=== PATIENT | female | born 1955 | race African-American/Black ===

== ENCOUNTER 2016-11-11 13:49 | Inpatient (IN) | payer MEDICAID ==
[~2016-11-11] VITALS: Ht 172.7 cm; Wt 79.6 kg
--- NOTE | 2016-11-11 14:22 | PD ---
HPI Chief Complaint: Medical Clearance Time Seen by Provider: 14:22 Travel History International Travel<30 days: No Contact w/Intl Traveler<30days: No Traveled to known affect area: No History of Present Illness HPI 61-year-old Afro-[place] female brought in under the Zhu act by EMS from local assisted living facility with history of schizoaffective disorder. Relead act for reports patient has been decompensating over the past week and becoming increasingly depressed, desponded, and isolated. She has reported suicidal ideation and intent stating "I don't want to live anymore". Staff report that she refuses support and directives and well not take her medications. She was deemed a danger to herself. Patient denies any current medications. Patient denies any medical issues. Patient reports that she feels people are putting things in their food for years causing her body to "rot away". She has no known drug allergies. [facility] Social History Alcohol Use: No Tobacco Use: Yes Substance Use: No Allergies-Medications (Allergen,Severity, Reaction): Coded Allergies: No Known Allergies (Unverified , 11/11/16) Reported Meds & Prescriptions Reported Meds & Active Scripts Active Reported Miralax Powder (Polyethylene Glycol 3350 Powder) 17 Gm Powd 17 Gm PO DAILY PRN Mix and dissolve one measuring cap-ful (17 grams) in water or juice. Gabapentin 100 Mg Cap 100 Mg PO TID Benztropine (Benztropine Mesylate) 0.5 Mg Tab 0.5 Mg PO BID Fluphenazine (Fluphenazine HCl) 5 Mg Tab 5 Mg PO BID Review of Systems ROS Limitations: Poor Historian Except as stated in HPI: all other systems reviewed are Neg General / Constitutional: No: Fever Eyes: No: Visual changes HENT: No: Headaches Cardiovascular: No: Chest Pain or Discomfort Respiratory: No: Shortness of Breath Gastrointestinal: No: Abdominal Pain Genitourinary: No: Dysuria Musculoskeletal: No: Pain Skin: No Rash Neurologic: No: Weakness Psychiatric: No: Depression Endocrine: No: Polydipsia Hematologic/Lymphatic: No: Easy Bruising Physical Exam Narrative GENERAL: Patient appears in no acute distress. Patient is unkempt, and appears to not be showered. SKIN: Warm and dry. Normal color. Somewhat poor turgor. HEAD: Atraumatic. Normocephalic. EYES: Pupils equal and round. No scleral icterus. No injection or drainage. ENT: No nasal bleeding or discharge. Mucous membranes pink and moist. Pharynx is clear. Airway is patent. NECK: Trachea midline. No JVD. Supple nontender. CARDIOVASCULAR: Regular rate and rhythm. RESPIRATORY: No accessory muscle use. Clear to auscultation. Breath sounds equal bilaterally. MUSCULOSKELETAL: Extremities without clubbing, cyanosis, or edema. No obvious deformities. NEUROLOGICAL: Awake and alert. No obvious cranial nerve deficits. Motor grossly within normal limits. Five out of 5 muscle strength in the arms and legs. Normal speech. PSYCHIATRIC: Appropriate mood and affect; insight and judgment normal. Data Data Last Documented VS Vital Signs Date Time Temp Pulse Resp B/P Pulse Ox O2 Delivery O2 Flow Rate FiO2 11/11/16 14:43 98.2 78 14 104/60 96 Orders Complete Blood Count With Diff (11/11/16 14:21) Comprehensive Metabolic Panel (11/11/16 14:21) Urinalysis - C+S If Indicated (11/11/16 14:21) Psych Screen (11/11/16 14:21) Drug Screen, Random Urine (11/11/16 14:21) Alcohol (Ethanol) (11/11/16 14:21) Labs Laboratory Tests Test 11/11/16 11/11/16 15:00 20:00 White Blood Count 5.3 TH/MM3 Red Blood Count 4.44 MIL/MM3 Hemoglobin 12.2 GM/DL Hematocrit 36.7 % Mean Corpuscular Volume 82.7 FL Mean Corpuscular Hemoglobin 27.4 PG Mean Corpuscular Hemoglobin 33.2 % Concent Red Cell Distribution Width 15.2 % Platelet Count 178 TH/MM3 Mean Platelet Volume 9.6 FL Neutrophils (%) (Auto) 72.5 % Lymphocytes (%) (Auto) 17.6 % Monocytes (%) (Auto) 5.5 % Eosinophils (%) (Auto) 4.0 % Basophils (%) (Auto) 0.4 % Neutrophils # (Auto) 3.9 TH/MM3 Lymphocytes # (Auto) 0.9 TH/MM3 Monocytes # (Auto) 0.3 TH/MM3 Eosinophils # (Auto) 0.2 TH/MM3 Basophils # (Auto) 0.0 TH/MM3 CBC Comment AUTO DIFF Differential Comment AUTO DIFF CONFIRMED Ovalocytes Sodium Level 142 MEQ/L Potassium Level 3.9 MEQ/L Chloride Level 108 MEQ/L Carbon Dioxide Level 27.7 MEQ/L Anion Gap 6 MEQ/L Blood Urea Nitrogen 9 MG/DL Creatinine 1.01 MG/DL Estimat Glomerular Filtration 67 ML/MIN Rate Random Glucose 135 MG/DL Calcium Level 8.2 MG/DL Total Bilirubin 0.6 MG/DL Aspartate Amino Transf 16 U/L (AST/SGOT) Alanine Aminotransferase 14 U/L (ALT/SGPT) Alkaline Phosphatase 95 U/L Total Protein 6.8 GM/DL Albumin 3.4 GM/DL Ethyl Alcohol Level LESS THAN 3 MG/DL Urine Color YELLOW Urine Turbidity CLEAR Urine pH 6.0 Urine Specific [place] 1.011 Urine Protein NEG mg/dL Urine Glucose (UA) NEG mg/dL Urine Ketones NEG mg/dL Urine Occult Blood NEG Urine Nitrite NEG Urine Bilirubin NEG Urine Urobilinogen LESS THAN 2.0 MG/DL Urine Leukocyte Esterase NEG Urine RBC LESS THAN 1 /hpf Urine WBC 2 /hpf Urine Squamous Epithelial 3 /hpf Cells Urine Bacteria RARE /hpf Urine Hyaline Casts 4 /lpf Urine Mucus FEW /lpf Microscopic Urinalysis Comment CULT NOT INDICATED Urine Opiates Screen NEG Urine Barbiturates Screen NEG Urine Amphetamines Screen NEG Urine Benzodiazepines Screen NEG Urine Cocaine Screen NEG Urine Cannabinoids Screen NEG MDM Medical Decision Making Medical Screen Exam Complete: Yes Emergency Medical Condition: Yes Differential Diagnosis Schizoaffective disorder. Depression. Zhu act. Narrative Course Patient is medically stable at time of exam. Labs ordered including CBC, CMP, urine drug screen, serum EtOH, and urinalysis. CBC, CMP, urine drug screen, serum alcohol and urinalysis were all within normal limits. Patient is medically cleared for psychiatric evaluation. Diagnosis Primary Impression: Suicidal ideations Additional Impressions: Schizoaffective disorder Qualified Code: F25.9 - Schizoaffective disorder, unspecified type Medical clearance for psychiatric admission Condition: Stable Dewey Juarez Nov 11, 2016 14:22
[2016-11-11 14:43] VITALS: BP 104/60; PULSE 78; RESP 14; TEMP 98.2; O2SAT 96
[2016-11-11 15:39] LABS: AUTOMATED NEUTROPHIL # 3.9 TH/MM3 (1.8-7.7); BASOPHIL % 0.4 % (0.0-2.0); EOSINOPHIL # 0.2 TH/MM3 (0-0.4); HEMATOCRIT 36.7 % (35.0-46.0); LYMPH % 17.6 % (9.0-44.0); LYMPHOCYTE # 0.9 TH/MM3 (1.0-4.8); MEAN CELL VOLUME 82.7 FL (80.0-100.0); MEAN CORPUSCULAR HEMOGLOBIN 27.4 PG (27.0-34.0); MEAN CORPUSCULAR HGB CONC 33.2 % (32.0-36.0); MONO % 5.5 % (0.0-8.0); NEUT % 72.5 % (16.0-70.0); PLATELET COUNT 178 TH/MM3 (150-450); RED BLOOD COUNT 4.44 MIL/MM3 (4.00-5.30); RED CELL DISTRIBUTION WIDTH 15.2 % (11.6-17.2); WHITE BLOOD COUNT 5.3 TH/MM3 (4.0-11.0)
[2016-11-11 15:50] LABS: HEMO FLAGS AUTO DIFF
[2016-11-11 16:04] LABS: ALKALINE PHOSPHATASE 95 U/L (45-117); ALT (GPT) 14 U/L (10-53); ANION GAP 6 MEQ/L (5-15); AST (GOT) 16 U/L (15-37); BICARBONATE 27.7 MEQ/L (21.0-32.0); BLOOD UREA NITROGEN 9 MG/DL (7-18); CHLORIDE 108 MEQ/L (98-107); GLOMERULAR FILTRATION RATE 67 ML/MIN (>89); SODIUM (NA) 142 MEQ/L (136-145); TOTAL BILIRUBIN ADULT 0.6 MG/DL (0.2-1.0)
[2016-11-11 16:05] LABS: ALCOHOL LESS THAN 3 MG/DL (0-5); POTASSIUM 3.9 MEQ/L (3.5-5.1)
[2016-11-11] MEDS ORDERED: FLUP5TAB PO (16:32)
[2016-11-11] MEDS ORDERED: BENZ0.5T PO (16:32)
[2016-11-11] MEDS ORDERED: GABA100C4 PO (16:32)
[2016-11-11] MEDS ORDERED: MIRA33504 PO (16:32)
[2016-11-11 16:33] LABS: SCAN/DIFF AUTO DIFF CONFIRMED
[2016-11-11 20:30] LABS: BACTERIA, URINE RARE /hpf; BLOOD, URINE NEG (NEG); COMMENT (UR) CULT NOT INDICATED; CULTURE IF INDICATED CULT NOT INDICATED; GLUCOSE,URINE NEG (NEG); HYALINE CAST, URINE 4 /lpf (RARE); KETONE, URINE NEG (NEG); MUCUS URINE FEW /lpf (OCC); NITRITE,URINE NEG (NEG); SQUAMOUS EPITHELIAL CELL URINE 3 /hpf (0-5); URINE COLOR YELLOW (YELLW/STRAW)
[2016-11-12 01:17] VITALS: BP 134/60; PULSE 53; RESP 16; O2SAT 99
[2016-11-12] MEDS ORDERED: ACETAMINOPHEN 325 MG TAB PO PRN (01:30)
[2016-11-12] MEDS ORDERED: ALUMINUM/MAGNESIUM/SIMETH 30 ML CUP PO PRN (01:30)
[2016-11-12] MEDS ORDERED: LORazepam 2 MG/ML VIAL - age > 65 yrs IM PRN (01:30)
[2016-11-12] MEDS: GABAPENTIN 100 MG CAP PO SCH ×3 (09:27→16:59)
[2016-11-12] MEDS: BENZTROPINE MESYLATE 1 MG TAB PO SCH ×2 (09:27→21:05)
--- NOTE | 2016-11-12 13:48 | HHI.HP ---
Provisional Diagnosis Admission Date Nov 12, 2016 at 01:16 [place] I. Schizophrenia, chronic paranoid type Certification of Person's Competence To Provide Express and Informed Consent I have personally examined Karen Piedra , a person being served at [facility] on, Nov 12, 2016 13:41. Express and informed consent means consent voluntarily given in writing, by a competent person, after sufficient explanation and disclosure of the subject matter involved to enable the person to make a knowing and willful decision without any element of force, fraud, deceit, duress, or other form of constraint or coercion. This person is 18 years of age or older, is not now known to be incompetent to consent to treatment with a guardian advocate, and does not have a health care surrogate or proxy currently making medical treatment decisions. I have found this person to be one of the following: [X] Competent to provide express and informed consent, as defined above, for voluntary admission to this facility and is competent to provide express and informed consent for treatment. He/she has the consistent capacity to make well reasoned, willful, and knowing decisions concerning his or her medical or mental health treatment. The person fully and consistently understands the purpose of the admission for examination/placement and is fully capable of personally exercising all rights assured [place] [] Incompetent to provide express and informed consent to voluntary admission, and this is incompetent to provide express and informed consent to treatment. The person must be transferred to involuntary status and a petition for a guardian advocate filed with the Circuit Court. [] Refusing to provide express and informed consent to voluntary admission but is competent to provide express and informed consent for treatment. The person must be discharged or transferred to involuntary status. Form shall be completed within 24 hours of a person's arrival at the receiving facility and filed in the clinical record of each person: 1. Admitted on a voluntary basis 2. Permitted to provide express and informed consent to his/her own treatment 3. Allowed to transfer from involuntary to voluntary status 4. Prior to permitting a person to consent to his or her own treatment after having been previously found incompetent to consent to treatment. History of Present Illness Capacity: Has Capacity HPI This is a 61-year-old female with a multiyear history of either schizoaffective active disorder or schizophrenia. She has been living at a adult living facility and recently decompensating over the last several weeks. Over the last several weeks, staff reports she has been noncompliant with her medicines, refusing food, refusing supportive care, refusing to follow any directions, and making statements that she wants to . Patient continues to tell this physician of her suicidal ideation. However she also has paranoid delusions that others are poisoning her food. She does admit to not taking her antipsychotic medicine but does not have an adequate reason for this. She is a poor historian and does not want to give a full history to this physician. However, her paranoia is felt to adversely influence her judgment and insight and be the likely cause of her noncompliance with staff, food and medication. Review of Systems ROS Limitations: Clinical Condition Past Psych History Psychological trauma history Denied Violence risk - others (6 mos) Minimal Violence risk - self (6 mos) Moderate Substance Abuse History Drugs/Alcohol past 12 months Denied Past Family Social History Coded Allergies: No Known Allergies (Unverified , 11/11/16) Reported Medications Polyethylene Glycol 3350 Powder (Miralax Powder)17 Gm Powd17 Gm PO DAILY PRN ( CONSTIPATION) #1 BOTTLE Ref 0 Mix and dissolve one measuring cap-ful (17 grams) in water or juice. 11/11/16 Gabapentin 100 Mg [id number] Mg PO TID #90 CAP Ref 0 11/11/16 Benztropine 0.5 Mg Tab0.5 Mg PO BID #60 TAB Ref 0 11/11/16 Fluphenazine 5 Mg Tab5 Mg PO BID 11/11/16 Current Medications Medications (Trade) Dose Ordered Sig/Meghan Route Start Time Stop Time Status Last Admin (Ativan) 0.5 mg Q12H PRN PO 11/12/16 01:30 (Ativan Inj) 0.5 mg Q12H PRN IM 11/12/16 01:30 (Tylenol) 650 mg Q4H PRN PO 11/12/16 01:30 (Milk Of Magnesia Liq) 30 ml DAILY PRN PO 11/12/16 01:30 (Mag-Al Plus Susp Liq) 30 ml Q6H PRN PO 11/12/16 01:30 (Neurontin) 100 mg TID PO 11/12/16 09:00 11/12/16 09:27 (Miralax) 17 gm DAILY PRN PO 11/12/16 01:30 (Prolixin) 5 mg BID PO 11/12/16 09:00 11/12/16 09:27 (Cogentin) 0.5 mg BID PO 11/12/16 09:00 11/12/16 09:27 Family History Reportedly positive for psychotic illness. Social History On social security disability. Not employed. Does not use alcohol or drugs. Patient's Strengths (min. 2) Verbal and resilient. Physical Exam GENERAL: SKIN: Warm and dry. HEAD: Normocephalic. EYES: No scleral icterus. No injection or drainage. NECK: Supple, trachea midline. No JVD or lymphadenopathy. CARDIOVASCULAR: Regular rate and rhythm without murmurs, gallops, or rubs. RESPIRATORY: Breath sounds equal bilaterally. No accessory muscle use. GASTROINTESTINAL: Abdomen soft, non-tender, nondistended. MUSCULOSKELETAL: No cyanosis, or edema. BACK: Nontender without obvious deformity. No CVA tenderness. Vital Signs Vital Signs Date Time Temp Pulse Resp B/P Pulse Ox O2 Delivery O2 Flow Rate FiO2 11/12/16 01:17 53 16 134/60 99 Room Air 11/11/16 14:43 98.2 Mental Status Examination Speech: Unremarkable Orientation: x3 Memory: Unremarkable Thought Process: Organized, Thought Blocking Thought Content: Paranoid Hallucination Type: None Attention and Concentration: Good Suicidal Ideation: Yes Previous Suicide Attempts: No Homicidal Ideation: No Previous Homicide Attempts: No Insight: Fair, Poor Judgment: Unrealistic Affect: Good Mood: Appropriate Motor Activity: Normal gait Assessment & Plan Problem List: (1) Schizophrenia, paranoid, chronic ICD Code: F20.0 Assessment & Plan Estimated LOS: 7 days patient to be given a full metabolic workup to ascertain her level of nutrition and any electrolyte disturbances as a result from poor fluid and food intake. She will also be given an EKG to examine her cardiac conduction system for the same reasons and to ascertain her tolerance for antipsychotic medication changes. This physician has asked the social work coordinator to obtain history from family. Case was also discussed with the emergency room nurse. This physician plans to change the patient's Prolixin to a newer antipsychotic medicine. However this change will be made after the patient's metabolic workup and EKG have been accomplished. Dave Urena MD Nov 12, 2016 13:48
[2016-11-12 16:30] VITALS: BP 107/59; PULSE 65; RESP 20; TEMP 97; O2SAT 100
[2016-11-12 18:00] VITALS: BP 178/88; PULSE 97; RESP 18; TEMP 98.6; O2SAT 94
[2016-11-13 08:49] LABS: ANION GAP 7 MEQ/L (5-15); BICARBONATE 29.8 MEQ/L (21.0-32.0); BLOOD UREA NITROGEN 9 MG/DL (7-18); CHLORIDE 106 MEQ/L (98-107); GLOMERULAR FILTRATION RATE 75 ML/MIN (>89); LDL CHOLESTEROL 28 MG/DL (0-99); POTASSIUM 4.1 MEQ/L (3.5-5.1); SODIUM (NA) 143 MEQ/L (136-145)
[2016-11-13] MEDS: GABAPENTIN 100 MG CAP PO SCH ×3 (09:13→17:06)
[2016-11-13] MEDS: BENZTROPINE MESYLATE 1 MG TAB PO SCH ×2 (09:13→20:26)
--- NOTE | 2016-11-13 11:47 | HHI.PYPN ---
Subjective Remarks Patient was seen and case discussed with nursing. Patient is irritable and oppositional during the interview. Looks around the room during the interview however is denying psychotic symptoms. When asked about her thoughts that people are poisoning her food she admits defensive. Blood pressure elevated at 1 reading which could be machine error but she refuses a repeat. Objective Alert: Yes [place]: Person Mood: Agitated Affect: Flat Memory Intact: Comment (not tested) Hallucinations: Other (denied) Delusions: Yes Delusion Type: Paranoid (that her food is poisoned) Suicidal: Ideation (denies) Homicidal: Ideation (denies) Insight/Judgment Poor Labs Test 11/13/16 07:50 Sodium Level 143 MEQ/L Potassium Level 4.1 MEQ/L Chloride Level 106 MEQ/L Carbon Dioxide Level 29.8 MEQ/L Anion Gap 7 MEQ/L Blood Urea Nitrogen 9 MG/DL Creatinine 0.92 MG/DL Estimat Glomerular Filtration 75 ML/MIN Rate Random Glucose 80 MG/DL Calcium Level 8.6 MG/DL Triglycerides Level 46 MG/DL Cholesterol Level 121 MG/DL LDL Cholesterol 28 MG/DL HDL Cholesterol 84.0 MG/DL Cholesterol/HDL Ratio 1.44 RATIO Vitals/IOs Vital Signs Date Time Temp Pulse Resp B/P Pulse Ox O2 Delivery O2 Flow Rate FiO2 11/12/16 18:00 98.6 97 18 178/88 94 11/12/16 01:17 Room Air Intake and Output 11/12/16 11/12/16 11/13/16 08:00 16:00 00:00 Intake Total 120 ml 240 ml 240 ml Balance 120 ml 240 ml 240 ml Assessment & Plan Problem List: (1) Schizophrenia, paranoid, chronic ICD Code: F20.0 Assessment & Plan Vitals every 8 hours. We will add a low dose lisinopril 5 mg Justification for Cont. Inpt. Patient will decompensate in the less restrictive setting Christian Sood DO Nov 13, 2016 11:47
[2016-11-13] MEDS: LISINOPRIL 5 MG TAB PO SCH (13:00)
[2016-11-14 05:57] VITALS: BP 97/51; PULSE 60; RESP 18; TEMP 97.8; O2SAT 100
[2016-11-14] MEDS: GABAPENTIN 100 MG CAP PO SCH ×3 (09:00→17:03)
[2016-11-14] MEDS: BENZTROPINE MESYLATE 1 MG TAB PO SCH ×2 (09:00→21:28)
[2016-11-14] MEDS: LISINOPRIL 5 MG TAB PO SCH (09:00)
[2016-11-14 13:31] LABS: HEMOGLOBIN A1a 1.1 %; HEMOGLOBIN A1b 0.6 %; HEMOGLOBIN Ao 58.4 %; HEMOGLOBIN F 1.5 %; HEMOGLOBIN P3 2.3 %
--- NOTE | 2016-11-14 14:12 | HHI.PYPN ---
Subjective Remarks Patient seen and examined with nurse. Chart reviewed. Case discussed with nursing staff. On my examination today, the patient tends to minimize the circumstances of her presentation here. She alleges that the facility told her that she didn't have enough rent or asked her to pay rent twice and when she refused to a hat her Zhu acted. She denies any SI, HI or AVH. She describes the circumstances of her presentation here as "a whole bunch of crap." She denies low mood but appears quite dysphoric. She says "my whole body has rot." Denies side effects from current psychotropics but does not believe that she needs any psychiatric medications. It does appear that she is eating here. Review of Systems ROS Limitations: Psychotic, Poor Historian Except as stated in HPI: all other systems reviewed are Neg Objective Alert: Yes [place]: Person Mood: Oppositional, Other (dysphoric) Affect: Restricted Memory Intact: Comment (not formally assessed) Hallucinations: Other (denies AVH) Delusions: Yes Delusion Type: Paranoid (believes that she is rotting) Suicidal: Ideation (denies SI) Homicidal: Ideation (denies HI) Insight/Judgment Poor Remarks No abnormal motor movements noted. Thought process slowed. Grooming and hygiene seem poor. Labs Labs reviewed. Vitals/IOs Vital Signs Date Time Temp Pulse Resp B/P Pulse Ox O2 Delivery O2 Flow Rate FiO2 11/14/16 05:57 97.8 60 18 97/51 100 11/12/16 01:17 Room Air Intake and Output 11/13/16 11/13/16 11/14/16 08:00 16:00 00:00 Intake Total 240 ml 480 ml 240 ml Balance 240 ml 480 ml 240 ml Assessment & Plan Problem List: (1) Schizoaffective disorder ICD Code: F25.9 Assessment & Plan There definitely appears to be an affective component here, currently depressive in nature. Beliefs that she is rotting away could be consistent with a psychotic depression. I will add Remeron 15 mg at bedtime for mood. Continue Prolixin and Cogentin as ordered. Continue to monitor on the inpatient psychiatric unit. I will initiate a petition for involuntary psychiatric hospitalization. I will consult for a second opinion. Justification for Cont. Inpt. Impairment in reality construction. Medication changes and process. High risk for decompensation in a less restrictive environment Discharge Planning Pending psychiatric stabilization. Request HC Surrog/Guard Advoc?: No (not at this time.) Problem Qualifiers (1) Schizoaffective disorder: Qualified Code: F25.8 - Other schizoaffective disorders Geovanny Ruiz MD Nov 14, 2016 14:12
[2016-11-14 20:00] VITALS: BP 92/50; PULSE 60; RESP 18; TEMP 97.5; O2SAT 100
[2016-11-14] MEDS: MIRTAZAPINE ODT 15 MG TAB PO SCH (21:00)
[2016-11-15] MEDS: BENZTROPINE MESYLATE 1 MG TAB PO SCH ×2 (09:00→21:28)
[2016-11-15] MEDS: GABAPENTIN 100 MG CAP PO SCH ×3 (09:00→17:41)
--- NOTE | 2016-11-15 11:33 | PD.CONS ---
Provisional Diagnosis Admission Date Nov 12, 2016 at 01:16 [place] I. Schizophrenia, chronic paranoid type History of Present Illness Service Psychiatry Consult Requested By Primary Care Physician No Primary Care Physician HPI This is a 61-year-old female with a multiyear history of either schizoaffective active disorder or schizophrenia. She has been living at a adult living facility and recently decompensating over the last several weeks. Over the last several weeks, staff reports she has been noncompliant with her medicines, refusing food, refusing supportive care, refusing to follow any directions, and making statements that she wants to . Patient continues to tell this physician of her suicidal ideation. However she also has paranoid delusions that others are poisoning her food. She does admit to not taking her antipsychotic medicine but does not have an adequate reason for this. She is a poor historian and does not want to give a full history to this physician. However, her paranoia is felt to adversely influence her judgment and insight and be the likely cause of her noncompliance with staff, food and medication. Patient seen for psychiatric second opinion. She is found sleeping in her bed, but easily arousable. Patient is just superficially cooperative, mostly guarded and paranoid. She is very malodorous and disheveled. Patient says that she has been feeling depressed, without reasons to live. She says that she wants to "because my life's been going downhill". Patient will not elaborate about her feelings and emotions. Review of Systems Constitutional: DENIES: Diaphoretic episodes, Fatigue, Fever, Weight gain, Weight loss, Chills, Dizziness, Change in appetite, Night Sweats Respiratory: DENIES: Apneas, Cough, Snoring, Wheezing, Hemoptysis, Sputum production, Shortness of breath Musculoskeletal: DENIES: Joint pain, Muscle aches, Stiffness, Joint Swelling, Back pain, Neck pain Hematologic/lymphatic: DENIES: Bruising, Lymphadenopathy Psychiatric: COMPLAINS OF: Depression, Suicidal Ideation, DENIES: Anxiety, Confusion, Mood changes, Hallucinations, Agitation, Homicidal Ideation, Delusions Past Family Social History Coded Allergies: No Known Allergies (Unverified , 11/11/16) Reported Medications Polyethylene Glycol 3350 Powder (Miralax Powder)17 Gm Powd17 Gm PO DAILY PRN ( CONSTIPATION) #1 BOTTLE Ref 0 Mix and dissolve one measuring cap-ful (17 grams) in water or juice. 11/11/16 Gabapentin 100 Mg [id number] Mg PO TID #90 CAP Ref 0 11/11/16 Benztropine 0.5 Mg Tab0.5 Mg PO BID #60 TAB Ref 0 11/11/16 Fluphenazine 5 Mg Tab5 Mg PO BID 11/11/16 Current Medications Medications (Trade) Dose Ordered Sig/Meghan Route Start Time Stop Time Status Last Admin (Ativan) 0.5 mg Q12H PRN PO 11/12/16 01:30 (Ativan Inj) 0.5 mg Q12H PRN IM 11/12/16 01:30 (Tylenol) 650 mg Q4H PRN PO 11/12/16 01:30 (Milk Of Magnesia Liq) 30 ml DAILY PRN PO 11/12/16 01:30 (Mag-Al Plus Susp Liq) 30 ml Q6H PRN PO 11/12/16 01:30 (Neurontin) 100 mg TID PO 11/12/16 09:00 11/15/16 09:00 (Miralax) 17 gm DAILY PRN PO 11/12/16 01:30 (Prolixin) 5 mg BID PO 11/12/16 09:00 11/15/16 09:00 (Cogentin) 0.5 mg BID PO 11/12/16 09:00 11/15/16 09:00 (Prinivil) 5 mg DAILY PO 11/13/16 12:00 Hold 11/14/16 09:00 (Remeron Soltab Odt) 15 mg HS PO 11/14/16 21:00 11/14/16 21:00 Patient's Strengths (min. 2) Verbal and resilient. Physical Exam Vital Signs Vital Signs Date Time Temp Pulse Resp B/P Pulse Ox O2 Delivery O2 Flow Rate FiO2 11/14/16 20:00 97.5 60 18 92/50 100 11/12/16 01:17 Room Air I/O 11/14/16 11/14/16 11/15/16 08:00 16:00 00:00 Intake Total 0 ml 960 ml Balance 0 ml 960 ml Mental Status Examination Speech: Unremarkable Orientation: x3 Memory: Unremarkable Thought Process: Organized, Thought Blocking Thought Content: Paranoid Hallucination Type: None Attention and Concentration: Good Suicidal Ideation: Yes Previous Suicide Attempts: No Homicidal Ideation: No Previous Homicide Attempts: No Insight: Fair, Poor Judgment: Unrealistic Affect: Good Mood: Appropriate Motor Activity: Normal gait Assessment & Plan Problem List: (1) Schizoaffective disorder Assessment & Plan: I have seen and examined this patient, also reviewed the documentation, I totally agree and concur with Dr. Urena assessment and recommendations. ICD Code: F25.9 Assessment & Plan Estimated LOS: days Request HC Surrog/Guard Advoc?: No (not at this time.) Problem Qualifiers (1) Schizoaffective disorder: Qualified Code: F25.8 - Other schizoaffective disorders Davey Ross MD Nov 15, 2016 11:33
--- NOTE | 2016-11-15 15:08 | HHI.PYPN ---
Subjective Remarks Patient seen and examined. Chart reviewed. Case discussed with nursing staff, counselor and occupational therapist in treatment team. Per nursing staff, patient is medication compliant but persists in the belief that she is rotting. Occupational therapist notes that the patient articulates concerns about being poisoned in her food. On my examination today, the patient presents as dysphoric. She says that she is doing "the same, maybe a little worse." She does articulate of beliefs that her food is being poisoned although it does appear that she is eating fairly well here on the unit. She says that this poisoning has been going on for some time noting "people follow me around for the last 6 or 7 years. People were jealous of me being pretty. They went to some root doctor and got bacteria and germs" which they have been placing in her food to make her sick. No SI or HI voiced. She denies side effects from medications. Review of Systems ROS Limitations: Poor Historian Except as stated in HPI: all other systems reviewed are Neg Objective Alert: Yes [place]: Person, Place Mood: Other (dysphoric) Affect: Restricted Memory Intact: Comment (not formally assessed) Hallucinations: Other (denies AVH) Delusions: Yes Delusion Type: Paranoid (continues to believe that she is rotting and that her food is poisoned) Suicidal: Ideation (no SI) Homicidal: Ideation (no HI) Insight/Judgment Poor Remarks No abnormal motor movements noted. Thought process linear within delusional system. Grooming and hygiene fair at best. Labs Labs reviewed. Vitals/IOs Vital Signs Date Time Temp Pulse Resp B/P Pulse Ox O2 Delivery O2 Flow Rate FiO2 11/14/16 20:00 97.5 60 18 92/50 100 11/12/16 01:17 Room Air Intake and Output 11/14/16 11/14/16 11/15/16 08:00 16:00 00:00 Intake Total 0 ml 960 ml Balance 0 ml 960 ml Assessment & Plan Problem List: (1) Schizoaffective disorder ICD Code: F25.9 Assessment & Plan Titrate Prolixin to 7.5 mg twice daily to target psychosis. Continue Remeron for mood. Continue to monitor on the geropsychiatry unit. Continue other medications and care as ordered. Justification for Cont. Inpt. Impairment in reality construction. Medication changes in process. High risk for decompensation in a less restrictive environment. Discharge Planning Pending psychiatric stabilization. PT is recommending rehabilitation. Request HC Surrog/Guard Advoc?: No Problem Qualifiers (1) Schizoaffective disorder: Qualified Code: F25.8 - Other schizoaffective disorders Geovanny Ruiz MD Nov 15, 2016 15:08
[2016-11-15] MEDS ORDERED: PILL SPLITTER OTHER PRN (15:45)
[2016-11-15] MEDS: MIRTAZAPINE ODT 15 MG TAB PO SCH (21:00)
[2016-11-16 05:21] VITALS: BP 113/58; PULSE 77; RESP 16; TEMP 97.6; O2SAT 95
--- NOTE | 2016-11-16 09:16 | HHI.PYPN ---
Subjective Remarks Patient seen and examined with nurse. Chart reviewed. I note that the patient continues to eat well in the hospital. Case discussed with nursing staff. On my examination today, the patient persists in believing that she has been poisoned for the last 30 years. 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 She denies any suicidal ideation. She is agreeable to remaining on the unit to allow for appropriate disposition, and I do see that physical therapy is recommending a rehabilitation level of care. Denies side effects from medications. Review of Systems ROS Limitations: Psychotic, Poor Historian Except as stated in HPI: all other systems reviewed are Neg Objective Alert: Yes [place]: Person, Place Mood: Calm Affect: Blunted Memory Intact: Comment (not formally assessed) Hallucinations: Other (denies AVH) Delusions: Yes Delusion Type: Paranoid (delusions as noted above delusions as noted above) Suicidal: Ideation (denies suicidal ideation) Homicidal: Ideation (no homicidal ideation) Insight/Judgment Poor Remarks No abnormal motor movements noted Labs Labs reviewed. No new labs. Vitals/IOs Vital Signs Date Time Temp Pulse Resp B/P Pulse Ox O2 Delivery O2 Flow Rate FiO2 11/16/16 05:21 97.6 77 16 113/58 95 Intake and Output 11/15/16 11/15/16 11/16/16 08:00 16:00 00:00 Intake Total 480 ml 1440 ml Balance 480 ml 1440 ml Assessment & Plan Problem List: (1) Schizoaffective disorder ICD Code: F25.9 Assessment & Plan Patient is receiving a robust dose of Prolixin without much apparent benefit with regards to her delusions. It is possible that these are fixed and long- standing, but I would like to try an alternate antipsychotic if we do not begin to see any improvement by tomorrow. Continue Remeron for mood. Continue other medications and care as ordered. Patient is agreeable to remaining on the unit , and although she is psychotic, I no longer believe that she is incapacitated to sign into the hospital. I will allow the patient to sign in voluntarily. Justification for Cont. Inpt. Impairment in reality construction. High risk for decompensation in a less restrictive environment. Discharge Planning According to current PT recommendations, patient will require rehabilitation once psychiatrically stabilized. Request HC Surrog/Guard Advoc?: No Problem Qualifiers (1) Schizoaffective disorder: Qualified Code: F25.8 - Other schizoaffective disorders Geovanny Ruiz MD Nov 16, 2016 09:16
[2016-11-16] MEDS: GABAPENTIN 100 MG CAP PO SCH ×3 (09:45→17:32)
[2016-11-16] MEDS: BENZTROPINE MESYLATE 1 MG TAB PO SCH ×2 (09:45→20:43)
[2016-11-16 18:00] VITALS: BP 93/51; PULSE 76; RESP 18; TEMP 99.2; O2SAT 96
[2016-11-16] MEDS: MIRTAZAPINE ODT 15 MG TAB PO SCH (20:44)
[2016-11-17] MEDS: GABAPENTIN 100 MG CAP PO SCH ×3 (09:00→16:23)
[2016-11-17] MEDS: BENZTROPINE MESYLATE 1 MG TAB PO SCH ×2 (09:00→20:25)
--- NOTE | 2016-11-17 15:00 | HHI.PYPN ---
Subjective Remarks Patient seen and examined with nurse. Chart reviewed. Case discussed with nursing staff. On my examination today, patient remains delusional. She believes that she is rotting. She believes that this is happening because people are poisoning her with bacteria because they are jealous of her. She also believes they are trying to extract "ransom money" from her. She wonders if an antibiotic might help clear out the bacteria that she believes are poisoning her. She does still feel safe from their attacks here in the hospital , and I note that she continues to eat well. Denies side effects from medications. Affect remains dysphoric. Review of Systems ROS Limitations: Psychotic, Poor Historian Except as stated in HPI: all other systems reviewed are Neg Objective Alert: Yes [place]: Person, Place Mood: Calm Affect: Restricted (dysphoric) Memory Intact: Comment (not formally assessed) Hallucinations: Other (denies AVH) Delusions: Yes Delusion Type: Paranoid (ongoing delusions as noted above) Suicidal: Ideation (no SI) Homicidal: Ideation (no HI) Insight/Judgment Poor Remarks No motor abnormalities noted. Thought process perseverative on delusional themes. Grooming and hygiene fair at best. Labs Labs reviewed. No new labs. Vitals/IOs Vital Signs Date Time Temp Pulse Resp B/P Pulse Ox O2 Delivery O2 Flow Rate FiO2 11/16/16 18:00 99.2 76 18 93/51 96 Intake and Output 11/16/16 11/16/16 11/17/16 08:00 16:00 00:00 Intake Total 600 ml 840 ml Output Total 1 ml Balance 600 ml 839 ml Assessment & Plan Problem List: (1) Schizoaffective disorder ICD Code: F25.9 Assessment & Plan Patient does not seem to be deriving any benefit with respect to her psychosis from the Prolixin. Discontinue Prolixin and replaced with Abilify at antipsychotic doses, 10 mg daily starting tomorrow. Continue Remeron for now with plans to titrate to 30 mg at bedtime, possibly as soon as tomorrow. Continue to monitor on the inpatient unit. Continue other medications and care as ordered. Justification for Cont. Inpt. Impairment in reality construction. Medication changes in process. High risk for decompensation and a less restrictive environment. Discharge Planning Pending psychiatric stabilization. Request HC Surrog/Guard Advoc?: No Problem Qualifiers (1) Schizoaffective disorder: Qualified Code: F25.8 - Other schizoaffective disorders Geovanny Ruiz MD Nov 17, 2016 15:00
[2016-11-17] MEDS: MIRTAZAPINE ODT 15 MG TAB PO SCH (20:25)
[2016-11-18 06:10] VITALS: BP 120/65; PULSE 63; RESP 16; TEMP 98.1; O2SAT 97
[2016-11-18] MEDS ORDERED: ARIPiprazole 10 MG TAB PO SCH (09:00)
[2016-11-18] MEDS: GABAPENTIN 100 MG CAP PO SCH ×3 (09:22→18:00)
[2016-11-18] MEDS: BENZTROPINE MESYLATE 1 MG TAB PO SCH ×2 (09:22→21:56)
--- NOTE | 2016-11-18 14:45 | HHI.PYPN ---
Subjective Remarks Patient seen and examined. Chart reviewed. Case discussed with nursing staff. On my examination today, patient presents as dysphoric and anhedonic. She continues to believe that she has been poisoned by people who are jealous of her. She believes that her body has been damaged beyond repair noting "it's gone. I have no muscle, no tissue." No SI or HI. No reported AVH. Denies side effects from medications but continues to believe that she doesn't need them. Review of Systems ROS Limitations: Psychotic, Poor Historian Except as stated in HPI: all other systems reviewed are Neg Objective Alert: Yes [place]: Person, Place Mood: Other (dysphoric) Affect: Restricted Memory Intact: Comment (not formally assessed) Hallucinations: Other (no AVH) Delusions: Yes Delusion Type: Paranoid (delusions of being poisoned and rotting) Suicidal: Ideation (no SI) Homicidal: Ideation (no HI) Insight/Judgment Poor Remarks No motor abnormalities noted. Thought process remains perseverative on delusional themes. Speech somewhat slow with increased speech latency. Grooming and hygiene fair at best. Labs Labs reviewed. No new labs. Vitals/IOs Vital Signs Date Time Temp Pulse Resp B/P Pulse Ox O2 Delivery O2 Flow Rate FiO2 11/18/16 06:10 98.1 63 16 120/65 97 Intake and Output 11/17/16 11/17/16 11/18/16 08:00 16:00 00:00 Intake Total 0 ml 960 ml Balance 0 ml 960 ml Weight reviewed, and this is stable Assessment & Plan Problem List: (1) Schizoaffective disorder ICD Code: F25.9 Assessment & Plan Titrate Remeron to 30 mg at bedtime for mood. Plan to titrate Abilify through the weekend to target psychosis. Continue to monitor on the inpatient unit. Continue other medications include care as ordered. PT and OT recommendations noted and appreciated. Justification for Cont. Inpt. Impairment in self-care. Impairment in reality construction. Medication changes in process. High risk for decompensation in a less restrictive environment pending psychiatric stabilization. Discharge Planning Patient will require rehabilitation placement once psychiatrically stabilized. Request HC Surrog/Guard Advoc?: No Problem Qualifiers (1) Schizoaffective disorder: Qualified Code: F25.8 - Other schizoaffective disorders Geovanny Ruiz MD Nov 18, 2016 14:44
[2016-11-18] MEDS: MIRTAZAPINE ODT 30 MG TAB PO SCH (22:13)
[2016-11-19 06:19] VITALS: BP 94/55; PULSE 64; RESP 16; TEMP 98.2; O2SAT 95
[2016-11-19] MEDS: ARIPiprazole 10 MG TAB PO SCH (08:18)
[2016-11-19] MEDS: GABAPENTIN 100 MG CAP PO SCH ×3 (08:18→17:43)
[2016-11-19] MEDS: BENZTROPINE MESYLATE 1 MG TAB PO SCH ×2 (08:18→20:42)
--- NOTE | 2016-11-19 11:08 | HHI.PYPN ---
Subjective Remarks Pt seen and discussed with staff. She has been compliant with medication and denies side effects. She states that she wasn't taking medications at [facility] because her doctors told her that she did not need any medications. She continues to believe that her body is rotting on the inside and states that this has been happening for 9 years. She remains disheveled with poor self- care. She is isolative to her room and engages little on unit. No SI/HI Review of Systems Psychiatric: COMPLAINS OF: Delusions Objective Alert: Yes [place]: Person, Place Mood: Other (dysphoric) Affect: Flat Memory Intact: Comment (fair) Hallucinations: Other (no AVH) Delusions: Yes Delusion Type: Paranoid (delusions of being poisoned and rotting) Suicidal: Ideation (no SI) Homicidal: Ideation (no HI) Insight/Judgment poor Vitals/IOs Vital Signs Date Time Temp Pulse Resp B/P Pulse Ox O2 Delivery O2 Flow Rate FiO2 11/19/16 06:19 98.2 64 16 94/55 95 Intake and Output 11/18/16 11/18/16 11/19/16 08:00 16:00 00:00 Intake Total 0 ml 360 ml Balance 0 ml 360 ml Assessment & Plan Problem List: (1) Schizoaffective disorder ICD Code: F25.9 Assessment & Plan Continue current tx plan.Estimated LOS: days Justification for Cont. Inpt. impairments in self care and reality construction Request HC Surrog/Guard Advoc?: No Problem Qualifiers (1) Schizoaffective disorder: Qualified Code: F25.8 - Other schizoaffective disorders Julisa Ramos MD Nov 19, 2016 11:08
[2016-11-19] MEDS: MIRTAZAPINE ODT 30 MG TAB PO SCH (20:42)
[2016-11-20 05:33] VITALS: BP 116/66; PULSE 56; RESP 15; TEMP 97.2; O2SAT 93
[2016-11-20 06:01] VITALS: BP 116/66; PULSE 56; RESP 15; TEMP 97.2; O2SAT 93
[2016-11-20] MEDS: ARIPiprazole 10 MG TAB PO SCH (08:32)
[2016-11-20] MEDS: BENZTROPINE MESYLATE 1 MG TAB PO SCH ×2 (08:32→20:27)
[2016-11-20] MEDS: GABAPENTIN 100 MG CAP PO SCH ×3 (08:33→17:31)
--- NOTE | 2016-11-20 12:05 | HHI.PYPN ---
Subjective Remarks Pt seen and discussed with staff. Pt is tolerating Abilify titration without side effects. She remains paranoid and delusional. Self-care and hygiene are poor. She is isolative and continues to fixate on delusions of body rotting. No SI/HI Objective Alert: Yes [place]: Person, Place Mood: Other (dysphoric) Affect: Flat Memory Intact: Comment (fair) Hallucinations: Other (no AVH) Delusions: Yes Delusion Type: Paranoid (delusions of being poisoned and rotting) Suicidal: Ideation (no SI) Homicidal: Ideation (no HI) Insight/Judgment withdrawn Vitals/IOs Vital Signs Date Time Temp Pulse Resp B/P Pulse Ox O2 Delivery O2 Flow Rate FiO2 11/20/16 06:01 97.2 56 15 116/66 93 Intake and Output 11/19/16 11/19/16 11/20/16 08:00 16:00 00:00 Intake Total 1680 ml Balance 1680 ml Assessment & Plan Problem List: (1) Schizoaffective disorder ICD Code: F25.9 Assessment & Plan Continue Abilify titration. Continue hospitalization. Estimated LOS: days Justification for Cont. Inpt. impairments in reality construction and self care Request HC Surrog/Guard Advoc?: No Problem Qualifiers (1) Schizoaffective disorder: Qualified Code: F25.8 - Other schizoaffective disorders Julisa Ramos MD Nov 20, 2016 12:05
[2016-11-20 19:27] VITALS: BP 102/61; PULSE 60; RESP 16; TEMP 97.6
[2016-11-20] MEDS: MIRTAZAPINE ODT 30 MG TAB PO SCH (20:27)
[2016-11-21] MEDS: ARIPiprazole 10 MG TAB PO SCH (09:12)
[2016-11-21] MEDS: BENZTROPINE MESYLATE 1 MG TAB PO SCH ×2 (09:12→21:18)
[2016-11-21] MEDS: GABAPENTIN 100 MG CAP PO SCH ×3 (09:12→17:42)
--- NOTE | 2016-11-21 11:27 | HHI.PYPN ---
Subjective Remarks Patient seen and examined. Chart reviewed. Case discussed with nursing staff reports that the patient remained seclusive to room but has been no behavioral problem. Per nursing staff, the patient refused physical therapy this morning. On my examination today, the patient says that it is "the same old story." She continues to believe that she is rotting and being attacked. Affect is more reactive but somewhat irritable. She says that she didn't work with physical therapy because she doesn't have a pair of shoes and doesn't want to walk around in the hospital socks. She does say that she gets out of bed for meals. She denies side effects from medications. No other issues noted. Review of Systems ROS Limitations: Psychotic, Poor Historian Except as stated in HPI: all other systems reviewed are Neg Objective Alert: Yes [place]: Person, Place Mood: Other (somewhat irritable) Affect: Other (affect more reactive today versus before the weekend) Memory Intact: Comment (fair) Hallucinations: Other (no AVH) Delusions: Yes Delusion Type: Paranoid (ongoing delusions of rotting and being attacked) Suicidal: Ideation (No SI) Homicidal: Ideation (No HI) Insight/Judgment Poor Remarks No abnormal motor movements noted. TP linear within delusional system. Labs Labs reviewed. Vitals/IOs Vital Signs Date Time Temp Pulse Resp B/P Pulse Ox O2 Delivery O2 Flow Rate FiO2 11/20/16 19:27 97.6 60 16 102/61 11/20/16 06:01 93 Intake and Output 11/20/16 11/20/16 11/21/16 08:00 16:00 00:00 Intake Total 480 ml Balance 480 ml Assessment & Plan Problem List: (1) Schizoaffective disorder ICD Code: F25.9 Assessment & Plan An adequate response to current therapy with ongoing persecutory delusions and irritability. Continue titration of Abilify to target psychosis. Continue Remeron for mood. Continue to monitor on the inpatient unit. Encouraged patient to work with rehabilitation services. Continue other medications and care as ordered. Justification for Cont. Inpt. Impairment in reality construction. Impairment in self-care. Medication changes and process. High risk for decompensation in a less restrictive environment. Discharge Planning Rehabilitation once psychiatrically stabilized. Request HC Surrog/Guard Advoc?: No Problem Qualifiers (1) Schizoaffective disorder: Qualified Code: F25.8 - Other schizoaffective disorders Geovanny Ruiz MD November 21, 2016 11:27
[2016-11-21 18:00] VITALS: BP 107/56; PULSE 85; RESP 18; TEMP 97.8; O2SAT 97
[2016-11-21] MEDS: MIRTAZAPINE ODT 30 MG TAB PO SCH (21:18)
[2016-11-22 06:00] VITALS: PULSE 65; RESP 16; TEMP 98.4; O2SAT 100
[2016-11-22] MEDS: ARIPiprazole 10 MG TAB PO SCH (08:44)
[2016-11-22] MEDS: BENZTROPINE MESYLATE 1 MG TAB PO SCH ×2 (08:45→20:21)
[2016-11-22] MEDS: GABAPENTIN 100 MG CAP PO SCH ×3 (08:45→17:28)
--- NOTE | 2016-11-22 10:18 | HHI.PYPN ---
Subjective Remarks Patient seen and examined with counselor and nurse. Chart reviewed. Case discussed with nurse, counselor and recreation therapist in treatment team. Per nursing staff, the patient has been refusing PT but has been observed walking in her room. Patient remains grandiose and told nursing staff that Fau[email or web address] is named after her. Recreation therapist notes that the patient 's reported barrier to participating in physical therapy is her lack of shoes, but she declined 5 pairs of shoes that the recreation therapist offered her. On my examination today, the patient says "I can't stop my body from rotting. I no longer have flesh or bones. No dermis or epidermis. Bacteria and germs are causing my body to rot." The patient insists that she wants to "go home to my people" but declines to say who or where these people are. Denies side effects from psychotropics. Review of Systems ROS Limitations: Psychotic, Poor Historian Except as stated in HPI: all other systems reviewed are Neg Objective Alert: Yes [place]: Person, Place Mood: Other (irritable) Affect: Restricted (dysphoric) Memory Intact: Comment (fair) Hallucinations: Other (no AVH) Delusions: Yes Delusion Type: Paranoid (Believes she is rotting and infested with bacteria.) Suicidal: Ideation (No SI) Homicidal: Ideation (No HI) Insight/Judgment Poor Remarks No motor abnormalities noted. Thought process perseverative on delusional themes. Grooming and hygiene fair at best. Labs Labs reviewed. Vitals/IOs Vital Signs Date Time Temp Pulse Resp B/P Pulse Ox O2 Delivery O2 Flow Rate FiO2 11/22/16 06:00 98.4 65 16 100 11/21/16 18:00 107/56 Intake and Output 11/21/16 11/21/16 11/22/16 08:00 16:00 00:00 Intake Total 360 ml 960 ml Balance 360 ml 960 ml Weights reviewed. Patient refused most recent weight, but before that her weight was stable. Assessment & Plan Problem List: (1) Schizoaffective disorder ICD Code: F25.9 Assessment & Plan Continue to titrate Abilify to target delusions. Abilify 25mg tomorrow. Continue Remeron as ordered. Continue to monitor on the inpatient psychiatric unit. Continue other medications and care as ordered. I have encouraged the patient strongly to participate in physical therapy. Justification for Cont. Inpt. Impairment in reality construction. Medication changes in process. High risk for decompensation in a less restrictive environment. Request HC Surrog/Guard Advoc?: No Problem Qualifiers (1) Schizoaffective disorder: Qualified Code: F25.8 - Other schizoaffective disorders Geovanny Ruiz MD November 22, 2016 10:18
[2016-11-22] MEDS: MIRTAZAPINE ODT 30 MG TAB PO SCH (20:21)
[2016-11-23 04:52] VITALS: PULSE 79; RESP 18; TEMP 98.3; O2SAT 97
[2016-11-23] MEDS: BENZTROPINE MESYLATE 1 MG TAB PO SCH ×2 (08:36→20:50)
[2016-11-23] MEDS: ARIPiprazole 10 MG TAB PO SCH (08:36)
[2016-11-23] MEDS: GABAPENTIN 100 MG CAP PO SCH ×3 (08:36→18:00)
--- NOTE | 2016-11-23 11:31 | HHI.PYPN ---
Subjective Remarks Patient seen and examined with counselor and nurse. Chart reviewed. Case discussed with nursing staff reports that the patient has been getting out of bed more and is less seclusive. She remains somewhat grandiose but reportedly told nursing staff that her rotting flesh is getting better. On my examination today, I find the patient sitting in the day area. She appears to be somewhat anxious in the milieu but is tolerating the experience fairly well. She does tell me that she finds it distressing to be in the day area because she believes that this might expose her to attack along the lines that she has articulated before, but she is trying to stay out of her room more. Mood is described as good although affect remains fairly restricted and dysphoric. She did work with physical therapy today. Denies side effects from medications. Review of Systems ROS Limitations: Psychotic, Poor Historian Except as stated in HPI: all other systems reviewed are Neg Objective Alert: Yes [place]: Person, Place Mood: Other ("good") Affect: Restricted (remains dysphoric) Memory Intact: Comment (fair) Hallucinations: Other (no AVH) Delusions: Yes Delusion Type: Paranoid (perhaps there is some early softening of patient's delusions that she is rotting) Suicidal: Ideation (No SI) Homicidal: Ideation (No HI) Insight/Judgment Poor Remarks No motor abnormalities noted. Thought processes fairly linear within delusional system. Grooming and hygiene remain fair to poor at best. Labs Labs reviewed. Vitals/IOs Vital Signs Date Time Temp Pulse Resp B/P Pulse Ox O2 Delivery O2 Flow Rate FiO2 11/23/16 04:52 98.3 79 18 97 11/21/16 18:00 107/56 Intake and Output 11/22/16 11/22/16 11/23/16 08:00 16:00 00:00 Intake Total 360 ml 1380 ml Balance 360 ml 1380 ml Assessment & Plan Problem List: (1) Schizoaffective disorder ICD Code: F25.9 Assessment & Plan Titrate Remeron for mood as patient does remain fairly dysphoric in terms of her affect. Continue Abilify as ordered for now with plans to titrate to target psychosis. Continue to monitor on the inpatient psychiatric unit. Continue other medications and care as ordered. Justification for Cont. Inpt. Impairment in reality construction. Impairment in self-care. Medication changes in process. High risk for decompensation in a restrictive environment. Discharge Planning Plan is for rehabilitation once psychiatrically stabilized. Request HC Surrog/Guard Advoc?: No Problem Qualifiers (1) Schizoaffective disorder: Qualified Code: F25.8 - Other schizoaffective disorders Geovanny Ruiz MD November 23, 2016 11:31
[2016-11-23 16:30] VITALS: BP 157/77; PULSE 97; RESP 17; TEMP 98.5; O2SAT 98
[2016-11-23 16:34] VITALS: PULSE 97; TEMP 98.5; O2SAT 99
[2016-11-23] MEDS: MIRTAZAPINE ODT 15 MG TAB PO SCH (21:00)
[2016-11-24] MEDS: GABAPENTIN 100 MG CAP PO SCH ×3 (08:40→17:44)
[2016-11-24] MEDS: ARIPiprazole 10 MG TAB PO SCH (08:40)
[2016-11-24] MEDS: BENZTROPINE MESYLATE 1 MG TAB PO SCH ×2 (08:40→20:30)
--- NOTE | 2016-11-24 13:40 | HHI.PYPN ---
Subjective Remarks Patient seen and examined. Chart reviewed. Case discussed with nursing staff who reports that the patient did not spontaneously verbalize any delusional material about rotting. She worked with physical therapy. I reviewed the physical therapy notes. On my examination today, the patient says that she isn' t doing too well because she believes that "they made me sit up for too long." Despite this, she is proud that she worked with physical therapy, and I have supported her in her willingness to do so. She does, with questioning, continue to articulate all of the previous delusional material regarding rotting and being poisoned, but this does seem less prominent today. Affect remains fairly dysphoric. She is beginning to discuss discharge planning a little more, which seems like a positive development in context. Denies side effects from medications. Review of Systems ROS Limitations: Psychotic, Poor Historian Except as stated in HPI: all other systems reviewed are Neg Objective Alert: Yes [place]: Person, Place Mood: Other (dysphoric) Affect: Restricted Memory Intact: Comment (fair) Hallucinations: Other (no AVH) Delusions: Yes Delusion Type: Paranoid (delusions of rotting/poisoning less prominent) Suicidal: Ideation (No SI) Homicidal: Ideation (No HI) Insight/Judgment Poor Remarks No motor abnormalities noted. Thought process less perseverative on delusional material, linear. Speech within normal limits for rate, tone and volume. Labs Labs reviewed. Vitals/IOs Vital Signs Date Time Temp Pulse Resp B/P Pulse Ox O2 Delivery O2 Flow Rate FiO2 11/23/16 16:34 98.5 97 99 11/23/16 04:52 18 11/21/16 18:00 107/56 Intake and Output 11/23/16 11/23/16 11/24/16 08:00 16:00 00:00 Intake Total 720 ml 840 ml Balance 720 ml 840 ml Assessment & Plan Problem List: (1) Schizoaffective disorder ICD Code: F25.9 Assessment & Plan Titrate Abilify to target psychotic symptoms. Continue Remeron 45 mg at bedtime for mood. Continue to monitor on the inpatient psychiatric unit. Continue other medications and care as ordered. Justification for Cont. Inpt. Impairment in reality construction. Medication changes in process. High risk for decompensation in a less restrictive environment. Discharge Planning To physical rehabilitation facility once psychiatrically stabilized. Request HC Surrog/Guard Advoc?: No Problem Qualifiers (1) Schizoaffective disorder: Qualified Code: F25.8 - Other schizoaffective disorders Geovanny Ruiz MD November 24, 2016 13:40
[2016-11-24 20:19] VITALS: BP 123/59; PULSE 99; RESP 18; TEMP 98.8; O2SAT 100
[2016-11-24] MEDS: MIRTAZAPINE ODT 15 MG TAB PO SCH (20:30)
[2016-11-25 05:41] VITALS: BP 99/86; PULSE 86; RESP 16; TEMP 98.7; O2SAT 98
[2016-11-25] MEDS: ARIPiprazole 30 MG TAB PO SCH (09:00)
[2016-11-25] MEDS: BENZTROPINE MESYLATE 1 MG TAB PO SCH ×2 (09:01→21:36)
[2016-11-25] MEDS: GABAPENTIN 100 MG CAP PO SCH ×3 (09:01→17:15)
--- NOTE | 2016-11-25 12:53 | HHI.PYPN ---
Subjective Remarks Patient seen and examined. Chart reviewed. Case discussed with nursing staff. On my examination today, I find the patient out in the day area. She seems to be tolerating the milieu somewhat better than in previous days. Affect remains somewhat dysphoric. Delusional material remains essentially unchanged. Denies side effects from medications. No SI or HI voiced. Review of Systems ROS Limitations: Psychotic, Poor Historian Except as stated in HPI: all other systems reviewed are Neg Objective Alert: Yes [place]: Person, Place Mood: Other (somewhat dysphoric) Affect: Restricted Memory Intact: Comment (fair) Hallucinations: Other (no AVH) Delusions: Yes Delusion Type: Paranoid (ongoing delusions of being poisoned and rotting) Suicidal: Ideation (No SI) Homicidal: Ideation (No HI) Insight/Judgment Poor Remarks No motor abnormalities noted Labs Labs reviewed. Vitals/IOs Vital Signs Date Time Temp Pulse Resp B/P Pulse Ox O2 Delivery O2 Flow Rate FiO2 11/25/16 05:41 98.7 86 16 99/86 98 Intake and Output 11/24/16 11/24/16 11/25/16 08:00 16:00 00:00 Intake Total 360 ml 120 ml 120 ml Balance 360 ml 120 ml 120 ml Assessment & Plan Problem List: (1) Schizoaffective disorder ICD Code: F25.9 Assessment & Plan Continue Abilify and Remeron through the weekend. Both of these agents are at maximal doses. I do believe that we are seeing some therapeutic benefit in the sense that the patient is better able to participating in physical therapy and is better able to tolerate the milieu. However, it may be necessary after the weekend to augment these agents either with an additional antidepressant or more likely a second antipsychotic. Continue to monitor on the inpatient unit in the meantime. Continue other medications and care as ordered. Justification for Cont. Inpt. Impairment in reality construction. High risk for decompensation in a restrictive environment. Discharge Planning Patient will require rehabilitation placement. Counselor informs me that she has sent out several referrals. Request HC Surrog/Guard Advoc?: No Problem Qualifiers (1) Schizoaffective disorder: Qualified Code: F25.8 - Other schizoaffective disorders Geovanny Ruiz MD November 25, 2016 12:53
[2016-11-25 18:36] VITALS: BP 114/73; PULSE 111; RESP 16; TEMP 98.1; O2SAT 98
[2016-11-25] MEDS: MIRTAZAPINE ODT 15 MG TAB PO SCH (21:00)
[2016-11-25 22:00] VITALS: PULSE 92
[2016-11-26] MEDS: GABAPENTIN 100 MG CAP PO SCH ×3 (08:47→16:51)
[2016-11-26] MEDS: ARIPiprazole 30 MG TAB PO SCH (08:47)
[2016-11-26] MEDS: BENZTROPINE MESYLATE 1 MG TAB PO SCH ×2 (08:48→21:13)
--- NOTE | 2016-11-26 12:15 | HHI.PYPN ---
Subjective Remarks Patient seen and case discussed with nursing. Patient is slightly irritable and uninterested with the interview. She is alert and oriented 3. Poor eye contact. Perseverative about discharge. Behaving well on the unit. Compliant with her medications. Denies psychotic symptoms. Poor insight Objective Alert: Yes [place]: Person, Place Mood: Oppositional Affect: Restricted Memory Intact: Comment (not tested) Hallucinations: Auditory (denies), Other Delusions: Yes Delusion Type: Paranoid (no delusions elicited today) Suicidal: Ideation (No SI) Homicidal: Ideation (No HI) Insight/Judgment Poor Vitals/IOs Vital Signs Date Time Temp Pulse Resp B/P Pulse Ox O2 Delivery O2 Flow Rate FiO2 11/25/16 22:00 92 11/25/16 18:36 98.1 16 114/73 98 Intake and Output 11/25/16 11/25/16 11/26/16 08:00 16:00 00:00 Intake Total 480 ml 480 ml 120 ml Balance 480 ml 480 ml 120 ml Assessment & Plan Problem List: (1) Schizoaffective disorder ICD Code: F25.9 Assessment & Plan Continue current treatment plan Justification for Cont. Inpt. Patient will decompensate in the less restrictive setting Request HC Surrog/Guard Advoc?: No Problem Qualifiers (1) Schizoaffective disorder: Qualified Code: F25.8 - Other schizoaffective disorders Christian Sood DO November 26, 2016 12:15
[2016-11-26 18:00] VITALS: BP 108/58; PULSE 99; RESP 16; TEMP 98.9; O2SAT 97
[2016-11-26] MEDS: MIRTAZAPINE ODT 15 MG TAB PO SCH (21:00)
[2016-11-27 06:08] VITALS: TEMP 98.8
[2016-11-27] MEDS: GABAPENTIN 100 MG CAP PO SCH ×3 (09:09→17:03)
[2016-11-27] MEDS: BENZTROPINE MESYLATE 1 MG TAB PO SCH ×2 (09:09→20:54)
[2016-11-27] MEDS: ARIPiprazole 30 MG TAB PO SCH (09:09)
--- NOTE | 2016-11-27 09:35 | HHI.PYPN ---
Subjective Remarks Patient was seen and case discussed with nursing. Patient interviewed in bed. She is flat and apathetic poor eye contact. Not social with others. Asking about discharge. Denies suicidal ideation intent or plan. Feels that somebody is watching her. Eating and sleeping well per nursing Objective Alert: Yes [place]: Person, Place Mood: Depressed Affect: Flat Memory Intact: Comment (not tested) Hallucinations: Auditory (denies), Other Delusions: Yes Delusion Type: Paranoid (somebody is watching her) Suicidal: Ideation (No SI) Homicidal: Ideation (No HI) Insight/Judgment Poor Vitals/IOs Vital Signs Date Time Temp Pulse Resp B/P Pulse Ox O2 Delivery O2 Flow Rate FiO2 11/27/16 06:08 98.8 11/26/16 18:00 99 16 108/58 97 Intake and Output 11/26/16 11/26/16 11/27/16 08:00 16:00 00:00 Intake Total 0 ml 3000 ml Balance 0 ml 3000 ml Assessment & Plan Problem List: (1) Schizoaffective disorder ICD Code: F25.9 Assessment & Plan Continue current treatment plan Justification for Cont. Inpt. Patient will decompensate in a less restrictive setting Request HC Surrog/Guard Advoc?: No Problem Qualifiers (1) Schizoaffective disorder: Qualified Code: F25.8 - Other schizoaffective disorders Christian Sood DO November 27, 2016 09:35
[2016-11-27] MEDS: MIRTAZAPINE ODT 15 MG TAB PO SCH (20:54)
[2016-11-28] MEDS: BENZTROPINE MESYLATE 1 MG TAB PO SCH ×2 (08:13→20:16)
[2016-11-28] MEDS: ARIPiprazole 30 MG TAB PO SCH (08:13)
[2016-11-28] MEDS: GABAPENTIN 100 MG CAP PO SCH ×3 (08:13→17:09)
--- NOTE | 2016-11-28 11:58 | HHI.PYPN ---
Subjective Remarks Patient seen and examined. Chart reviewed. Case discussed with nursing staff who reports patient's hygiene is somewhat poor and she has to be prompted to shower. On my examination today, the patient reports that she is unchanged. She continues to believe that she is rotting and that people would poison her outside of the hospital. She says of psychiatrists generally, "you all have the same conversation with me." In spite of her ongoing delusions, affect seems more reactive and the patient continues to talk about eventual discharge. She does say that she would like to stay "with my people because I feel safe there." Patient actually does muster some enthusiasm about going to be at her lunch. Denies side effects from medications. Review of Systems ROS Limitations: Psychotic, Poor Historian Except as stated in HPI: all other systems reviewed are Neg Objective Alert: Yes [place]: Person, Place Mood: Calm Affect: Other (more reactive) Memory Intact: Comment (Not assessed) Hallucinations: Other (No AVH) Delusions: Yes Delusion Type: Paranoid (poisoning/rotting) Suicidal: Ideation (No SI) Homicidal: Ideation (No HI) Insight/Judgment Poor Remarks No motor abnormalities noted. Speech wnl for rate, tone, volume. TP linear. Labs Labs reviewed. Vitals/IOs Vital Signs Date Time Temp Pulse Resp B/P Pulse Ox O2 Delivery O2 Flow Rate FiO2 11/27/16 06:08 98.8 11/26/16 18:00 99 16 108/58 97 Intake and Output 11/27/16 11/27/16 11/27/16 07:59 15:59 23:59 Intake Total 0 ml 360 ml 120 ml Balance 0 ml 360 ml 120 ml Assessment & Plan Problem List: (1) Schizoaffective disorder ICD Code: F25.9 Assessment & Plan Patient with ongoing delusions despite maximal dose of Abilify, and before that a robust dose of Prolixin. I will add low-dose Zyprexa with plans to cross- taper Abilify to Geodon. If Geodon is not effective, will likely plan for clozapine trial. Mood seems improved with Remeron. Continue to monitor on inpatient unit. Continue other medications and care as ordered. Justification for Cont. Inpt. Impairment in reality construction. Medication changes in process. High risk for decompensation in a restrictive environment. Discharge Planning Rehabilitation placement once psychiatrically stabilized. Request HC Surrog/Guard Advoc?: No Problem Qualifiers (1) Schizoaffective disorder: Qualified Code: F25.8 - Other schizoaffective disorders Geovanny Ruiz MD November 28, 2016 11:58
[2016-11-28] MEDS: ZIPRASIDONE HCL 20 MG CAP PO SCH (17:09)
[2016-11-28] MEDS: MIRTAZAPINE ODT 15 MG TAB PO SCH (20:16)
[2016-11-29] MEDS: ARIPiprazole 30 MG TAB PO SCH (08:43)
[2016-11-29] MEDS: BENZTROPINE MESYLATE 1 MG TAB PO SCH ×2 (08:43→20:39)
[2016-11-29] MEDS: GABAPENTIN 100 MG CAP PO SCH ×3 (08:43→17:19)
[2016-11-29] MEDS: ZIPRASIDONE HCL 20 MG CAP PO SCH (08:43)
--- NOTE | 2016-11-29 09:44 | HHI.PYPN ---
Subjective Remarks Patient seen and examined. Chart reviewed. Case discussed with counselor and nurse as well as recreation therapist in the treatment team. Per nursing staff , the patient was somewhat anxious overnight and received Ativan as needed. Recreation therapist reports that the patient is not participating in unit activities. Counselor reports that she tried to contact patient's sister at the number given to her by the patient, but the number kept ringing. I have reviewed physical therapy notes, and the recommendation remains for PT at rehabilitation. On my examination today, the patient reports that she feels "pretty much the same." Continues to have delusions of rotting/being poisoned. Affect once again seems more reactive, and the patient even utilizes some wry humor at the fact that we seem to cover the same ground day after day. She does remain convinced of her delusions, though. No side effects from meds. Review of Systems ROS Limitations: Psychotic, Poor Historian Except as stated in HPI: all other systems reviewed are Neg Objective Alert: Yes [place]: Person, Place Mood: Calm Affect: Blunted Memory Intact: Comment (Not assessed) Hallucinations: Other (No AVH) Delusions: Yes Delusion Type: Paranoid (ongoing delusions of poisoning/rotting) Suicidal: Ideation (No SI) Homicidal: Ideation (No HI) Insight/Judgment Poor Remarks No motor abnormalities noted. Speech within normal limits for rate, tone and volume. Thought process linear within delusional system. Labs Labs reviewed. Vitals/IOs Vital Signs Date Time Temp Pulse Resp B/P Pulse Ox O2 Delivery O2 Flow Rate FiO2 11/27/16 06:08 98.8 11/26/16 18:00 99 16 108/58 97 Intake and Output 11/28/16 11/28/16 11/28/16 07:59 15:59 23:59 Intake Total 0 ml 480 ml 480 ml Output Total 960 ml Balance 0 ml -480 ml 480 ml Weights reviewed: most recent 145#, admission 150#. Assessment & Plan Problem List: (1) Schizoaffective disorder ICD Code: F25.9 Assessment & Plan Continue cross taper Abilify to Geodon: Abilify 20mg daily and Geodon 40mg BID. Continue Remeron for mood. I will add Boost shakes per patient preference for mild weight loss. Continue to monitor on inpatient unit. Continue other medications and care as ordered. Justification for Cont. Inpt. Impairment in reality construction. Ongoing medication changes. High risk for decompensation in a less restrictive environment. Discharge Planning PT at rehabilitation once psychiatrically stabilized. Request HC Surrog/Guard Advoc?: No Problem Qualifiers (1) Schizoaffective disorder: Qualified Code: F25.8 - Other schizoaffective disorders Geovanny Ruiz MD November 29, 2016 09:44
[2016-11-29] MEDS: ZIPRASIDONE HCL 40 MG CAP PO SCH (17:19)
[2016-11-29] MEDS: MIRTAZAPINE ODT 15 MG TAB PO SCH (20:39)
[2016-11-30] MEDS: BENZTROPINE MESYLATE 1 MG TAB PO SCH ×2 (09:18→21:20)
[2016-11-30] MEDS: GABAPENTIN 100 MG CAP PO SCH ×3 (09:18→17:45)
[2016-11-30] MEDS: ZIPRASIDONE HCL 40 MG CAP PO SCH (09:18)
--- NOTE | 2016-11-30 14:37 | HHI.PYPN ---
Subjective Remarks Patient seen and examined. Chart reviewed. Case discussed with nursing staff. On my examination today, the patient remained psychotic and delusional. She has been refusing her blood pressure and when I ask her why she says that she is doing so because she feels that her arms are very weak because of the ongoing poisoning she is experiencing. She pushes into the musculature on her arm and says how "soft" it is "like it's going to melt away." She does agree to let staff check blood pressure at least on a weekly basis. Denies side effects from medications. No other issues noted. Review of Systems ROS Limitations: Psychotic, Poor Historian Except as stated in HPI: all other systems reviewed are Neg Objective Alert: Yes [place]: Person, Place Mood: Calm Affect: Blunted (remains fairly blunted) Memory Intact: Comment (Not assessed) Hallucinations: Other (No AVH) Delusions: Yes Delusion Type: Paranoid (delusions of being poisoned/rotting persist with no perceptible change in their intensity) Suicidal: Ideation (No SI) Homicidal: Ideation (No HI) Insight/Judgment Poor Remarks No motor abnormalities noted. Speech within normal limits for rate, tone and volume. Thought processes linear. Grooming and hygiene poor. Labs Labs reviewed. No new labs. Vitals/IOs Vital Signs Date Time Temp Pulse Resp B/P Pulse Ox O2 Delivery O2 Flow Rate FiO2 11/27/16 06:08 98.8 11/26/16 18:00 99 16 108/58 97 Intake and Output 11/29/16 11/29/16 11/30/16 08:00 16:00 00:00 Intake Total 1320 ml 120 ml Balance 1320 ml 120 ml Assessment & Plan Problem List: (1) Schizoaffective disorder ICD Code: F25.9 Assessment & Plan Continue cross taper Abilify to Geodon: Abilify 10 mg and Geodon 60 mg twice daily with meals. Plan to complete the cross taper tomorrow. Continue Remeron for mood. Continue to monitor on the inpatient unit. Continue other medications and care as ordered. Justification for Cont. Inpt. Impairment in reality construction. Impairment in self-care. Medication changes in process. High risk for decompensation in a restrictive environment. Discharge Planning Rehabilitation placement once psychiatrically stabilized. Request HC Surrog/Guard Advoc?: No Problem Qualifiers (1) Schizoaffective disorder: Qualified Code: F25.8 - Other schizoaffective disorders Geovanny Ruiz MD November 30, 2016 14:37
[2016-11-30] MEDS: ZIPRASIDONE HCL 60 MG CAP PO SCH (17:45)
[2016-11-30] MEDS: MIRTAZAPINE ODT 15 MG TAB PO SCH (21:00)
[2016-12-01] MEDS ORDERED: ARIPiprazole 10 MG TAB PO SCH (09:00)
[2016-12-01] MEDS: ZIPRASIDONE HCL 60 MG CAP PO SCH (09:00)
[2016-12-01] MEDS: BENZTROPINE MESYLATE 1 MG TAB PO SCH ×2 (09:09→21:21)
[2016-12-01] MEDS: GABAPENTIN 100 MG CAP PO SCH ×3 (09:09→18:00)
--- NOTE | 2016-12-01 10:37 | HHI.PYPN ---
Subjective Remarks Patient seen and examined. Chart reviewed. Case discussed with nursing staff. Nursing staff reports that the patient is refusing to bathe and refusing blood pressure checks even after my discussion with her yesterday. I have ordered the patient bathed and groomed to help her maintain basic hygiene. Patient tells me that she does not like to bathe because she believes that it accelerates the rotting process. 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 Appears internally preoccupied. Complains of some mild sedation from medications but otherwise denies side effects. Review of Systems ROS Limitations: Psychotic, Poor Historian Except as stated in HPI: all other systems reviewed are Neg Objective Alert: Yes [place]: Person, Place Mood: Other (irritable) Affect: Restricted Memory Intact: Comment (Not assessed) Hallucinations: Other (Denies AVH) Delusions: Yes Delusion Type: Paranoid Suicidal: Ideation (No SI) Homicidal: Ideation (No HI) Insight/Judgment Poor Remarks No motor abnormalities noted. Facial hirsuitism noted. Speech wnl for rate, tone, volume. Grooming and hygiene poor, assisted by staff today. Labs Labs reviewed. Vitals/IOs Intake and Output 11/30/16 11/30/16 11/30/16 07:59 15:59 23:59 Intake Total 360 ml 720 ml Balance 360 ml 720 ml Assessment & Plan Problem List: (1) Schizoaffective disorder ICD Code: F25.9 Assessment & Plan Complete cross-taper Abilify to Geodon. No discernible improvement from Geodon yet. D/c Abilify. Geodon 80mg BIDPC. Check Prolactin. Continue to monitor on the inpatient unit. I have encouraged regular bathing as well as allowing staff to check vital signs including blood pressure. Continue other medications and care as ordered. Justification for Cont. Inpt. Impairment in self-care. Impairment in reality construction. Medication changes in process. High risk for decompensation in a less restrictive environment. Discharge Planning Patient requires rehabilitation placement once psychiatrically stabilized. Request HC Surrog/Guard Advoc?: No Problem Qualifiers (1) Schizoaffective disorder: Qualified Code: F25.8 - Other schizoaffective disorders Geovanny Ruiz MD December 01, 2016 10:37
[2016-12-01] MEDS: ZIPRASIDONE HCL 80 MG CAP PO SCH (18:00)
[2016-12-01] MEDS: MIRTAZAPINE ODT 15 MG TAB PO SCH (21:00)
[2016-12-02] MEDS: BENZTROPINE MESYLATE 1 MG TAB PO SCH ×2 (10:05→22:00)
[2016-12-02] MEDS: GABAPENTIN 100 MG CAP PO SCH ×3 (10:06→16:58)
[2016-12-02] MEDS: ZIPRASIDONE HCL 80 MG CAP PO SCH (10:06)
--- NOTE | 2016-12-02 10:51 | HHI.PYPN ---
Subjective Remarks Patient seen and examined. Chart reviewed. Case discussed with nursing staff. On my examination today, the patient seems more dysphoric. She feels like with the change to Geodon her level of poisoning/rotting has increased. "This crap wrapped around me is getting worse; it got worse in the last 2 days." Continues to feel like people are trying to attack her "because it's true." No SI or HI. No side effects from medications otherwise. Review of Systems ROS Limitations: Psychotic, Poor Historian Except as stated in HPI: all other systems reviewed are Neg Objective Alert: Yes [place]: Person, Place Mood: Other (irritable, dysphoric) Affect: Restricted Memory Intact: Comment (Not assessed) Hallucinations: Other (No AVH) Delusions: Yes Delusion Type: Paranoid (continues to feel like people are trying to attack and poison her.) Suicidal: Ideation (No SI) Homicidal: Ideation (No HI) Insight/Judgment Poor Remarks No motor abnormalities noted. Grooming and hygiene poor. Labs Labs reviewed. No new labs. Prolactin pending. Vitals/IOs Intake and Output 12/01/16 12/01/16 12/02/16 08:00 16:00 00:00 Intake Total 480 ml 360 ml Balance 480 ml 360 ml Assessment & Plan Problem List: (1) Schizoaffective disorder ICD Code: F25.9 Assessment & Plan Patient seems more dysphoric and delusional on Geodon versus Abilify, however Abilify did not adequately control her symptoms either. I will discontinue Geodon and start Latuda 40mg with dinner with plans to titrate into therapeutic range. Check an updated set of basic labs in the morning. Continue to monitor on inpatient unit. Continue to support ADLs as needed for hygiene. Continue other medications and care as ordered. Case signed out to Dr. Riggs, who will be covering this patient in my absence. Justification for Cont. Inpt. Impairment in self-care. Impairment in reality construction. Med changes in process. High risk for decompensation in a less restrictive environment. Discharge Planning To rehab once psychiatrically stabilized. Request HC Surrog/Guard Advoc?: No Problem Qualifiers (1) Schizoaffective disorder: Qualified Code: F25.8 - Other schizoaffective disorders Geovanny Ruiz MD December 02, 2016 10:51
[2016-12-02] MEDS ORDERED: LURASIDONE 40 MG TAB PO SCH (18:00)
[2016-12-02] MEDS: MIRTAZAPINE ODT 15 MG TAB PO SCH (21:00)
--- NOTE | 2016-12-03 09:06 | HHI.PYPN ---
Subjective Remarks Patient seen and examined with nurse. Chart reviewed. Patient is eating well. Case discussed with nursing staff who reports patient is unchanged. She once again refused vital signs. On my examination today, the patient presents as malodorous and disheveled. She says "my whole body is rotting." We discussed the need for follow-up laboratories given her hypoprolactinemia. Patient refuses saying "I don't have any blood left." Denies side effects from medications and feels like the Latuda is working better than the Geodon was. I am told by nursing staff that the patient has refused needed laboratories to evaluate for possible endocrine dysfunction. Review of Systems ROS Limitations: Psychotic, Poor Historian Except as stated in HPI: all other systems reviewed are Neg Objective Alert: Yes [place]: Person, Place Mood: Other (remains somewhat irritable) Affect: Restricted Memory Intact: Comment (not formally assessed) Hallucinations: Other (No AVH) Delusions: Yes Delusion Type: Paranoid (feels like she is rotting) Suicidal: Ideation (No SI) Homicidal: Ideation (No HI) Insight/Judgment Poor Remarks No motor abnormalities noted Labs Test 12/02/16 09:40 Prolactin <1.0 ng/mL Labs reviewed. Undetectable prolactin noted. Vitals/IOs Intake and Output 12/02/16 12/02/16 12/03/16 08:00 16:00 00:00 Intake Total 360 ml 720 ml 720 ml Balance 360 ml 720 ml 720 ml Assessment & Plan Problem List: (1) Schizoaffective disorder ICD Code: F25.9 Assessment & Plan Patient is presently voluntary. I am concerned that she is placing herself at considerable risk by refusing needed laboratories, and that this refusal is a direct result of her psychotic process. I will initiate a petition for involuntary psychiatric hospitalization in consult for second opinion. I will additionally request a healthcare surrogate and guardian advocate. Once all of this has been completed, I will place a temporary restraining order in order to obtain laboratories and also to promote hygiene and to allow for staff to obtain vital signs. Check TSH/free T4 and ACTH/cortisol once able. Titrate Latuda to 60 mg with dinner. Continue Remeron as ordered. I will consult the hospitalist to evaluate for possible endocrine issue. Continue to monitor on the inpatient unit. Continue other medications and care as ordered. Justification for Cont. Inpt. Impairment in reality construction. Medication changes and process. High risk for decompensation in a less restrictive environment. Discharge Planning Patient will require physical rehabilitation pending psychiatric stabilization. Request HC Surrog/Guard Advoc?: Yes (Now requesting HCS/GA.) Problem Qualifiers (1) Schizoaffective disorder: Qualified Code: F25.8 - Other schizoaffective disorders Goevanny Ruiz MD December 03, 2016 09:06
[2016-12-03] MEDS: BENZTROPINE MESYLATE 1 MG TAB PO SCH ×2 (09:29→22:22)
[2016-12-03] MEDS: GABAPENTIN 100 MG CAP PO SCH ×3 (09:29→17:27)
--- NOTE | 2016-12-03 11:35 | PD.CONS ---
Provisional Diagnosis Admission Date Nov 12, 2016 at 01:16 [place] I. Schizophrenia, chronic paranoid type History of Present Illness Service Psychiatry Consult Requested By Primary Care Physician No Primary Care Physician HPI This is a 61-year-old female with a multiyear history of either schizoaffective active disorder or schizophrenia. She has been living at a adult living facility and recently decompensating over the last several weeks. Over the last several weeks, staff reports she has been noncompliant with her medicines, refusing food, refusing supportive care, refusing to follow any directions, and making statements that she wants to . Patient continues to tell this physician of her suicidal ideation. However she also has paranoid delusions that others are poisoning her food. She does admit to not taking her antipsychotic medicine but does not have an adequate reason for this. She is a poor historian and does not want to give a full history to this physician. However, her paranoia is felt to adversely influence her judgment and insight and be the likely cause of her noncompliance with staff, food and medication. Patient seen for psychiatric second opinion. She is found sleeping in her bed, but easily arousable. Patient is just superficially cooperative, mostly guarded and paranoid. She is very malodorous and disheveled. Patient says that she has been feeling depressed, without reasons to live. She says that she wants to "because my life's been going downhill". Patient will not elaborate about her feelings and emotions. 12/03/16 Above note dictated by Dr. ruiz noted and agreed with, patient medically to Dr. Ruiz service under the Zhu act. Patient seen by me on unit with floor staff, patient continues paranoid delusional thinking vague suicidal statements, also has been noncompliant with treatment of medication after about living facility. Dr. lacey has signed first opinion petition supporting Zhu act. I agree. Patient meets criteria for involuntary psychiatric hospitalization under the Zhu act thus I'll cosign second opinion petition supporting Zhu act Past Family Social History Coded Allergies: No Known Allergies (Unverified , 11/11/16) Reported Medications Polyethylene Glycol 3350 Powder (Miralax Powder)17 Gm Powd17 Gm PO DAILY PRN ( CONSTIPATION) #1 BOTTLE Ref 0 Mix and dissolve one measuring cap-ful (17 grams) in water or juice. 11/11/16 Gabapentin 100 Mg Eto776 Mg PO TID #90 CAP Ref 0 11/11/16 Benztropine 0.5 Mg Tab0.5 Mg PO BID #60 TAB Ref 0 11/11/16 Fluphenazine 5 Mg Tab5 Mg PO BID 11/11/16 Current Medications Medications (Trade) Dose Ordered Sig/Meghan Route Start Time Stop Time Status Last Admin (Ativan) 0.5 mg Q12H PRN PO 11/12/16 01:30 (Ativan Inj) 0.5 mg Q12H PRN IM 11/12/16 01:30 (Tylenol) 650 mg Q4H PRN PO 11/12/16 01:30 (Milk Of Magnesia Liq) 30 ml DAILY PRN PO 11/12/16 01:30 (Mag-Al Plus Susp Liq) 30 ml Q6H PRN PO 11/12/16 01:30 (Neurontin) 100 mg TID PO 11/12/16 09:00 12/03/16 09:29 (Miralax) 17 gm DAILY PRN PO 11/12/16 01:30 (Cogentin) 0.5 mg BID PO 11/12/16 09:00 12/03/16 09:29 (Prinivil) 5 mg DAILY PO 11/13/16 12:00 Hold 11/14/16 09:00 (Pill Splitter) 1 ea UNSCH PRN OTHER 11/15/16 15:45 (Remeron Soltab Odt) 45 mg HS PO 11/23/16 21:00 12/02/16 21:00 Patient's Strengths (min. 2) Verbal and resilient. Physical Exam Vital Signs I/O 12/02/16 12/02/16 12/03/16 08:00 16:00 00:00 Intake Total 360 ml 720 ml 720 ml Balance 360 ml 720 ml 720 ml Mental Status Examination Speech: Unremarkable Orientation: x3 Memory: Unremarkable Thought Process: Organized, Thought Blocking Thought Content: Paranoid Hallucination Type: None Attention and Concentration: Good Suicidal Ideation: Yes Previous Suicide Attempts: No Homicidal Ideation: No Previous Homicide Attempts: No Insight: Fair, Poor Judgment: Unrealistic Affect: Good Mood: Appropriate Motor Activity: Normal gait Assessment & Plan Problem List: (1) Schizoaffective disorder ICD Code: F25.9 Assessment & Plan Estimated LOS: days Request HC Surrog/Guard Advoc?: Yes (Now requesting HCS/GA.) Problem Qualifiers (1) Schizoaffective disorder: Qualified Code: F25.8 - Other schizoaffective disorders Chris Riggs MD December 03, 2016 11:35
--- NOTE | 2016-12-03 13:00 | PD.CONS ---
[facility] Request[facility] By Psychiatry, Dr. Ruiz Reason for Consult Assist with hypoprolactinemia Primary Care Physician No Primary Care Physician Diagnoses: History of Present Illness Patient is a 61-year-old female with primary medical history of schizoaffective disorder living in assisted living facility came into the hospital initially under Zhu act by EMS secondary to decompensation becoming increasingly depressed, despondent, and isolated 11/11/16. As per review of records, patient has been reported to have suicidal ideation and intent with statement "I don't want to live anymore." Patient is now admitted to inpatient psychiatry unit for further evaluation. Consulted for hypoprolactinemia. Patient seen and examined today. Reports she is not doing well that her body is rotting. Complains of generalized weakness including bilateral leg weakness with use of wheelchair for mobility because as per patient it "has been an ongoing 30 years brothers that people are putting poison on my food, and it takes a topical on meat now that is why I am rotting. My head is can fall off, my hands are given a fall off in my legs are also falling off." As per staff, patient is usually reclusive. Patient doesn't trust anyone, paranoia. As per COMPUTER SYSTEMS MANAGER observed earlier to be eating food of another resident but she would not eat her own food. Review of Systems Except as stated in HPI: all other systems reviewed are Neg Past Family Social History Allergies: Coded Allergies: No Known Allergies (Unverified , 11/11/16) Past Medical History Schizoaffective disorder Depression Past Surgical History Tonsillectomy Reported Medications Reported Meds & Active Scripts Active Reported Miralax Powder (Polyethylene Glycol 3350 Powder) 17 Gm Powd 17 Gm PO DAILY PRN Mix and dissolve one measuring cap-ful (17 grams) in water or juice. Gabapentin 100 Mg Cap 100 Mg PO TID Benztropine (Benztropine Mesylate) 0.5 Mg Tab 0.5 Mg PO BID Fluphenazine (Fluphenazine HCl) 5 Mg Tab 5 Mg PO BID Active Ordered Medications Current Medications Medications (Trade) Dose Ordered Sig/Meghan Route Start Time Stop Time Status Last Admin (Ativan) 0.5 mg Q12H PRN PO 11/12/16 01:30 (Ativan Inj) 0.5 mg Q12H PRN IM 11/12/16 01:30 (Tylenol) 650 mg Q4H PRN PO 11/12/16 01:30 (Milk Of Magnesia Liq) 30 ml DAILY PRN PO 11/12/16 01:30 (Mag-Al Plus Susp Liq) 30 ml Q6H PRN PO 11/12/16 01:30 (Neurontin) 100 mg TID PO 11/12/16 09:00 12/03/16 12:46 (Miralax) 17 gm DAILY PRN PO 11/12/16 01:30 (Cogentin) 0.5 mg BID PO 11/12/16 09:00 12/03/16 09:29 (Prinivil) 5 mg DAILY PO 11/13/16 12:00 Hold 11/14/16 09:00 (Pill Splitter) 1 ea UNSCH PRN OTHER 11/15/16 15:45 (Remeron Soltab Odt) 45 mg HS PO 11/23/16 21:00 12/02/16 21:00 Family History Denies any family medical history Social History Lives in assisted living facility Denies alcohol use Tobacco use Denies illicit drug use Physical Exam Physical Exam GENERAL: This is a well-nourished, well-developed patient, in no apparent distress. SKIN: Warm and dry, scaly skin. Generalized tenderness to palpation all over body. HEAD: Normocephalic. No temporal or scalp tenderness. EYES: Pupils equal round and reactive. No scleral icterus. No injection or drainage. ENT: Nose without bleeding. Throat without erythema. Uvula midline. Airway patent. NECK: Trachea midline. No JVD or lymphadenopathy. CARDIOVASCULAR: Regular rate and rhythm without murmurs, gallops, or rubs. RESPIRATORY: Clear to auscultation. Breath sounds equal bilaterally. No wheezes , rales, or rhonchi. GASTROINTESTINAL: Abdomen soft, non-tender, nondistended. MUSCULOSKELETAL: Extremities without clubbing, cyanosis, or edema. NEUROLOGICAL: Awake and alert. Moves all extremities. BLE weaker than BUE. Pressured speech. PSYCH: Flat affect. Assessment and Plan Problem List: (1) Schizoaffective disorder ICD Code: F25.9 Status: Acute (2) Schizophrenia, paranoid, chronic ICD Code: F20.0 Status: Acute (3) Suicidal ideations ICD Code: R45.851 Status: Acute Assessment and Plan Patient is a 61-year-old female with primary medical history of schizoaffective disorder living in assisted living facility came into the hospital initially under [facility] act by EMS secondary to decompensation becoming increasingly depressed, despondent, and isolated 11/11/16. As per review of records, patient has been reported to have suicidal ideation and intent with statement "I don't want to live anymore." Patient is now admitted to inpatient psychiatry unit for further evaluation. Consulted for hypoprolactinemia. Schizoaffective disorder, depression, schizophrenia with paranoia - managed by psychiatry team Hypo prolactinemia - Prolactin level <1.0 - Check TSH, free T4, ACTH, Cortisol - Patient has been refusing lab draws. Psychiatry team is already requested court order in restraints for patient for lab draws. - Follow-up results. - If with pituitary abnormality, endocrinology referral for outpatient, possibly brain MRI r/o pituitary tumor. Hypotension/ Tachycardia Stable. Likely s/t decreased PO intake. - encourage PO intake. - monitor. DVT prop assisted ambulation Thank you for this consultation. We will follow patient with you. Written by Davey Contreras, acting as scribe for Dr. Shultz on 12/03/16 at 15: 01. This note was transcribed by scribe Davey Contreras. I, Dr. Mateo Shultz personally performed the history, physical exam, and medical decision making; and confirmed the accuracy of the information in the transcribed note. Authenticated by Dr. Mateo Shultz on 12/03/16 at 16:25. Code Status Full code Discussed Condition With Patient, nursing Problem Qualifiers (1) Schizoaffective disorder: Qualified Code: F25.8 - Other schizoaffective disorders Davey Meyer December 03, 2016 13:00 Mateo Shultz DO December 03, 2016 16:25
[2016-12-03] MEDS: LURASIDONE 40 MG TAB PO SCH (17:27)
[2016-12-03] MEDS: MIRTAZAPINE ODT 15 MG TAB PO SCH (21:00)
[2016-12-04] MEDS: BENZTROPINE MESYLATE 1 MG TAB PO SCH ×2 (08:09→21:35)
[2016-12-04] MEDS: GABAPENTIN 100 MG CAP PO SCH ×3 (08:10→17:30)
--- NOTE | 2016-12-04 11:52 | HHI.PYPN ---
Subjective Remarks Patient was seen today for psychiatric reevaluation, patient was found in bed, with life of, guarded, irritable, refusing to talk, requesting to be discharged , she is oriented 3, but focuses in accusations "I am here because I did not pay my rent, I am being punished". She denies suicidal or homicidal ideation, she denies visual and auditory hallucinations. Patient is compliant with medications, she has been withdrawal and isolated mostly. Review of Systems Other No somatic complaints Objective Alert: Yes [place]: Person, Place, Date Mood: Angry, Other Affect: Restricted, Blunted Memory Intact: Comment (not formally assessed) Hallucinations: Other (No AVH) Delusions: Yes Delusion Type: Paranoid (feels like she is rotting) Suicidal: Ideation (No SI) Homicidal: Ideation (No HI) Insight/Judgment Poor Vitals/IOs Intake and Output 12/03/16 12/03/16 12/03/16 07:59 15:59 23:59 Intake Total 720 ml 720 ml Balance 720 ml 720 ml Assessment & Plan Problem List: (1) Schizoaffective disorder ICD Code: F25.9 Assessment & Plan Estimated LOS: days Justification for Cont. Inpt. Patient remains quite paranoid and delusional, she needs to continue psychiatric hospitalization for stabilization Request HC Surrog/Guard Advoc?: Yes (Now requesting HCS/GA.) Problem Qualifiers (1) Schizoaffective disorder: Qualified Code: F25.8 - Other schizoaffective disorders Davey Ross MD December 04, 2016 11:52
[2016-12-04] MEDS: LURASIDONE 40 MG TAB PO SCH (17:30)
[2016-12-04 20:08] VITALS: RESP 16
[2016-12-04] MEDS: MIRTAZAPINE ODT 15 MG TAB PO SCH (21:00)
[2016-12-05] MEDS: BENZTROPINE MESYLATE 1 MG TAB PO SCH ×2 (08:10→21:36)
[2016-12-05] MEDS: GABAPENTIN 100 MG CAP PO SCH ×3 (08:10→17:08)
--- NOTE | 2016-12-05 16:03 | HHI.PYPN ---
Subjective Remarks Patient seen in day room with nurse Yomi patient compliant medications though refusing vital signs and labs at the present time. She continues to isolate. Still feels like things are insight and that she is coming apart. For now continue treatment Review of Systems Except as stated in HPI: all other systems reviewed are Neg Objective Alert: Yes [place]: Person, Place, Date Mood: Angry, Other Affect: Restricted, Blunted Memory Intact: Comment (not formally assessed) Hallucinations: Other (No AVH) Delusions: Yes Delusion Type: Paranoid (feels like she is rotting) Suicidal: Ideation (No SI) Homicidal: Ideation (No HI) Insight/Judgment Very poor Vitals/IOs Vital Signs Date Time Temp Pulse Resp B/P Pulse Ox O2 Delivery O2 Flow Rate FiO2 12/04/16 20:08 16 Intake and Output 12/04/16 12/04/16 12/05/16 08:00 16:00 00:00 Intake Total 0 ml 600 ml 240 ml Balance 0 ml 600 ml 240 ml Assessment & Plan Problem List: (1) Schizoaffective disorder ICD Code: F25.9 Assessment & Plan Estimated LOS: days patient remained psychotic delusional labile, though significant behavioral problems. Compliant medications. Justification for Cont. Inpt. At this time patient would decompensate if placed on the lower level of care Discharge Planning To be determined Request HC Surrog/Guard Advoc?: Yes (Now requesting HCS/GA.) Problem Qualifiers (1) Schizoaffective disorder: Qualified Code: F25.8 - Other schizoaffective disorders Chris Riggs MD December 05, 2016 16:03
[2016-12-05] MEDS: LURASIDONE 40 MG TAB PO SCH (17:08)
[2016-12-05] MEDS: MIRTAZAPINE ODT 15 MG TAB PO SCH (21:00)
[2016-12-06] MEDS: GABAPENTIN 100 MG CAP PO SCH ×3 (09:32→17:21)
[2016-12-06] MEDS: BENZTROPINE MESYLATE 1 MG TAB PO SCH ×2 (09:32→21:25)
--- NOTE | 2016-12-06 13:03 | HHI.PYPN ---
Subjective Remarks Patient seen in her room with nurse Nadiya, chart reviewed, patient continues to isolate, continues to remain somewhat vigilant, though compliant with medications. Patient states eating and sleeping well. For now continue treatment Review of Systems Except as stated in HPI: all other systems reviewed are Neg Objective Alert: Yes [place]: Person, Place, Date Mood: Angry, Other Affect: Restricted, Blunted Memory Intact: Comment (not formally assessed) Hallucinations: Other (No AVH) Delusions: Yes Delusion Type: Paranoid (feels like she is rotting) Suicidal: Ideation (No SI) Homicidal: Ideation (No HI) Insight/Judgment Poor Vitals/IOs Vital Signs Date Time Temp Pulse Resp B/P Pulse Ox O2 Delivery O2 Flow Rate FiO2 12/04/16 20:08 16 Intake and Output 12/05/16 12/05/16 12/06/16 08:00 16:00 00:00 Intake Total 960 ml 4660 ml Balance 960 ml 4660 ml Assessment & Plan Problem List: (1) Schizoaffective disorder ICD Code: F25.9 Assessment & Plan Estimated LOS: days patient continue psychotic, disorganized, but calmer for now continue treatment Justification for Cont. Inpt. At this time patient will decompensate the place to the lower level of care Discharge Planning To be determined Request HC Surrog/Guard Advoc?: Yes (Now requesting HCS/GA.) Problem Qualifiers (1) Schizoaffective disorder: Qualified Code: F25.8 - Other schizoaffective disorders Chris Riggs MD December 06, 2016 13:03
--- NOTE | 2016-12-06 13:27 | HHI.PR ---
Subjective Remarks Follow-up visit low prolactin, schizoaffective disorder. Patient seen and examined today. Reports she is doing well. Discussed with patient the need for lab draws to be able to determine why she has low prolactin. States that she is doing fine and she doesn't need anything to be checked. States that she doesn't like to have blood draws because they give her hands so tight and keep looking for veins and he could not find one. Discuss option for brain MRI to make sure that she doesn't have any pituitary abnormality. Patient declines brain MRI stating "there is nothing wrong with her brain." Denies pain and discomfort. Denies SOB/ dyspnea. Denies chest pain, palpitations, headaches, dizziness. Denies fevers, chills, n/v/d. Denies hematuria, dysuria. Objective Vitals I/O 12/05/16 12/05/16 12/05/16 12/06/16 12/06/16 12/06/16 07:00 15:00 23:00 07:00 15:00 23:00 Intake Total 0 ml 960 ml 4660 ml 1 ml Balance 0 ml 960 ml 4660 ml 1 ml Intake Oral 0 ml 960 ml 4660 ml 1 ml # Voids 1 1 Objective Remarks GENERAL: This is a well-nourished, well-developed patient, in no apparent distress. SKIN: Warm and dry, scaly skin. Generalized tenderness to palpation all over body. HEAD: Normocephalic. No temporal or scalp tenderness. EYES: Pupils equal round and reactive. No scleral icterus. No injection or drainage. ENT: Nose without bleeding. Throat without erythema. Uvula midline. Airway patent. NECK: Trachea midline. No JVD or lymphadenopathy. CARDIOVASCULAR: Regular rate and rhythm without murmurs, gallops, or rubs. RESPIRATORY: Clear to auscultation. Breath sounds equal bilaterally. No wheezes , rales, or rhonchi. GASTROINTESTINAL: Abdomen soft, non-tender, nondistended. MUSCULOSKELETAL: Extremities without clubbing, cyanosis, or edema. NEUROLOGICAL: Awake and alert. Moves all extremities. BLE weaker than BUE. Pressured speech. PSYCH: Flat affect. A/P Problem List: (1) Schizoaffective disorder ICD Code: F25.9 Status: Acute (2) Schizophrenia, paranoid, chronic ICD Code: F20.0 Status: Acute (3) Suicidal ideations ICD Code: R45.851 Status: Acute Assessment and Plan Patient is a 61-year-old female with primary medical history of schizoaffective disorder living in assisted living facility came into the hospital initially under [facility] act by EMS secondary to decompensation becoming increasingly depressed, despondent, and isolated 11/11/16. As per review of records, patient has been reported to have suicidal ideation and intent with statement "I don't want to live anymore." Patient is now admitted to inpatient psychiatry unit for further evaluation. Consulted for hypoprolactinemia. Schizoaffective disorder, depression, schizophrenia with paranoia - managed by psychiatry team Hypo prolactinemia - Prolactin level <1.0 - Check TSH, free T4, ACTH, Cortisol - repeat labs ordered - Patient has been refusing lab draws. Spoke with Dr. Riggs. He will place a hold on order for lab draws. - Follow-up results. - If with pituitary abnormality, endocrinology referral for outpatient, possibly brain MRI r/o pituitary tumor. Hypotension/ Tachycardia - Stable. Likely s/t decreased PO intake. - encourage PO intake. - Monitor BP trend, heart rate DVT prop assisted ambulation Discussed with patient, nursing, Dr. Riggs, Dr. Shultz Problem Qualifiers (1) Schizoaffective disorder: Qualified Code: F25.8 - Other schizoaffective disorders Davey Meyer December 06, 2016 13:27
[2016-12-06] MEDS: LURASIDONE 40 MG TAB PO SCH (17:21)
[2016-12-06] MEDS: MAGNESIUM HYDROXIDE SUSP 30 ML CUP PO PRN (18:32)
[2016-12-06] MEDS: MIRTAZAPINE ODT 15 MG TAB PO SCH (21:00)
[2016-12-07 07:50] LABS: AUTOMATED NEUTROPHIL # 2.3 TH/MM3 (1.8-7.7); BASOPHIL % 0.8 % (0.0-2.0); EOSINOPHIL # 0.2 TH/MM3 (0-0.4); EOSINOPHIL % 3.9 % (0.0-4.0); HEMATOCRIT 35.9 % (35.0-46.0); HEMO FLAGS DIFF FINAL; LYMPH % 36.8 % (9.0-44.0); LYMPHOCYTE # 1.8 TH/MM3 (1.0-4.8); MEAN CELL VOLUME 83.6 FL (80.0-100.0); MEAN CORPUSCULAR HEMOGLOBIN 27.2 PG (27.0-34.0); MEAN CORPUSCULAR HGB CONC 32.6 % (32.0-36.0); MONO % 10.9 % (0.0-8.0); NEUT % 47.6 % (16.0-70.0); PLATELET COUNT 239 TH/MM3 (150-450); RED BLOOD COUNT 4.29 MIL/MM3 (4.00-5.30); RED CELL DISTRIBUTION WIDTH 15.8 % (11.6-17.2); WHITE BLOOD COUNT 4.8 TH/MM3 (4.0-11.0)
[2016-12-07 08:33] LABS: ALKALINE PHOSPHATASE 96 U/L (45-117); ALT (GPT) 16 U/L (10-53); ANION GAP 9 MEQ/L (5-15); AST (GOT) 11 U/L (15-37); BICARBONATE 28.9 MEQ/L (21.0-32.0); BLOOD UREA NITROGEN 15 MG/DL (7-18); CHLORIDE 102 MEQ/L (98-107); FREE T4 0.85 NG/DL (0.76-1.46); GLOMERULAR FILTRATION RATE 69 ML/MIN (>89); POTASSIUM 4.3 MEQ/L (3.5-5.1); SODIUM (NA) 140 MEQ/L (136-145); TOTAL BILIRUBIN ADULT 0.6 MG/DL (0.2-1.0)
[2016-12-07] MEDS: BENZTROPINE MESYLATE 1 MG TAB PO SCH ×2 (09:00→20:58)
[2016-12-07] MEDS: GABAPENTIN 100 MG CAP PO SCH ×3 (09:00→17:11)
--- NOTE | 2016-12-07 09:12 | HHI.PYPN ---
Subjective Remarks Patient seen in her room with nurse Reina, chart reviewed. Patient compliant medications. Patient remains isolating in bed most of day. Is quite irritable paranoid today telling him to "leave me alone", states that she has nothing wrong with her "mental health" that she is here for "medical" reasons. Patient scheduled for [place] court tomorrow Review of Systems Except as stated in HPI: all other systems reviewed are Neg Objective Alert: Yes [place]: Person, Place, Date Mood: Angry, Other Affect: Restricted, Blunted Memory Intact: Comment (not formally assessed) Hallucinations: Other (No AVH) Delusions: Yes Delusion Type: Paranoid (feels like she is rotting) Suicidal: Ideation (No SI) Homicidal: Ideation (No HI) Insight/Judgment Very poor Labs Test 12/07/16 07:31 White Blood Count 4.8 TH/MM3 Red Blood Count 4.29 MIL/MM3 Hemoglobin 11.7 GM/DL Hematocrit 35.9 % Mean Corpuscular Volume 83.6 FL Mean Corpuscular Hemoglobin 27.2 PG Mean Corpuscular Hemoglobin 32.6 % Concent Red Cell Distribution Width 15.8 % Platelet Count 239 TH/MM3 Mean Platelet Volume 7.8 FL Neutrophils (%) (Auto) 47.6 % Lymphocytes (%) (Auto) 36.8 % Monocytes (%) (Auto) 10.9 % Eosinophils (%) (Auto) 3.9 % Basophils (%) (Auto) 0.8 % Neutrophils # (Auto) 2.3 TH/MM3 Lymphocytes # (Auto) 1.8 TH/MM3 Monocytes # (Auto) 0.5 TH/MM3 Eosinophils # (Auto) 0.2 TH/MM3 Basophils # (Auto) 0.0 TH/MM3 CBC Comment DIFF FINAL Differential Comment Sodium Level 140 MEQ/L Potassium Level 4.3 MEQ/L Chloride Level 102 MEQ/L Carbon Dioxide Level 28.9 MEQ/L Anion Gap 9 MEQ/L Blood Urea Nitrogen 15 MG/DL Creatinine 0.99 MG/DL Estimat Glomerular Filtration 69 ML/MIN Rate Random Glucose 86 MG/DL Calcium Level 9.0 MG/DL Total Bilirubin 0.6 MG/DL Aspartate Amino Transf 11 U/L (AST/SGOT) Alanine Aminotransferase 16 U/L (ALT/SGPT) Alkaline Phosphatase 96 U/L Total Protein 7.0 GM/DL Albumin 3.5 GM/DL Free Thyroxine 0.85 NG/DL Thyroid Stimulating Hormone 0.991 uIU/ML 3rd Gen Vitals/IOs Vital Signs Date Time Temp Pulse Resp B/P Pulse Ox O2 Delivery O2 Flow Rate FiO2 12/04/16 20:08 16 Intake and Output 12/06/16 12/06/16 12/07/16 08:00 16:00 00:00 Intake Total 1 ml 1590 ml Balance 1 ml 1590 ml Assessment & Plan Problem List: (1) Schizoaffective disorder ICD Code: F25.9 Assessment & Plan Estimated LOS: days patient remains confused paranoid irritable isolating, for now continue treatment. Patient scheduled for [place] court tomorrow Justification for Cont. Inpt. At this time patient will decompensate the placed in a lower level of care Discharge Planning To be determined Request HC Surrog/Guard Advoc?: Yes (Now requesting HCS/GA.) Problem Qualifiers (1) Schizoaffective disorder: Qualified Code: F25.8 - Other schizoaffective disorders Chris Riggs MD December 07, 2016 09:12
[2016-12-07] MEDS: MAGNESIUM HYDROXIDE SUSP 30 ML CUP PO PRN (11:21)
--- NOTE | 2016-12-07 15:08 | HHI.PR ---
Subjective Remarks Follow-up visit low prolactin, schizoaffective disorder. Patient seen and examined today. Reports she is doing well. Discussed with patient results of labs. Discuss she needs to have follow-up as an outpatient for recheck monitoring. Otherwise, patient denies pain and discomfort. Denies SOB/ dyspnea. Denies chest pain. Denies fevers, chills, n/v/d. Denies hematuria, dysuria. Objective Vitals I/O 12/06/16 12/06/16 12/06/16 12/07/16 12/07/16 12/07/16 07:00 15:00 23:00 07:00 15:00 23:00 Intake Total 1 ml 1590 ml Balance 1 ml 1590 ml Intake Oral 1 ml 1590 ml # Voids 2 2 Result Diagram: 12/07/1673012/07/16730 Objective Remarks GENERAL: This is a well-nourished, well-developed patient, in no apparent distress. SKIN: Warm and dry, scaly skin. Generalized tenderness to palpation all over body. HEAD: Normocephalic. No temporal or scalp tenderness. EYES: Pupils equal round and reactive. No scleral icterus. No injection or drainage. ENT: Nose without bleeding. Throat without erythema. Uvula midline. Airway patent. NECK: Trachea midline. No JVD or lymphadenopathy. CARDIOVASCULAR: Regular rate and rhythm without murmurs, gallops, or rubs. RESPIRATORY: Clear to auscultation. Breath sounds equal bilaterally. No wheezes , rales, or rhonchi. GASTROINTESTINAL: Abdomen soft, non-tender, nondistended. MUSCULOSKELETAL: Extremities without clubbing, cyanosis, or edema. NEUROLOGICAL: Awake and alert. Moves all extremities. BLE weaker than BUE. Pressured speech. PSYCH: Flat affect. A/P Problem List: (1) Schizoaffective disorder ICD Code: F25.9 Status: Acute (2) Schizophrenia, paranoid, chronic ICD Code: F20.0 Status: Acute (3) Suicidal ideations ICD Code: R45.851 Status: Acute Assessment and Plan Patient is a 61-year-old female with primary medical history of schizoaffective disorder living in assisted living facility came into the hospital initially under [facility] act by EMS secondary to decompensation becoming increasingly depressed, despondent, and isolated 11/11/16. As per review of records, patient has been reported to have suicidal ideation and intent with statement "I don't want to live anymore." Patient is now admitted to inpatient psychiatry unit for further evaluation. Consulted for hypoprolactinemia. Schizoaffective disorder, depression, schizophrenia with paranoia - managed by psychiatry team Hypo prolactinemia - Prolactin level <1.0. Suspect shunt gonadotropin or nonfunctioning pituitary adenoma was which can cause neurologic symptoms - TSH 0.991 , free T4 0.84, ACT, Cortisol 18.9 - Upon review of labs, labs within normal. Will check growth hormone, LH, FSH, IGF1 - If abnormalities in lab values indicates pituitary adenoma, may follow-up with MRI studies. Hypotension/ Tachycardia - Stable. Likely s/t decreased PO intake. - encourage PO intake. - Monitor BP trend, heart rate DVT prop assisted ambulation Discussed with patient, nursing, Dr. Shultz Problem Qualifiers (1) Schizoaffective disorder: Qualified Code: F25.8 - Other schizoaffective disorders Davey Meyer December 07, 2016 15:08
[2016-12-07 16:00] VITALS: PULSE 105; RESP 17; TEMP 99; O2SAT 100
[2016-12-07] MEDS: LURASIDONE 40 MG TAB PO SCH (17:11)
[2016-12-07] MEDS: MIRTAZAPINE ODT 15 MG TAB PO SCH (20:58)
[2016-12-08] MEDS: GABAPENTIN 100 MG CAP PO SCH ×3 (09:27→17:37)
[2016-12-08] MEDS: BENZTROPINE MESYLATE 1 MG TAB PO SCH ×2 (09:27→20:14)
--- NOTE | 2016-12-08 11:17 | HHI.PYPN ---
Subjective Remarks Patient seen in [place] court case continued by discharge [facility]. Chart review. Patient appetite appears to be improving. She is compliant with the medications at this time. Her still remains psychotic and delusional feeling this no problems with her mental health that people are still out poisoning. Will increase Latuda to 80 mg daily Review of Systems Except as stated in HPI: all other systems reviewed are Neg Objective Alert: Yes [place]: Person, Place, Date Mood: Angry, Other Affect: Restricted, Blunted Memory Intact: Comment (not formally assessed) Hallucinations: Other (No AVH) Delusions: Yes Delusion Type: Paranoid (feels like she is rotting) Suicidal: Ideation (No SI) Homicidal: Ideation (No HI) Insight/Judgment Very poor Vitals/IOs Vital Signs Date Time Temp Pulse Resp B/P Pulse Ox O2 Delivery O2 Flow Rate FiO2 12/07/16 16:00 99.0 105 17 100 Intake and Output 12/07/16 12/07/16 12/08/16 08:00 16:00 00:00 Intake Total 360 ml Balance 360 ml Assessment & Plan Problem List: (1) Schizoaffective disorder ICD Code: F25.9 Assessment & Plan Estimated LOS: days patient remains paranoid and delusional. With no insight. She medication adjustment above Justification for Cont. Inpt. At this time patient will decompensate if placed in the lower level of care Discharge Planning To be determined Request HC Surrog/Guard Advoc?: Yes (Now requesting HCS/GA.) Problem Qualifiers (1) Schizoaffective disorder: Qualified Code: F25.8 - Other schizoaffective disorders Chris Riggs MD December 08, 2016 11:17
[2016-12-08 17:25] VITALS: BP 122/65; PULSE 96; RESP 18; TEMP 99.5; O2SAT 97
[2016-12-08] MEDS: LURASIDONE 80 MG TAB PO SCH (17:37)
[2016-12-08] MEDS: MIRTAZAPINE ODT 15 MG TAB PO SCH (20:39)
[2016-12-09 02:46] LABS: GROWTH HORMONE 3.63 ng/mL (0.01 - 3.61)
[2016-12-09] MEDS: BENZTROPINE MESYLATE 1 MG TAB PO SCH ×2 (09:33→21:10)
[2016-12-09] MEDS: GABAPENTIN 100 MG CAP PO SCH ×3 (09:33→17:25)
--- NOTE | 2016-12-09 09:44 | HHI.PYPN ---
Subjective Remarks Patient seen in her room with nurse Cathy, patient in bed calm cooperative is somewhat guarded today stating "something is wrapped around my body. Patient has some tactile components to this but she cannot identify what it is. There is still vigilance and paranoia with a attitude. Patient is compliant with medications. There is a marked body odor noted with this lady will Kercher to shower today. Also patient's here was quite matted dirty and malodorous. I feel this is becoming a health issue. She is willing to have staff cut her hair short. This is okay with me Review of Systems Except as stated in HPI: all other systems reviewed are Neg Objective Alert: Yes [place]: Person, Place, Date Mood: Angry, Other Affect: Restricted, Blunted Memory Intact: Comment (not formally assessed) Hallucinations: Other (No AVH) Delusions: Yes Delusion Type: Paranoid (feels like she is rotting) Suicidal: Ideation (No SI) Homicidal: Ideation (No HI) Insight/Judgment Very poor Vitals/IOs Vital Signs Date Time Temp Pulse Resp B/P Pulse Ox O2 Delivery O2 Flow Rate FiO2 12/08/16 17:25 99.5 96 18 122/65 97 Intake and Output 12/08/16 12/08/16 12/09/16 08:00 16:00 00:00 Intake Total 240 ml 760 ml 720 ml Balance 240 ml 760 ml 720 ml Assessment & Plan Problem List: (1) Schizoaffective disorder ICD Code: F25.9 Assessment & Plan Estimated LOS: days patient continue psychotic, compliant medications, will allow staff to cut patient's air per her request and also for hygienic measures Justification for Cont. Inpt. At this time patient would decompensate if placed in the lower level of care Discharge Planning To be determined Request HC Surrog/Guard Advoc?: Yes (Now requesting HCS/GA.) Problem Qualifiers (1) Schizoaffective disorder: Qualified Code: F25.8 - Other schizoaffective disorders Chris Riggs MD December 09, 2016 09:44
[2016-12-09] MEDS: LURASIDONE 80 MG TAB PO SCH (17:25)
[2016-12-09 21:00] VITALS: BP 87/52; PULSE 99; RESP 12; TEMP 97; O2SAT 99
[2016-12-09] MEDS: MIRTAZAPINE ODT 15 MG TAB PO SCH (21:10)
[2016-12-09] MEDS: POLYETHYLENE GLYCOL 17 GM PKG PO PRN (21:11)
[2016-12-10 08:27] VITALS: BP 123/60; PULSE 104; RESP 18; TEMP 97.3; O2SAT 100
[2016-12-10] MEDS: GABAPENTIN 100 MG CAP PO SCH ×3 (08:54→17:56)
[2016-12-10] MEDS: BENZTROPINE MESYLATE 1 MG TAB PO SCH ×2 (08:54→20:48)
--- NOTE | 2016-12-10 12:19 | HHI.PYPN ---
Subjective Remarks Patient was seen and case discussed with nursing. Patient remains flat and apathetic. Continues to be seclusive to her room and not interacting with others. When asked about her mood and she became irritable claiming she was not initially depressed. She has poor insight into her admission thinking that she is here because she didn't pay her bills with [employer]. Denies auditory visual hallucinations. Compliant with medications Objective Alert: Yes [place]: Person, Place, Date Mood: Other (apathetic) Affect: Blunted Memory Intact: Comment (not formally assessed) Hallucinations: Other (No AVH) Delusions: Yes Delusion Type: Paranoid (none elicited today) Suicidal: Ideation (No SI) Homicidal: Ideation (No HI) Insight/Judgment Poor Vitals/IOs Vital Signs Date Time Temp Pulse Resp B/P Pulse Ox O2 Delivery O2 Flow Rate FiO2 12/10/16 08:27 97.3 104 18 123/60 100 Intake and Output 12/09/16 12/09/16 12/10/16 08:00 16:00 00:00 Intake Total 360 ml 1320 ml 1560 ml Balance 360 ml 1320 ml 1560 ml Assessment & Plan Problem List: (1) Schizoaffective disorder ICD Code: F25.9 Assessment & Plan Continue current treatment plan Justification for Cont. Inpt. Patient will decompensate in a less restrictive setting Request HC Surrog/Guard Advoc?: Yes (Now requesting HCS/GA.) Problem Qualifiers (1) Schizoaffective disorder: Qualified Code: F25.8 - Other schizoaffective disorders Christian Sood DO December 10, 2016 12:18
--- NOTE | 2016-12-10 14:56 | HHI.PR ---
Subjective Remarks Follow-up visit low prolactin, schizoaffective disorder. Patient seen and examined today. Patient complains of small hard stools. Uses MOM at home with good results Denies any other complaints at present. No f/c, n/v, headaches, dizziness, shortness of breath, chest pain or abdominal pain. Objective Vitals Vital Signs Date Time Temp Pulse Resp B/P Pulse Ox O2 Delivery O2 Flow Rate FiO2 12/10/16 08:27 97.3 104 18 123/60 100 12/09/16 21:00 97.0 99 12 87/52 99 I/O 12/09/16 12/09/16 12/09/16 12/10/16 12/10/16 12/10/16 07:00 15:00 23:00 07:00 15:00 23:00 Intake Total 0 ml 1680 ml 1560 ml 0 ml 720 ml Balance 0 ml 1680 ml 1560 ml 0 ml 720 ml Intake Oral 0 ml 1680 ml 1560 ml 0 ml 720 ml # Voids 1 1 1 1 # Bowel Movements 0 Result Diagram: 12/07/1673012/07/16730 Objective Remarks GENERAL: This is a well-nourished, well-developed patient, in no apparent distress. Awake and alert. SKIN: Warm and dry, scaly skin. HEAD: Normocephalic. EYES: EOMI. No scleral icterus. No injection or drainage. CARDIOVASCULAR: Regular rate and rhythm without murmurs, gallops, or rubs. RESPIRATORY: Clear to auscultation. Breath sounds equal bilaterally. No wheezes , rales, or rhonchi. GASTROINTESTINAL: Abdomen soft, non-tender, nondistended. MUSCULOSKELETAL: Extremities without clubbing, cyanosis, or edema. NEUROLOGICAL: Awake and alert. Moves all extremities. BLE weaker than BUE. Normal speech. PSYCH: Flat affect. Medications and IVs Current Medications Medications (Trade) Dose Ordered Sig/Meghan Route Start Time Stop Time Status Last Admin (Ativan) 0.5 mg Q12H PRN PO 11/12/16 01:30 (Ativan Inj) 0.5 mg Q12H PRN IM 11/12/16 01:30 (Tylenol) 650 mg Q4H PRN PO 11/12/16 01:30 (Milk Of Magnesia Liq) 30 ml DAILY PRN PO 11/12/16 01:30 12/07/16 11:21 (Mag-Al Plus Susp Liq) 30 ml Q6H PRN PO 11/12/16 01:30 (Neurontin) 100 mg TID PO 11/12/16 09:00 12/10/16 13:00 (Miralax) 17 gm DAILY PRN PO 11/12/16 01:30 12/09/16 21:11 (Cogentin) 0.5 mg BID PO 11/12/16 09:00 12/10/16 08:54 (Prinivil) 5 mg DAILY PO 11/13/16 12:00 Hold 11/14/16 09:00 (Pill Splitter) 1 ea UNSCH PRN OTHER 11/15/16 15:45 (Remeron Soltab Odt) 45 mg HS PO 11/23/16 21:00 12/09/16 21:10 A/P Problem List: (1) Schizoaffective disorder ICD Code: F25.9 Status: Acute (2) Schizophrenia, paranoid, chronic ICD Code: F20.0 Status: Acute (3) Suicidal ideations ICD Code: R45.851 Status: Acute Assessment and Plan Patient is a 61-year-old female with primary medical history of schizoaffective disorder living in assisted living facility came into the hospital initially under Zhu act by EMS secondary to decompensation becoming increasingly depressed, despondent, and isolated 11/11/16. As per review of records, patient has been reported to have suicidal ideation and intent with statement "I don't want to live anymore." Patient is now admitted to inpatient psychiatry unit for further evaluation. Consulted for hypoprolactinemia. Schizoaffective disorder, depression, schizophrenia with paranoia - managed by psychiatry team Hypo prolactinemia - Prolactin level <1.0. Suspect shunt gonadotropin or nonfunctioning pituitary adenoma was which can cause neurologic symptoms - TSH 0.991 , free T4 0.84, ACTH 21, Cortisol 18.9, GH 3.63, LH 26.5 - IGF1 pending - considering MRI study to r/o pituitary tumor Hypotension/ Tachycardia - Stable. Likely s/t decreased PO intake. - encourage PO intake. - Monitor BP trend, heart rate Constipation - MOM prn - encouraged use if needed - continue with stool softener - monitor for improvement DVT prop assisted ambulation Discussed with patient, nursing, Dr. Rivera Problem Qualifiers (1) Schizoaffective disorder: Qualified Code: F25.8 - Other schizoaffective disorders Mikayla Mccullough December 10, 2016 14:56 Mikayla Mccullough December 10, 2016 14:56
[2016-12-10] MEDS: LURASIDONE 80 MG TAB PO SCH (17:56)
[2016-12-10] MEDS: MIRTAZAPINE ODT 15 MG TAB PO SCH (20:48)
[2016-12-11 05:52] VITALS: BP 118/68; PULSE 94; RESP 18; TEMP 97.7; O2SAT 99
[2016-12-11] MEDS: BENZTROPINE MESYLATE 1 MG TAB PO SCH ×2 (09:00→21:30)
[2016-12-11] MEDS: GABAPENTIN 100 MG CAP PO SCH ×3 (09:00→18:13)
--- NOTE | 2016-12-11 12:40 | HHI.PYPN ---
Subjective Remarks Patient was seen and case discussed with nursing. Patient remains seclusive with poor hygiene. Once again her delusions were elicited today. She believes she is rotting from the inside and that staff is poisoning her food with bacteria and other substances. Compliant with medications Objective Alert: Yes [place]: Person, Place, Date Mood: Oppositional Affect: Restricted Memory Intact: Comment (not formally assessed) Hallucinations: Other (No AVH) Delusions: Yes Delusion Type: Paranoid (rotting from inside) Suicidal: Ideation (No SI) Homicidal: Ideation (No HI) Insight/Judgment Poor Vitals/IOs Vital Signs Date Time Temp Pulse Resp B/P Pulse Ox O2 Delivery O2 Flow Rate FiO2 12/11/16 05:52 97.7 94 18 118/68 99 Intake and Output 12/10/16 12/10/16 12/11/16 08:00 16:00 00:00 Intake Total 720 ml 1200 ml Balance 720 ml 1200 ml Assessment & Plan Problem List: (1) Schizoaffective disorder ICD Code: F25.9 Assessment & Plan Continue current treatment plan Justification for Cont. Inpt. Patient will decompensate in a less restrictive setting Request HC Surrog/Guard Advoc?: Yes (Now requesting HCS/GA.) Problem Qualifiers (1) Schizoaffective disorder: Qualified Code: F25.8 - Other schizoaffective disorders Christian Sood DO December 11, 2016 12:39
--- NOTE | 2016-12-11 15:56 | HHI.PR ---
Subjective Remarks Follow-up visit low prolactin, schizoaffective disorder. Patient seen and examined today. Patient denies any complaints. She has not requested the MOM and reiterated to the patient that she can request the medication from her nurse whenever she would like. She has been tachycardic. She denies any chest pains or palpitations. Also denies any headaches or dizziness area no cough or sputum production. Denies any dysuria. Discussed with the patient the importance of adequate fluid intake. However, patient is currently being treated for severe paranoia and concerns that people are poisoning her food. Discussed with nursing staff who relayed the patient has witnessed good fluid intake today. Objective Vitals Vital Signs Date Time Temp Pulse Resp B/P Pulse Ox O2 Delivery O2 Flow Rate FiO2 12/11/16 05:52 97.7 94 18 118/68 99 I/O 12/10/16 12/10/16 12/10/16 12/11/16 12/11/16 12/11/16 07:00 15:00 23:00 07:00 15:00 23:00 Intake Total 0 ml 720 ml 1200 ml 0 ml 1560 ml Balance 0 ml 720 ml 1200 ml 0 ml 1560 ml Intake Oral 0 ml 720 ml 1200 ml 0 ml 1560 ml # Voids 1 2 1 2 # Bowel Movements 0 Result Diagram: 12/07/1673012/07/16730 Objective Remarks GENERAL: This is a well-nourished, well-developed patient, in no apparent distress. Awake and alert. SKIN: Warm and dry, scaly skin. HEENT: Normocephalic. EOMI. No scleral icterus. No injection or drainage. MMM. CARDIOVASCULAR: Regular rate and rhythm without murmurs, gallops, or rubs. RESPIRATORY: Clear to auscultation. Breath sounds equal bilaterally. No wheezes , rales, or rhonchi. GASTROINTESTINAL: Abdomen soft, non-tender, nondistended. MUSCULOSKELETAL: Extremities without clubbing, cyanosis, or edema. NEUROLOGICAL: Awake and alert. Moves all extremities. BLE weaker than BUE. Normal speech. PSYCH: Flat affect. Medications and IVs Current Medications Medications (Trade) Dose Ordered Sig/Meghan Route Start Time Stop Time Status Last Admin (Ativan) 0.5 mg Q12H PRN PO 11/12/16 01:30 (Ativan Inj) 0.5 mg Q12H PRN IM 11/12/16 01:30 (Tylenol) 650 mg Q4H PRN PO 11/12/16 01:30 (Mag-Al Plus Susp Liq) 30 ml Q6H PRN PO 11/12/16 01:30 (Neurontin) 100 mg TID PO 11/12/16 09:00 12/11/16 13:30 (Miralax) 17 gm DAILY PRN PO 11/12/16 01:30 12/09/16 21:11 (Cogentin) 0.5 mg BID PO 11/12/16 09:00 12/11/16 09:00 (Prinivil) 5 mg DAILY PO 11/13/16 12:00 Hold 11/14/16 09:00 (Pill Splitter) 1 ea UNSCH PRN OTHER 11/15/16 15:45 (Remeron Soltab Odt) 45 mg HS PO 11/23/16 21:00 12/10/16 20:48 (Milk Of Magnesia Liq) 30 ml DAILY PRN PO 12/10/16 15:00 A/P Problem List: (1) Schizoaffective disorder ICD Code: F25.9 Status: Acute (2) Schizophrenia, paranoid, chronic ICD Code: F20.0 Status: Acute (3) Suicidal ideations ICD Code: R45.851 Status: Acute Assessment and Plan Patient is a 61-year-old female with primary medical history of schizoaffective disorder living in assisted living facility came into the hospital initially under [facility] act by EMS secondary to decompensation becoming increasingly depressed, despondent, and isolated 11/11/16. As per review of records, patient has been reported to have suicidal ideation and intent with statement "I don't want to live anymore." Patient is now admitted to inpatient psychiatry unit for further evaluation. Consulted for hypoprolactinemia. Schizoaffective disorder, depression, schizophrenia with paranoia - managed by psychiatry team Hypo prolactinemia - Prolactin level <1.0. Suspect shunt gonadotropin or nonfunctioning pituitary adenoma was which can cause neurologic symptoms - TSH 0.991 , free T4 0.84, ACTH 21, Cortisol 18.9, GH 3.63, LH 26.5 - IGF1 pending - If abnormalities in lab values indicates pituitary adenoma, may follow-up with MRI studies. Hypotension/ Tachycardia - Stable. Likely s/t decreased PO intake. - Reiterated to patient importance of PO intake. - Monitor BP trend, heart rate - obtain BMP, mag level, CBC Constipation - MOM prn - patient reports no bowel movement today but admits to BM yesterday. - continue with stool softener - monitor for improvement DVT prop assisted ambulation Discussed with patient, nursing, Dr. Rivera Problem Qualifiers (1) Schizoaffective disorder: Qualified Code: F25.8 - Other schizoaffective disorders Mikayla Mccullough December 11, 2016 15:56
[2016-12-11] MEDS: LURASIDONE 80 MG TAB PO SCH (18:13)
[2016-12-11 18:39] LABS: AUTOMATED NEUTROPHIL # 3.1 TH/MM3 (1.8-7.7); BASOPHIL % 0.8 % (0.0-2.0); EOSINOPHIL # 0.2 TH/MM3 (0-0.4); EOSINOPHIL % 3.3 % (0.0-4.0); HEMATOCRIT 35.4 % (35.0-46.0); HEMO FLAGS DIFF FINAL; LYMPH % 27.6 % (9.0-44.0); LYMPHOCYTE # 1.4 TH/MM3 (1.0-4.8); MEAN CORPUSCULAR HEMOGLOBIN 27.4 PG (27.0-34.0); MEAN CORPUSCULAR HGB CONC 32.6 % (32.0-36.0); MONO % 6.9 % (0.0-8.0); NEUT % 61.4 % (16.0-70.0); PLATELET COUNT 231 TH/MM3 (150-450); RED BLOOD COUNT 4.21 MIL/MM3 (4.00-5.30); RED CELL DISTRIBUTION WIDTH 16.1 % (11.6-17.2); WHITE BLOOD COUNT 5.1 TH/MM3 (4.0-11.0)
[2016-12-11 19:06] LABS: BICARBONATE 27.1 MEQ/L (21.0-32.0); MAGNESIUM 2.4 MG/DL (1.5-2.5); POTASSIUM 4.1 MEQ/L (3.5-5.1)
[2016-12-11 19:57] VITALS: BP 107/64; PULSE 83; RESP 18; TEMP 99.3; O2SAT 99
[2016-12-11] MEDS: MIRTAZAPINE ODT 15 MG TAB PO SCH (21:31)
[2016-12-12] MEDS: BENZTROPINE MESYLATE 1 MG TAB PO SCH ×2 (09:02→21:45)
[2016-12-12] MEDS: GABAPENTIN 100 MG CAP PO SCH ×3 (09:02→17:32)
[2016-12-12] MEDS: risperiDONE ODT 1 MG TAB PO SCH ×2 (11:45→21:45)
--- NOTE | 2016-12-12 11:45 | HHI.PYPN ---
Subjective Remarks Patient seen in her room with nurse Yomi, chart reviewed. Patient continues to isolate somewhat poor hygiene, patient continues to voice delusional ideation about her body rotting from the insight. It appears she is not responding well to the Latuda. We'll discontinue Latuda start Respinol M tab 1 mg twice a day Review of Systems Except as stated in HPI: all other systems reviewed are Neg Objective Alert: Yes [place]: Person, Place, Date Mood: Oppositional Affect: Restricted Memory Intact: Comment (not formally assessed) Hallucinations: Other (No AVH) Delusions: Yes Delusion Type: Paranoid (rotting from inside) Suicidal: Ideation (No SI) Homicidal: Ideation (No HI) Insight/Judgment Very poor Labs Test 12/11/16 18:20 White Blood Count 5.1 TH/MM3 Red Blood Count 4.21 MIL/MM3 Hemoglobin 11.6 GM/DL Hematocrit 35.4 % Mean Corpuscular Volume 84.0 FL Mean Corpuscular Hemoglobin 27.4 PG Mean Corpuscular Hemoglobin 32.6 % Concent Red Cell Distribution Width 16.1 % Platelet Count 231 TH/MM3 Mean Platelet Volume 8.5 FL Neutrophils (%) (Auto) 61.4 % Lymphocytes (%) (Auto) 27.6 % Monocytes (%) (Auto) 6.9 % Eosinophils (%) (Auto) 3.3 % Basophils (%) (Auto) 0.8 % Neutrophils # (Auto) 3.1 TH/MM3 Lymphocytes # (Auto) 1.4 TH/MM3 Monocytes # (Auto) 0.4 TH/MM3 Eosinophils # (Auto) 0.2 TH/MM3 Basophils # (Auto) 0.0 TH/MM3 CBC Comment DIFF FINAL Differential Comment Sodium Level 140 MEQ/L Potassium Level 4.1 MEQ/L Chloride Level 106 MEQ/L Carbon Dioxide Level 27.1 MEQ/L Anion Gap 7 MEQ/L Blood Urea Nitrogen 15 MG/DL Creatinine 0.99 MG/DL Estimat Glomerular Filtration 69 ML/MIN Rate Random Glucose 133 MG/DL Calcium Level 8.6 MG/DL Magnesium Level 2.4 MG/DL Vitals/IOs Vital Signs Date Time Temp Pulse Resp B/P Pulse Ox O2 Delivery O2 Flow Rate FiO2 12/11/16 19:57 99.3 83 18 107/64 99 Intake and Output 12/11/16 12/11/16 12/11/16 07:59 15:59 23:59 Intake Total 0 ml 1560 ml 720 ml Balance 0 ml 1560 ml 720 ml Assessment & Plan Problem List: (1) Schizoaffective disorder ICD Code: F25.9 Assessment & Plan Estimated LOS: days patient is quite delusional and psychotic, showing little response to the Latuda. We'll discontinue Latuda start Respinol 1 mg twice a day M tab Justification for Cont. Inpt. At this time patient will decompensate the placed in a lower level of care Discharge Planning To be determined Request HC Surrog/Guard Advoc?: Yes (Now requesting HCS/GA.) Problem Qualifiers (1) Schizoaffective disorder: Qualified Code: F25.8 - Other schizoaffective disorders Chris Riggs MD December 12, 2016 11:44
[2016-12-12] MEDS: MAGNESIUM HYDROXIDE SUSP 30 ML CUP PO PRN (17:33)
[2016-12-12] MEDS: MIRTAZAPINE ODT 15 MG TAB PO SCH (21:45)
[2016-12-13] MEDS: BENZTROPINE MESYLATE 1 MG TAB PO SCH ×2 (08:19→20:54)
[2016-12-13] MEDS: risperiDONE ODT 1 MG TAB PO SCH ×2 (08:19→20:54)
[2016-12-13] MEDS: GABAPENTIN 100 MG CAP PO SCH ×3 (08:19→17:29)
[2016-12-13] MEDS: POLYETHYLENE GLYCOL 17 GM PKG PO PRN (12:07)
[2016-12-13 13:52] LABS: IGF ZSCORE FEMALE 0.7 SD (-2.0 - +2.0); IGF ZSCORE MALE ND (()); IGF-1 GC/MS 173 ng/mL (41-279)
--- NOTE | 2016-12-13 15:40 | HHI.PYPN ---
Subjective Remarks Patient seen in her room with nurse Jordon, chart reviewed, patient continues to isolate continues delusional complaints about her stomach and food. Though she denies suicidality or voices. And she is compliant with her medication for now continue treatment Review of Systems Except as stated in HPI: all other systems reviewed are Neg Objective Alert: Yes [place]: Person, Place, Date Mood: Oppositional Affect: Restricted Memory Intact: Comment (not formally assessed) Hallucinations: Other (No AVH) Delusions: Yes Delusion Type: Paranoid (rotting from inside) Suicidal: Ideation (No SI) Homicidal: Ideation (No HI) Insight/Judgment Very poor Vitals/IOs Vital Signs Date Time Temp Pulse Resp B/P Pulse Ox O2 Delivery O2 Flow Rate FiO2 12/11/16 19:57 99.3 83 18 107/64 99 Intake and Output 12/12/16 12/12/16 12/12/16 07:59 15:59 23:59 Intake Total 1920 ml 420 ml Balance 1920 ml 420 ml Assessment & Plan Problem List: (1) Schizoaffective disorder ICD Code: F25.9 Assessment & Plan Estimated LOS: days patient continue psychotic delusional though compliant medications. For now continue treatment Justification for Cont. Inpt. At this time patient will decompensate the placed in the lower level of care Discharge Planning To be determined Request HC Surrog/Guard Advoc?: Yes (Now requesting HCS/GA.) Problem Qualifiers (1) Schizoaffective disorder: Qualified Code: F25.8 - Other schizoaffective disorders Chris Riggs MD December 13, 2016 15:40
--- NOTE | 2016-12-13 17:46 | HHI.PR ---
Subjective Remarks Patient denies any major complaints denies cp/sob delusional about her stomach and food has episodes of low bp denies cough c/o constipation Objective Vitals I/O 12/12/16 12/12/16 12/12/16 12/13/16 12/13/16 12/13/16 06:59 14:59 22:59 06:59 14:59 22:59 Intake Total 720 ml 960 ml 1380 ml 1440 ml 1440 ml Balance 720 ml 960 ml 1380 ml 1440 ml 1440 ml Intake Oral 720 ml 960 ml 1380 ml 1440 ml 1440 ml # Voids 3 3 1 4 # Bowel Movements 0 Result Diagram: 12/11/16181912/11/161819 Objective Remarks GENERAL: This is a well-nourished, well-developed patient, in no apparent distress. Awake and alert. SKIN: Warm and dry, scaly skin. HEENT: Normocephalic. EOMI. No scleral icterus. No injection or drainage. MMM. CARDIOVASCULAR: Regular rate and rhythm without murmurs, gallops, or rubs. RESPIRATORY: Clear to auscultation. Breath sounds equal bilaterally. No wheezes , rales, or rhonchi. GASTROINTESTINAL: Abdomen soft, non-tender, nondistended. MUSCULOSKELETAL: Extremities without clubbing, cyanosis, or edema. NEUROLOGICAL: Awake and alert. Moves all extremities. BLE weaker than BUE. Normal speech. PSYCH: Flat affect. Medications and IVs Current Medications Medications (Trade) Dose Ordered Sig/Meghan Route Start Time Stop Time Status Last Admin (Ativan) 0.5 mg Q12H PRN PO 11/12/16 01:30 (Ativan Inj) 0.5 mg Q12H PRN IM 11/12/16 01:30 (Tylenol) 650 mg Q4H PRN PO 11/12/16 01:30 (Mag-Al Plus Susp Liq) 30 ml Q6H PRN PO 11/12/16 01:30 (Neurontin) 100 mg TID PO 11/12/16 09:00 12/13/16 12:07 (Miralax) 17 gm DAILY PRN PO 11/12/16 01:30 12/13/16 12:07 (Cogentin) 0.5 mg BID PO 11/12/16 09:00 12/13/16 08:19 (Prinivil) 5 mg DAILY PO 11/13/16 12:00 Hold 11/14/16 09:00 (Pill Splitter) 1 ea UNSCH PRN OTHER 11/15/16 15:45 (Remeron Soltab Odt) 45 mg HS PO 11/23/16 21:00 12/12/16 21:45 (Milk Of Magnesia Liq) 30 ml DAILY PRN PO 12/10/16 15:00 12/12/16 17:33 (risperDAL M-TAB) 1 mg Q12HR PO 12/12/16 11:45 12/13/16 08:19 Urinary Catheter: No Vascular Central Line Catheter: No A/P Problem List: (1) Schizoaffective disorder ICD Code: F25.9 Status: Acute (2) Schizophrenia, paranoid, chronic ICD Code: F20.0 Status: Acute (3) Suicidal ideations ICD Code: R45.851 Status: Acute (4) Hypoprolactinemia ICD Code: E23.6 Status: Acute Assessment and Plan Patient is a 61-year-old female with primary medical history of schizoaffective disorder living in assisted living facility came into the hospital initially under Zhu act by EMS secondary to decompensation becoming increasingly depressed, despondent, and isolated 11/11/16. As per review of records, patient has been reported to have suicidal ideation and intent with statement "I don't want to live anymore." Patient is now admitted to inpatient psychiatry unit for further evaluation. Consulted for hypoprolactinemia. Schizoaffective disorder, depression, schizophrenia with paranoia - managed by psychiatry team Hypo prolactinemia - Prolactin level was < 1.0 and repeat was 1.3. - TSH 0.991 , free T4 0.84, ACTH 21, Cortisol 18.9, GH 3.63, LH 26.5 - IGF1 normal - Other hormones are normal, however given low prolactin level x2 and limited history on the patient I will procede to order a brain MRI to r/o a pituitary cause. Hypotension/ Tachycardia - Stable. Likely s/t decreased PO intake. - Reiterated to patient importance of PO intake. - Monitor BP trend, heart rate - obtain BMP, mag level, CBC -check orthostatic BP Constipation -No BM yet. Will give Miralax x1. - continue with stool softener - monitor for improvement DVT prop assisted ambulation Problem Qualifiers (1) Schizoaffective disorder: Qualified Code: F25.8 - Other schizoaffective disorders Vladimir Klein MD December 13, 2016 17:46
[2016-12-13] MEDS ORDERED: POLYETHYLENE GLYCOL 17 GM PKG PO ONE (18:00)
[2016-12-13 18:25] VITALS: BP_SYST 100; BP_SYST 104; BP_DIAS 50; BP_DIAS 58
[2016-12-13] MEDS: MIRTAZAPINE ODT 15 MG TAB PO SCH (20:56)
[2016-12-13] MEDS: MAGNESIUM HYDROXIDE SUSP 30 ML CUP PO PRN (21:02)
[2016-12-14] MEDS: GABAPENTIN 100 MG CAP PO SCH ×3 (09:15→17:17)
[2016-12-14] MEDS: BENZTROPINE MESYLATE 1 MG TAB PO SCH ×2 (09:15→20:59)
[2016-12-14] MEDS: risperiDONE ODT 1 MG TAB PO SCH (09:15)
--- NOTE | 2016-12-14 11:37 | HHI.PYPN ---
Subjective Remarks Patient seen and examined with nurse. Chart reviewed. I note that the patient' s case was heard by the [place] act court and her case was placed in continuance until 01/05. Patient was not determined to be incompetent to make medical decisions by the automatic buffing wheel former and a HCS was not appointed. Case discussed with nursing staff who reports that the patient had been complaining of constipation but had a bowel movement this morning. Patient continues to refuse vital signs and other nursing interventions at intervals. On my examination today, the patient persists in her delusional beliefs that her body is rotting. She indicates her arm muscles as evidence of this and refuses to accept that her present level of deconditioning from inactivity is more likely to blame. She continues to believe she has no mental illness. She denies side effects from medications. Review of Systems ROS Limitations: Psychotic, Poor Historian Except as stated in HPI: all other systems reviewed are Neg Objective Alert: Yes [place]: Person, Place (at least) Mood: Oppositional Affect: Flat Memory Intact: Comment (Not assessed) Hallucinations: Other (None) Delusions: Yes Delusion Type: Paranoid (Continues to believe that she is rotting.) Suicidal: Ideation (No SI) Homicidal: Ideation (No HI) Insight/Judgment Poor Remarks No hand tremor, no cogwheeling, no other motor abnormalities noted. Thought process remains linear within delusional system. Grooming and hygiene poor. Labs Labs reviewed. Endo labs noted. Per nursing, patient refused MRI brain that was recommended by the hospitalist. Vitals/IOs Vital Signs Date Time Temp Pulse Resp B/P Pulse Ox O2 Delivery O2 Flow Rate FiO2 12/13/16 18:25 104/58 100/50 12/11/16 19:57 99.3 83 18 99 Intake and Output 12/13/16 12/13/16 12/14/16 08:00 16:00 00:00 Intake Total 960 ml 1920 ml 720 ml Balance 960 ml 1920 ml 720 ml Assessment & Plan Problem List: (1) Schizoaffective disorder ICD Code: F25.9 Assessment & Plan Patient with ongoing delusional beliefs that she is rotting. The patient was not determined to be incompetent by the automatic buffing wheel former and so retains ability to consent for meds. I will titrate her Risperdal to 1.5mg BID to target psychosis. Continue other psychotropics as ordered. Patient is refusing MRI for workup of hypoprolactinemia. Hospitalist input noted and appreciated. Continue to monitor on the inpatient unit. Continue other medications and care as ordered. Justification for Cont. Inpt. Impairment in reality construction. Impairment in self-care. Medication changes in process. High risk for decompensation in a less restrictive environment. Discharge Planning PT continues to recommend Rehab. I have left a VM for the physical therapist to see if PT at [facility] might represent an acceptable alternative. Given patient's persistent delusions and refusal of some aspects of care, I fear that placement in any facility will prove problematic, and the patient may require state psychiatric hospitalization. It would be helpful in this event to have more expeditious resolution of her legal status, and I will explore the possibility of advancing the re-hearing of patient's case by the [place] Court. Problem Qualifiers (1) Schizoaffective disorder: Qualified Code: F25.8 - Other schizoaffective disorders Geovanny Ruiz MD December 14, 2016 11:37
[2016-12-14 16:00] VITALS: BP 84/48; PULSE 102; RESP 18; TEMP 97; O2SAT 93
--- NOTE | 2016-12-14 17:36 | HHI.PR ---
Subjective Remarks Patient denies any complaints denies any chest pain/sob denies dizziness Patient refuses MRI to be done Objective Vitals Vital Signs Date Time Temp Pulse Resp B/P Pulse Ox O2 Delivery O2 Flow Rate FiO2 12/14/16 16:00 97.0 102 18 84/48 93 12/13/16 18:25 104/58 100/50 I/O 12/13/16 12/13/16 12/13/16 12/14/16 12/14/16 12/14/16 07:00 15:00 23:00 07:00 15:00 23:00 Intake Total 2880 ml 720 ml 120 ml 480 ml 360 ml Balance 2880 ml 720 ml 120 ml 480 ml 360 ml Intake Oral 2880 ml 120 ml 480 ml 360 ml Oral Supplement 720 ml # Voids 1 4 2 1 # Bowel Movements 0 Result Diagram: 12/11/16181912/11/161819 Objective Remarks GENERAL: This is a well-nourished, well-developed patient, in no apparent distress. Awake and alert. SKIN: Warm and dry, scaly skin. HEENT: Normocephalic. EOMI. No scleral icterus. No injection or drainage. MMM. CARDIOVASCULAR: Regular rate and rhythm without murmurs, gallops, or rubs. RESPIRATORY: Clear to auscultation. Breath sounds equal bilaterally. No wheezes , rales, or rhonchi. GASTROINTESTINAL: Abdomen soft, non-tender, nondistended. MUSCULOSKELETAL: Extremities without clubbing, cyanosis, or edema. NEUROLOGICAL: Awake and alert. Moves all extremities. BLE weaker than BUE. Normal speech. PSYCH: Flat affect. Medications and IVs Current Medications Medications (Trade) Dose Ordered Sig/Meghan Route Start Time Stop Time Status Last Admin (Ativan) 0.5 mg Q12H PRN PO 11/12/16 01:30 (Ativan Inj) 0.5 mg Q12H PRN IM 11/12/16 01:30 (Tylenol) 650 mg Q4H PRN PO 11/12/16 01:30 (Mag-Al Plus Susp Liq) 30 ml Q6H PRN PO 11/12/16 01:30 (Neurontin) 100 mg TID PO 11/12/16 09:00 12/14/16 17:17 (Miralax) 17 gm DAILY PRN PO 11/12/16 01:30 12/13/16 12:07 (Cogentin) 0.5 mg BID PO 11/12/16 09:00 12/14/16 09:15 (Prinivil) 5 mg DAILY PO 11/13/16 12:00 Hold 11/14/16 09:00 (Pill Splitter) 1 ea UNSCH PRN OTHER 11/15/16 15:45 (Remeron Soltab Odt) 45 mg HS PO 11/23/16 21:00 12/13/16 20:56 (Milk Of Magnesia Liq) 30 ml DAILY PRN PO 12/10/16 15:00 12/13/16 21:02 (risperDAL) 1.5 mg Q12HR PO 12/14/16 21:00 A/P Problem List: (1) Schizoaffective disorder ICD Code: F25.9 Status: Acute (2) Schizophrenia, paranoid, chronic ICD Code: F20.0 Status: Acute (3) Suicidal ideations ICD Code: R45.851 Status: Acute (4) Hypoprolactinemia ICD Code: E23.6 Status: Acute Assessment and Plan Patient is a 61-year-old female with primary medical history of schizoaffective disorder living in assisted living facility came into the hospital initially under [facility] act by EMS secondary to decompensation becoming increasingly depressed, despondent, and isolated 11/11/16. As per review of records, patient has been reported to have suicidal ideation and intent with statement "I don't want to live anymore." Patient is now admitted to inpatient psychiatry unit for further evaluation. Consulted for hypoprolactinemia. Schizoaffective disorder, depression, schizophrenia with paranoia - managed by psychiatry team Hypo prolactinemia - Prolactin level was < 1.0 and repeat was 1.3. - TSH 0.991 , free T4 0.84, ACTH 21, Cortisol 18.9, GH 3.63, LH 26.5 - IGF1 normal - Other hormones are normal, however given low prolactin level x2 and limited history on the patient I will procede to order a brain MRI to r/o a pituitary cause. - 12/14 Patient refuses MRI. Will sign off. Please reconsult if patient agreeable to have MRI. Hypotension/ Tachycardia - Stable. Likely s/t decreased PO intake. - Reiterated to patient importance of PO intake. - Monitor BP trend, heart rate - obtain BMP, mag level, CBC -check orthostatic BP Constipation - Resolved after Miralax administration. -Will Rx Miralax prn. DVT prop assisted ambulation Will sign off - please reconsult if needed. Problem Qualifiers (1) Schizoaffective disorder: Qualified Code: F25.8 - Other schizoaffective disorders Vladimir Klein MD December 14, 2016 17:36
[2016-12-14] MEDS ORDERED: POLYETHYLENE GLYCOL 17 GM PKG PO PRN (17:45)
[2016-12-14 20:04] VITALS: BP 101/61; PULSE 98
[2016-12-14] MEDS: risperiDONE 1 MG TAB PO SCH (20:59)
[2016-12-14] MEDS: MIRTAZAPINE ODT 15 MG TAB PO SCH (20:59)
[2016-12-15] MEDS: BENZTROPINE MESYLATE 1 MG TAB PO SCH ×2 (09:00→20:31)
[2016-12-15] MEDS: GABAPENTIN 100 MG CAP PO SCH ×3 (09:00→17:05)
[2016-12-15] MEDS: risperiDONE 1 MG TAB PO SCH ×2 (09:00→20:32)
--- NOTE | 2016-12-15 13:15 | HHI.PYPN ---
Subjective Remarks Patient seen and examined. Chart reviewed. Case discussed with RN who reports that patient is refusing PT. When I ask the patient about this, she tells me that she cannot do PT "because I don't have any soles on my feet; they're rotted , probably from some sort of parasite." She declines to allow me to examine her feet, but this seems in keeping with her general delusional schema that she is rotting. Affect is dysphoric. Insight into mental illness remains poor. She denies side effects from medications. Review of Systems ROS Limitations: Poor Historian Except as stated in HPI: all other systems reviewed are Neg Objective Alert: Yes [place]: Person, Place Mood: Oppositional (remains fairly oppositional) Affect: Restricted (dysphoric) Memory Intact: Comment (Not assessed) Hallucinations: Other (no AVH) Delusions: Yes Delusion Type: Paranoid (ongoing delusions of a rotting) Suicidal: Ideation (No SI) Homicidal: Ideation (No HI) Insight/Judgment Poor Remarks No abnormal motor movements noted. Patient declines physical examination. Thought process fairly linear within delusional system. Grooming and hygiene poor. Labs Labs reviewed. No new labs. Vitals/IOs Vital Signs Date Time Temp Pulse Resp B/P Pulse Ox O2 Delivery O2 Flow Rate FiO2 12/14/16 20:04 98 101/61 12/14/16 16:00 97.0 18 93 Intake and Output 12/14/16 12/14/16 12/15/16 08:00 16:00 00:00 Intake Total 600 ml 1200 ml 720 ml Balance 600 ml 1200 ml 720 ml Assessment & Plan Problem List: (1) Schizoaffective disorder ICD Code: F25.9 Assessment & Plan Ongoing inadequate response to current therapy. Titrate Risperdal to try to target psychosis. Continue other medications and care as ordered. I have encouraged the patient to participate in physical therapy, but she remains recalcitrant. Justification for Cont. Inpt. Impairment in reality construction. Impairment in self-care. Medication changes in process. High risk for decompensation in a less restrictive environment. Discharge Planning Rehabilitation placement versus state psychiatric hospital referral, although referral to the state awaits rehearing of patient's involuntary hospitalization petition. Problem Qualifiers (1) Schizoaffective disorder: Qualified Code: F25.8 - Other schizoaffective disorders Geovanny Ruiz MD December 15, 2016 13:15
[2016-12-15 17:26] VITALS: BP 101/55; PULSE 97; RESP 18; TEMP 98.3; O2SAT 99
[2016-12-15] MEDS: MIRTAZAPINE ODT 15 MG TAB PO SCH (20:32)
[2016-12-16] MEDS: GABAPENTIN 100 MG CAP PO SCH ×3 (09:09→18:27)
[2016-12-16] MEDS: risperiDONE 1 MG TAB PO SCH ×2 (09:10→21:05)
[2016-12-16] MEDS: BENZTROPINE MESYLATE 1 MG TAB PO SCH ×2 (09:10→21:05)
--- NOTE | 2016-12-16 12:07 | HHI.PYPN ---
Subjective Remarks Patient seen and examined. Chart reviewed. Case discussed with nursing staff who reports patient continues to refuse physical therapy. Core delusions of rotting remain unchanged. On my examination today, patient presents as fairly oppositional, saying that she has no intention of participating in PT for the reasons she has previously noted related to her delusional beliefs, which do indeed persist unchanged. Her affect does seem a little more reactive. No new delusional material. No AVH. No side effects from medications. Review of Systems ROS Limitations: Psychotic, Poor Historian Except as stated in HPI: all other systems reviewed are Neg Objective Alert: Yes [place]: Person, Place Mood: Oppositional Affect: Other (affect a little more reactive today.) Memory Intact: Comment (Not assessed) Hallucinations: Other (No AVH) Delusions: Yes Delusion Type: Paranoid (Delusions of rotting.) Suicidal: Ideation (None) Homicidal: Ideation (None) Insight/Judgment Poor Remarks No abnormal motor movements noted. No evident physical distress. Grooming and hygiene poor. Labs Labs reviewed. Vitals/IOs Vital Signs Date Time Temp Pulse Resp B/P Pulse Ox O2 Delivery O2 Flow Rate FiO2 12/15/16 17:26 98.3 97 18 101/55 99 Intake and Output 12/15/16 12/15/16 12/16/16 08:00 16:00 00:00 Intake Total 750 ml Balance 750 ml Assessment & Plan Problem List: (1) Schizoaffective disorder ICD Code: F25.9 Assessment & Plan Ongoing inadequate response to antipsychotic therapy with respect to core delusions. I will titrate Risperdal over the weekend to try to soften these delusions. To consider clozapine trial if this change is ineffective. Continue other medications and care as ordered. I have once again encouraged participation with PT to prevent further deconditioning. Justification for Cont. Inpt. Impairment in reality construction. Medication changes in process. High risk for decompensation in a less restrictive environment Discharge Planning Successful rehabilitation placement seems less likely as patient is now consistently refusing physical therapy. Referral to the [facility] awaits outcome of rehearing of patient's involuntary hospitalization petition. Problem Qualifiers (1) Schizoaffective disorder: Qualified Code: F25.8 - Other schizoaffective disorders Geovanny Ruiz MD December 16, 2016 12:06
[2016-12-16 17:39] VITALS: BP 87/52; PULSE 95; RESP 18; TEMP 97.8; O2SAT 100
[2016-12-16] MEDS: MIRTAZAPINE ODT 15 MG TAB PO SCH (21:00)
[2016-12-17 05:55] VITALS: BP 122/74; PULSE 84; RESP 16; TEMP 97.8
[2016-12-17 05:58] VITALS: BP 100/60; PULSE 90; RESP 16; TEMP 98
[2016-12-17] MEDS: risperiDONE 1 MG TAB PO SCH ×2 (08:15→20:48)
[2016-12-17] MEDS: GABAPENTIN 100 MG CAP PO SCH ×3 (08:15→17:21)
[2016-12-17] MEDS: BENZTROPINE MESYLATE 1 MG TAB PO SCH ×2 (08:15→20:48)
--- NOTE | 2016-12-17 11:00 | HHI.PYPN ---
Subjective Remarks Pt seen and discussed with staff. Pt has been cooperative with medications and denies side effects. Somatic delusions of internal body rot persist. She remains isolative to her room, only coming out for meals. She does engage more in interview and affect is more reactive. No SI/HI Objective Alert: Yes [place]: Person, Place Mood: Calm Affect: Restricted Memory Intact: Comment (fair) Hallucinations: Other (No AVH) Delusions: Yes Delusion Type: Paranoid (Delusions of rotting.) Suicidal: Ideation (None) Homicidal: Ideation (None) Insight/Judgment poor Remarks no abnormal movements. No physical distress Vitals/IOs Vital Signs Date Time Temp Pulse Resp B/P Pulse Ox O2 Delivery O2 Flow Rate FiO2 12/17/16 05:58 98.0 90 16 100/60 12/16/16 17:39 100 Intake and Output 12/16/16 12/16/16 12/17/16 08:00 16:00 00:00 Intake Total 0 ml 1800 ml 1200 ml Balance 0 ml 1800 ml 1200 ml Assessment & Plan Problem List: (1) Schizoaffective disorder ICD Code: F25.9 Assessment & Plan Continue current tx plan. Estimated LOS: days Justification for Cont. Inpt. impairments in reality testing and self care Problem Qualifiers (1) Schizoaffective disorder: Qualified Code: F25.8 - Other schizoaffective disorders Julisa Ramos MD December 17, 2016 11:00
[2016-12-17 18:00] VITALS: BP 101/58; PULSE 96; RESP 18; TEMP 97.8; O2SAT 99
[2016-12-17] MEDS: MIRTAZAPINE ODT 15 MG TAB PO SCH (20:48)
[2016-12-18] MEDS: GABAPENTIN 100 MG CAP PO SCH ×3 (08:24→17:10)
[2016-12-18] MEDS: risperiDONE 1 MG TAB PO SCH ×2 (08:24→20:57)
[2016-12-18] MEDS: BENZTROPINE MESYLATE 1 MG TAB PO SCH ×2 (08:24→20:57)
--- NOTE | 2016-12-18 13:39 | HHI.PYPN ---
Subjective Remarks Pt seen and discussed with staff. She has been spending most of day out in milieu. She reports mood as "moderate" and continues to express delusions of body rotting. No medication side effects. No SI/HI Objective Alert: Yes [place]: Person, Place, Situation Mood: Calm Affect: Restricted Memory Intact: Comment (fair) Hallucinations: Other (No AVH) Delusions: Yes Delusion Type: Paranoid (Delusions of rotting.) Suicidal: Ideation (None) Homicidal: Ideation (None) Insight/Judgment poor Vitals/IOs Vital Signs Date Time Temp Pulse Resp B/P Pulse Ox O2 Delivery O2 Flow Rate FiO2 12/17/16 18:00 97.8 96 18 101/58 99 Intake and Output 12/17/16 12/17/16 12/18/16 08:00 16:00 00:00 Intake Total 240 ml 240 ml 480 ml Balance 240 ml 240 ml 480 ml Assessment & Plan Problem List: (1) Schizoaffective disorder ICD Code: F25.9 Assessment & Plan Continue current tx plan. Estimated LOS: days Justification for Cont. Inpt. impairments in reality testing and self care Problem Qualifiers (1) Schizoaffective disorder: Qualified Code: F25.8 - Other schizoaffective disorders Julisa Ramos MD December 18, 2016 13:39
[2016-12-18 19:54] VITALS: BP 98/63; PULSE 89; RESP 18; TEMP 98.2; O2SAT 100
[2016-12-18] MEDS: MIRTAZAPINE ODT 15 MG TAB PO SCH (20:57)
[2016-12-19] MEDS: risperiDONE 1 MG TAB PO SCH ×2 (08:19→21:00)
[2016-12-19] MEDS: GABAPENTIN 100 MG CAP PO SCH ×3 (08:20→17:27)
[2016-12-19] MEDS: BENZTROPINE MESYLATE 1 MG TAB PO SCH ×2 (08:20→21:00)
--- NOTE | 2016-12-19 11:19 | HHI.PYPN ---
Subjective Remarks Patient seen and examined with nurse. Chart reviewed. Case discussed with nursing staff. On my examination today, the patient continues to articulate delusional beliefs that her body is rotting. Staff prompted her to shower, which she does not like to do because she believes it accelerates the rotting. She was out on the unit earlier today but is now once again secluding in her room. Affect dysphoric. Denies side effects from medications. No other physical complaints. Review of Systems ROS Limitations: Psychotic, Poor Historian Except as stated in HPI: all other systems reviewed are Neg Objective Alert: Yes [place]: Person, Place Mood: Calm Affect: Restricted (dysphoric) Memory Intact: Comment (fair) Hallucinations: Other (None) Delusions: Yes Delusion Type: Paranoid (body rotting) Suicidal: Ideation (No SI) Homicidal: Ideation (No HI) Insight/Judgment Poor Remarks No motor abnormalities noted. Labs Labs reviewed. No new labs. Vitals/IOs Vital Signs Date Time Temp Pulse Resp B/P Pulse Ox O2 Delivery O2 Flow Rate FiO2 12/18/16 19:54 98.2 89 18 98/63 100 Intake and Output 12/18/16 12/18/16 12/19/16 08:00 16:00 00:00 Intake Total 480 ml 960 ml Balance 480 ml 960 ml Assessment & Plan Problem List: (1) Schizoaffective disorder ICD Code: F25.9 Assessment & Plan Continue planned Risperdal titration, although we have yet to see any therapeutic benefit from this medication. If the Risperdal is ineffective at maximal dose, we will plan for a clozapine trial given patient's resistant psychosis. Continue to monitor on the inpatient unit. I have continued to encourage mobilization to prevent deconditioning and other complications. Continue other medications and care as ordered. Justification for Cont. Inpt. Impairment in reality construction. Impairment in self-care. High risk for decompensation in a less restrictive environment. Discharge Planning State hospital referral versus rehabilitation placement of psychosis can be brought under better control. Problem Qualifiers (1) Schizoaffective disorder: Qualified Code: F25.8 - Other schizoaffective disorders Geovanny Ruiz MD December 19, 2016 11:19
[2016-12-19] MEDS: MIRTAZAPINE ODT 15 MG TAB PO SCH (21:00)
[2016-12-20] MEDS: BENZTROPINE MESYLATE 1 MG TAB PO SCH ×2 (08:48→21:49)
[2016-12-20] MEDS: GABAPENTIN 100 MG CAP PO SCH ×3 (08:48→18:36)
[2016-12-20] MEDS: risperiDONE 1 MG TAB PO SCH ×2 (08:49→21:50)
--- NOTE | 2016-12-20 11:50 | PD.TTN ---
Present for Treatment Team Treatment Team Staff: Provider (Dr. Ruiz), Nurse (Nurse Smith), Psych Therapist ([facility]), Occupational Therapist (Dewey Borden), Other (Recreation Therapist, [place]) Patient Problems 1. Discharge planning 2. Medication compliance 3. Knowledge deficit 4. Lack of coping skills Progress Toward Goals Provider Input: Dr. Ruiz reported the patient is not improving despite trials on several medications. He will initiate another medication today in an effort to soften patient's core delusion that her body is rotting. Nurse Input: Nurse Smith reported the patient remains medication compliant, suspicious, paranoid, and continues to isolate herself in her room. Psych Therapist Input: Counselor reported that the patient remains compliant with medications and appears to have little insight into her mental illness. Patient appears to cope by isolating herself in her room. Patient will require an ICP in order for her to be accepted into a half-way facility and counselor will need to ask for assistance of Clinical Coordinator, Karishma Molina to initiate the ICP process. Occupational Therapist Input: Per OT specialist, Valentino, the patient is not participating in unit activities. Ancillary Staff Input: Recreational therapists, Gala, reported the patient is not participating in unit activities. [facility] December 20, 2016 11:50
--- NOTE | 2016-12-20 15:21 | HHI.PYPN ---
Subjective Remarks Patient seen and examined. Chart reviewed. Case discussed in treatment team. Per nursing staff, patient remains paranoid delusional and suspicious. Occupational therapist reports that the patient participates in no groups but is noted to be out of her room somewhat more. On my examination today, the patient continues to feel like she is rotting. She asks me whether I think it is possible that one of her attackers has stolen contaminated blood to lace her medications and keep her sick. Despite this concern, she remains medication compliant. Believes that she has "9 stars on the Walk of Fame" and that people who are jealous of her are the ones attacking her. No side effects from medications. No other physical complaints. Review of Systems ROS Limitations: Psychotic, Poor Historian Except as stated in HPI: all other systems reviewed are Neg Objective Alert: Yes [place]: Person, Place Mood: Calm Affect: Flat Memory Intact: Comment (fair) Hallucinations: Other (No AVH) Delusions: Yes Delusion Type: Grandiose, Paranoid Suicidal: Ideation (No SI) Homicidal: Ideation (No HI) Insight/Judgment Poor Remarks Thought process perseverative on delusional themes. No motoric abnormalities noted. Speech within normal limits for rate, tone and volume. Labs Labs reviewed. No new labs. Vitals/IOs Vital Signs Date Time Temp Pulse Resp B/P Pulse Ox O2 Delivery O2 Flow Rate FiO2 12/18/16 19:54 98.2 89 18 98/63 100 Intake and Output 12/19/16 12/19/16 12/20/16 08:00 16:00 00:00 Intake Total 600 ml 360 ml 1080 ml Balance 600 ml 360 ml 1080 ml Assessment & Plan Problem List: (1) Schizoaffective disorder ICD Code: F25.9 Assessment & Plan Ongoing an adequate response to Risperdal therapy for her psychosis. I will check a CBC in the morning in anticipation of initiation of clozapine therapy. Continue other psychotropics as ordered. Continue to monitor on the inpatient unit. Continue other medications and care as ordered. Justification for Cont. Inpt. Impairment in reality construction. Impairment in self-care. High risk for decompensation in a less restrictive environment. Discharge Planning Pending psychiatric stabilization. Problem Qualifiers (1) Schizoaffective disorder: Qualified Code: F25.8 - Other schizoaffective disorders Geovanny Ruiz MD December 20, 2016 15:21
[2016-12-20] MEDS: MIRTAZAPINE ODT 15 MG TAB PO SCH (21:00)
[2016-12-21 08:37] LABS: AUTOMATED NEUTROPHIL # 1.8 TH/MM3 (1.8-7.7); BASOPHIL % 0.4 % (0.0-2.0); EOSINOPHIL # 0.1 TH/MM3 (0-0.4); EOSINOPHIL % 3.9 % (0.0-4.0); HEMATOCRIT 34.6 % (35.0-46.0); HEMO FLAGS DIFF FINAL; LYMPH % 34.2 % (9.0-44.0); LYMPHOCYTE # 1.2 TH/MM3 (1.0-4.8); MEAN CELL VOLUME 84.9 FL (80.0-100.0); MEAN CORPUSCULAR HEMOGLOBIN 28.3 PG (27.0-34.0); MEAN CORPUSCULAR HGB CONC 33.3 % (32.0-36.0); MONO % 10.4 % (0.0-8.0); NEUT % 51.1 % (16.0-70.0); PLATELET COUNT 227 TH/MM3 (150-450); RED BLOOD COUNT 4.07 MIL/MM3 (4.00-5.30); RED CELL DISTRIBUTION WIDTH 16.2 % (11.6-17.2); WHITE BLOOD COUNT 3.5 TH/MM3 (4.0-11.0)
[2016-12-21] MEDS: BENZTROPINE MESYLATE 1 MG TAB PO SCH (08:39)
[2016-12-21] MEDS: GABAPENTIN 100 MG CAP PO SCH ×3 (08:39→18:00)
[2016-12-21] MEDS: risperiDONE 1 MG TAB PO SCH (08:39)
--- NOTE | 2016-12-21 13:37 | HHI.PYPN ---
Subjective Remarks Patient seen and examined. Chart reviewed. Case discussed with nursing staff. Patient is out at the day area at the time of my evaluation. She is somewhat dysphoric, hypoverbal. Delusional beliefs unchanged. No side effects from medications. Besides constant complaint of feeling like she is rotting, no physical complaints. Review of Systems ROS Limitations: Psychotic, Poor Historian Except as stated in HPI: all other systems reviewed are Neg Objective Alert: Yes [place]: Person, Place Mood: Calm Affect: Restricted (dysphoric) Memory Intact: Comment (fair) Hallucinations: Other (none) Delusions: Yes Delusion Type: Paranoid Suicidal: Ideation (No SI) Homicidal: Ideation (No HI) Insight/Judgment Poor Remarks No motor abnormalities noted. Labs Test 12/21/16 07:56 White Blood Count 3.5 TH/MM3 Red Blood Count 4.07 MIL/MM3 Hemoglobin 11.5 GM/DL Hematocrit 34.6 % Mean Corpuscular Volume 84.9 FL Mean Corpuscular Hemoglobin 28.3 PG Mean Corpuscular Hemoglobin 33.3 % Concent Red Cell Distribution Width 16.2 % Platelet Count 227 TH/MM3 Mean Platelet Volume 8.6 FL Neutrophils (%) (Auto) 51.1 % Lymphocytes (%) (Auto) 34.2 % Monocytes (%) (Auto) 10.4 % Eosinophils (%) (Auto) 3.9 % Basophils (%) (Auto) 0.4 % Neutrophils # (Auto) 1.8 TH/MM3 Lymphocytes # (Auto) 1.2 TH/MM3 Monocytes # (Auto) 0.4 TH/MM3 Eosinophils # (Auto) 0.1 TH/MM3 Basophils # (Auto) 0.0 TH/MM3 CBC Comment DIFF FINAL Differential Comment Laboratories reviewed. Patient has a mild leukopenia and granulocytes are towards the lower end of normal, although she is not frankly granulocytopenic. Vitals/IOs Vital Signs Date Time Temp Pulse Resp B/P Pulse Ox O2 Delivery O2 Flow Rate FiO2 12/18/16 19:54 98.2 89 18 98/63 100 Intake and Output 12/20/16 12/20/16 12/21/16 Refusing vital signs. 08:00 16:00 00:00 Intake Total 480 ml Balance 480 ml Assessment & Plan Problem List: (1) Schizoaffective disorder ICD Code: F25.9 Assessment & Plan Patient with persistent delusions of rotting. Given limited success with antipsychotic treatment so far, I would like to initiate a trial of clozapine, but the patient is presently leukopenic with low normal ANC. Patient is not driving any discernible benefit from the Risperdal, and so I will discontinue this and recheck a CBC Monday morning to see if her levels improved. If so, we should consider initiating clozapine at that time. Continue Remeron as ordered. Continue to monitor on the inpatient unit. I continue to encourage the patient to participate in physical therapy and other unit activities. Continue other medications and care as ordered. Justification for Cont. Inpt. Impairment in reality construction. High risk for decompensation in a less restrictive environment. Complicating conditions. Discharge Planning [place] tomorrow. Likely will require state psychiatric hospital referral if retained. Problem Qualifiers (1) Schizoaffective disorder: Qualified Code: F25.8 - Other schizoaffective disorders Geovanny Ruiz MD December 21, 2016 13:37
[2016-12-21 20:00] VITALS: BP 102/55; PULSE 101; RESP 18; TEMP 98.5
[2016-12-21] MEDS: MIRTAZAPINE ODT 15 MG TAB PO SCH (21:11)
[2016-12-22] MEDS: GABAPENTIN 100 MG CAP PO SCH ×3 (09:08→17:13)
--- NOTE | 2016-12-22 16:05 | HHI.PYPN ---
Subjective Remarks Patient seen and case discussed with nursing staff. Chart reviewed. Per nursing staff, patient is unchanged today. Delusional material persists. No behavioral disturbance but continues to refuse care intermittently (e.g. vitals , PT). Patient's case presented to the [place] court, and the patient was retained on the unit with a DAMARIS guardian. Review of Systems ROS Limitations: Poor Historian Except as stated in HPI: all other systems reviewed are Neg Objective Alert: Yes [place]: Person, Place Mood: Calm Affect: Flat Memory Intact: Comment (not assessed) Hallucinations: Other (none) Delusions: Yes Delusion Type: Paranoid Suicidal: Ideation (No SI) Homicidal: Ideation (No HI) Insight/Judgment poor Remarks No abnormal motor movement noted. Labs Labs reviewed. Vitals/IOs Vital Signs Date Time Temp Pulse Resp B/P Pulse Ox O2 Delivery O2 Flow Rate FiO2 12/21/16 20:00 98.5 101 18 102/55 12/18/16 19:54 100 Intake and Output 12/21/16 12/21/16 12/22/16 08:00 16:00 00:00 Intake Total 700 ml 1660 ml 1440 ml Balance 700 ml 1660 ml 1440 ml Assessment & Plan Problem List: (1) Schizoaffective disorder ICD Code: F25.9 Assessment & Plan Antipsychotic on hold. Follow up CBC tomorrow morning. If improved, to consider clozapine. Continue Remeron as ordered. Continue to monitor on the unit. Continue other medications and care as ordered. Justification for Cont. Inpt. Impairment in reality construction. Med changes planned. High risk for decompensation in a less restrictive setting. Discharge Planning Initiate referral to [facility]. Request HC Surrog/Guard Advoc?: Yes (DAMARIS) Problem Qualifiers (1) Schizoaffective disorder: Qualified Code: F25.8 - Other schizoaffective disorders Geovanny Ruiz MD Dec 22, 2016 16:05
[2016-12-22 18:00] VITALS: BP 105/56; PULSE 88; RESP 16; TEMP 97.8; O2SAT 100
[2016-12-22] MEDS: MIRTAZAPINE ODT 15 MG TAB PO SCH (21:52)
[2016-12-23] MEDS: GABAPENTIN 100 MG CAP PO SCH ×3 (10:16→18:20)
[2016-12-23 16:01] LABS: AUTOMATED NEUTROPHIL # 2.8 TH/MM3 (1.8-7.7); BASOPHIL % 0.5 % (0.0-2.0); EOSINOPHIL # 0.2 TH/MM3 (0-0.4); HEMATOCRIT 33.8 % (35.0-46.0); HEMO FLAGS DIFF FINAL; LYMPHOCYTE # 1.1 TH/MM3 (1.0-4.8); MEAN CELL VOLUME 83.6 FL (80.0-100.0); MEAN CORPUSCULAR HEMOGLOBIN 28.2 PG (27.0-34.0); MEAN CORPUSCULAR HGB CONC 33.7 % (32.0-36.0); MONO % 11.7 % (0.0-8.0); NEUT % 59.8 % (16.0-70.0); PLATELET COUNT 211 TH/MM3 (150-450); RED BLOOD COUNT 4.04 MIL/MM3 (4.00-5.30); WHITE BLOOD COUNT 4.6 TH/MM3 (4.0-11.0)
--- NOTE | 2016-12-23 17:38 | HHI.PYPN ---
Subjective Remarks Patient seen and examined. Chart reviewed. Case discussed with nursing staff. On my examination today, the patient is sitting in the day area. Her affect seems a little more reactive although she remains generally dysphoric. Continues to believe that she is rotting. No physical complaints. No side effects from medications. Review of Systems ROS Limitations: Psychotic, Poor Historian Except as stated in HPI: all other systems reviewed are Neg Objective Alert: Yes [place]: Person, Place Mood: Calm Affect: Blunted Memory Intact: Comment (not assessed) Hallucinations: Other (No AVH) Delusions: Yes Delusion Type: Paranoid (of rotting) Suicidal: Ideation (No SI) Homicidal: Ideation (No HI) Insight/Judgment Poor Remarks No abnormal motor movements noted. Thought process fairly linear within delusional system. Grooming and hygiene poor. Labs Test 12/23/16 14:05 White Blood Count 4.6 TH/MM3 Red Blood Count 4.04 MIL/MM3 Hemoglobin 11.4 GM/DL Hematocrit 33.8 % Mean Corpuscular Volume 83.6 FL Mean Corpuscular Hemoglobin 28.2 PG Mean Corpuscular Hemoglobin 33.7 % Concent Red Cell Distribution Width 16.0 % Platelet Count 211 TH/MM3 Mean Platelet Volume 9.3 FL Neutrophils (%) (Auto) 59.8 % Lymphocytes (%) (Auto) 23.0 % Monocytes (%) (Auto) 11.7 % Eosinophils (%) (Auto) 5.0 % Basophils (%) (Auto) 0.5 % Neutrophils # (Auto) 2.8 TH/MM3 Lymphocytes # (Auto) 1.1 TH/MM3 Monocytes # (Auto) 0.5 TH/MM3 Eosinophils # (Auto) 0.2 TH/MM3 Basophils # (Auto) 0.0 TH/MM3 CBC Comment DIFF FINAL Differential Comment Labs reviewed. Leukopenia improved. ANC increased. Vitals/IOs Vital Signs Date Time Temp Pulse Resp B/P Pulse Ox O2 Delivery O2 Flow Rate FiO2 12/22/16 18:00 97.8 88 16 105/56 100 Intake and Output 12/22/16 12/22/16 12/23/16 08:00 16:00 00:00 Intake Total 360 ml 1320 ml 720 ml Balance 360 ml 1320 ml 720 ml Assessment & Plan Problem List: (1) Schizoaffective disorder ICD Code: F25.9 Assessment & Plan Laboratories now satisfactory for clozapine trial to target ongoing resistant delusions. Initiate clozapine 25 mg at bedtime with plans to titrate over the weekend. I have ordered a CBC for a week from now. Continue other medications and care as ordered. Continue to monitor on the inpatient unit. Justification for Cont. Inpt. Impairment in reality construction. Medication changes in process. High risk for decompensation in a less restrictive environment. Discharge Planning Pending psychiatric stabilization. Request HC Surrog/Guard Advoc?: Yes (DAMARIS) Problem Qualifiers (1) Schizoaffective disorder: Qualified Code: F25.8 - Other schizoaffective disorders Geovanny Ruiz MD Dec 23, 2016 17:37
[2016-12-23] MEDS: MIRTAZAPINE ODT 15 MG TAB PO SCH (21:07)
[2016-12-23] MEDS: cloZAPine 25 MG TAB PO SCH (21:07)
[2016-12-24] MEDS: GABAPENTIN 100 MG CAP PO SCH ×3 (09:10→17:10)
--- NOTE | 2016-12-24 13:12 | HHI.PYPN ---
Subjective Remarks Pt seen and discussed with staff. She is tolerating clozaril initation without side effects. 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 She has been more talkative today and has been out in dayroom more. No aggression or agitation on unit. No SI/HI Objective Alert: Yes [place]: Person, Place Mood: Calm Affect: Blunted Memory Intact: Comment (fair) Hallucinations: Other (No AVH) Delusions: Yes Delusion Type: Paranoid (of rotting) Suicidal: Ideation (No SI) Homicidal: Ideation (No HI) Insight/Judgment poor Labs Test 12/23/16 14:05 White Blood Count 4.6 TH/MM3 Red Blood Count 4.04 MIL/MM3 Hemoglobin 11.4 GM/DL Hematocrit 33.8 % Mean Corpuscular Volume 83.6 FL Mean Corpuscular Hemoglobin 28.2 PG Mean Corpuscular Hemoglobin 33.7 % Concent Red Cell Distribution Width 16.0 % Platelet Count 211 TH/MM3 Mean Platelet Volume 9.3 FL Neutrophils (%) (Auto) 59.8 % Lymphocytes (%) (Auto) 23.0 % Monocytes (%) (Auto) 11.7 % Eosinophils (%) (Auto) 5.0 % Basophils (%) (Auto) 0.5 % Neutrophils # (Auto) 2.8 TH/MM3 Lymphocytes # (Auto) 1.1 TH/MM3 Monocytes # (Auto) 0.5 TH/MM3 Eosinophils # (Auto) 0.2 TH/MM3 Basophils # (Auto) 0.0 TH/MM3 CBC Comment DIFF FINAL Differential Comment Vitals/IOs Vital Signs Date Time Temp Pulse Resp B/P Pulse Ox O2 Delivery O2 Flow Rate FiO2 12/22/16 18:00 97.8 88 16 105/56 100 Intake and Output 12/23/16 12/23/16 12/24/16 08:00 16:00 00:00 Intake Total 360 ml Balance 360 ml Assessment & Plan Problem List: (1) Schizoaffective disorder ICD Code: F25.9 Assessment & Plan Continue current tx plan.Estimated LOS: days Justification for Cont. Inpt. impairments in reality construction and self care Request HC Surrog/Guard Advoc?: Yes (DAMARIS) Problem Qualifiers (1) Schizoaffective disorder: Qualified Code: F25.8 - Other schizoaffective disorders Richard,Julisa L. MD Dec 24, 2016 13:12
[2016-12-24 18:00] VITALS: BP 92/58; PULSE 94; RESP 18; TEMP 98.1; O2SAT 96
[2016-12-24] MEDS: cloZAPine 25 MG TAB PO SCH (21:31)
[2016-12-24] MEDS: MIRTAZAPINE ODT 15 MG TAB PO SCH (21:31)
[2016-12-25] MEDS: GABAPENTIN 100 MG CAP PO SCH ×3 (09:40→18:00)
--- NOTE | 2016-12-25 10:32 | HHI.PYPN ---
Subjective Remarks Pt seen and discussed with staff. She has been cooperative with medications and is tolerating them without side effect. Pt is more engaged in interview. She espouses paranoid ideations that her food and drink are being contaminated and her body is rotting from the inside out. She denies having schizoaffective disorder and states that was a label she was given at [facility] just because she didn't want to communicate with a man anymore. No SI/HI Objective Alert: Yes [place]: Person, Place, Situation Mood: Calm Affect: Blunted Memory Intact: Comment (fair) Hallucinations: Other (No AVH) Delusions: Yes Delusion Type: Paranoid (of rotting) Suicidal: Ideation (No SI) Homicidal: Ideation (No HI) Insight/Judgment poor Vitals/IOs Vital Signs Date Time Temp Pulse Resp B/P Pulse Ox O2 Delivery O2 Flow Rate FiO2 12/24/16 18:00 98.1 94 18 92/58 96 Intake and Output 12/24/16 12/24/16 12/25/16 08:00 16:00 00:00 Intake Total 720 ml 360 ml 1510 ml Balance 720 ml 360 ml 1510 ml Assessment & Plan Problem List: (1) Schizoaffective disorder ICD Code: F25.9 Assessment & Plan Continue current tx plan Estimated LOS: days Justification for Cont. Inpt. impairments in self care due to impairments in reality construction Request HC Surrog/Guard Advoc?: Yes (DAMARIS) Problem Qualifiers (1) Schizoaffective disorder: Qualified Code: F25.8 - Other schizoaffective disorders Julisa Ramos MD Dec 25, 2016 10:32
[2016-12-25] MEDS: MIRTAZAPINE ODT 15 MG TAB PO SCH (21:23)
[2016-12-25] MEDS: cloZAPine 25 MG TAB PO SCH (21:23)
[2016-12-26] MEDS: GABAPENTIN 100 MG CAP PO SCH ×3 (09:16→18:00)
--- NOTE | 2016-12-26 14:39 | HHI.PYPN ---
Subjective Remarks Patient seen and examined with nurse. Chart reviewed. Case discussed with nursing staff who reports that the patient did get a shower this morning. Nursing staff also calls my attention to the condition of the patient's feet. On my examination today, the patient is upset that she was made shower this morning. I emphasized that this is for hygiene, but she counters with her belief that it accelerates the rotting process. She believes that this acceleration of the rotting is going to cause her hand to fall off. Affect seems a little more reactive today. She says she did feel a little bit lightheaded this morning but otherwise no other physical complaints. No side effects from medications. Review of Systems ROS Limitations: Psychotic, Poor Historian Except as stated in HPI: all other systems reviewed are Neg Objective Alert: Yes [place]: Person, Place Mood: Calm Affect: Blunted Memory Intact: Comment (fair) Hallucinations: Other (no audiovisual hallucinations) Delusions: Yes Delusion Type: Paranoid (ongoing delusional material of rotting) Suicidal: Ideation (no suicidal ideation) Homicidal: Ideation (no homicidal ideation) Insight/Judgment Poor Remarks No motor abnormalities noted. On examination, patient's feet are covered with a scaly rash that is confluent with a similar dermatosis on the calves. No signs of cracking or bleeding. TP perseverative on delusional material. Labs Labs reviewed. Vitals/IOs Vital Signs Date Time Temp Pulse Resp B/P Pulse Ox O2 Delivery O2 Flow Rate FiO2 12/24/16 18:00 98.1 94 18 92/58 96 Intake and Output 12/25/16 12/25/16 12/26/16 08:00 16:00 00:00 Intake Total 600 ml 1320 ml 720 ml Balance 600 ml 1320 ml 720 ml Assessment & Plan Problem List: (1) Schizoaffective disorder ICD Code: F25.9 Assessment & Plan Arrest clozapine titration at 75mg qHS given c/o lightheadedness this morning. Check orthostatics and give pt another night to acclimate to current dose. To consider resuming titration tomorrow. Consult to the car attendant. Continue to monitor on the inpatient unit. Continue other medications and care as ordered. Justification for Cont. Inpt. Impairment in reality construction. Impairment in self-care. Planned medication changes. High risk for decompensation in a less restrictive environment. [facility]charge Planning [facility] Request HC Surrog/Guard Advoc?: Yes Problem Qualifiers (1) Schizoaffective disorder: Qualified Code: F25.8 - Other schizoaffective disorders Geovanny Ruiz MD Dec 26, 2016 14:39
[2016-12-26 18:00] VITALS: BP 112/67; PULSE 102; RESP 16; TEMP 98.8; O2SAT 100
[2016-12-26] MEDS: cloZAPine 25 MG TAB PO SCH (21:05)
[2016-12-26] MEDS: MIRTAZAPINE ODT 15 MG TAB PO SCH (21:06)
[2016-12-27 05:16] VITALS: BP 128/60; PULSE 73; RESP 18; TEMP 98.1; O2SAT 92
[2016-12-27] MEDS: GABAPENTIN 100 MG CAP PO SCH ×3 (08:29→17:25)
--- NOTE | 2016-12-27 11:11 | PD.TTN ---
Present for Treatment Team Treatment Team Staff: Provider (Dr. Ruiz), Nurse (Yomi), Psych Therapist (Mariella Barrera), Other Clinician (Sam, rec therapy) Patient Problems 1. Discharge planning 2. Medication compliance 3. Knowledge deficit 4. Lack of coping skills Progress Toward Goals Provider Input: Dr. Ruiz reported the patient is on her fourth antipsychotic medication and presnetly he will be increasing patient's clozaril this evening. Nurse Input: Yomi reported the patient is waiting to see th epodiatrist. He described the patient as more paranoid and reported that she wants to wait for the dining room to clear out before she comes out for dinner. Patient is medication compliant and showered yesterday with strong encouragement from nurse. Psych Therapist Input: Patient continues to isolate inher room and offer minimal responses to counselor. Patient is eating, although, she returns to her room after dinner and does not socialize with peers or staff. Other Clinican Input: Recreation threapist Sam reports the patient isolates to he room and does not participate in therapeutic groups or activities. Documentation Scribe: MAT Enriquez Date Resolved: Dec 27, 2016 Mariella Barrera Dec 27, 2016 11:11
--- NOTE | 2016-12-27 12:03 | HHI.PYPN ---
Subjective Remarks Patient seen and examined. Chart reviewed. Case discussed in treatment team with nurse, counselor and occupational therapist. Nurse reports that the patient remains quite paranoid and waits for others to eat before venturing in day area to have her meal. Nursing staff also notes that the patient refused orthostatic vital signs. On my examination today the patient continues to believe that she is rotting. She volunteers that she believes that she has some sort of web-like substance on her person that catches on other people, and this is why she avoids contact with others. She insists that she can see this webbing. Insight into mental illness remains poor, "I'm not a mental patient!" No side effects from medications. No physical complaints. No ongoing complaints of lightheadedness. Review of Systems ROS Limitations: Psychotic, Poor Historian Except as stated in HPI: all other systems reviewed are Neg Objective Alert: Yes [place]: Person, Place Mood: Calm, Oppositional Affect: Flat Memory Intact: Comment (fair) Hallucinations: Visual (Patient insists that she can see webbing) Delusions: Yes Delusion Type: Paranoid (ongoing, as above) Suicidal: Ideation (No SI) Homicidal: Ideation (No HI) Insight/Judgment Poor Remarks No motoric abnormalities noted. Thought process perseverative on delusional themes. Grooming and hygiene poor. Labs Labs reviewed. Vitals/IOs Vital Signs Date Time Temp Pulse Resp B/P Pulse Ox O2 Delivery O2 Flow Rate FiO2 12/26/16 18:00 98.8 102 16 112/67 100 Intake and Output 12/26/16 12/26/16 12/27/16 08:00 16:00 00:00 Intake Total 0 ml 1680 ml 480 ml Balance 0 ml 1680 ml 480 ml Assessment & Plan Problem List: (1) Schizoaffective disorder ICD Code: F25.9 Assessment & Plan Titrate clozapine to 25/75 mg to target psychosis. CBC ordered for 12/30. Continue Remeron at bedtime. I have encouraged the patient to comply with vital signs including orthostatics. Continue to monitor on the inpatient unit. Continue other medications and care as ordered. Justification for Cont. Inpt. Impairment in reality construction. Impairment in self-care. Medication changes in process. High risk for decompensation and a less restrictive environment. Discharge Planning [facility] Request HC Surrog/Guard Advoc?: Yes Problem Qualifiers (1) Schizoaffective disorder: Qualified Code: F25.8 - Other schizoaffective disorders Geovanny Ruiz MD Dec 27, 2016 12:03
[2016-12-27 17:52] VITALS: BP 108/69; PULSE 95; RESP 17; TEMP 98.3; O2SAT 100
[2016-12-27] MEDS: MIRTAZAPINE ODT 15 MG TAB PO SCH (20:38)
[2016-12-27] MEDS: cloZAPine 25 MG TAB PO SCH (20:38)
--- NOTE | 2016-12-27 23:26 | MB ---
cc: MARY LIN DATE OF CONSULTATION: 12/27/2016 CHIEF COMPLAINT: Peeling skin bilaterally. HISTORY OF PRESENT ILLNESS Ms. Piedra is a 61-year-old female patient who was admitted to [facility] after having issue with noncompliance and overall health deterioration at her adult living facility. The patient states that all of her skin is ripping open. 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 She states that the "poisoning" is likely still occurring even through the hospital food. The patient showed me what she considered evidence on her feet, legs, abdomen and breast. She states that showering makes this worse so she tries to avoid showering. She has not tried any medications or lotion. She denies any itching, burning or pain associated with the rash. Vital signs: Temperature is 98.3, pulse 95, respiratory rate 17, blood pressure 108/69, pulse ox 100% O2 on room air. LABORATORY DATA On December 23, white count 4.6, hemoglobin 11.4, hematocrit 33.8, platelets 211, sodium 140 potassium 4.1, chloride 106, carbon dioxide 27.1, BUN 16, hemoglobin A1c is 5.8. PAST MEDICAL HISTORY: Schizophrenia. FAMILY HISTORY: Noncontributory. SOCIAL HISTORY: The patient lives in an assisted living facility. ALLERGIES NO KNOWN DRUG ALLERGIES. MEDICATIONS Please see list. PHYSICAL EXAMINATION: Bilateral DP and PT palpable pulses, capillary refill time less than 3 seconds. Gross sensation intact. No biomechanical abnormalities. She does have scaling peeling plaques on the dorsal aspect of both feet extending to approximately the mid calf level. These plaques are darker in nature. They easily peel off manually to reveal healthy normal skin underneath. No open lesions. No sign of infection. Her toe nails are elongated and show signs of underlying dirt but no thickening or ingrown nails. No pain or cutting from the nails. ASSESSMENT AND PLAN: 1)Bilateral dermatitis. -The patient's skin issues most likely correlate to tinea pedis and colonization in the outpatient setting. Typically, antifungal soap, warm water and a wash cloth would be used to manually remove the plaques and then treat the areas with Lotrisone accordingly. However, the patient is adamant about limiting showers as she feels this makes the situation worse. Worsening dermatitis has not been evaluated by any other health providers. -The patient's fingernails and toe nails are elongated. She is requesting care. I would be happy to see her as an outpatient. She is not diabetic or on any blood thinners, nor are her elongated nails causing any health issue. Will defer to the nursing staff if they are able to assist with fingernail and toe nail trimming. -Please reconsult if our services can be of assistance. Mary JUNIOR/ELDON /9:29 PM /11:03 PM RICHARD
[2016-12-28] MEDS: GABAPENTIN 100 MG CAP PO SCH ×3 (09:17→17:57)
[2016-12-28] MEDS: cloZAPine 25 MG TAB PO SCH (09:17)
[2016-12-28] MEDS: BETAMETHASONE/CLOTRIMAZOLE CREAM 15 GM TOPICAL SCH ×2 (09:18→20:41)
--- NOTE | 2016-12-28 15:12 | HHI.PYPN ---
Subjective Remarks Patient seen and examined with counselor. Chart reviewed. Case discussed with nursing staff reports there have been no behavioral issues noted. On my examination today, the patient says that she feels about the same as yesterday. She views this as "good news because at least I'm not getting worse." Affect seems slightly more reactive today versus yesterday. She does not spontaneously bring up her beliefs that she is rotting. Denies side effects from medications. No physical complaints. Review of Systems ROS Limitations: Psychotic, Poor Historian Except as stated in HPI: all other systems reviewed are Neg Objective Alert: Yes [place]: Person, Place Mood: Calm Affect: Blunted Memory Intact: Comment (fair) Hallucinations: Other (no AVH) Delusions: Yes Delusion Type: Paranoid (continues to believe that she is rotting but does not spontaneously verbalize this today) Suicidal: Ideation (no SI) Homicidal: Ideation (no HI) Insight/Judgment Poor Remarks No abnormal motor movements noted Labs Labs reviewed. Vitals/IOs Vital Signs Date Time Temp Pulse Resp B/P Pulse Ox O2 Delivery O2 Flow Rate FiO2 12/27/16 17:52 98.3 95 17 108/69 100 Intake and Output 12/27/16 12/27/16 12/28/16 08:00 16:00 00:00 Intake Total 240 ml Balance 240 ml Assessment & Plan Problem List: (1) Schizoaffective disorder ICD Code: F25.9 Assessment & Plan Possibly some very modest early benefit from the closet been. The patient does seem more reactive with regards to her affect and is less perseverative on her delusional beliefs. I will titrate the patient's clozapine to 25/100 mg tomorrow with plans for further titration after that. Continue Remeron as ordered. Continue to monitor on the inpatient unit. Podiatry input noted and appreciated. Continue other medications and care as ordered. Justification for Cont. Inpt. Impairment in self-care. Impairment in reality construction. Medication changes in process. High risk for decompensation in a less restrictive environment. [facility]charge Planning [facility] Request HC Surrog/Guard Advoc?: Yes Problem Qualifiers (1) Schizoaffective disorder: Qualified Code: F25.8 - Other schizoaffective disorders Geovanny Ruiz MD Dec 28, 2016 15:12
[2016-12-28] MEDS: MIRTAZAPINE ODT 15 MG TAB PO SCH (20:41)
[2016-12-28] MEDS ORDERED: cloZAPine 25 MG TAB PO SCH (21:00)
[2016-12-29] MEDS: POLYETHYLENE GLYCOL 17 GM PKG PO PRN (08:29)
[2016-12-29] MEDS: cloZAPine 25 MG TAB PO SCH (08:30)
[2016-12-29] MEDS: GABAPENTIN 100 MG CAP PO SCH ×3 (08:30→17:02)
[2016-12-29] MEDS: BETAMETHASONE/CLOTRIMAZOLE CREAM 15 GM TOPICAL SCH ×2 (08:31→20:28)
--- NOTE | 2016-12-29 10:53 | HHI.PYPN ---
Subjective Remarks Patient seen and examined with nurse. Chart reviewed. Case discussed with nursing staff who describes the patient is pleasant and more interactive. On my examination today, the patient is somewhat perturbed that her room has been moved. She says that one of the other patients should have been moved instead of her because "I have senior arty. I've been here longer." Affect remains somewhat more reactive. She does not spontaneously verbalize her delusions regarding rotting. Denies side effects from medications. She would like her nails clipped, and the nursing staff tells me that her fingernails and more particularly her toenails are too thickened to be cut with the nail clippers available to the staff on the unit. No physical complaints otherwise. Review of Systems ROS Limitations: Psychotic, Poor Historian Except as stated in HPI: all other systems reviewed are Neg Objective Alert: Yes [place]: Person, Place Mood: Calm Affect: Blunted Memory Intact: Comment (fair) Hallucinations: Other (no hallucinations) Delusions: Yes Delusion Type: Paranoid (ongoing belief that she is rotting but this is less prominent) Suicidal: Ideation (no SI) Homicidal: Ideation (no HI) Insight/Judgment Poor Remarks No motor abnormalities noted Labs Labs reviewed. Vitals/IOs Vital Signs Date Time Temp Pulse Resp B/P Pulse Ox O2 Delivery O2 Flow Rate FiO2 12/27/16 17:52 98.3 95 17 108/69 100 Intake and Output 12/28/16 12/28/16 12/29/16 08:00 16:00 00:00 Intake Total 0 ml 240 ml 240 ml Balance 0 ml 240 ml 240 ml Assessment & Plan Problem List: (1) Schizoaffective disorder ICD Code: F25.9 Assessment & Plan Continue clozapine titration to 50/100 mg to target psychosis. I have asked the nursing staff to see if the slot attendant will return to clinic the patient's nails. I did suggest to the patient that she allow us to soak them to soften them and make them easier to cut, but she doesn't want to do this because she believes that accelerates the rotting process. Continue to monitor on the inpatient unit. Continue other medications and care as ordered. Justification for Cont. Inpt. Impairment in reality construction. Impairment in self-care. Medication changes in process. High risk for decompensation in a less restrictive environment. Discharge Planning [facility] psychiatric hospital referral. Request HC Surrog/Guard Advoc?: Yes Problem Qualifiers (1) Schizoaffective disorder: Qualified Code: F25.8 - Other schizoaffective disorders Geovanny Ruiz MD Dec 29, 2016 10:53
[2016-12-29 18:00] VITALS: BP 105/61; PULSE 110; RESP 18; TEMP 91.2; O2SAT 100
[2016-12-29] MEDS: MIRTAZAPINE ODT 15 MG TAB PO SCH (20:27)
[2016-12-29] MEDS ORDERED: cloZAPine 100 MG TAB PO SCH (21:00)
[2016-12-30] MEDS: BETAMETHASONE/CLOTRIMAZOLE CREAM 15 GM TOPICAL SCH ×2 (09:00→21:05)
[2016-12-30] MEDS: GABAPENTIN 100 MG CAP PO SCH ×3 (09:18→18:04)
[2016-12-30] MEDS: cloZAPine 25 MG TAB PO SCH (09:18)
[2016-12-30 09:47] LABS: AUTOMATED NEUTROPHIL # 2.6 TH/MM3 (1.8-7.7); BASOPHIL % 0.4 % (0.0-2.0); EOSINOPHIL # 0.2 TH/MM3 (0-0.4); EOSINOPHIL % 5.3 % (0.0-4.0); HEMATOCRIT 40.1 % (35.0-46.0); HEMO FLAGS DIFF FINAL; LYMPH % 23.5 % (9.0-44.0); MEAN CELL VOLUME 86.1 FL (80.0-100.0); MEAN CORPUSCULAR HEMOGLOBIN 28.4 PG (27.0-34.0); MONO % 8.9 % (0.0-8.0); NEUT % 61.9 % (16.0-70.0); PLATELET COUNT 205 TH/MM3 (150-450); RED BLOOD COUNT 4.66 MIL/MM3 (4.00-5.30); RED CELL DISTRIBUTION WIDTH 15.9 % (11.6-17.2); WHITE BLOOD COUNT 4.3 TH/MM3 (4.0-11.0)
--- NOTE | 2016-12-30 13:08 | HHI.PYPN ---
Subjective Remarks Patient seen and examined with nurse. Chart reviewed. Case discussed with nursing staff reports that the patient reluctantly complied with CBC for clozapine therapy. On my examination today, the patient seems unchanged from yesterday. Delusions of rotting continue. Affect remains somewhat dysphoric although overall more reactive versus earlier this admission. No side effects from medications. No new physical complaints. Review of Systems ROS Limitations: Psychotic, Poor Historian Except as stated in HPI: all other systems reviewed are Neg Objective Alert: Yes [place]: Person, Place Mood: Calm Affect: Blunted (remains blunted) Memory Intact: Comment (fair) Hallucinations: Other (no AVH) Delusions: Yes Delusion Type: Paranoid (believe that she is rotting continues) Suicidal: Ideation (no SI) Homicidal: Ideation (no HI) Insight/Judgment Poor Remarks No motor abnormalities noted Labs Test 12/30/16 09:34 White Blood Count 4.3 TH/MM3 Red Blood Count 4.66 MIL/MM3 Hemoglobin 13.2 GM/DL Hematocrit 40.1 % Mean Corpuscular Volume 86.1 FL Mean Corpuscular Hemoglobin 28.4 PG Mean Corpuscular Hemoglobin 33.0 % Concent Red Cell Distribution Width 15.9 % Platelet Count 205 TH/MM3 Mean Platelet Volume 8.7 FL Neutrophils (%) (Auto) 61.9 % Lymphocytes (%) (Auto) 23.5 % Monocytes (%) (Auto) 8.9 % Eosinophils (%) (Auto) 5.3 % Basophils (%) (Auto) 0.4 % Neutrophils # (Auto) 2.6 TH/MM3 Lymphocytes # (Auto) 1.0 TH/MM3 Monocytes # (Auto) 0.4 TH/MM3 Eosinophils # (Auto) 0.2 TH/MM3 Basophils # (Auto) 0.0 TH/MM3 CBC Comment DIFF FINAL Differential Comment Labs reviewed. ANC remains adequate for clozapine therapy. Vitals/IOs Vital Signs Date Time Temp Pulse Resp B/P Pulse Ox O2 Delivery O2 Flow Rate FiO2 12/29/16 18:00 91.2 110 18 105/61 100 Intake and Output 12/29/16 12/29/16 12/30/16 08:00 16:00 00:00 Intake Total 480 ml 960 ml 990 ml Balance 480 ml 960 ml 990 ml Assessment & Plan Problem List: (1) Schizoaffective disorder ICD Code: F25.9 Assessment & Plan Titrate clozapine over the weekend with target dose of 50/150 mg after the weekend. I have ordered next weekly CBC. Continue Remeron as ordered. Continue other medications and care as ordered. Continue to monitor on the inpatient unit. Justification for Cont. Inpt. Impairment in reality construction. Impairment in self-care. Medication changes in process. High risk for decompensation in a less restrictive environment. Discharge Planning [facility] referral. Request HC Surrog/Guard Advoc?: Yes Problem Qualifiers (1) Schizoaffective disorder: Qualified Code: F25.8 - Other schizoaffective disorders Geovanny Ruiz MD Dec 30, 2016 13:08
[2016-12-30] MEDS: MIRTAZAPINE ODT 15 MG TAB PO SCH (21:04)
[2016-12-30] MEDS: cloZAPine 100 MG TAB PO SCH (21:05)
[2016-12-31] MEDS: GABAPENTIN 100 MG CAP PO SCH ×3 (09:50→16:57)
[2016-12-31] MEDS: cloZAPine 25 MG TAB PO SCH (09:50)
--- NOTE | 2016-12-31 13:49 | HHI.PYPN ---
Subjective Remarks Patient was seen and case discussed with nursing. Patient remains with a fixed delusion that her body is rotting from the inside. He says it could be the medicine or her food. Hygiene continues to be poor. Concerned about toenail clipping. Been seclusive to self. Compliant with medications Objective Alert: Yes [place]: Person, Place Mood: Oppositional Affect: Flat Memory Intact: Comment (fair) Hallucinations: Other (no AVH) Delusions: Yes Delusion Type: Paranoid (believe that she is rotting continues) Suicidal: Ideation (no SI) Homicidal: Ideation (no HI) Insight/Judgment Poor Vitals/IOs Vital Signs Date Time Temp Pulse Resp B/P Pulse Ox O2 Delivery O2 Flow Rate FiO2 12/29/16 18:00 91.2 110 18 105/61 100 Intake and Output 12/30/16 12/30/16 12/31/16 08:00 16:00 00:00 Intake Total 720 ml 1440 ml 1200 ml Balance 720 ml 1440 ml 1200 ml Assessment & Plan Problem List: (1) Schizoaffective disorder ICD Code: F25.9 Assessment & Plan To new current treatment plan Justification for Cont. Inpt. Patient will decompensate in a less restrictive setting Request HC Surrog/Guard Advoc?: Yes Problem Qualifiers (1) Schizoaffective disorder: Qualified Code: F25.8 - Other schizoaffective disorders Christian Sood DO Dec 31, 2016 13:49
[2016-12-31] MEDS: BETAMETHASONE/CLOTRIMAZOLE CREAM 15 GM TOPICAL SCH ×2 (16:57→21:00)
[2016-12-31] MEDS: cloZAPine 100 MG TAB PO SCH (22:21)
[2016-12-31] MEDS: MIRTAZAPINE ODT 15 MG TAB PO SCH (22:21)
[2017-01-01 06:23] VITALS: BP 102/93
[2017-01-01 06:30] VITALS: BP 145/76; PULSE 129
[2017-01-01 06:32] VITALS: BP 127/70; PULSE 120
[2017-01-01 06:34] VITALS: BP 145/76; PULSE 96; RESP 17; TEMP 97.8; O2SAT 100
[2017-01-01] MEDS: BETAMETHASONE/CLOTRIMAZOLE CREAM 15 GM TOPICAL SCH ×2 (10:02→20:57)
[2017-01-01] MEDS: cloZAPine 25 MG TAB PO SCH (10:03)
[2017-01-01] MEDS: GABAPENTIN 100 MG CAP PO SCH ×3 (10:03→18:13)
--- NOTE | 2017-01-01 12:41 | HHI.PYPN ---
Subjective Remarks Patient was seen and case discussed with nursing. Patient remains with her fixed delusion that she is rotting from the inside. Night staff noticed a "irregular heartbeat." This is from techs doing the blood pressures overnight. Patient denies any chest pain remains seclusive to self Objective Alert: Yes [place]: Person, Place Mood: Oppositional Affect: Blunted Memory Intact: Comment (fair) Hallucinations: Other (no AVH) Delusions: Yes Delusion Type: Paranoid (believe that she is rotting continues) Suicidal: Ideation (no SI) Homicidal: Ideation (no HI) Insight/Judgment Poor Vitals/IOs Vital Signs Date Time Temp Pulse Resp B/P Pulse Ox O2 Delivery O2 Flow Rate FiO2 01/01/17 06:34 97.8 96 17 145/76 100 Intake and Output 12/31/16 12/31/16 01/01/17 08:00 16:00 00:00 Intake Total 60 ml 1200 ml Balance 60 ml 1200 ml Assessment & Plan Problem List: (1) Schizoaffective disorder ICD Code: F25.9 Assessment & Plan Order EKG as a precaution Justification for Cont. Inpt. Patient will decompensate in a less restrictive setting Request HC Surrog/Guard Advoc?: Yes Problem Qualifiers (1) Schizoaffective disorder: Qualified Code: F25.8 - Other schizoaffective disorders Christian Sood DO Jan 01, 2017 12:41
--- NOTE | 2017-01-01 15:54 | HHI.PR ---
Subjective Remarks Reconsulted tachycardia Patient seen and examined today. Denies any complaints. States she hasn't been drinking enough water or any fluids within the past 2-3 days. Reports she doesn't like water and would prefer to have cr poppy or apple juice. Discuss with patient regarding tachycardia, patient states that she has no problems with her heart and she is doing well. Patient has been known to refuse most medications and treatments including lab draws and diagnostics. Denies pain and discomfort. Denies SOB/ dyspnea. Denies chest pain, palpitations, headaches, dizziness. Denies fevers, chills, n/v/d. Denies hematuria, dysuria. Objective Vitals Vital Signs Date Time Temp Pulse Resp B/P Pulse Ox O2 Delivery O2 Flow Rate FiO2 01/01/17 06:34 97.8 96 17 145/76 100 01/01/17 06:32 120 127/70 01/01/17 06:23 102/93 I/O 12/31/16 12/31/16 12/31/16 01/01/17 01/01/17 01/01/17 07:00 15:00 23:00 07:00 15:00 23:00 Intake Total 60 ml 1200 ml 2640 ml Balance 60 ml 1200 ml 2640 ml Intake Oral 60 ml 1200 ml 2640 ml # Voids 1 2 1 3 # Bowel Movements 0 Result Diagram: 12/30/16 0934 Objective Remarks GENERAL: This is a well-nourished, well-developed patient, in no apparent distress. SKIN: Warm and dry, scaly skin. Generalized tenderness to palpation all over body. HEAD: Normocephalic. No temporal or scalp tenderness. EYES: Pupils equal round and reactive. No scleral icterus. No injection or drainage. ENT: Nose without bleeding. Throat without erythema. Uvula midline. Airway patent. NECK: Trachea midline. No JVD or lymphadenopathy. CARDIOVASCULAR: Tachycardia without murmurs, gallops, or rubs. RESPIRATORY: Clear to auscultation. Breath sounds equal bilaterally. No wheezes , rales, or rhonchi. GASTROINTESTINAL: Abdomen soft, non-tender, nondistended. MUSCULOSKELETAL: Extremities without clubbing, cyanosis, or edema. NEUROLOGICAL: Awake and alert. Flat affect. Moves all extremities. BLE weaker than BUE. Normal speech. A/P Problem List: (1) Schizoaffective disorder ICD Code: F25.9 Status: Acute (2) Schizophrenia, paranoid, chronic ICD Code: F20.0 Status: Acute (3) Suicidal ideations ICD Code: R45.851 Status: Acute (4) Hypoprolactinemia ICD Code: E23.6 Status: Acute Assessment and Plan Patient is a 61-year-old female with primary medical history of schizoaffective disorder living in assisted living facility came into the hospital initially under Zhu act by EMS secondary to decompensation becoming increasingly depressed, despondent, and isolated 11/11/16. As per review of records, patient has been reported to have suicidal ideation and intent with statement "I don't want to live anymore." Patient is now admitted to inpatient psychiatry unit for further evaluation. Consulted for hypoprolactinemia. Schizoaffective disorder, depression, schizophrenia with paranoia - managed by psychiatry team Hypo prolactinemia - Prolactin level <1.0. Suspect shunt gonadotropin or nonfunctioning pituitary adenoma was which can cause neurologic symptoms - TSH 0.991 , free T4 0.84, ACT, Cortisol 18.9, GH 3.63, LH 26.5, IGF-I normal - Recommended for brain MRI. Patient has refused. Tachycardia - Likely s/t decreased PO intake. - encourage PO intake. Patient was left with picture of apple juice. Discussed with nursing to encourage by mouth fluid intake. - EKG showed sinus tachycardia with heart rate of 120, nonspecific T-wave abnormality, QT interval 338. No notable ST changes. - Monitor BP trend, heart rate - Check orthostatic BP - Check CBC, CMP DVT prop assisted ambulation Discussed with patient, nursing, Dr. Onofre Problem Qualifiers (1) Schizoaffective disorder: Qualified Code: F25.8 - Other schizoaffective disorders Davey Meyer Jan 01, 2017 15:54
[2017-01-01] MEDS: cloZAPine 100 MG TAB PO SCH (20:52)
[2017-01-01] MEDS: MIRTAZAPINE ODT 15 MG TAB PO SCH (20:53)
[2017-01-01] MEDS: MAGNESIUM HYDROXIDE SUSP 30 ML CUP PO PRN (21:09)
[2017-01-02] MEDS: GABAPENTIN 100 MG CAP PO SCH ×3 (09:52→18:35)
[2017-01-02] MEDS: cloZAPine 25 MG TAB PO SCH ×2 (09:52→21:15)
[2017-01-02] MEDS: BETAMETHASONE/CLOTRIMAZOLE CREAM 15 GM TOPICAL SCH ×2 (09:53→21:00)
--- NOTE | 2017-01-02 11:14 | EKG ---
Date Performed: 01/01/2017 Time Performed: 14:11:00 PTAGE: 61 years EKG: SINUS TACHYCARDIA LOW QRS VOLTAGE IN PRECORDIAL LEADS NONSPECIFIC T-WAVE ABNORMALITY ABNORM AL RHYTHM ECG NO PREVIOUS TRACING DOCTOR: Cristiano Lee Interpretating Date/Time 01/02/2017 11:12:27
--- NOTE | 2017-01-02 15:14 | HHI.PYPN ---
Subjective Remarks Patient seen and examined with nurse. Chart reviewed. Case discussed with nursing staff. On my examination today, some softening of patient's delusion that she is rotting. Continues to believe that this is likely the case but is willing to entertain some doubt. She says "I have 10 degrees from 10 universities and I can't figure out what's wrong." Affect somewhat dysphoric today. No SI or HI. No side effects from medications. No new physical complaints. Review of Systems ROS Limitations: Psychotic, Poor Historian Except as stated in HPI: all other systems reviewed are Neg Objective Alert: Yes [place]: Person, Place Mood: Other (dysphoric) Affect: Restricted Memory Intact: Comment (Not formally assessed) Hallucinations: Other (No AVH) Delusions: Yes Delusion Type: Paranoid (some softening of delusion re: rotting) Suicidal: Ideation (No SI) Homicidal: Ideation (No HI) Insight/Judgment Poor Remarks No motor abnormalities noted. Grooming and hygiene remained poor. Labs Labs reviewed. EKG reviewed. Vitals/IOs Vital Signs Date Time Temp Pulse Resp B/P Pulse Ox O2 Delivery O2 Flow Rate FiO2 01/01/17 06:34 97.8 96 17 145/76 100 Intake and Output 01/01/17 01/01/17 01/02/17 08:00 16:00 00:00 Intake Total 2640 ml 840 ml Balance 2640 ml 840 ml Assessment & Plan Problem List: (1) Schizoaffective disorder ICD Code: F25.9 Assessment & Plan Titrate clozapine to 75/150 mg to target psychosis. It appears that patient refused laboratories ordered by the hospitalist; I have placed an order to temporarily restrain the patient to obtain these laboratories. Nurse has contacted podiatry office to have them return to assist with clipping the patient's nails; they are requesting a new consultation, which I have placed now. Continue to monitor on an inpatient unit. Continue other medications and care as ordered. Justification for Cont. Inpt. Impairment in reality construction. High risk for decompensation in a less restrictive environment. Impairment in self-care. Discharge Planning [facility] psychiatric hospital referral Request HC Surrog/Guard Advoc?: Yes Problem Qualifiers (1) Schizoaffective disorder: Qualified Code: F25.8 - Other schizoaffective disorders Geovanny Ruiz MD Jan 02, 2017 15:14
[2017-01-02 18:15] VITALS: BP 104/64; PULSE 113; RESP 16; TEMP 98.3; O2SAT 98
[2017-01-02] MEDS: MIRTAZAPINE ODT 15 MG TAB PO SCH (21:15)
[2017-01-03 06:16] VITALS: BP 110/62; PULSE 98; RESP 16; TEMP 97.9; O2SAT 100
[2017-01-03 08:02] LABS: BASOPHIL % 1.1 % (0.0-2.0); EOSINOPHIL # 0.2 TH/MM3 (0-0.4); EOSINOPHIL % 4.1 % (0.0-4.0); HEMATOCRIT 37.7 % (35.0-46.0); HEMO FLAGS DIFF FINAL; LYMPH % 37.5 % (9.0-44.0); LYMPHOCYTE # 1.5 TH/MM3 (1.0-4.8); MEAN CELL VOLUME 85.7 FL (80.0-100.0); MEAN CORPUSCULAR HEMOGLOBIN 27.5 PG (27.0-34.0); MEAN CORPUSCULAR HGB CONC 32.1 % (32.0-36.0); MONO % 8.7 % (0.0-8.0); NEUT % 48.6 % (16.0-70.0); PLATELET COUNT 222 TH/MM3 (150-450); RED CELL DISTRIBUTION WIDTH 15.8 % (11.6-17.2); WHITE BLOOD COUNT 4.1 TH/MM3 (4.0-11.0)
[2017-01-03 08:25] LABS: ANION GAP 6 MEQ/L (5-15); AST (GOT) 12 U/L (15-37); BICARBONATE 30.9 MEQ/L (21.0-32.0); BLOOD UREA NITROGEN 14 MG/DL (7-18); CHLORIDE 106 MEQ/L (98-107); GLOMERULAR FILTRATION RATE 74 ML/MIN (>89); POTASSIUM 3.8 MEQ/L (3.5-5.1); SODIUM (NA) 143 MEQ/L (136-145)
[2017-01-03 08:28] LABS: ALKALINE PHOSPHATASE 116 U/L (45-117); ALT (GPT) 25 U/L (10-53); TOTAL BILIRUBIN ADULT 0.5 MG/DL (0.2-1.0)
[2017-01-03] MEDS: GABAPENTIN 100 MG CAP PO SCH ×3 (08:43→17:30)
[2017-01-03] MEDS ORDERED: cloZAPine 25 MG TAB PO SCH (09:00)
[2017-01-03] MEDS: BETAMETHASONE/CLOTRIMAZOLE CREAM 15 GM TOPICAL SCH ×2 (09:00→20:42)
--- NOTE | 2017-01-03 11:06 | PD.TTN ---
Present for Treatment Team Treatment Team Staff: Provider (Dr. Ruiz), Nurse ([place]), Psych Therapist (Mariella Barrera), Other Clinician (rec. Sam therapy) Patient Problems 1. Discharge planning 2. Medication compliance 3. Knowledge deficit 4. Lack of coping skills Progress Toward Goals Provider Input: Dr. Ruiz reported he wll call the anode crew supervisor today regarding patient's toe nails being cut. suggested to Nurse that she attempt to trim patient toenails again and nurse reproted she did not think the clippers they have on the unit will be strong enough to trim patient's nails. Nurse Input: Nurse reported the patient remains compliant with medications, isloative to her room except for meals, and continues to express delusional thoughts related to her body rotting. Psych Therapist Input: Counselor reported I have follow-up regarding my request for patient's ICP and Clinical Coordinator, Karishma Molina is working with Ani to secure an ICP. Counselor reported the patient remains on the [facility] wait list and that counselor will attempt to divert patient to placement when ICP is in place. Clinical Specialist Input: moni Vargas. therapy, reported the patient does not attend groups. Documentation Scribe: MAT Enriquez Date Resolved: Jan 03, 2017 Mariella Barrera Jan 03, 2017 11:05
--- NOTE | 2017-01-03 12:58 | HHI.PYPN ---
Subjective Remarks Patient seen and examined. Chart reviewed. Case discussed in treatment team with nurse, counselor and OT. Per nursing staff, patient was incontinent of urine, somewhat foul-smelling overnight. Occupational therapist notes that the patient is not coming out for groups. Counselor reports that the [facility] receive the patient's admission packet, and counselor is additionally working on getting the patient a different payer source that might allow for some kind of alternative placement. On my examination today, the patient remains delusional and believes that she is rotting. She believes that she is leaking fluid and that the poisoning is making her feel weak, although there is no sign of focal weakness on exam. Denies side effects from medications. No other physical complaints. Patient denies urinary symptoms. Review of Systems ROS Limitations: Psychotic, Poor Historian Except as stated in HPI: all other systems reviewed are Neg Objective Alert: Yes [place]: Person, Place Mood: Other (remains somewhat dysphoric) Affect: Restricted Memory Intact: Comment (Not formally assessed) Hallucinations: Other (No AVH) Delusions: Yes Delusion Type: Paranoid (ongoing belief that she is rotting) Suicidal: Ideation (no suicidal ideation) Homicidal: Ideation (no homicidal ideation) Insight/Judgment Poor Remarks No motoric abnormalities noted. No focal weakness noted. Grooming and hygiene poor. Thought process perseverative on delusional themes. Labs Test 01/03/17 07:38 White Blood Count 4.1 TH/MM3 Red Blood Count 4.40 MIL/MM3 Hemoglobin 12.1 GM/DL Hematocrit 37.7 % Mean Corpuscular Volume 85.7 FL Mean Corpuscular Hemoglobin 27.5 PG Mean Corpuscular Hemoglobin 32.1 % Concent Red Cell Distribution Width 15.8 % Platelet Count 222 TH/MM3 Mean Platelet Volume 8.3 FL Neutrophils (%) (Auto) 48.6 % Lymphocytes (%) (Auto) 37.5 % Monocytes (%) (Auto) 8.7 % Eosinophils (%) (Auto) 4.1 % Basophils (%) (Auto) 1.1 % Neutrophils # (Auto) 2.0 TH/MM3 Lymphocytes # (Auto) 1.5 TH/MM3 Monocytes # (Auto) 0.4 TH/MM3 Eosinophils # (Auto) 0.2 TH/MM3 Basophils # (Auto) 0.0 TH/MM3 CBC Comment DIFF FINAL Differential Comment Sodium Level 143 MEQ/L Potassium Level 3.8 MEQ/L Chloride Level 106 MEQ/L Carbon Dioxide Level 30.9 MEQ/L Anion Gap 6 MEQ/L Blood Urea Nitrogen 14 MG/DL Creatinine 0.93 MG/DL Estimat Glomerular Filtration 74 ML/MIN Rate Random Glucose 109 MG/DL Calcium Level 8.7 MG/DL Total Bilirubin 0.5 MG/DL Aspartate Amino Transf 12 U/L (AST/SGOT) Alanine Aminotransferase 25 U/L (ALT/SGPT) Alkaline Phosphatase 116 U/L Total Protein 7.7 GM/DL Albumin 3.7 GM/DL Labs reviewed. Interval improvement in patient's GFR. CBC unremarkable. Vitals/IOs Vital Signs Date Time Temp Pulse Resp B/P Pulse Ox O2 Delivery O2 Flow Rate FiO2 01/03/17 06:16 97.9 98 16 110/62 100 Intake and Output 01/02/17 01/02/17 01/03/17 08:00 16:00 00:00 Intake Total 240 ml 1805 ml Balance 240 ml 1805 ml Assessment & Plan Problem List: (1) Schizoaffective disorder ICD Code: F25.9 Assessment & Plan Continue clozapine titration to target psychosis. Continue to monitor on the inpatient unit. I will check a urinalysis given reports of foul-smelling urine. I did discuss the issue of the patient's toenails with Dr. Gonzales from podiatry. He notes that podiatry does not clip nails of inpatients who are not diabetic. He does suggest some tools that might be of help for thickened nails, and we will try to track these down. Hospitalist input noted and appreciated. Continue to monitor on the inpatient unit. Continue other medications and care as ordered. Justification for Cont. Inpt. Impairment in reality construction. Impairment in self-care. Medication changes in process. High risk for decompensation in a less restrictive environment. Discharge Planning [facility] psychiatric hospital referral. Diversion from this plan is likely to be unsuccessful at this point as the patient remains quite symptomatic from her psychosis, and this would likely represent a significant barrier to alternative placement. Request HC Surrog/Guard Advoc?: Yes Problem Qualifiers (1) Schizoaffective disorder: Qualified Code: F25.8 - Other schizoaffective disorders Geovanny Ruiz MD Jan 03, 2017 12:58
[2017-01-03] MEDS: PROPRANOLOL HCL 20 MG TAB PO SCH ×2 (14:41→20:41)
--- NOTE | 2017-01-03 15:15 | HHI.PR ---
Subjective Remarks Patient reports she is feeling ok. She believes she has poison inside of her and her heart is completely fine. She denies chest pain or shortness of breath. Objective Vitals Vital Signs Date Time Temp Pulse Resp B/P Pulse Ox O2 Delivery O2 Flow Rate FiO2 01/03/17 06:16 97.9 98 16 110/62 100 01/02/17 18:15 98.3 113 16 104/64 98 I/O 01/02/17 01/02/17 01/02/17 01/03/17 01/03/17 01/03/17 07:00 15:00 23:00 07:00 15:00 23:00 Intake Total 240 ml 1805 ml 1920 ml Balance 240 ml 1805 ml 1920 ml Intake Oral 240 ml 1805 ml 1920 ml # Voids 2 6 2 Result Diagram: 01/03/17 0738 01/03/1738 Objective Remarks GENERAL: This is a well-nourished, well-developed patient, in no apparent distress. Somewhat paranoid CARDIOVASCULAR: Rate about 105. Regular rhythm without murmurs, gallops, or rubs. RESPIRATORY: Clear to auscultation. Breath sounds equal bilaterally. No wheezes , rales, or rhonchi. GASTROINTESTINAL: Abdomen soft, non-tender, nondistended. Normal active bowel sounds MUSCULOSKELETAL: Extremities without clubbing, cyanosis, or edema. NEURO: Alert & Oriented x4 to person, place, time, situation. Moves all ext x4 PSYCH: Anxious, somewhat paranoid. A/P Problem List: (1) Schizoaffective disorder ICD Code: F25.9 Status: Acute (2) Schizophrenia, paranoid, chronic ICD Code: F20.0 Status: Acute (3) Suicidal ideations ICD Code: R45.851 Status: Acute (4) Hypoprolactinemia ICD Code: E23.6 Status: Acute Assessment and Plan 61-year-old female with primary medical history of schizoaffective disorder living in assisted living facility came into the hospital initially under Zhu act by EMS secondary to decompensation becoming increasingly depressed, despondent, and isolated 11/11/16. As per review of records, patient has been reported to have suicidal ideation and intent with statement "I don't want to live anymore." Patient is now admitted to inpatient psychiatry unit for further evaluation. Reconsulted for tachycardia. Schizoaffective disorder, depression, schizophrenia with paranoia - managed by psychiatry team Hypo prolactinemia - Prolactin level <1.0. Suspect shunt gonadotropin or nonfunctioning pituitary adenoma was which can cause neurologic symptoms - TSH 0.991 , free T4 0.84, ACT, Cortisol 18.9, GH 3.63, LH 26.5, IGF-I normal - Recommended for brain MRI. Patient has refused. Recommends outpatient follow up with Endocrinology. Sinus Tachycardia - Suspect this is related to anxiety, paranoia state. - Will start Propranolol which should help with anxiety as well. - Will follow Problem Qualifiers (1) Schizoaffective disorder: Qualified Code: F25.8 - Other schizoaffective disorders Marco Antonio Miller MD Jan 03, 2017 15:15
[2017-01-03 17:43] VITALS: BP 106/59; PULSE 104; RESP 18; TEMP 99.2; O2SAT 96
[2017-01-03] MEDS: MIRTAZAPINE ODT 15 MG TAB PO SCH (20:41)
[2017-01-03] MEDS: cloZAPine 25 MG TAB PO SCH (20:41)
[2017-01-04 06:22] LABS: BACTERIA, URINE RARE /hpf; BLOOD, URINE NEG (NEG); COMMENT (UR) CULT NOT INDICATED; CULTURE IF INDICATED CULT NOT INDICATED; GLUCOSE,URINE NEG (NEG); KETONE, URINE NEG (NEG); NITRITE,URINE NEG (NEG); PH, URINE 6.5 (5.0-8.5); SQUAMOUS EPITHELIAL CELL URINE <1 /hpf (0-5); URINE COLOR LIGHT-YELLOW (YELLW/STRAW)
[2017-01-04 08:24] VITALS: BP 116/57; PULSE 99; O2SAT 100
[2017-01-04] MEDS: PROPRANOLOL HCL 20 MG TAB PO SCH ×2 (08:44→21:46)
[2017-01-04] MEDS: LORazepam 0.5 MG TAB age > 65 yrs PO PRN (08:44)
[2017-01-04] MEDS: cloZAPine 25 MG TAB PO SCH ×2 (08:44→21:48)
[2017-01-04] MEDS: BETAMETHASONE/CLOTRIMAZOLE CREAM 15 GM TOPICAL SCH ×2 (08:45→21:00)
[2017-01-04] MEDS: GABAPENTIN 100 MG CAP PO SCH ×3 (08:45→17:13)
--- NOTE | 2017-01-04 13:20 | HHI.PYPN ---
Subjective Remarks Patient seen and examined with nurse. Chart reviewed. Case discussed with nursing staff who reports patient remains somewhat oppositional and was malodorous this morning but was showered by staff. On my examination today, the patient remains somewhat cantankerous. She is upset that she was showered saying "each shower is time off of my body" because as before she believes that showering accelerates the rotting process. She also believes that her body is "leaking" and the nursing staff has alerted me to the fact that this likely represents sialorrhea, possibly from clozapine. Insight remains quite poor. No new physical complaints. Review of Systems ROS Limitations: Psychotic, Poor Historian Except as stated in HPI: all other systems reviewed are Neg Objective Alert: Yes [place]: Person, Place Mood: Oppositional Affect: Restricted Memory Intact: Comment (Not formally assessed) Hallucinations: Other (No AVH) Delusions: Yes Delusion Type: Paranoid (continues to endorse belief that she is rotting) Suicidal: Ideation (no SI voiced) Homicidal: Ideation (no HI voiced) Insight/Judgment Poor Remarks No motoric abnormalities noted Labs Test 01/04/17 05:00 Urine Color LIGHT-YELLOW Urine Turbidity CLEAR Urine pH 6.5 Urine Specific [place] 1.012 Urine Protein NEG mg/dL Urine Glucose (UA) NEG mg/dL Urine Ketones NEG mg/dL Urine Occult Blood NEG Urine Nitrite NEG Urine Bilirubin NEG Urine Urobilinogen LESS THAN 2.0 MG/DL Urine Leukocyte Esterase NEG Urine RBC LESS THAN 1 /hpf Urine WBC 1 /hpf Urine Squamous Epithelial <1 /hpf Cells Urine Bacteria RARE /hpf Microscopic Urinalysis Comment CULT NOT INDICATED Labs reviewed. Urinalysis bland. Vitals/IOs Vital Signs Date Time Temp Pulse Resp B/P Pulse Ox O2 Delivery O2 Flow Rate FiO2 01/04/17 08:24 99 116/57 100 01/03/17 17:43 99.2 18 Intake and Output 01/03/17 01/03/17 01/04/17 08:00 16:00 00:00 Intake Total 1920 ml 1035 ml Balance 1920 ml 1035 ml Assessment & Plan Problem List: (1) Schizoaffective disorder ICD Code: F25.9 Assessment & Plan Hold off on further clozapine titration today to allow patient to acclimate to current dose. Supportive treatment for probable sialorrhea associated with clozapine. Nurse has obtain to be implements recommended by podiatry to manage patient's thickened nails and will clip patient's nails today. I continue to encourage the patient to remain mobile to avoid deconditioning. Continue to monitor on the inpatient unit. Continue other medications and care as ordered. Justification for Cont. Inpt. Impairment in reality construction. Impairment in self-care. High risk for decompensation in a less restrictive environment. Discharge Planning [facility] referral. Request HC Surrog/Guard Advoc?: Yes Problem Qualifiers (1) Schizoaffective disorder: Qualified Code: F25.8 - Other schizoaffective disorders Geovanny Ruiz MD Jan 04, 2017 13:20
[2017-01-04 21:30] VITALS: BP 102/64; PULSE 100; RESP 20
[2017-01-04] MEDS: MIRTAZAPINE ODT 15 MG TAB PO SCH (21:50)
[2017-01-05] MEDS: PROPRANOLOL HCL 20 MG TAB PO SCH ×2 (09:33→20:51)
[2017-01-05] MEDS: cloZAPine 25 MG TAB PO SCH (09:33)
[2017-01-05] MEDS: GABAPENTIN 100 MG CAP PO SCH ×3 (09:33→18:04)
[2017-01-05] MEDS: BETAMETHASONE/CLOTRIMAZOLE CREAM 15 GM TOPICAL SCH ×3 (09:34→20:51)
--- NOTE | 2017-01-05 13:27 | HHI.PR ---
Subjective Remarks Patient reports she is feeling what the same. She denies chest pain or heart palpitations. No shortness of breath. Objective Vitals Vital Signs Date Time Temp Pulse Resp B/P Pulse Ox O2 Delivery O2 Flow Rate FiO2 01/04/17 21:30 100 20 102/64 I/O 01/04/17 01/04/17 01/04/17 01/05/17 01/05/17 01/05/17 07:00 15:00 23:00 07:00 15:00 23:00 Intake Total 840 ml 360 ml 480 ml 480 ml Balance 840 ml 360 ml 480 ml 480 ml Intake Oral 840 ml 360 ml 480 ml 480 ml # Voids 1 4 Result Diagram: 01/03/1738 01/03/17737 Objective Remarks GENERAL: This is a well-nourished, well-developed patient, in no apparent distress. Somewhat paranoid CARDIOVASCULAR: Rate about 95. Regular rhythm without murmurs, gallops, or rubs. RESPIRATORY: Clear to auscultation. Breath sounds equal bilaterally. No wheezes , rales, or rhonchi. GASTROINTESTINAL: Abdomen soft, non-tender, nondistended. Normal active bowel sounds MUSCULOSKELETAL: Extremities without clubbing, cyanosis, or edema. NEURO: Alert & Oriented x4 to person, place, time, situation. Moves all ext x4 PSYCH: Anxious, somewhat paranoid. A/P Problem List: (1) Schizoaffective disorder ICD Code: F25.9 Status: Acute (2) Schizophrenia, paranoid, chronic ICD Code: F20.0 Status: Acute (3) Suicidal ideations ICD Code: R45.851 Status: Acute (4) Hypoprolactinemia ICD Code: E23.6 Status: Acute Assessment and Plan 61-year-old female with primary medical history of schizoaffective disorder living in assisted living facility came into the hospital initially under Zhu act by EMS secondary to decompensation becoming increasingly depressed, despondent, and isolated 11/11/16. As per review of records, patient has been reported to have suicidal ideation and intent with statement "I don't want to live anymore." Patient is now admitted to inpatient psychiatry unit for further evaluation. Reconsulted for tachycardia. Schizoaffective disorder, depression, schizophrenia with paranoia - managed by psychiatry team Hypo prolactinemia - Prolactin level <1.0. Suspect shunt gonadotropin or nonfunctioning pituitary adenoma was which can cause neurologic symptoms - TSH 0.991 , free T4 0.84, ACT, Cortisol 18.9, GH 3.63, LH 26.5, IGF-I normal - Recommended for brain MRI. Patient has refused. Recommends outpatient follow up with Endocrinology. Sinus Tachycardia - Suspect this is related to anxiety, paranoia state. -Increase Propranolol which should help with anxiety as well. - Will follow Problem Qualifiers (1) Schizoaffective disorder: Qualified Code: F25.8 - Other schizoaffective disorders Marco Antonio Miller MD Jan 05, 2017 13:27
--- NOTE | 2017-01-05 16:46 | HHI.PYPN ---
Subjective Remarks Patient seen and examined with nurse. Chart reviewed. Case discussed with nursing staff. On my examination today, the patient says that she feels a little better. She says that she is a little homesick and hopes "my people" will come to take her home soon, although she notes that she hasn't spoken with any of her people in quite some time. She does not spontaneously verbalize any feelings of rotting. When I ask her about it she says that she has decided " not to dwell on it and hope it will go away." Denies side effects from medications besides some ongoing sialorrhea. No physical complaints. Review of Systems ROS Limitations: Psychotic, Poor Historian Except as stated in HPI: all other systems reviewed are Neg Objective Alert: Yes [place]: Person, Place Mood: Calm Affect: Blunted Memory Intact: Comment (Not formally assessed) Hallucinations: Other (No AVH) Delusions: Yes Delusion Type: Paranoid (possibly some softening of patient's delusion about rotting) Suicidal: Ideation (no SI) Homicidal: Ideation (no HI) Insight/Judgment Poor Remarks No motor abnormalities noted. Thought process fairly linear. Grooming and hygiene improved today, and the patient's toenails have been clipped. Labs Labs reviewed. Vitals/IOs Vital Signs Date Time Temp Pulse Resp B/P Pulse Ox O2 Delivery O2 Flow Rate FiO2 01/04/17 21:30 100 20 102/64 01/04/17 08:24 100 01/03/17 17:43 99.2 Intake and Output 01/04/17 01/04/17 01/05/17 08:00 16:00 00:00 Intake Total 360 ml 480 ml 720 ml Balance 360 ml 480 ml 720 ml Assessment & Plan Problem List: (1) Schizoaffective disorder ICD Code: F25.9 Assessment & Plan I am hopeful that we are seeing some real softening in patient's delusions. I think it is noteworthy that she no longer spontaneously verbalizes these, and also that she is not dwelling on them. Titrate clozapine to 100/200mg to target psychosis. CBC ordered for tomorrow. Continue Remeron as ordered. Appreciate hospitalist input. Continue other medications and care as ordered. Justification for Cont. Inpt. Impairment in reality construction. Medication changes in process. High risk for decompensation in a less restrictive environment. [facility] Request [facility] Surrog/Guard Advoc?: Yes Problem Qualifiers (1) Schizoaffective disorder: Qualified Code: F25.8 - Other schizoaffective disorders Geovanny Ruiz MD Jan 05, 2017 16:46
[2017-01-05 18:08] VITALS: BP 92/55; PULSE 99; RESP 19; TEMP 98.8; O2SAT 99
[2017-01-05] MEDS: MIRTAZAPINE ODT 15 MG TAB PO SCH (20:50)
[2017-01-05] MEDS ORDERED: cloZAPine 100 MG TAB PO SCH (21:00)
[2017-01-06] MEDS: GABAPENTIN 100 MG CAP PO SCH ×3 (10:09→17:36)
[2017-01-06] MEDS: cloZAPine 25 MG TAB PO SCH (10:09)
[2017-01-06] MEDS: PROPRANOLOL HCL 20 MG TAB PO SCH ×2 (10:09→17:36)
[2017-01-06 10:10] LABS: AUTOMATED NEUTROPHIL # 2.3 TH/MM3 (1.8-7.7); BASOPHIL % 0.3 % (0.0-2.0); EOSINOPHIL # 0.2 TH/MM3 (0-0.4); EOSINOPHIL % 5.1 % (0.0-4.0); HEMATOCRIT 39.6 % (35.0-46.0); HEMO FLAGS DIFF FINAL; LYMPH % 27.6 % (9.0-44.0); LYMPHOCYTE # 1.1 TH/MM3 (1.0-4.8); MEAN CELL VOLUME 85.8 FL (80.0-100.0); MEAN CORPUSCULAR HEMOGLOBIN 27.2 PG (27.0-34.0); MEAN CORPUSCULAR HGB CONC 31.7 % (32.0-36.0); PLATELET COUNT 237 TH/MM3 (150-450); RED BLOOD COUNT 4.62 MIL/MM3 (4.00-5.30); RED CELL DISTRIBUTION WIDTH 15.8 % (11.6-17.2); WHITE BLOOD COUNT 3.9 TH/MM3 (4.0-11.0)
[2017-01-06] MEDS: BETAMETHASONE/CLOTRIMAZOLE CREAM 15 GM TOPICAL SCH ×2 (10:13→21:00)
--- NOTE | 2017-01-06 15:24 | HHI.PYPN ---
Subjective Remarks Patient seen and examined with nurse. Chart reviewed. Case discussed with nursing staff. On my examination today, the patient remains delusional and believes that she is rotting and encircled with a web of some sort of material that is causing or rotting. She says "it's like being in a spiders web." She continues to complain of some sialorrhea which she believes is her body "leaking " in response to the rotting. I have explained that this is likely a side effect from the clozapine and offered an anticholinergic to dry up secretions, but she declines. No other side effects. No physical complaints. Review of Systems ROS Limitations: Poor Historian Objective Alert: Yes [place]: Person, Place Mood: Calm Affect: Flat Memory Intact: Comment (Not formally assessed) Hallucinations: Other (None) Delusions: Yes Delusion Type: Paranoid (belief that she is rotting.) Suicidal: Ideation (no SI) Homicidal: Ideation (no HI) Insight/Judgment Poor Remarks No motoric abnormalities noted. Grooming and hygiene remain poor. Labs Test 01/06/17 08:14 White Blood Count 3.9 TH/MM3 Red Blood Count 4.62 MIL/MM3 Hemoglobin 12.6 GM/DL Hematocrit 39.6 % Mean Corpuscular Volume 85.8 FL Mean Corpuscular Hemoglobin 27.2 PG Mean Corpuscular Hemoglobin 31.7 % Concent Red Cell Distribution Width 15.8 % Platelet Count 237 TH/MM3 Mean Platelet Volume 9.0 FL Neutrophils (%) (Auto) 59.0 % Lymphocytes (%) (Auto) 27.6 % Monocytes (%) (Auto) 8.0 % Eosinophils (%) (Auto) 5.1 % Basophils (%) (Auto) 0.3 % Neutrophils # (Auto) 2.3 TH/MM3 Lymphocytes # (Auto) 1.1 TH/MM3 Monocytes # (Auto) 0.3 TH/MM3 Eosinophils # (Auto) 0.2 TH/MM3 Basophils # (Auto) 0.0 TH/MM3 CBC Comment DIFF FINAL Differential Comment Laboratories reviewed. ANC remains adequate for clozapine therapy. Vitals/IOs Vital Signs Date Time Temp Pulse Resp B/P Pulse Ox O2 Delivery O2 Flow Rate FiO2 01/05/17 18:08 98.8 99 19 92/55 99 Intake and Output 01/05/17 01/05/17 01/06/17 08:00 16:00 00:00 Intake Total 600 ml 60 ml Balance 600 ml 60 ml Assessment & Plan Problem List: (1) Schizoaffective disorder ICD Code: F25.9 Assessment & Plan Titrate Clozaril pain over the weekend to target psychosis, intermediate target dose is 100/300 mg. Could consider a clozapine level once we reach this point. Continue to monitor on the inpatient unit. Continue other medications and care as ordered. Justification for Cont. Inpt. Impairment in reality construction. High risk for decompensation in a less restrictive environment. Discharge Planning [facility] psychiatric hospital referral. Request HC Surrog/Guard Advoc?: Yes Problem Qualifiers (1) Schizoaffective disorder: Qualified Code: F25.8 - Other schizoaffective disorders Geovanny Ruiz MD Jan 06, 2017 15:24
[2017-01-06 18:12] VITALS: BP 114/68; PULSE 115; RESP 19; TEMP 98.1; O2SAT 97
[2017-01-06] MEDS: MIRTAZAPINE ODT 15 MG TAB PO SCH (22:21)
[2017-01-06] MEDS: cloZAPine 100 MG TAB PO SCH (22:21)
[2017-01-07 08:00] VITALS: PULSE 92; RESP 18
[2017-01-07] MEDS: GABAPENTIN 100 MG CAP PO SCH ×3 (08:24→16:34)
[2017-01-07] MEDS: BETAMETHASONE/CLOTRIMAZOLE CREAM 15 GM TOPICAL SCH ×2 (08:24→21:00)
[2017-01-07] MEDS: cloZAPine 25 MG TAB PO SCH (08:24)
[2017-01-07] MEDS: PROPRANOLOL HCL 20 MG TAB PO SCH ×3 (08:24→16:30)
--- NOTE | 2017-01-07 12:40 | HHI.PYPN ---
Subjective Remarks Patient was seen and case discussed with nursing. Patient continues with a fixed delusion that she is rotting from the inside. She spends her time seclusive with her own thoughts. When asked what she thinks about, she says she focuses on going home. His compliant with medications. Denies auditory visual hallucinations Objective Alert: Yes [place]: Person, Place Mood: Calm Affect: Blunted Memory Intact: Comment (Not formally assessed) Hallucinations: Other (None) Delusions: Yes Delusion Type: Paranoid (belief that she is rotting.) Suicidal: Ideation (no SI) Homicidal: Ideation (no HI) Insight/Judgment Poor Vitals/IOs Vital Signs Date Time Temp Pulse Resp B/P Pulse Ox O2 Delivery O2 Flow Rate FiO2 01/07/17 08:00 92 18 01/06/17 18:12 98.1 114/68 97 Intake and Output 01/06/17 01/06/17 01/07/17 08:00 16:00 00:00 Intake Total 960 ml 720 ml Balance 960 ml 720 ml Assessment & Plan Problem List: (1) Schizoaffective disorder ICD Code: F25.9 Assessment & Plan Continue current treatment plan Justification for Cont. Inpt. Patient will decompensate in a less restrictive setting Request HC Surrog/Guard Advoc?: Yes Problem Qualifiers (1) Schizoaffective disorder: Qualified Code: F25.8 - Other schizoaffective disorders Christian Sood DO Jan 07, 2017 12:40
--- NOTE | 2017-01-07 14:33 | HHI.PR ---
Subjective Remarks Follow-up visit sinus tachycardia. Patient seen and examined today, reports she is still doing the same. Denies pain and discomfort. Denies SOB/ dyspnea. Denies chest pain, palpitations, headaches, dizziness. Denies fevers, chills, n/ v/d. Denies hematuria, dysuria. Objective Vitals Vital Signs Date Time Temp Pulse Resp B/P Pulse Ox O2 Delivery O2 Flow Rate FiO2 01/07/17 08:00 92 18 01/06/17 18:12 98.1 115 19 114/68 97 I/O 01/06/17 01/06/17 01/06/17 01/07/17 01/07/17 01/07/17 07:00 15:00 23:00 07:00 15:00 23:00 Intake Total 960 ml 720 ml 360 ml Output Total 2 ml Balance 960 ml 720 ml -2 ml 360 ml Intake Oral 960 ml 720 ml 360 ml Stool Total 2 ml # Voids 1 2 1 3 Result Diagram: 01/06/17 0814 01/03/17 0738 Imaging 61-year-old female with primary medical history of schizoaffective disorder living in assisted living facility came into the hospital initially under Zhu act by EMS secondary to decompensation becoming increasingly depressed, despondent, and isolated 11/11/16. As per review of records, patient has been reported to have suicidal ideation and intent with statement "I don't want to live anymore." Patient is now admitted to inpatient psychiatry unit for further evaluation. Reconsulted for tachycardia. Schizoaffective disorder, depression, schizophrenia with paranoia - managed by psychiatry team Hypo prolactinemia - Prolactin level <1.0. Suspect shunt gonadotropin or nonfunctioning pituitary adenoma was which can cause neurologic symptoms - TSH 0.991 , free T4 0.84, ACT, Cortisol 18.9, GH 3.63, LH 26.5, IGF-I normal - Recommended for brain MRI. Patient has refused. Recommends outpatient follow up with Endocrinology. Sinus Tachycardia - Suspect this is related to anxiety, paranoia state. - Propranolol 40mg BID, BP unable to tolerate - Decrease to Propranolol 20mg TID - Improved DVT prop ambulatory Stable from Hospitalist standpoint. We will sign off. Reconsult as needed. Objective Remarks GENERAL: This is a well-nourished, well-developed patient, in no apparent distress. SKIN: Warm and dry, scaly skin. Generalized tenderness to palpation all over body. HEAD: Normocephalic. No temporal or scalp tenderness. EYES: Pupils equal round and reactive. No scleral icterus. No injection or drainage. ENT: Nose without bleeding. Throat without erythema. Uvula midline. Airway patent. NECK: Trachea midline. No JVD or lymphadenopathy. CARDIOVASCULAR: Tachycardia without murmurs, gallops, or rubs. RESPIRATORY: Clear to auscultation. Breath sounds equal bilaterally. No wheezes , rales, or rhonchi. GASTROINTESTINAL: Abdomen soft, non-tender, nondistended. MUSCULOSKELETAL: Extremities without clubbing, cyanosis, or edema. NEUROLOGICAL: Awake and alert. Flat affect. Moves all extremities. BLE weaker than BUE. Normal speech. A/P Problem List: (1) Schizoaffective disorder ICD Code: F25.9 Status: Acute (2) Schizophrenia, paranoid, chronic ICD Code: F20.0 Status: Acute (3) Suicidal ideations ICD Code: R45.851 Status: Acute (4) Hypoprolactinemia ICD Code: E23.6 Status: Acute Assessment and Plan Patient is a 61-year-old female with primary medical history of schizoaffective disorder living in assisted living facility came into the hospital initially under Zhu act by EMS secondary to decompensation becoming increasingly depressed, despondent, and isolated 11/11/16. As per review of records, patient has been reported to have suicidal ideation and intent with statement "I don't want to live anymore." Patient is now admitted to inpatient psychiatry unit for further evaluation. Consulted for hypoprolactinemia. Schizoaffective disorder, depression, schizophrenia with paranoia - managed by psychiatry team Hypo prolactinemia - Prolactin level <1.0. Suspect shunt gonadotropin or nonfunctioning pituitary adenoma was which can cause neurologic symptoms - TSH 0.991 , free T4 0.84, ACT, Cortisol 18.9, GH 3.63, LH 26.5, IGF-I normal - Recommended for brain MRI. Patient has refused. Tachycardia - Likely s/t decreased PO intake. - encourage PO intake. Patient was left with picture of apple juice. Discussed with nursing to encourage by mouth fluid intake. - EKG showed sinus tachycardia with heart rate of 120, nonspecific T-wave abnormality, QT interval 338. No notable ST changes. - Monitor BP trend, heart rate - Check orthostatic BP - Check CBC, CMP DVT prop assisted ambulation Discussed with patient, nursing, Dr. Onofre Problem Qualifiers (1) Schizoaffective disorder: Qualified Code: F25.8 - Other schizoaffective disorders Davey Meyer Jan 07, 2017 14:33
[2017-01-07 18:24] VITALS: BP 90/56; PULSE 95; RESP 18; TEMP 98; O2SAT 98
[2017-01-07] MEDS: cloZAPine 100 MG TAB PO SCH (21:31)
[2017-01-07] MEDS: MIRTAZAPINE ODT 15 MG TAB PO SCH (21:31)
[2017-01-08 06:47] VITALS: BP_SYST 113; BP_SYST 119; BP_DIAS 58; BP_DIAS 87; PULSE 104; PULSE 113; RESP 16; TEMP 98.6; O2SAT 100
[2017-01-08 06:48] VITALS: BP 126/79; PULSE 107; RESP 16
[2017-01-08] MEDS: BETAMETHASONE/CLOTRIMAZOLE CREAM 15 GM TOPICAL SCH ×2 (08:10→21:00)
[2017-01-08] MEDS: GABAPENTIN 100 MG CAP PO SCH ×3 (08:10→17:41)
[2017-01-08] MEDS: PROPRANOLOL HCL 20 MG TAB PO SCH ×3 (08:10→17:41)
[2017-01-08] MEDS: cloZAPine 25 MG TAB PO SCH (08:10)
--- NOTE | 2017-01-08 12:51 | HHI.PYPN ---
Subjective Remarks Patient was seen and case discussed with nursing. Patient interviewed in bed. Remains with her apathetic affect and continues to be hyperverbal. Patient believes that she is rotting from the inside has not noticed a decrease in the belief. Denies suicidal ideation intent or plan. Objective Alert: Yes [place]: Person, Place Mood: Calm Affect: Blunted Memory Intact: Comment (Not formally assessed) Hallucinations: Other (None) Delusions: Yes Delusion Type: Paranoid (belief that she is rotting.) Suicidal: Ideation (no SI) Homicidal: Ideation (no HI) Insight/Judgment Poor Vitals/IOs Vital Signs Date Time Temp Pulse Resp B/P Pulse Ox O2 Delivery O2 Flow Rate FiO2 01/08/17 06:48 107 16 126/79 01/08/17 06:47 98.6 100 Intake and Output 01/07/17 01/07/17 01/08/17 08:00 16:00 00:00 Intake Total 360 ml 600 ml Output Total 2 ml Balance -2 ml 360 ml 600 ml Assessment & Plan Problem List: (1) Schizoaffective disorder ICD Code: F25.9 Assessment & Plan Continue current treatment plan Justification for Cont. Inpt. Patient will decompensate in a less restrictive setting Request HC Surrog/Guard Advoc?: Yes Problem Qualifiers (1) Schizoaffective disorder: Qualified Code: F25.8 - Other schizoaffective disorders Christian Sood DO Jan 08, 2017 12:51
[2017-01-08 18:00] VITALS: BP 97/64; PULSE 99; RESP 16; O2SAT 100
[2017-01-08] MEDS: cloZAPine 100 MG TAB PO SCH (21:31)
[2017-01-08] MEDS: MIRTAZAPINE ODT 15 MG TAB PO SCH (21:32)
[2017-01-09 06:20] VITALS: BP 138/78; PULSE 99
[2017-01-09] MEDS: cloZAPine 25 MG TAB PO SCH (09:19)
[2017-01-09] MEDS: GABAPENTIN 100 MG CAP PO SCH ×3 (09:19→17:49)
[2017-01-09] MEDS: BETAMETHASONE/CLOTRIMAZOLE CREAM 15 GM TOPICAL SCH ×2 (09:27→21:12)
[2017-01-09] MEDS: PROPRANOLOL HCL 20 MG TAB PO SCH ×3 (09:29→17:45)
--- NOTE | 2017-01-09 10:41 | HHI.PR ---
Subjective Remarks Follow-up visit sinus tachycardia. Patient seen and examined today. States she is doing well. States that "my body is full of crap that it covers my heart and makes an extra heartbeat, it's a false positive heart rate." Denies pain and discomfort. Denies SOB/ dyspnea. Denies chest pain, palpitations, headaches, dizziness. Denies fevers, chills, n/v/d. Denies hematuria, dysuria. Objective Vitals Vital Signs Date Time Temp Pulse Resp B/P Pulse Ox O2 Delivery O2 Flow Rate FiO2 01/09/17 06:20 99 138/78 01/08/17 18:00 99 16 97/64 100 I/O 01/08/17 01/08/17 01/08/17 01/09/17 01/09/17 01/09/17 07:00 15:00 23:00 07:00 15:00 23:00 Intake Total 2280 ml 480 ml Output Total 1 ml Balance 2279 ml 480 ml Intake Oral 2280 ml 480 ml Output Urine Total 1 ml # Voids 2 2 Result Diagram: 01/06/17 0814 Objective Remarks GENERAL: This is a well-nourished, well-developed patient, in no apparent distress. SKIN: Warm and dry, scaly skin. Generalized tenderness to palpation all over body. HEAD: Normocephalic. No temporal or scalp tenderness. EYES: Pupils equal round and reactive. No scleral icterus. No injection or drainage. ENT: Nose without bleeding. Throat without erythema. Uvula midline. Airway patent. NECK: Trachea midline. No JVD or lymphadenopathy. CARDIOVASCULAR: Tachycardia without murmurs, gallops, or rubs. RESPIRATORY: Clear to auscultation. Breath sounds equal bilaterally. No wheezes , rales, or rhonchi. GASTROINTESTINAL: Abdomen soft, non-tender, nondistended. MUSCULOSKELETAL: Extremities without clubbing, cyanosis, or edema. NEUROLOGICAL: Awake and alert. Flat affect. Moves all extremities. BLE weaker than BUE. Normal speech. A/P Problem List: (1) Schizoaffective disorder ICD Code: F25.9 Status: Acute (2) Schizophrenia, paranoid, chronic ICD Code: F20.0 Status: Acute (3) Suicidal ideations ICD Code: R45.851 Status: Acute (4) Hypoprolactinemia ICD Code: E23.6 Status: Acute Assessment and Plan Patient is a 61-year-old female with primary medical history of schizoaffective disorder living in assisted living facility came into the hospital initially under Zhu act by EMS secondary to decompensation becoming increasingly depressed, despondent, and isolated 11/11/16. As per review of records, patient has been reported to have suicidal ideation and intent with statement "I don't want to live anymore." Patient is now admitted to inpatient psychiatry unit for further evaluation. Consulted for hypoprolactinemia. Schizoaffective disorder, depression, schizophrenia with paranoia - managed by psychiatry team Hypo prolactinemia - Prolactin level <1.0. Suspect shunt gonadotropin or nonfunctioning pituitary adenoma was which can cause neurologic symptoms - TSH 0.991 , free T4 0.84, ACT, Cortisol 18.9, GH 3.63, LH 26.5, IGF-I normal - Recommended for brain MRI. Patient has refused. Tachycardia - Likely s/t decreased PO intake. - encourage PO intake. Patient was left with picture of apple juice. Discussed with nursing to encourage by mouth fluid intake. - EKG showed sinus tachycardia with heart rate of 120, nonspecific T-wave abnormality, QT interval 338. No notable ST changes. - Monitor BP trend, heart rate - Propranolol 20mg TID. Improving DVT prop assisted ambulation Discussed with patient, nursing, Dr. Miller Problem Qualifiers (1) Schizoaffective disorder: Qualified Code: F25.8 - Other schizoaffective disorders Davey Meyer Jan 09, 2017 10:41
--- NOTE | 2017-01-09 13:25 | HHI.PYPN ---
Subjective Remarks Patient seen and examined with nurse. Chart reviewed. Case discussed with nursing staff who reports patient remains delusional and resistant to hygiene interventions. On my examination today, patient continues to articulate the believe that she is rotting and leaking. She says that showers, blood pressure checks, and other nursing interventions only accelerate this process. Affect somewhat dysphoric. Denies side effects from medications, although I do believe that her reports of leaking are sialorrhea. I have offered her an anticholinergic to dry up her secretions, but she once again declines. No new physical complaints. Review of Systems ROS Limitations: Psychotic, Poor Historian Except as stated in HPI: all other systems reviewed are Neg Objective Alert: Yes [place]: Person, Place Mood: Calm Affect: Restricted Memory Intact: Comment (Not formally assessed) Hallucinations: Other (no AVH) Delusions: Yes Delusion Type: Paranoid (ongoing belief that she is rotting) Suicidal: Ideation (no SI) Homicidal: Ideation (no HI) Insight/Judgment Poor Remarks No motor abnormalities noted. Grooming and hygiene poor. Labs Labs reviewed. Vitals/IOs Vital Signs Date Time Temp Pulse Resp B/P Pulse Ox O2 Delivery O2 Flow Rate FiO2 01/09/17 06:20 99 138/78 01/08/17 18:00 16 100 01/08/17 06:47 98.6 Intake and Output 01/08/17 01/08/17 01/09/17 08:00 16:00 00:00 Intake Total 2280 ml 480 ml Output Total 1 ml Balance 2279 ml 480 ml Assessment & Plan Problem List: (1) Schizoaffective disorder ICD Code: F25.9 Assessment & Plan Titrate Clozaril in to 100/300 mg to target psychosis. Continue Remeron as ordered. Nursing staff to continue to assist the patient and hygiene care. Continue to monitor on the inpatient unit. Continue other medications and care as ordered. Justification for Cont. Inpt. Impairment in reality construction. Medication changes in process. Impairment in self-care. High risk for decompensation in a less restrictive environment. [facility] Request HC Surrog/Guard Advoc?: Yes Problem Qualifiers (1) Schizoaffective disorder: Qualified Code: F25.8 - Other schizoaffective disorders Geovanny Ruiz MD Jan 09, 2017 13:25
[2017-01-09 19:00] VITALS: BP 107/69; PULSE 102; RESP 16; O2SAT 97
[2017-01-09] MEDS: MIRTAZAPINE ODT 15 MG TAB PO SCH (21:12)
[2017-01-09] MEDS: cloZAPine 100 MG TAB PO SCH (21:12)
[2017-01-10 08:50] VITALS: BP 132/73; PULSE 119
[2017-01-10] MEDS: GABAPENTIN 100 MG CAP PO SCH ×3 (08:52→18:48)
[2017-01-10] MEDS: cloZAPine 25 MG TAB PO SCH (08:52)
[2017-01-10] MEDS: PROPRANOLOL HCL 20 MG TAB PO SCH ×3 (08:56→17:43)
[2017-01-10] MEDS: BETAMETHASONE/CLOTRIMAZOLE CREAM 15 GM TOPICAL SCH ×2 (09:00→21:07)
[2017-01-10 10:04] LABS: AUTOMATED NEUTROPHIL # 2.7 TH/MM3 (1.8-7.7); BASOPHIL % 0.6 % (0.0-2.0); EOSINOPHIL # 0.3 TH/MM3 (0-0.4); HEMATOCRIT 38.8 % (35.0-46.0); HEMO FLAGS DIFF FINAL; LYMPH % 24.2 % (9.0-44.0); MEAN CELL VOLUME 85.6 FL (80.0-100.0); MEAN CORPUSCULAR HEMOGLOBIN 28.4 PG (27.0-34.0); MEAN CORPUSCULAR HGB CONC 33.2 % (32.0-36.0); MONO % 5.4 % (0.0-8.0); NEUT % 63.8 % (16.0-70.0); PLATELET COUNT 235 TH/MM3 (150-450); RED BLOOD COUNT 4.54 MIL/MM3 (4.00-5.30); RED CELL DISTRIBUTION WIDTH 15.9 % (11.6-17.2); WHITE BLOOD COUNT 4.2 TH/MM3 (4.0-11.0)
--- NOTE | 2017-01-10 14:25 | HHI.PYPN ---
Subjective Remarks Patient seen and examined. Chart reviewed. Case discussed in treatment team. On my examination today, the patient remains somewhat dysphoric. She continues to articulate delusional beliefs that she is rotting. No SI or HI voiced. She denies side effects from medications but does not feel that they are helping. No new physical complaints. Review of Systems ROS Limitations: Psychotic, Poor Historian Except as stated in HPI: all other systems reviewed are Neg Objective Alert: Yes [place]: Person, Place Mood: Calm Affect: Restricted (dysphoric) Memory Intact: Comment (Not formally assessed) Hallucinations: Other (None) Delusions: Yes Delusion Type: Paranoid (continues to believe that she is rotting) Suicidal: Ideation (No SI) Homicidal: Ideation (No HI) Insight/Judgment Poor Remarks No motor abnormalities noted. Thought process perseverative on delusional themes. Grooming and hygiene poor. Labs Test 01/10/17 08:31 White Blood Count 4.2 TH/MM3 Red Blood Count 4.54 MIL/MM3 Hemoglobin 12.9 GM/DL Hematocrit 38.8 % Mean Corpuscular Volume 85.6 FL Mean Corpuscular Hemoglobin 28.4 PG Mean Corpuscular Hemoglobin 33.2 % Concent Red Cell Distribution Width 15.9 % Platelet Count 235 TH/MM3 Mean Platelet Volume 9.1 FL Neutrophils (%) (Auto) 63.8 % Lymphocytes (%) (Auto) 24.2 % Monocytes (%) (Auto) 5.4 % Eosinophils (%) (Auto) 6.0 % Basophils (%) (Auto) 0.6 % Neutrophils # (Auto) 2.7 TH/MM3 Lymphocytes # (Auto) 1.0 TH/MM3 Monocytes # (Auto) 0.2 TH/MM3 Eosinophils # (Auto) 0.3 TH/MM3 Basophils # (Auto) 0.0 TH/MM3 CBC Comment DIFF FINAL Differential Comment Labs reviewed. ANC remains adequate for clozapine therapy. Vitals/IOs Vital Signs Date Time Temp Pulse Resp B/P Pulse Ox O2 Delivery O2 Flow Rate FiO2 01/10/17 08:50 119 132/73 01/09/17 19:00 16 97 01/08/17 06:47 98.6 Intake and Output 01/09/17 01/09/17 01/10/17 08:00 16:00 00:00 Intake Total 1200 ml Balance 1200 ml Assessment & Plan Problem List: (1) Schizoaffective disorder ICD Code: F25.9 Assessment & Plan Continue clozapine and Remeron as ordered. Plan to get a clozapine level later this week. If the level is above the therapeutic threshold, I will discontinue this agent and replaced with a different antipsychotic as she does not seem to be deriving much benefit from it. Continue to monitor on the inpatient unit. Continue other medications and care as ordered. Justification for Cont. Inpt. Impairment in reality construction. Impairment in self-care. High risk for decompensation in a less restrictive environment. Discharge Planning [facility] referral. Packet has been received but the patient has not yet been assigned a place on the wait list. Request HC Surrog/Guard Advoc?: Yes Problem Qualifiers (1) Schizoaffective disorder: Qualified Code: F25.8 - Other schizoaffective disorders Geovanny Ruiz MD Jan 10, 2017 14:24
[2017-01-10 17:44] VITALS: BP 112/58
[2017-01-10 19:48] VITALS: BP 112/58; PULSE 112; RESP 19; TEMP 97.3
[2017-01-10] MEDS: cloZAPine 100 MG TAB PO SCH (21:06)
[2017-01-10] MEDS: MIRTAZAPINE ODT 15 MG TAB PO SCH (21:06)
[2017-01-11 05:58] VITALS: BP 115/69; PULSE 115; RESP 18; TEMP 97.3
[2017-01-11] MEDS: cloZAPine 25 MG TAB PO SCH (08:59)
[2017-01-11] MEDS: GABAPENTIN 100 MG CAP PO SCH ×3 (09:00→18:55)
[2017-01-11] MEDS: PROPRANOLOL HCL 20 MG TAB PO SCH ×4 (09:00→18:55)
[2017-01-11] MEDS: BETAMETHASONE/CLOTRIMAZOLE CREAM 15 GM TOPICAL SCH ×2 (09:00→21:00)
--- NOTE | 2017-01-11 11:03 | HHI.PR ---
Subjective Remarks Follow-up visit sinus tachycardia. Patient seen and examined today. States she is doing well. States he should stop asking her about her heart rate is as it has always been false positive. Denies pain and discomfort. Denies SOB/ dyspnea. Denies chest pain, palpitations, headaches, dizziness. Denies fevers, chills, n/v/d. Denies hematuria, dysuria. Objective Vitals Vital Signs Date Time Temp Pulse Resp B/P Pulse Ox O2 Delivery O2 Flow Rate FiO2 01/11/17 05:58 97.3 115 18 115/69 01/10/17 19:48 97.3 112 19 112/58 01/10/17 17:44 112/58 I/O 01/10/17 01/10/17 01/10/17 01/11/17 01/11/17 01/11/17 07:00 15:00 23:00 07:00 15:00 23:00 Intake Total 360 ml Balance 360 ml Intake Oral 360 ml # Voids 1 5 Result Diagram: 01/10/17 0831 Objective Remarks GENERAL: This is a well-nourished, well-developed patient, in no apparent distress. SKIN: Warm and dry, scaly skin. Generalized tenderness to palpation all over body. HEAD: Normocephalic. No temporal or scalp tenderness. EYES: Pupils equal round and reactive. No scleral icterus. No injection or drainage. ENT: Nose without bleeding. Throat without erythema. Uvula midline. Airway patent. NECK: Trachea midline. No JVD or lymphadenopathy. CARDIOVASCULAR: Tachycardia without murmurs, gallops, or rubs. RESPIRATORY: Clear to auscultation. Breath sounds equal bilaterally. No wheezes , rales, or rhonchi. GASTROINTESTINAL: Abdomen soft, non-tender, nondistended. MUSCULOSKELETAL: Extremities without clubbing, cyanosis, or edema. NEUROLOGICAL: Awake and alert. Flat affect. Moves all extremities. BLE weaker than BUE. Normal speech. A/P Problem List: (1) Schizoaffective disorder ICD Code: F25.9 Status: Acute (2) Schizophrenia, paranoid, chronic ICD Code: F20.0 Status: Acute (3) Suicidal ideations ICD Code: R45.851 Status: Acute (4) Hypoprolactinemia ICD Code: E23.6 Status: Acute Assessment and Plan Patient is a 61-year-old female with primary medical history of schizoaffective disorder living in assisted living facility came into the hospital initially under Zhu act by EMS secondary to decompensation becoming increasingly depressed, despondent, and isolated 11/11/16. As per review of records, patient has been reported to have suicidal ideation and intent with statement "I don't want to live anymore." Patient is now admitted to inpatient psychiatry unit for further evaluation. Consulted for hypoprolactinemia. Schizoaffective disorder, depression, schizophrenia with paranoia - managed by psychiatry team Hypo prolactinemia - Prolactin level <1.0. Suspect shunt gonadotropin or nonfunctioning pituitary adenoma was which can cause neurologic symptoms - TSH 0.991 , free T4 0.84, ACT, Cortisol 18.9, GH 3.63, LH 26.5, IGF-I normal - Recommended for brain MRI. Patient has refused. Tachycardia - Likely s/t decreased PO intake. - encourage PO intake. Patient was left with picture of apple juice. Discussed with nursing to encourage by mouth fluid intake. - EKG showed sinus tachycardia with heart rate of 120, nonspecific T-wave abnormality, QT interval 338. No notable ST changes. - Monitor BP trend, heart rate - Propranolol 20mg TID. - Noted on the trend that nurses holds the medication even above the parameters. We'll reiterate use of propranolol. DVT prop assisted ambulation Discussed with patient, nursing, Dr. Miller Problem Qualifiers (1) Schizoaffective disorder: Qualified Code: F25.8 - Other schizoaffective disorders Davey Meyer Jan 11, 2017 11:03
--- NOTE | 2017-01-11 13:35 | PD.TTN ---
Present for Treatment Team Treatment Team Staff: Provider (Dr. Ruiz), Nurse, Psych Therapist ( Mariella Barrera), Occupational Therapist (Sam) Patient Problems 1. Discharge planning 2. Medication compliance 3. Knowledge deficit 4. Lack of coping skills Progress Toward Goals Provider Input: Dr. Ruiz reports the patient's mental status remains unchanged and inquired regarding what number this patient is on the [facility] wait list. Psych Therapist Input: Counselor reported the patient remains calm, cooperative, and medication compliant. Patient continues to report the delusion that her body is rotting. Patient reports that she wants to go home to her family, although, patient is unable to produce any contact information for family members. Patient's packet has been received by [facility] and counselor will call [facility] to see what position this patient is on the wait list. Documentation Scribe: MAT Enriquez Date Resolved: Jan 10, 2017 Mariella BarreraGarrison Jan 11, 2017 13:35
--- NOTE | 2017-01-11 14:26 | HHI.PYPN ---
Subjective Remarks Patient seen and examined with nurse. Chart reviewed. Case discussed with nursing staff. On my examination today, the patient remains dysphoric and seclusive to room. She is upset because she was given a shower today and believes says before that this accelerates the rotting process. She is also upset that the staff is checking her blood pressure because she believes this as well accelerates the rotting process. She says that we should send a sample of her blood to the [facility] for analysis. I discussed with her the medical evaluation that the hospitalist had recommended initially, but she continues to refuse this sort of medical workup in a somewhat oppositional fashion. Denies side effects from medications. Does not feel like they're helping much though. No new physical complaints. Review of Systems ROS Limitations: Psychotic, Poor Historian Except as stated in HPI: all other systems reviewed are Neg Objective Alert: Yes [place]: Person, Place Mood: Calm Affect: Restricted Memory Intact: Comment (not assessed today) Hallucinations: Other (no AVH) Delusions: Yes Delusion Type: Paranoid (ongoing) Suicidal: Ideation (No SI) Homicidal: Ideation (No HI) Insight/Judgment Poor Remarks No motoric abnormalities noted. Grooming and hygiene remained poor. Labs Labs reviewed. Vitals/IOs Vital Signs Date Time Temp Pulse Resp B/P Pulse Ox O2 Delivery O2 Flow Rate FiO2 01/11/17 05:58 97.3 115 18 115/69 01/09/17 19:00 97 Assessment & Plan Problem List: (1) Schizoaffective disorder ICD Code: F25.9 Assessment & Plan I will plan to check a clozapine level in the morning. After that, we may consider tapering this agent because it seems to be of limited therapeutic benefit and is causing side effects, namely sialorrhea. If the level comes back subtherapeutic, although I do not suspect this will be the case, we can always re-titrate. Continue other medications and care as ordered. Continue to monitor on the inpatient unit. Justification for Cont. Inpt. Impairment in reality construction. Impairment in self-care. High risk for decompensation in a less restrictive environment. [facility]charge Planning [facility] Request HC Surrog/Guard Advoc?: Yes Problem Qualifiers (1) Schizoaffective disorder: Qualified Code: F25.8 - Other schizoaffective disorders Geovanny Ruiz MD Jan 11, 2017 14:26
[2017-01-11 18:00] VITALS: BP 82/53; PULSE 105; RESP 17; TEMP 97.8; O2SAT 98
[2017-01-11 20:00] VITALS: BP 107/59; PULSE 105; RESP 18; O2SAT 99
[2017-01-11] MEDS: cloZAPine 100 MG TAB PO SCH (22:23)
[2017-01-11] MEDS: MIRTAZAPINE ODT 15 MG TAB PO SCH (22:23)
[2017-01-12] MEDS: BETAMETHASONE/CLOTRIMAZOLE CREAM 15 GM TOPICAL SCH ×2 (09:00→20:59)
[2017-01-12] MEDS: PROPRANOLOL HCL 20 MG TAB PO SCH ×3 (09:11→18:09)
[2017-01-12] MEDS: cloZAPine 25 MG TAB PO SCH (09:11)
[2017-01-12] MEDS: GABAPENTIN 100 MG CAP PO SCH ×3 (09:11→18:09)
--- NOTE | 2017-01-12 13:44 | HHI.PYPN ---
Subjective Remarks Patient seen and examined. Chart reviewed. Case discussed with nursing staff. On my examination today, patient presents as malodorous. She is seclusive to room and remains fairly dysphoric and withdrawn. She continues to believe that she is rotting. She wants to try an antibiotic to counteract this effect or possibly some ammonium lactate cream. Continues to have significant sialorrhea from the clozapine. Patient refused her clozapine level this morning and was not restrained to obtain it. No other side effects from medications. No other physical complaints. Review of Systems ROS Limitations: Psychotic, Poor Historian Except as stated in HPI: all other systems reviewed are Neg Objective Alert: Yes [place]: Person, Place Mood: Other (dysphoric) Affect: Restricted Memory Intact: Comment (not assessed) Hallucinations: Other (none) Delusions: Yes Delusion Type: Paranoid (unchanging beliefs that she is rotting) Suicidal: Ideation (No SI) Homicidal: Ideation (No HI) Insight/Judgment Poor Remarks No motor abnormalities noted. Grooming and hygiene poor. Labs Labs reviewed. Vitals/IOs Vital Signs Date Time Temp Pulse Resp B/P Pulse Ox O2 Delivery O2 Flow Rate FiO2 01/11/17 20:00 105 18 107/59 99 01/11/17 18:00 97.8 Intake and Output 01/11/17 01/11/17 01/12/17 08:00 16:00 00:00 Intake Total 2160 ml 1395 ml Balance 2160 ml 1395 ml Assessment & Plan Problem List: (1) Schizoaffective disorder ICD Code: F25.9 Assessment & Plan I rescheduled a clozapine level for this evening with the laboratory, discussed with nursing staff and we'll restrain the patient if necessary to obtain laboratory. Once this is done, will taper clozapine to 100/200mg with plans to taper to discontinuation. Will then plan for brief antipsychotic holiday before resuming another agent to try to counteract her persistent delusions of rotting. I will add the ammonium lactate cream is a rapport building exercise on an as-needed basis. Continue to monitor on the inpatient unit. Continue other medications and care as ordered. Justification for Cont. Inpt. Impairment in reality construction. Impairment in self-care. High risk for decompensation in a less restrictive environment. [facility]charge Planning [facility] Request HC Surrog/Guard Advoc?: Yes Problem Qualifiers (1) Schizoaffective disorder: Qualified Code: F25.8 - Other schizoaffective disorders Geovanny Ruiz MD Jan 12, 2017 13:44
[2017-01-12 18:00] VITALS: BP 123/71; PULSE 68; RESP 17; TEMP 98.1; O2SAT 96
[2017-01-12] MEDS: MIRTAZAPINE ODT 15 MG TAB PO SCH (20:58)
[2017-01-12] MEDS ORDERED: cloZAPine 100 MG TAB PO SCH (21:00)
[2017-01-13] MEDS: BETAMETHASONE/CLOTRIMAZOLE CREAM 15 GM TOPICAL SCH ×2 (09:00→20:46)
[2017-01-13 09:18] LABS: AUTOMATED NEUTROPHIL # 2.3 TH/MM3 (1.8-7.7); BASOPHIL % 0.3 % (0.0-2.0); EOSINOPHIL # 0.2 TH/MM3 (0-0.4); EOSINOPHIL % 5.5 % (0.0-4.0); HEMATOCRIT 39.2 % (35.0-46.0); HEMO FLAGS DIFF FINAL; LYMPH % 27.2 % (9.0-44.0); LYMPHOCYTE # 1.1 TH/MM3 (1.0-4.8); MEAN CELL VOLUME 85.6 FL (80.0-100.0); MEAN CORPUSCULAR HEMOGLOBIN 28.1 PG (27.0-34.0); MEAN CORPUSCULAR HGB CONC 32.8 % (32.0-36.0); MONO % 8.9 % (0.0-8.0); NEUT % 58.1 % (16.0-70.0); PLATELET COUNT 235 TH/MM3 (150-450); RED BLOOD COUNT 4.58 MIL/MM3 (4.00-5.30); RED CELL DISTRIBUTION WIDTH 15.6 % (11.6-17.2)
[2017-01-13] MEDS: GABAPENTIN 100 MG CAP PO SCH ×3 (10:19→18:00)
[2017-01-13] MEDS: PROPRANOLOL HCL 20 MG TAB PO SCH ×3 (10:19→18:00)
[2017-01-13] MEDS: cloZAPine 25 MG TAB PO SCH (10:19)
[2017-01-13] MEDS: LACTIC ACID (AMMONIUM LACTATE) 12% LOTION 225 GM BTL TOPICAL PRN (10:33)
--- NOTE | 2017-01-13 17:30 | HHI.PYPN ---
Subjective Remarks Patient seen and examined with nurse. Chart reviewed. Case discussed with nursing staff. Clozapine level was obtained. Patient did allow staff to check vital signs today and was fairly cooperative. On my examination today, the patient is unchanged. Ongoing delusions of rotting, no worse as the clozapine dose is tapered. No other delusional material. No SI or HI. No new physical complaints. Review of Systems ROS Limitations: Psychotic, Poor Historian Except as stated in HPI: all other systems reviewed are Neg Objective Alert: Yes [place]: Person, Place Mood: Other (dysphoric) Affect: Blunted Memory Intact: Comment (not assessed) Hallucinations: Other (no AVH) Delusions: Yes Delusion Type: Paranoid Suicidal: Ideation (No SI) Homicidal: Ideation (No HI) Insight/Judgment Poor Remarks No motoric abnormalities noted. Labs Test 01/13/17 08:11 White Blood Count 4.0 TH/MM3 Red Blood Count 4.58 MIL/MM3 Hemoglobin 12.9 GM/DL Hematocrit 39.2 % Mean Corpuscular Volume 85.6 FL Mean Corpuscular Hemoglobin 28.1 PG Mean Corpuscular Hemoglobin 32.8 % Concent Red Cell Distribution Width 15.6 % Platelet Count 235 TH/MM3 Mean Platelet Volume 8.5 FL Neutrophils (%) (Auto) 58.1 % Lymphocytes (%) (Auto) 27.2 % Monocytes (%) (Auto) 8.9 % Eosinophils (%) (Auto) 5.5 % Basophils (%) (Auto) 0.3 % Neutrophils # (Auto) 2.3 TH/MM3 Lymphocytes # (Auto) 1.1 TH/MM3 Monocytes # (Auto) 0.4 TH/MM3 Eosinophils # (Auto) 0.2 TH/MM3 Basophils # (Auto) 0.0 TH/MM3 CBC Comment DIFF FINAL Differential Comment Labs reviewed. ANC remains adequate for Clozaril therapy. Vitals/IOs Vital Signs Date Time Temp Pulse Resp B/P Pulse Ox O2 Delivery O2 Flow Rate FiO2 01/12/17 18:00 98.1 68 17 123/71 96 Intake and Output 01/12/17 01/12/17 01/13/17 08:00 16:00 00:00 Intake Total 1080 ml 820 ml Balance 1080 ml 820 ml Assessment & Plan Problem List: (1) Schizoaffective disorder ICD Code: F25.9 Assessment & Plan Taper clozapine to discontinuation over the weekend. Plan for brief antipsychotic holiday followed by resumption of a new agent to try to target patient's delusions and improve level of function. Follow-up clozapine levels, although as noted previously suspect that these were above the therapeutic threshold. Continue to monitor on the inpatient unit. Continue other medications and care as ordered. Justification for Cont. Inpt. Impairment in reality construction. Medication changes in process. Discharge Planning [facility] [place] [facility] referral. Request HC Surrog/Guard Advoc?: Yes Problem Qualifiers (1) Schizoaffective disorder: Qualified Code: F25.8 - Other schizoaffective disorders Geovanny Ruiz MD Jan 13, 2017 17:30
[2017-01-13 18:30] VITALS: BP 94/62; PULSE 96; RESP 16; TEMP 98
[2017-01-13] MEDS: MIRTAZAPINE ODT 15 MG TAB PO SCH (20:47)
[2017-01-13] MEDS: cloZAPine 100 MG TAB PO SCH (21:40)
[2017-01-14 06:00] VITALS: BP 111/64; PULSE 94; RESP 16; TEMP 98.6; O2SAT 96
[2017-01-14] MEDS: PROPRANOLOL HCL 20 MG TAB PO SCH ×3 (10:10→18:00)
[2017-01-14] MEDS: GABAPENTIN 100 MG CAP PO SCH ×3 (10:10→18:00)
[2017-01-14] MEDS: BETAMETHASONE/CLOTRIMAZOLE CREAM 15 GM TOPICAL SCH ×2 (10:11→21:22)
--- NOTE | 2017-01-14 11:59 | HHI.PYPN ---
Subjective Remarks Pt seen and discussed with staff. She is tolerating clozapine taper without change in delusions. She has been cooperative [facility] care and compliant with medcation. She has been interacting more with staff and spending time in day room. Pt reports mood is good and c/o of sleepiness with clozapine and states she agrees with change in medication plan. No SI/HI Objective Alert: Yes [place]: Person, Place Mood: Other (dysphoric) Affect: Blunted Memory Intact: Comment (fair) Hallucinations: Other (no AVH) Delusions: Yes Delusion Type: Paranoid Suicidal: Ideation (No SI) Homicidal: Ideation (No HI) Insight/Judgment limited Vitals/IOs Vital Signs Date Time Temp Pulse Resp B/P Pulse Ox O2 Delivery O2 Flow Rate FiO2 01/14/17 06:00 98.6 94 16 111/64 96 Intake and Output 01/13/17 01/13/17 01/14/17 08:00 16:00 00:00 Intake Total 240 ml 1640 ml Balance 240 ml 1640 ml Assessment & Plan Problem List: (1) Schizoaffective disorder ICD Code: F25.9 Assessment & Plan Continue current tx plan. Estimated LOS: days Justification for Cont. Inpt. impairments in self care due to impairments in reality construction Request HC Surrog/Guard Advoc?: Yes Problem Qualifiers (1) Schizoaffective disorder: Qualified Code: F25.8 - Other schizoaffective disorders Julisa Ramos MD Jan 14, 2017 11:59
[2017-01-14 18:00] VITALS: BP 105/60; PULSE 95; TEMP 98.2; O2SAT 98
[2017-01-14] MEDS: MIRTAZAPINE ODT 15 MG TAB PO SCH (21:21)
[2017-01-14] MEDS: cloZAPine 100 MG TAB PO SCH (21:21)
[2017-01-15 05:39] VITALS: BP 99/66; PULSE 91; RESP 18; TEMP 98.3
[2017-01-15] MEDS: LACTIC ACID (AMMONIUM LACTATE) 12% LOTION 225 GM BTL TOPICAL PRN (06:37)
[2017-01-15] MEDS: GABAPENTIN 100 MG CAP PO SCH ×3 (10:22→16:46)
[2017-01-15] MEDS: PROPRANOLOL HCL 20 MG TAB PO SCH ×3 (10:22→16:46)
[2017-01-15] MEDS: BETAMETHASONE/CLOTRIMAZOLE CREAM 15 GM TOPICAL SCH ×2 (10:24→21:57)
--- NOTE | 2017-01-15 10:54 | HHI.PYPN ---
Subjective Remarks Pt seen and discussed with staff. She complained to RN that a spiderweb was covering her from head to toe, preventing her from moving. She has been cooperative and is eating well. No SI/HI. Objective Alert: Yes [employer]: Person, Place Mood: Other (dysphoric) Affect: Flat Memory Intact: Comment (fair) Hallucinations: Other (no AVH) Delusions: Yes Delusion Type: Paranoid Suicidal: Ideation (No SI) Homicidal: Ideation (No HI) Insight/Judgment poor Vitals/IOs Vital Signs Date Time Temp Pulse Resp B/P Pulse Ox O2 Delivery O2 Flow Rate FiO2 01/15/17 05:39 98.3 91 18 99/66 01/14/17 18:00 98 Intake and Output 01/14/17 01/14/17 01/15/17 08:00 16:00 00:00 Intake Total 240 ml 240 ml 960 ml Balance 240 ml 240 ml 960 ml Assessment & Plan Problem List: (1) Schizoaffective disorder ICD Code: F25.9 Assessment & Plan Continue current tx plan. Estimated LOS: days Justification for Cont. Inpt. decompensation, psychosis Request HC Surrog/Guard Advoc?: Yes Problem Qualifiers (1) Schizoaffective disorder: Qualified Code: F25.8 - Other schizoaffective disorders Julisa Ramos MD Jan 15, 2017 10:54
[2017-01-15] MEDS: MIRTAZAPINE ODT 15 MG TAB PO SCH (21:57)
[2017-01-15] MEDS: cloZAPine 100 MG TAB PO SCH (21:58)
[2017-01-16 05:37] VITALS: BP 104/60; PULSE 89; TEMP 97.8; O2SAT 99
[2017-01-16] MEDS: GABAPENTIN 100 MG CAP PO SCH ×3 (09:41→18:29)
[2017-01-16] MEDS: BETAMETHASONE/CLOTRIMAZOLE CREAM 15 GM TOPICAL SCH ×2 (09:41→22:11)
[2017-01-16] MEDS: PROPRANOLOL HCL 20 MG TAB PO SCH ×3 (09:41→18:29)
--- NOTE | 2017-01-16 16:38 | HHI.PYPN ---
Subjective Remarks Patient seen and examined. Chart reviewed. Case discussed with nursing staff. On my examination today, patient remains convinced that she is rotting. However, as the clozapine has been tapered she seems more active today. She says that they're "leaking" has decreased. Seems less frankly dysphoric. Denies side effects from medications otherwise. No new physical complaints. Review of Systems ROS Limitations: Poor Historian Except as stated in HPI: all other systems reviewed are Neg Objective Alert: Yes [place]: Person, Place Mood: Calm Affect: Blunted Memory Intact: Comment (remains fair) Hallucinations: Other (No AVH) Delusions: Yes Delusion Type: Paranoid Suicidal: Ideation (no SI voiced) Homicidal: Ideation (no HI voiced) Insight/Judgment Poor Remarks No abnormal motor movements noted. Labs Labs reviewed. Clozapine level pending. Vitals/IOs Vital Signs Date Time Temp Pulse Resp B/P Pulse Ox O2 Delivery O2 Flow Rate FiO2 01/16/17 05:37 97.8 89 104/60 99 01/15/17 05:39 18 Intake and Output 01/15/17 01/15/17 01/16/17 08:00 16:00 00:00 Intake Total 1080 ml 960 ml Balance 1080 ml 960 ml Assessment & Plan Problem List: (1) Schizoaffective disorder ICD Code: F25.9 Assessment & Plan Continue clozapine taper. Patient's persistent delusions of rotting are certainly no worse as clozapine has been tapered away, and she certainly seems less overmedicated. Continue to monitor on inpatient unit. Continue other medications and care as ordered. Justification for Cont. Inpt. Impairment in reality construction. High risk for decompensation in a less restrictive environment Discharge Planning [facility] referral. Counselor informs me that the patient has not yet been assigned a wait list number for the [facility]. Request HC Surrog/Guard Advoc?: Yes Problem Qualifiers (1) Schizoaffective disorder: Qualified Code: F25.8 - Other schizoaffective disorders Geovanny Ruiz MD Jan 16, 2017 16:38
[2017-01-16 18:00] VITALS: BP 122/59; PULSE 96; RESP 16; TEMP 97.4; O2SAT 90
[2017-01-16] MEDS: MIRTAZAPINE ODT 15 MG TAB PO SCH (22:11)
[2017-01-16 23:38] LABS: CLOZAPINE/NORCLOZAPINE TOTAL 773 ng/mL (>450); NORCLOZAPINE 288 ng/mL (())
[2017-01-17] MEDS: BETAMETHASONE/CLOTRIMAZOLE CREAM 15 GM TOPICAL SCH ×2 (09:28→21:00)
[2017-01-17] MEDS: GABAPENTIN 100 MG CAP PO SCH ×3 (09:28→18:54)
[2017-01-17] MEDS: PROPRANOLOL HCL 20 MG TAB PO SCH ×3 (09:28→18:54)
--- NOTE | 2017-01-17 13:26 | HHI.PR ---
Objective Vitals Vital Signs Date Time Temp Pulse Resp B/P Pulse Ox O2 Delivery O2 Flow Rate FiO2 01/16/17 18:00 97.4 96 16 122/59 90 I/O 01/16/17 01/16/17 01/16/17 01/17/17 01/17/17 01/17/17 07:00 15:00 23:00 07:00 15:00 23:00 Intake Total 0 ml 960 ml 1440 ml 1920 ml Output Total 3 ml Balance 0 ml 960 ml 1437 ml 1920 ml Intake Oral 0 ml 960 ml 1440 ml 1920 ml Output Urine Total 3 ml # Voids 1 2 2 2 # Bowel Movements 0 Result Diagram: 01/13/17 0811 Objective Remarks GENERAL: This is a well-nourished, well-developed patient, in no apparent distress. SKIN: Warm and dry, scaly skin. Generalized tenderness to palpation all over body. HEAD: Normocephalic. No temporal or scalp tenderness. EYES: Pupils equal round and reactive. No scleral icterus. No injection or drainage. ENT: Nose without bleeding. Throat without erythema. Uvula midline. Airway patent. NECK: Trachea midline. No JVD or lymphadenopathy. CARDIOVASCULAR: Tachycardia without murmurs, gallops, or rubs. RESPIRATORY: Clear to auscultation. Breath sounds equal bilaterally. No wheezes , rales, or rhonchi. GASTROINTESTINAL: Abdomen soft, non-tender, nondistended. MUSCULOSKELETAL: Extremities without clubbing, cyanosis, or edema. NEUROLOGICAL: Awake and alert. Flat affect. Moves all extremities. BLE weaker than BUE. Normal speech. A/P Problem List: (1) Schizoaffective disorder ICD Code: F25.9 Status: Acute (2) Schizophrenia, paranoid, chronic ICD Code: F20.0 Status: Acute (3) Suicidal ideations ICD Code: R45.851 Status: Acute (4) Hypoprolactinemia ICD Code: E23.6 Status: Acute Assessment and Plan Patient is a 61-year-old female with primary medical history of schizoaffective disorder living in assisted living facility came into the hospital initially under Zhu act by EMS secondary to decompensation becoming increasingly depressed, despondent, and isolated 11/11/16. As per review of records, patient has been reported to have suicidal ideation and intent with statement "I don't want to live anymore." Patient is now admitted to inpatient psychiatry unit for further evaluation. Consulted for hypoprolactinemia. Schizoaffective disorder, depression, schizophrenia with paranoia - managed by psychiatry team Hypo prolactinemia - Prolactin level <1.0. Suspect shunt gonadotropin or nonfunctioning pituitary adenoma was which can cause neurologic symptoms - TSH 0.991 , free T4 0.84, ACT, Cortisol 18.9, GH 3.63, LH 26.5, IGF-I normal - Recommended for brain MRI. Patient has refused. Tachycardia - Likely s/t decreased PO intake. - encourage PO intake. Patient was left with picture of apple juice. Discussed with nursing to encourage by mouth fluid intake. - EKG showed sinus tachycardia with heart rate of 120, nonspecific T-wave abnormality, QT interval 338. No notable ST changes. - Monitor BP trend, heart rate - Propranolol 20mg TID. - Noted on the trend that nurses holds the medication even above the parameters. We'll reiterate use of propranolol. DVT prop assisted ambulation Discussed with patient, nursing, Dr. Miller Problem Qualifiers (1) Schizoaffective disorder: Qualified Code: F25.8 - Other schizoaffective disorders Davey Meyer Jan 17, 2017 13:26
--- NOTE | 2017-01-17 15:13 | PD.TTN ---
Present for Treatment Team Treatment Team Staff: Provider (Dr. Ruiz), Nurse (Mary), Psych Therapist (Mariella Barrera), Other (moni Neff) Patient Problems 1. Discharge planning 2. Medication compliance 3. Knowledge deficit 4. Lack of coping skills Progress Toward Goals Provider Input: Dr. ruiz reported he has tapered the patient off Colazoril and patient has stopped drooling. Accordnig to Dr. Ruiz, the patient stated "I'm not leaking anymore." Dr. Ruiz requested an update regarding patient's state wait list number and a long-term care plan. Nurse Input: Nurse reported there has been no change in patient's status. Psych Therapist Input: Counselor reported the patient remains on the state wait list and that if patient receives a long-term care plan patient may be able to be diverted from the state into an appropriate care home facility. Other Clinican Input: moni Neff, reported the patient is not attending groups or activities. Documentation Scribe: MAT Enriquez Date Resolved: Jan 17, 2017 Mariella Barrera Jan 17, 2017 15:12
--- NOTE | 2017-01-17 16:42 | HHI.PYPN ---
Subjective Remarks Patient seen and examined with nurse. Chart reviewed. Case discussed in treatment team. On my examination today, the patient is upset about repeat vital sign checks. I endeavored to educate her on the purpose of these, but she continues to insist that it is merely accelerating the rotting process. She is fearful that the blood pressure checks in particular will cause her arm to fall off. She says that she just wants to go home. She provides a number for a sister, Mariana, , and says that she can go home with her. I have tried to call this number myself and it is disconnected. No side effects from medications. No new physical complaints. Review of Systems ROS Limitations: Psychotic, Poor Historian Except as stated in HPI: all other systems reviewed are Neg Objective Alert: Yes [place]: Person, Place Mood: Anxious Affect: Other (much more animated off clozapine) Memory Intact: Comment (fair) Hallucinations: Other (no hallucinations) Delusions: Yes Delusion Type: Paranoid (ongoing belief that she is rotting) Suicidal: Ideation (no SI) Homicidal: Ideation (no HI) Insight/Judgment Poor Remarks No abnormal motor movements noted. Sialorrhea appears to have resolved. Grooming and hygiene remained poor. Labs Labs reviewed. Clozapine level has resulted and was above the therapeutic threshold. Vitals/IOs Vital Signs Date Time Temp Pulse Resp B/P Pulse Ox O2 Delivery O2 Flow Rate FiO2 01/16/17 18:00 97.4 96 16 122/59 90 recheck 99% RA Intake and Output 01/16/17 01/16/17 01/17/17 08:00 16:00 00:00 Intake Total 0 ml 960 ml 1440 ml Output Total 3 ml Balance 0 ml 960 ml 1437 ml Assessment & Plan Problem List: (1) Schizoaffective disorder ICD Code: F25.9 Assessment & Plan Continue planned antipsychotic holiday. Continue Remeron as ordered. Continue to monitor on the inpatient unit. Continue other medications and care as ordered. Justification for Cont. Inpt. Impairment in reality construction. High risk for decompensation in a less restrictive environment. Discharge Planning [facility] referral Request HC Surrog/Guard Advoc?: Yes Problem Qualifiers (1) Schizoaffective disorder: Qualified Code: F25.8 - Other schizoaffective disorders Geovanny Ruiz MD Jan 17, 2017 16:42
[2017-01-17 16:44] VITALS: BP 91/50; PULSE 93; RESP 18; TEMP 98.1; O2SAT 98
[2017-01-17] MEDS: MIRTAZAPINE ODT 15 MG TAB PO SCH (21:55)
[2017-01-17] MEDS: LACTIC ACID (AMMONIUM LACTATE) 12% LOTION 225 GM BTL TOPICAL PRN (21:57)
[2017-01-17 23:00] VITALS: BP 90/51; PULSE 86; RESP 18; TEMP 99.2; O2SAT 98
[2017-01-18 07:49] VITALS: BP 126/78; PULSE 85; RESP 18; TEMP 97.9; O2SAT 98
[2017-01-18] MEDS: BETAMETHASONE/CLOTRIMAZOLE CREAM 15 GM TOPICAL SCH ×2 (10:05→21:00)
[2017-01-18] MEDS: PROPRANOLOL HCL 20 MG TAB PO SCH ×3 (10:05→18:00)
[2017-01-18] MEDS: GABAPENTIN 100 MG CAP PO SCH ×3 (10:05→18:09)
--- NOTE | 2017-01-18 11:33 | HHI.PYPN ---
Subjective Remarks Patient seen and examined with nurse. Chart reviewed. Case discussed with nursing staff. On my examination today, patient essentially unchanged. Core delusions that she is rotting persist. She continues to seem significantly less medicated and is more interactive now that the clozapine has been discontinued. No new physical complaints. No side effects from medications. Review of Systems ROS Limitations: Psychotic, Poor Historian Except as stated in HPI: all other systems reviewed are Neg Objective Alert: Yes [place]: Person, Place Mood: Calm Affect: Blunted, Other (much more animated off clozapine) Memory Intact: Comment (fair) Hallucinations: Other (no hallucinations) Delusions: Yes Delusion Type: Paranoid (ongoing) Suicidal: Ideation (no SI voiced) Homicidal: Ideation (no HI voiced) Insight/Judgment Poor Remarks No motor abnormalities noted. Labs Labs reviewed. Vitals/IOs Vital Signs Date Time Temp Pulse Resp B/P Pulse Ox O2 Delivery O2 Flow Rate FiO2 01/18/17 07:49 97.9 85 18 126/78 98 Intake and Output 01/17/17 01/17/17 01/18/17 08:00 16:00 00:00 Intake Total 1920 ml 2160 ml Balance 1920 ml 2160 ml Assessment & Plan Problem List: (1) Schizoaffective disorder ICD Code: F25.9 Assessment & Plan Reviewing notes from this hospital stay, patient seemed to be doing the best on Abilify. I will resume this medication at low dose to augment her Remeron in the hopes that she will derive additional benefit from more prolonged treatment with this agent. Continue to monitor on the inpatient unit. Continue other medications and care as ordered. Justification for Cont. Inpt. Impairment in reality construction. Impairment in self-care. High risk for decompensation in a less restrictive environment. Discharge Planning [facility] referral Request HC Surrog/Guard Advoc?: Yes Problem Qualifiers (1) Schizoaffective disorder: Qualified Code: F25.8 - Other schizoaffective disorders Geovanny Ruiz MD Jan 18, 2017 11:33
[2017-01-18 11:38] VITALS: BP 100/58; PULSE 86; RESP 18; TEMP 98.2; O2SAT 97
[2017-01-18 15:00] VITALS: BP 92/60; PULSE 85; RESP 18; TEMP 98.5; O2SAT 100
[2017-01-18 18:00] VITALS: BP 100/57; PULSE 86; RESP 18; TEMP 90.9; O2SAT 100
[2017-01-18] MEDS: MIRTAZAPINE ODT 15 MG TAB PO SCH (21:13)
[2017-01-19 01:09] VITALS: BP 93/54; PULSE 87; RESP 15; TEMP 98.8; O2SAT 98
[2017-01-19 06:07] VITALS: BP 97/58; PULSE 77; RESP 18; TEMP 98.4; O2SAT 97
[2017-01-19] MEDS: PROPRANOLOL HCL 20 MG TAB PO SCH ×3 (08:41→18:00)
[2017-01-19] MEDS: GABAPENTIN 100 MG CAP PO SCH ×3 (09:36→17:42)
[2017-01-19] MEDS: LACTIC ACID (AMMONIUM LACTATE) 12% LOTION 225 GM BTL TOPICAL PRN (09:37)
[2017-01-19] MEDS: ARIPiprazole 5 MG TAB PO SCH (09:37)
[2017-01-19] MEDS: BETAMETHASONE/CLOTRIMAZOLE CREAM 15 GM TOPICAL SCH ×2 (09:37→22:28)
--- NOTE | 2017-01-19 12:43 | HHI.PYPN ---
Subjective Remarks Patient seen and examined. Chart reviewed. Case discussed with nursing staff. Case also discussed with counselor who reports that she spent about an hour yesterday with the patient trying to locate family members. On my examination today, the patient is sitting in the day area. Her affect seems a little brighter, and she is even conversing and laughing with a fellow patient. She says that she is somewhat homesick and wishes she could go home with family. She does indicate that she continues to believe that she is rotting "same as before," but does not spontaneously report this. Denies side effects from medications. No physical complaints. Review of Systems ROS Limitations: Psychotic, Poor Historian Except as stated in HPI: all other systems reviewed are Neg Objective Alert: Yes [place]: Person, Place Mood: Calm Affect: Other (more euthymic today) Memory Intact: Comment (fair) Hallucinations: Other (No AVH) Delusions: Yes Delusion Type: Paranoid (as before) Suicidal: Ideation (No SI) Homicidal: Ideation (No HI) Insight/Judgment Poor Remarks No motor abnormalities noted. Grooming and hygiene remained poor. Thought process linear within delusional system. Labs Labs reviewed. Vitals/IOs Vital Signs Date Time Temp Pulse Resp B/P Pulse Ox O2 Delivery O2 Flow Rate FiO2 01/19/17 06:07 98.4 77 18 97/58 97 Intake and Output 01/18/17 01/18/17 01/19/17 08:00 16:00 00:00 Intake Total 480 ml 480 ml 600 ml Balance 480 ml 480 ml 600 ml Assessment & Plan Problem List: (1) Schizoaffective disorder ICD Code: F25.9 Assessment & Plan Continue Abilify augmenting the Remeron. Plan will be to slowly titrate the Abilify, although it is possible the patient may do better with a lower dose. Continue to monitor on the inpatient unit. Continue other medications and care as ordered. Justification for Cont. Inpt. Impairment in reality construction. High risk for decompensation in a less restrictive setting. [facility] If the patient becomes more functional with medication adjustments, assisted living placement or rehabilitation placement might once again become viable option. Additionally, if family can be identified, home with family with home PT might also represent an option. Request HC Surrog/Guard Advoc?: Yes Problem Qualifiers (1) Schizoaffective disorder: Qualified Code: F25.8 - Other schizoaffective disorders Geovanny Ruiz MD Jan 19, 2017 12:43
[2017-01-19 13:11] VITALS: BP 103/57; PULSE 92
[2017-01-19 20:53] VITALS: BP 104/58; PULSE 100; RESP 18; TEMP 97.6; O2SAT 98
[2017-01-19] MEDS: MIRTAZAPINE ODT 15 MG TAB PO SCH (22:28)
[2017-01-20 04:44] VITALS: BP 105/63; PULSE 82; RESP 17; TEMP 98.8; O2SAT 100
[2017-01-20 06:10] VITALS: BP 105/63; PULSE 82; RESP 17; TEMP 98.8; O2SAT 100
[2017-01-20] MEDS: BETAMETHASONE/CLOTRIMAZOLE CREAM 15 GM TOPICAL SCH ×2 (09:00→22:59)
[2017-01-20] MEDS: ARIPiprazole 5 MG TAB PO SCH (09:44)
[2017-01-20] MEDS: PROPRANOLOL HCL 20 MG TAB PO SCH ×3 (09:44→18:00)
[2017-01-20] MEDS: GABAPENTIN 100 MG CAP PO SCH ×3 (09:44→18:00)
--- NOTE | 2017-01-20 12:34 | HHI.PYPN ---
Subjective Remarks Patient seen and examined with nurse. Chart reviewed. Case discussed with nursing staff. For me today, patient's affect seems a little brighter. She is again more interactive. She does not verbalize any feelings of rotting, and when I ask her about it, she says that she continues to feel she is rotting, but "there's no use worrying about it." We discuss collateral obtained by counselor from patient's sister. Denies side effects from medications. No new physical complaints. She is agreeable to re-eval by PT. Review of Systems ROS Limitations: Psychotic Except as stated in HPI: all other systems reviewed are Neg Objective Alert: Yes [place]: Person, Place Mood: Calm Affect: Appropriate Memory Intact: Comment (remains fair) Hallucinations: Other (No hallucinations) Delusions: Yes Delusion Type: Paranoid (of rotting, less prominent) Suicidal: Ideation (No SI) Homicidal: Ideation (No HI) Insight/Judgment Poor Remarks No motor abnormalities noted. TP linear. Speech wnl for rate, tone, volume. Labs Labs reviewed. Vitals/IOs Vital Signs Date Time Temp Pulse Resp B/P Pulse Ox O2 Delivery O2 Flow Rate FiO2 01/20/17 06:10 98.8 82 17 105/63 100 Intake and Output 01/19/17 01/19/17 01/20/17 08:00 16:00 00:00 Intake Total 600 ml 480 ml 720 ml Balance 600 ml 480 ml 720 ml Assessment & Plan Problem List: (1) Schizoaffective disorder ICD Code: F25.9 Assessment & Plan Patient seems to be doing well with Abilify/Remeron combination. Delusions of rotting persist but are attenuated, and the patient seems more functional. I will gently titrate Abilify over weekend to target psychosis. I will ask PT to come re-eval patient in hopes she might qualify for [facility] with PT. Patient is unlikely to participate in full rehab program (previous PT recommendation), but she might be able to tolerate PT at [facility] as an alternative to state hospital referral. Continue to monitor on the inpatient unit. Continue other medications and care as ordered. Justification for Cont. Inpt. Impairment in reality construction. Medication changes in process. [facility]charge Planning [facility] versus possibly assisted living placement. Request HC Surrog/Guard Advoc?: Yes Problem Qualifiers (1) Schizoaffective disorder: Qualified Code: F25.8 - Other schizoaffective disorders Geovanny Ruiz MD Jan 20, 2017 12:34
[2017-01-20 13:26] VITALS: BP 91/50; PULSE 90
[2017-01-20 17:55] VITALS: BP 96/55; PULSE 89; RESP 16; TEMP 98; O2SAT 99
[2017-01-20] MEDS: MIRTAZAPINE ODT 15 MG TAB PO SCH (22:57)
[2017-01-21 05:58] VITALS: BP 96/53; PULSE 77; RESP 18; TEMP 98.4; O2SAT 95
[2017-01-21] MEDS: PROPRANOLOL HCL 20 MG TAB PO SCH ×3 (07:54→18:00)
[2017-01-21] MEDS: BETAMETHASONE/CLOTRIMAZOLE CREAM 15 GM TOPICAL SCH ×2 (09:00→21:50)
[2017-01-21] MEDS: ARIPiprazole 5 MG TAB PO SCH (10:16)
[2017-01-21] MEDS: GABAPENTIN 100 MG CAP PO SCH ×3 (10:16→17:15)
--- NOTE | 2017-01-21 12:51 | HHI.PYPN ---
Subjective Remarks Patient was seen and case discussed with nursing. Patient is pleasant and cooperative with exam. She is less seclusive seen sitting in the dayroom. Says that she still feeling she is brought in from the inside but less so. This delusion had to be elicited. She denies auditory visual hallucinations. Eating and sleeping well Objective Alert: Yes [place]: Person, Place Mood: Calm Affect: Restricted Memory Intact: Comment (remains fair) Hallucinations: Other (No hallucinations) Delusions: Yes Delusion Type: Paranoid (of rotting, less prominent) Suicidal: Ideation (No SI) Homicidal: Ideation (No HI) Insight/Judgment Poor Vitals/IOs Vital Signs Date Time Temp Pulse Resp B/P Pulse Ox O2 Delivery O2 Flow Rate FiO2 01/21/17 05:58 98.4 77 18 96/53 95 Intake and Output 01/20/17 01/20/17 01/21/17 08:00 16:00 00:00 Intake Total 4320 ml 960 ml Balance 4320 ml 960 ml Assessment & Plan Problem List: (1) Schizoaffective disorder ICD Code: F25.9 Assessment & Plan Continue current treatment plan Justification for Cont. Inpt. Patient will decompensate in a less restrictive setting Request HC Surrog/Guard Advoc?: Yes Problem Qualifiers (1) Schizoaffective disorder: Qualified Code: F25.8 - Other schizoaffective disorders Christian Sood DO Jan 21, 2017 12:51
[2017-01-21 18:31] VITALS: BP 106/51; PULSE 64; RESP 18; TEMP 98.3; O2SAT 96
[2017-01-21] MEDS: MIRTAZAPINE ODT 15 MG TAB PO SCH (21:50)
[2017-01-22 06:18] VITALS: BP 103/53; PULSE 84; RESP 16; TEMP 97.8; O2SAT 96
[2017-01-22] MEDS: BETAMETHASONE/CLOTRIMAZOLE CREAM 15 GM TOPICAL SCH ×2 (09:00→21:00)
[2017-01-22] MEDS: PROPRANOLOL HCL 20 MG TAB PO SCH (09:01)
[2017-01-22] MEDS: GABAPENTIN 100 MG CAP PO SCH ×3 (09:01→17:21)
[2017-01-22] MEDS: ARIPiprazole 5 MG TAB PO SCH (09:01)
--- NOTE | 2017-01-22 12:54 | HHI.PYPN ---
Subjective Remarks Patient was seen and case discussed with nursing. We will hold her Inderal given blood pressures of consistently run low. With resistance, she took a shower with nursing today. Patient remains restricted but seems less preoccupied with her delusion that she is rotting. Compliant with medications behaving well. Objective Alert: Yes [place]: Person, Place Mood: Calm Affect: Blunted Memory Intact: Comment (remains fair) Hallucinations: Other (No hallucinations) Delusions: Yes Delusion Type: Paranoid (of rotting, less prominent) Suicidal: Ideation (No SI) Homicidal: Ideation (No HI) Insight/Judgment Poor Vitals/IOs Vital Signs Date Time Temp Pulse Resp B/P Pulse Ox O2 Delivery O2 Flow Rate FiO2 01/22/17 06:18 97.8 84 16 103/53 96 Intake and Output 01/21/17 01/21/17 01/22/17 08:00 16:00 00:00 Intake Total 720 ml 480 ml Balance 720 ml 480 ml Assessment & Plan Problem List: (1) Schizoaffective disorder ICD Code: F25.9 Assessment & Plan Hold Inderal Justification for Cont. Inpt. Patient will decompensate in a less restrictive setting Request HC Surrog/Guard Advoc?: Yes Problem Qualifiers (1) Schizoaffective disorder: Qualified Code: F25.8 - Other schizoaffective disorders Christian Sood DO Jan 22, 2017 12:54
[2017-01-22 18:20] VITALS: BP 104/56; PULSE 74; RESP 17; TEMP 97.3; O2SAT 97
[2017-01-22] MEDS: MIRTAZAPINE ODT 15 MG TAB PO SCH (21:15)
[2017-01-22] MEDS: LORazepam 0.5 MG TAB age > 65 yrs PO PRN (21:17)
[2017-01-23] MEDS: ARIPiprazole 5 MG TAB PO SCH (09:33)
[2017-01-23] MEDS: GABAPENTIN 100 MG CAP PO SCH ×3 (09:33→18:25)
[2017-01-23] MEDS: LACTIC ACID (AMMONIUM LACTATE) 12% LOTION 225 GM BTL TOPICAL PRN (09:38)
[2017-01-23] MEDS: BETAMETHASONE/CLOTRIMAZOLE CREAM 15 GM TOPICAL SCH ×2 (09:39→20:48)
--- NOTE | 2017-01-23 13:15 | HHI.PYPN ---
Subjective Remarks No change. Interviewed patient and spoke to the nurse. Review of Systems Except as stated in HPI: all other systems reviewed are Neg Objective Alert: Yes [place]: Person Mood: Calm Affect: Blunted Memory Intact: Comment (remains fair) Hallucinations: Other (No hallucinations) Delusions: Yes Delusion Type: Paranoid (of rotting, less prominent) Suicidal: Ideation (No SI) Homicidal: Ideation (No HI) Insight/Judgment Impaired Vitals/IOs Vital Signs Date Time Temp Pulse Resp B/P Pulse Ox O2 Delivery O2 Flow Rate FiO2 01/22/17 18:20 97.3 74 17 104/56 97 Intake and Output 01/22/17 01/22/17 01/23/17 08:00 16:00 00:00 Intake Total 0 ml 1920 ml Balance 0 ml 1920 ml Assessment & Plan Problem List: (1) Schizoaffective disorder ICD Code: F25.9 Assessment & Plan Estimated LOS: days awaiting state hospital placement Justification for Cont. Inpt. Will decompensate at lower level of care. Request HC Surrog/Guard Advoc?: Yes Problem Qualifiers (1) Schizoaffective disorder: Qualified Code: F25.8 - Other schizoaffective disorders Dave Urena MD Jan 23, 2017 13:15
[2017-01-23 18:07] VITALS: BP 89/56; PULSE 88; RESP 16; O2SAT 96
[2017-01-23] MEDS: MIRTAZAPINE ODT 15 MG TAB PO SCH (20:48)
[2017-01-24 05:50] VITALS: BP 92/50; PULSE 77; RESP 16; O2SAT 100
[2017-01-24] MEDS: ARIPiprazole 5 MG TAB PO SCH (09:10)
[2017-01-24] MEDS: GABAPENTIN 100 MG CAP PO SCH ×3 (09:11→18:14)
[2017-01-24] MEDS: BETAMETHASONE/CLOTRIMAZOLE CREAM 15 GM TOPICAL SCH ×2 (09:15→21:00)
[2017-01-24] MEDS: LACTIC ACID (AMMONIUM LACTATE) 12% LOTION 225 GM BTL TOPICAL PRN (09:15)
--- NOTE | 2017-01-24 11:16 | HHI.PYPN ---
Subjective Remarks Patient discussed with nurse and chart reviewed. Patient interviewed and continues to appear withdrawn, restricted affect, lack of energy, with paranoid ideation. She is demonstrating only a partial response to antipsychotic medicine. Review of Systems Except as stated in HPI: all other systems reviewed are Neg Objective Alert: Yes [place]: Person Mood: Calm Affect: Restricted, Blunted Memory Intact: Comment (remains fair) Hallucinations: Other (No hallucinations) Delusions: Yes Delusion Type: Paranoid (of rotting, less prominent) Suicidal: Ideation (No SI) Homicidal: Ideation (No HI) Insight/Judgment Impaired Vitals/IOs Vital Signs Date Time Temp Pulse Resp B/P Pulse Ox O2 Delivery O2 Flow Rate FiO2 01/24/17 05:50 77 16 92/50 100 01/22/17 18:20 97.3 Intake and Output 01/23/17 01/23/17 01/24/17 08:00 16:00 00:00 Intake Total 480 ml 2640 ml Balance 480 ml 2640 ml Assessment & Plan Problem List: (1) Schizoaffective disorder ICD Code: F25.9 Assessment & Plan Estimated LOS: days patient continues to show evidence of delusional thinking and restricted affect with diminished energy. This physician feel she requires more time to respond on current antipsychotic medicine.` Will increase dose of Abilify to 10 mg per day. Justification for Cont. Inpt. Likely to decompensate at lower level of care. Request HC Surrog/Guard Advoc?: Yes Problem Qualifiers (1) Schizoaffective disorder: Qualified Code: F25.8 - Other schizoaffective disorders Dave Urena MD Jan 24, 2017 11:16
[2017-01-24 18:40] VITALS: BP 104/55; PULSE 82; RESP 16; O2SAT 100
[2017-01-24] MEDS: MIRTAZAPINE ODT 15 MG TAB PO SCH (21:08)
[2017-01-25 05:01] VITALS: BP 94/53; PULSE 86; RESP 16; TEMP 98; O2SAT 100
[2017-01-25] MEDS: BETAMETHASONE/CLOTRIMAZOLE CREAM 15 GM TOPICAL SCH ×2 (09:00→22:26)
[2017-01-25] MEDS: ARIPiprazole 10 MG TAB PO SCH (09:00)
[2017-01-25] MEDS: GABAPENTIN 100 MG CAP PO SCH ×3 (09:00→18:00)
[2017-01-25 18:00] VITALS: BP 104/60; PULSE 92; RESP 18; TEMP 98; O2SAT 98
[2017-01-25] MEDS: MIRTAZAPINE ODT 15 MG TAB PO SCH (22:25)
[2017-01-26 06:26] VITALS: BP 102/58; PULSE 66; RESP 19; TEMP 98.2; O2SAT 99
[2017-01-26] MEDS: ARIPiprazole 10 MG TAB PO SCH (08:58)
[2017-01-26] MEDS: GABAPENTIN 100 MG CAP PO SCH ×3 (08:58→18:19)
[2017-01-26] MEDS: BETAMETHASONE/CLOTRIMAZOLE CREAM 15 GM TOPICAL SCH ×2 (08:59→21:13)
--- NOTE | 2017-01-26 10:01 | HHI.PYPN ---
Subjective Remarks This is the psychiatric progress note for January 25, 2017. Patient continues to report that she is rotting. She however maintains a somewhat bright affect, indicating others should not worry about her and that she is "fine". This physician examined the patient, reviewed the chart and discussed her care with the nursing staff. Review of Systems Except as stated in HPI: all other systems reviewed are Neg Objective Alert: Yes [place]: Person Mood: Calm Affect: Restricted, Blunted Memory Intact: Comment (remains fair) Hallucinations: Other (No hallucinations) Delusions: Yes Delusion Type: Paranoid (of rotting, less prominent) Suicidal: Ideation (No SI) Homicidal: Ideation (No HI) Insight/Judgment Impaired Vitals/IOs Vital Signs Date Time Temp Pulse Resp B/P Pulse Ox O2 Delivery O2 Flow Rate FiO2 01/26/17 06:26 98.2 66 19 102/58 99 Intake and Output 01/25/17 01/25/17 01/26/17 08:00 16:00 00:00 Intake Total 480 ml 840 ml Balance 480 ml 840 ml Assessment & Plan Problem List: (1) Schizoaffective disorder ICD Code: F25.9 Assessment & Plan Estimated LOS: days patient has had an inadequate response to antipsychotic therapy. This physician feels she needs more time to respond. Justification for Cont. Inpt. Likely to decompensate at lower level of care. Request HC Surrog/Guard Advoc?: Yes Problem Qualifiers (1) Schizoaffective disorder: Qualified Code: F25.8 - Other schizoaffective disorders Dave Urena MD Jan 26, 2017 10:01
--- NOTE | 2017-01-26 13:51 | HHI.PYPN ---
Subjective Remarks Patient seen and examined with nurse. Chart reviewed. Case discussed with nursing staff. Patient apparently refused to work with physical therapy today but had been working with them some previously. On my examination today, patient is requesting that fresh fruits and yogurt be added to her diet. She continues to say she feels, "about the same" but once again does not spontaneously verbalize her rotting delusion. She is in fairly good spirits overall. She would like to be discharged back to a home that she maintains that she owns; I will ask the counselor to explore this. Denies side effects from medications. No physical complaints. Review of Systems ROS Limitations: Poor Historian Except as stated in HPI: all other systems reviewed are Neg Objective Alert: Yes [place]: Person, Place Mood: Calm Affect: Blunted Memory Intact: Comment (Fair) Hallucinations: Other (No AVH) Delusions: Yes Delusion Type: Paranoid (?lessening) Suicidal: Ideation (No SI) Homicidal: Ideation (No HI) Insight/Judgment Poor Remarks No motor abnormalities noted. Thought process linear. Labs Labs reviewed. Vitals/IOs Vital Signs Date Time Temp Pulse Resp B/P Pulse Ox O2 Delivery O2 Flow Rate FiO2 01/26/17 06:26 98.2 66 19 102/58 99 Intake and Output 01/25/17 01/25/17 01/26/17 08:00 16:00 00:00 Intake Total 480 ml 840 ml Balance 480 ml 840 ml Assessment & Plan Problem List: (1) Schizoaffective disorder ICD Code: F25.9 Assessment & Plan Continue Abilify and Remeron as ordered. Continue to monitor on the inpatient unit. Continue other medications and care as ordered. Justification for Cont. Inpt. High risk for decompensation in a less restrictive environment Discharge Planning [facility] referral Request HC Surrog/Guard Advoc?: Yes Problem Qualifiers (1) Schizoaffective disorder: Qualified Code: F25.8 - Other schizoaffective disorders Geovanny Ruiz MD Jan 26, 2017 13:51
[2017-01-26 19:38] VITALS: BP 109/59; PULSE 63; RESP 18; TEMP 98.6; O2SAT 99
[2017-01-26] MEDS: MIRTAZAPINE ODT 15 MG TAB PO SCH (21:13)
[2017-01-27 04:00] VITALS: BP 97/56; PULSE 71; RESP 18; TEMP 97.7; O2SAT 100
[2017-01-27] MEDS: GABAPENTIN 100 MG CAP PO SCH ×3 (08:18→16:31)
[2017-01-27] MEDS: ARIPiprazole 10 MG TAB PO SCH (08:18)
[2017-01-27] MEDS: BETAMETHASONE/CLOTRIMAZOLE CREAM 15 GM TOPICAL SCH ×2 (08:18→21:26)
--- NOTE | 2017-01-27 10:49 | HHI.PYPN ---
Subjective Remarks Patient seen and examined with nurse. Chart reviewed. Case discussed with nurse. Case discussed with counselor. Per counselor, she has already explored the possibility of the patient owning property with family, and the patient does not in fact have a house to which she can return. On my examination today , patient is a little less seclusive to room. Sitting in the day area enjoying a football game on the television. Does not verbalize concerns about rotting spontaneously, and when I ask her about this, she says that she is less convinced that it is occurring. Denies side effects from medications. No physical complaints. Review of Systems ROS Limitations: Psychotic, Poor Historian Except as stated in HPI: all other systems reviewed are Neg Objective Alert: Yes [place]: Person, Place Mood: Calm Affect: Appropriate Memory Intact: Comment (Fair) Hallucinations: Other (No AVH) Delusions: Yes Delusion Type: Paranoid (a little less convinced that she is rotting today) Suicidal: Ideation (none) Homicidal: Ideation (none) Insight/Judgment Poor Remarks No motor abnormalities noted Labs Labs reviewed Vitals/IOs Vital Signs Date Time Temp Pulse Resp B/P Pulse Ox O2 Delivery O2 Flow Rate FiO2 01/27/17 04:00 97.7 71 18 97/56 100 Intake and Output 01/26/17 01/26/17 01/27/17 08:00 16:00 00:00 Intake Total 480 ml 480 ml 1000 ml Balance 480 ml 480 ml 1000 ml Assessment & Plan Problem List: (1) Schizoaffective disorder ICD Code: F25.9 Assessment & Plan Patient seems to be responding, albeit slowly, to current psychotropic medications. Her delusions regarding rotting are perhaps softening somewhat. Continue Abilify and Remeron as ordered. Continue to monitor on the inpatient unit. Continue other medications and care as ordered. Justification for Cont. Inpt. Impairment in reality construction, possibly lessening. High risk for decompensation in a less restrictive environment. Discharge Planning [facility] referral Request HC Surrog/Guard Advoc?: Yes Problem Qualifiers (1) Schizoaffective disorder: Qualified Code: F25.8 - Other schizoaffective disorders Geovanny Ruiz MD Jan 27, 2017 10:49
[2017-01-27] MEDS: MIRTAZAPINE ODT 15 MG TAB PO SCH (21:26)
[2017-01-28 04:00] VITALS: BP 92/54; PULSE 80; RESP 18; TEMP 98; O2SAT 99
[2017-01-28] MEDS: GABAPENTIN 100 MG CAP PO SCH ×3 (08:35→16:56)
[2017-01-28] MEDS: ARIPiprazole 10 MG TAB PO SCH (08:35)
[2017-01-28] MEDS: BETAMETHASONE/CLOTRIMAZOLE CREAM 15 GM TOPICAL SCH ×2 (08:35→21:39)
--- NOTE | 2017-01-28 16:17 | HHI.PYPN ---
Subjective Remarks Pt seen and discussed with staff. Less seclusive and has been coming out interacting with staff. Decreased delusional content and is less fixated on body rotting. No SI/HI. Compliant with medications. Objective Alert: Yes [place]: Person, Place Mood: Calm Affect: Appropriate Memory Intact: Comment (Fair) Hallucinations: Other (No AVH) Delusions: Yes Delusion Type: Paranoid (less fixed) Suicidal: Ideation (none) Homicidal: Ideation (none) Insight/Judgment limited Vitals/IOs Vital Signs Date Time Temp Pulse Resp B/P Pulse Ox O2 Delivery O2 Flow Rate FiO2 01/28/17 04:00 98.0 80 18 92/54 99 Intake and Output 01/27/17 01/27/17 01/28/17 08:00 16:00 00:00 Intake Total 1680 ml Balance 1680 ml Assessment & Plan Problem List: (1) Schizoaffective disorder ICD Code: F25.9 Assessment & Plan Continue current tx plan. Estimated LOS: days Justification for Cont. Inpt. risk of decompensation Request HC Surrog/Guard Advoc?: Yes Problem Qualifiers (1) Schizoaffective disorder: Qualified Code: F25.8 - Other schizoaffective disorders Julisa Ramos MD Jan 28, 2017 16:17
[2017-01-28 18:00] VITALS: BP 101/58; PULSE 86; RESP 18; TEMP 98.4; O2SAT 98
[2017-01-28] MEDS: MIRTAZAPINE ODT 15 MG TAB PO SCH (21:40)
[2017-01-29 06:08] VITALS: BP 93/54; PULSE 76; RESP 18; TEMP 98.1; O2SAT 97
[2017-01-29] MEDS: GABAPENTIN 100 MG CAP PO SCH ×3 (08:59→18:00)
[2017-01-29] MEDS: ARIPiprazole 10 MG TAB PO SCH (08:59)
[2017-01-29] MEDS: BETAMETHASONE/CLOTRIMAZOLE CREAM 15 GM TOPICAL SCH ×2 (09:00→21:03)
--- NOTE | 2017-01-29 14:20 | HHI.PYPN ---
Subjective Remarks Pt seen and discussed with staff. She has been cooperative with care. She is compliant with medications. No behavioral disturbances on unit. Delusions less fixed. She still refuses to go off of unit for fresh air groups. Objective Alert: Yes [place]: Person, Place Mood: Calm Affect: Appropriate Memory Intact: Comment (Fair) Hallucinations: Other (No AVH) Delusions: Yes Delusion Type: Paranoid (less fixed) Suicidal: Ideation (none) Homicidal: Ideation (none) Insight/Judgment poor Vitals/IOs Vital Signs Date Time Temp Pulse Resp B/P Pulse Ox O2 Delivery O2 Flow Rate FiO2 01/29/17 06:08 98.1 76 18 93/54 97 Intake and Output 01/28/17 01/28/17 01/29/17 08:00 16:00 00:00 Intake Total 960 ml 480 ml Balance 960 ml 480 ml Assessment & Plan Problem List: (1) Schizoaffective disorder ICD Code: F25.9 Assessment & Plan Continue current tx plan. Estimated LOS: days Justification for Cont. Inpt. risk of decompensation Request HC Surrog/Guard Advoc?: Yes Problem Qualifiers (1) Schizoaffective disorder: Qualified Code: F25.8 - Other schizoaffective disorders Julisa Ramos MD Jan 29, 2017 14:20
[2017-01-29] MEDS: MIRTAZAPINE ODT 15 MG TAB PO SCH (21:04)
[2017-01-30] MEDS: ARIPiprazole 10 MG TAB PO SCH (08:15)
[2017-01-30] MEDS: BETAMETHASONE/CLOTRIMAZOLE CREAM 15 GM TOPICAL SCH ×3 (08:15→21:31)
[2017-01-30] MEDS: GABAPENTIN 100 MG CAP PO SCH ×3 (08:15→16:54)
--- NOTE | 2017-01-30 12:40 | HHI.PYPN ---
Subjective Remarks Patient seen and examined. Chart reviewed. Case discussed with nursing staff reports that the patient is refusing to walk even though she is capable of doing so and can be made to do so with significant prompting. When I asked the patient about this today she says that she is "trying to save my feet" referencing her belief that she is rotting. Affect seems a little more dysphoric today versus before the weekend, although this has a somewhat oppositional quality, and I was told by the nurse that the physical therapist relieved the patient of her wheelchair since it was no longer felt to be needed. Denies side effects from medications. No new physical complaints. Review of Systems ROS Limitations: Psychotic, Poor Historian Except as stated in HPI: all other systems reviewed are Neg Objective Alert: Yes [place]: Person, Place Mood: Oppositional (somewhat oppositional) Affect: Restricted (dysphoric) Memory Intact: Comment (Fair) Hallucinations: Other (No AVH) Delusions: Yes Delusion Type: Paranoid (believes that she is rotting, perhaps a little less fixed) Suicidal: Ideation (no SI) Homicidal: Ideation (no HI) Insight/Judgment Poor Remarks No motor abnormalities noted. Grooming and hygiene fair at best. Labs Labs reviewed Vitals/IOs Vital Signs Date Time Temp Pulse Resp B/P Pulse Ox O2 Delivery O2 Flow Rate FiO2 01/29/17 06:08 98.1 76 18 93/54 97 Intake and Output 01/29/17 01/29/17 01/30/17 08:00 16:00 00:00 Intake Total 480 ml 360 ml Balance 480 ml 360 ml Assessment & Plan Problem List: (1) Schizoaffective disorder ICD Code: F25.9 Assessment & Plan Titrate Abilify to 15 mg daily to target psychosis. Continue Remeron as ordered. Continue to monitor on the inpatient unit. Continue other medications and care as ordered. Justification for Cont. Inpt. Impairment in reality construction. Medication changes in process. High risk for decompensation in a less restrictive environment. Discharge Planning Placement versus [facility] referral. Request HC Surrog/Guard Advoc?: Yes Problem Qualifiers (1) Schizoaffective disorder: Qualified Code: F25.8 - Other schizoaffective disorders Geovanny Ruiz MD Jan 30, 2017 12:40
[2017-01-30] MEDS: MIRTAZAPINE ODT 15 MG TAB PO SCH (21:31)
[2017-01-31 06:00] VITALS: BP 109/56; PULSE 86; RESP 20; TEMP 97.9; O2SAT 97
[2017-01-31] MEDS: BETAMETHASONE/CLOTRIMAZOLE CREAM 15 GM TOPICAL SCH ×2 (09:00→22:12)
[2017-01-31] MEDS: GABAPENTIN 100 MG CAP PO SCH ×3 (09:09→18:09)
[2017-01-31] MEDS: ARIPiprazole 15 MG TAB PO SCH (09:09)
--- NOTE | 2017-01-31 11:22 | PD.TTN ---
Present for Treatment Team Treatment Team Staff: Provider (Dr. Ruiz), Nurse ([place]), Psych Therapist (MAT Enriquez), Occupational Therapist (Valentino) Patient Problems 1. Discharge planning 2. Medication compliance 3. Knowledge deficit 4. Lack of coping skills Progress Toward Goals Provider Input: Dr. Ruiz reported the patient's mental status remains unchanged and requested this counselor check on the patient's status on the [facility] wait list. Dr. Ruiz reported he will order a PT assessment. Nurse Input: Nurse did not provide input regarding this patient. Psych Therapist Input: Counselor reported the patient has been more isolative in her room since her wheelchair was taken away at the suggestion of PT. Occupational Therapist Input: Valentino reported the patient occasionally participates in recreational groups and activities. Documentation Scribe: MAT Enriquez Date Resolved: Jan 31, 2017 Mariella Barrera Jan 31, 2017 11:22
--- NOTE | 2017-01-31 11:27 | HHI.PYPN ---
Subjective Remarks Patient seen and examined. Chart reviewed. Case discussed in treatment team with nurse, counselor and occupational therapist. I note the patient continues to refuse intermittently to come out for meals. I do note that she comes out for at least 1 meal/day and at that time eats 100%. As before, her rationale for doing so is that she must avoid putting weight on her feet, lest this accelerate the rotting process, as she sees it. She remains somewhat oppositional and dysphoric. No side effects from medications. No new physical complaints. She does want her gabapentin discontinued because she insists that she does not have pain, and since GBP is for neuropathic pain she does not need to take it. Review of Systems ROS Limitations: Psychotic, Poor Historian Except as stated in HPI: all other systems reviewed are Neg Objective Alert: Yes [place]: Person, Place Mood: Oppositional Affect: Restricted Memory Intact: Comment (Fair) Hallucinations: Other (none) Delusions: Yes Delusion Type: Paranoid Suicidal: Ideation (no SI) Homicidal: Ideation (no HI) Insight/Judgment Poor Remarks No motoric abnormalities noted. Grooming and hygiene fair at best Labs Labs reviewed. Vitals/IOs Vital Signs Date Time Temp Pulse Resp B/P Pulse Ox O2 Delivery O2 Flow Rate FiO2 01/31/17 06:00 97.9 86 20 109/56 97 Intake and Output 01/30/17 01/30/17 01/31/17 08:00 16:00 00:00 Intake Total 240 ml 960 ml 75 ml Balance 240 ml 960 ml 75 ml Assessment & Plan Problem List: (1) Schizoaffective disorder ICD Code: F25.9 Assessment & Plan Continue Abilify and Remeron as ordered as the dose of Abilify was just titrated. I have encouraged the patient to come out to eat her meals. We could consider discontinuing the gabapentin, although I have cautioned the patient that it may be helping with pain and so she may experience onset of pain if we discontinue it, even if she is not presently experiencing such. Check and updated set of basic laboratories in the morning. Continue to monitor on the inpatient unit. Continue other medications and care as ordered. Justification for Cont. Inpt. Impairment in reality construction. High risk for decompensation and a less restrictive environment. [facility] Request HC Surrog/Guard Advoc?: Yes Problem Qualifiers (1) Schizoaffective disorder: Qualified Code: F25.8 - Other schizoaffective disorders Geovanny Ruiz MD Jan 31, 2017 11:27
[2017-01-31 16:09] VITALS: BP 96/58; PULSE 89; RESP 20; TEMP 100.4; O2SAT 97
[2017-01-31] MEDS: MIRTAZAPINE ODT 15 MG TAB PO SCH (22:12)
[2017-02-01 01:06] VITALS: TEMP 98.5
[2017-02-01 07:00] VITALS: BP 107/70; PULSE 85; RESP 18; TEMP 98.2; O2SAT 97
[2017-02-01] MEDS: ARIPiprazole 15 MG TAB PO SCH (09:06)
[2017-02-01] MEDS: GABAPENTIN 100 MG CAP PO SCH ×3 (09:06→17:38)
[2017-02-01] MEDS: BETAMETHASONE/CLOTRIMAZOLE CREAM 15 GM TOPICAL SCH ×2 (09:06→20:25)
--- NOTE | 2017-02-01 13:00 | HHI.PYPN ---
Subjective Remarks Patient seen and examined with nurse. Chart reviewed. Physical therapy notes reviewed. Case discussed with nursing staff. Per nursing staff, patient came out for breakfast and ate well but has declined to come out for lunch citing her delusional concerns regarding rotting. On my examination today, the patient presents as oppositional and somewhat dictating of care. She says that she might consider ambulating to meals more frequently if we obtain a pair of slippers for her, but she has exacting specifications about the width of the slipper and the consistency of the sole. Delusions of rotting continue unabated. She is little more interactive in conversation. No side effects from medications. No new physical complaints. Review of Systems ROS Limitations: Psychotic, Poor Historian Except as stated in HPI: all other systems reviewed are Neg Objective Alert: Yes [place]: Person, Place Mood: Oppositional Affect: Blunted Memory Intact: Comment (Fair) Hallucinations: Other (No hallucinations) Delusions: Yes Delusion Type: Paranoid Suicidal: Ideation (No suicidal ideation) Homicidal: Ideation (no homicidal ideation) Insight/Judgment Poor Remarks No motoric abnormalities noted Labs Labs reviewed. It appears patient refused laboratories this morning. I have left nursing order for these to be obtained over her objection if necessary. Vitals/IOs Vital Signs Date Time Temp Pulse Resp B/P Pulse Ox O2 Delivery O2 Flow Rate FiO2 02/01/17 07:00 98.2 85 18 107/70 97 Intake and Output 01/31/17 01/31/17 02/01/17 08:00 16:00 00:00 Intake Total 650 ml Balance 650 ml Assessment & Plan Problem List: (1) Schizoaffective disorder ICD Code: F25.9 Assessment & Plan Continue current psychotropics as ordered. It is not clear to me that titrating her Abilify would help with her psychosis, and if anything she might have done better with a lower dose. Continue to monitor on the inpatient unit. Continue other medications and care as ordered. Justification for Cont. Inpt. Impairment in reality construction. High risk for decompensation in a less restrictive environment Discharge Planning Pending psychiatric stabilization. [facility] referral. Request HC Surrog/Guard Advoc?: Yes Problem Qualifiers (1) Schizoaffective disorder: Qualified Code: F25.8 - Other schizoaffective disorders Geovanny Ruiz MD Feb 01, 2017 13:00
[2017-02-01 14:57] LABS: AUTOMATED NEUTROPHIL # 3.2 TH/MM3 (1.8-7.7); BASOPHIL % 0.5 % (0.0-2.0); EOSINOPHIL # 0.2 TH/MM3 (0-0.4); HEMATOCRIT 38.7 % (35.0-46.0); HEMO FLAGS DIFF FINAL; LYMPH % 23.4 % (9.0-44.0); LYMPHOCYTE # 1.2 TH/MM3 (1.0-4.8); MEAN CELL VOLUME 84.9 FL (80.0-100.0); MONO % 11.6 % (0.0-8.0); NEUT % 60.5 % (16.0-70.0); PLATELET COUNT 222 TH/MM3 (150-450); RED BLOOD COUNT 4.56 MIL/MM3 (4.00-5.30); WHITE BLOOD COUNT 5.2 TH/MM3 (4.0-11.0)
[2017-02-01 15:04] LABS: ALT (GPT) 29 U/L (10-53); ANION GAP 7 MEQ/L (5-15); AST (GOT) 14 U/L (15-37); BICARBONATE 25.6 MEQ/L (21.0-32.0); BLOOD UREA NITROGEN 16 MG/DL (7-18); CHLORIDE 110 MEQ/L (98-107); GLOMERULAR FILTRATION RATE 70 ML/MIN (>89); POTASSIUM 4.1 MEQ/L (3.5-5.1); SODIUM (NA) 143 MEQ/L (136-145)
[2017-02-01 15:06] LABS: ALKALINE PHOSPHATASE 110 U/L (45-117); TOTAL BILIRUBIN ADULT 0.6 MG/DL (0.2-1.0)
[2017-02-01] MEDS: MIRTAZAPINE ODT 15 MG TAB PO SCH (20:25)
[2017-02-02 06:15] VITALS: BP 109/60; PULSE 78; RESP 16; TEMP 98.5; O2SAT 97
[2017-02-02] MEDS: BETAMETHASONE/CLOTRIMAZOLE CREAM 15 GM TOPICAL SCH ×2 (09:00→20:49)
[2017-02-02] MEDS: GABAPENTIN 100 MG CAP PO SCH ×3 (09:45→17:31)
[2017-02-02] MEDS: ARIPiprazole 15 MG TAB PO SCH (09:45)
--- NOTE | 2017-02-02 11:35 | HHI.PYPN ---
Subjective Remarks Patient seen and examined with nurse. Chart reviewed. Case discussed with nursing staff. On my examination today, patient presents as somewhat dysphoric and withdrawn. "I don't feel like talking." She says that staff don't listen [ in context she means we don't buy-in to her delusions of rotting], and so why should she bother speaking. Somewhat imperious and oppositional. I try to engage patient, but she is having none of it today. No reported side effects from medications. No new physical complaints. Review of Systems ROS Limitations: Psychotic, Poor Historian Except as stated in HPI: all other systems reviewed are Neg Objective Alert: Yes [place]: Person, Place Mood: Angry, Oppositional Affect: Restricted Memory Intact: Comment (Fair) Hallucinations: Other (No AVH) Delusions: Yes Delusion Type: Paranoid Suicidal: Ideation (No SI) Homicidal: Ideation (No HI) Insight/Judgment Poor Remarks No abnormal motor movements noted. Labs Test 02/01/17 14:30 White Blood Count 5.2 TH/MM3 Red Blood Count 4.56 MIL/MM3 Hemoglobin 12.8 GM/DL Hematocrit 38.7 % Mean Corpuscular Volume 84.9 FL Mean Corpuscular Hemoglobin 28.0 PG Mean Corpuscular Hemoglobin 33.0 % Concent Red Cell Distribution Width 15.0 % Platelet Count 222 TH/MM3 Mean Platelet Volume 8.1 FL Neutrophils (%) (Auto) 60.5 % Lymphocytes (%) (Auto) 23.4 % Monocytes (%) (Auto) 11.6 % Eosinophils (%) (Auto) 4.0 % Basophils (%) (Auto) 0.5 % Neutrophils # (Auto) 3.2 TH/MM3 Lymphocytes # (Auto) 1.2 TH/MM3 Monocytes # (Auto) 0.6 TH/MM3 Eosinophils # (Auto) 0.2 TH/MM3 Basophils # (Auto) 0.0 TH/MM3 CBC Comment DIFF FINAL Differential Comment Sodium Level 143 MEQ/L Potassium Level 4.1 MEQ/L Chloride Level 110 MEQ/L Carbon Dioxide Level 25.6 MEQ/L Anion Gap 7 MEQ/L Blood Urea Nitrogen 16 MG/DL Creatinine 0.97 MG/DL Estimat Glomerular Filtration 70 ML/MIN Rate Random Glucose 73 MG/DL Calcium Level 8.7 MG/DL Total Bilirubin 0.6 MG/DL Aspartate Amino Transf 14 U/L (AST/SGOT) Alanine Aminotransferase 29 U/L (ALT/SGPT) Alkaline Phosphatase 110 U/L Total Protein 7.6 GM/DL Albumin 3.4 GM/DL Labs reviewed. CBC unremarkable. GFR stable. Vitals/IOs Vital Signs Date Time Temp Pulse Resp B/P Pulse Ox O2 Delivery O2 Flow Rate FiO2 02/02/17 06:15 98.5 78 16 109/60 97 109/ Intake and Output 02/01/17 02/01/17 02/02/17 08:00 16:00 00:00 Intake Total 720 ml 0 ml Balance 720 ml 0 ml Assessment & Plan Problem List: (1) Schizoaffective disorder ICD Code: F25.9 Assessment & Plan Irritability and dysphoria seem to be prominent themes last several days. She might benefit from additional antidepressant. I will start Lexapro 10mg daily with plans to titrate to effect and as tolerated. Continue other psychotropics as ordered. I have once again encouraged ambulation and participation in unit activities. Continue to monitor on the inpatient unit. Continue other medications and care as ordered. Justification for Cont. Inpt. Impairment in reality construction. Medication changes in process. High risk for decompensation in a less restrictive environment. [facility] Request HC Surrog/Guard Advoc?: Yes Problem Qualifiers (1) Schizoaffective disorder: Qualified Code: F25.8 - Other schizoaffective disorders Geovanny Ruiz MD Feb 02, 2017 11:35
[2017-02-02] MEDS: MIRTAZAPINE ODT 15 MG TAB PO SCH (20:43)
[2017-02-03 06:00] VITALS: BP 110/67; PULSE 77; RESP 18; TEMP 98.3
[2017-02-03] MEDS: BETAMETHASONE/CLOTRIMAZOLE CREAM 15 GM TOPICAL SCH ×2 (09:00→21:01)
[2017-02-03] MEDS: ARIPiprazole 15 MG TAB PO SCH (09:32)
[2017-02-03] MEDS: GABAPENTIN 100 MG CAP PO SCH ×2 (09:32→12:17)
[2017-02-03] MEDS: ESCITALOPRAM OXALATE 10 MG TAB PO SCH (09:32)
--- NOTE | 2017-02-03 10:13 | HHI.PYPN ---
Subjective Remarks Patient seen and examined with counselor. Chart reviewed. Case discussed with nursing staff. Patient presents as somewhat irritable and oppositional. Continues to insist that walking "compresses" her feet. She is coming out for some meals. She denies any pain or discomfort. No SI or HI. No side effects from medications. She wants her gabapentin discontinued because she insists that she is not having neuropathic pain. Review of Systems ROS Limitations: Psychotic, Poor Historian Objective Alert: Yes [place]: Person, Place Mood: Oppositional Affect: Restricted (irritable) Memory Intact: Comment (Fair) Hallucinations: Other (No AVH) Delusions: Yes Delusion Type: Paranoid (ongoing, unchanged) Suicidal: Ideation (No SI) Homicidal: Ideation (No HI) Insight/Judgment Poor Remarks No motor abnormalities noted. Labs Labs reviewed Vitals/IOs Vital Signs Date Time Temp Pulse Resp B/P Pulse Ox O2 Delivery O2 Flow Rate FiO2 02/03/17 06:00 98.3 77 18 110/67 02/02/17 06:15 97 Intake and Output 02/02/17 02/02/17 02/03/17 08:00 16:00 00:00 Intake Total 240 ml 0 ml Balance 240 ml 0 ml Assessment & Plan Problem List: (1) Schizoaffective disorder ICD Code: F25.9 Assessment & Plan Patient received first dose of Lexapro this morning. We will continue Lexapro through the weekend and consider titrating after that. I will try discontinuing patient's gabapentin as she asks, but I have cautioned her that she may experience exacerbation of pain that [facility] is presently treating. Continue to monitor on the inpatient unit. Continue other medications and care as ordered. Justification for Cont. Inpt. Impairment in reality construction. Impairment and self-care. High risk for decompensation in less restrictive environment. Discharge Planning [facility] referral. Request HC Surrog/Guard Advoc?: Yes Problem Qualifiers (1) Schizoaffective disorder: Qualified Code: F25.8 - Other schizoaffective disorders Geovanny Ruiz MD Feb 03, 2017 10:13
[2017-02-03 18:00] VITALS: BP 115/73; PULSE 97; RESP 19; TEMP 97.7; O2SAT 98
[2017-02-03] MEDS: MIRTAZAPINE ODT 15 MG TAB PO SCH (21:02)
[2017-02-04 05:49] VITALS: BP 101/60; PULSE 87; RESP 16; TEMP 98.5; O2SAT 96
[2017-02-04] MEDS: ESCITALOPRAM OXALATE 10 MG TAB PO SCH (09:21)
[2017-02-04] MEDS: BETAMETHASONE/CLOTRIMAZOLE CREAM 15 GM TOPICAL SCH ×2 (09:21→21:00)
[2017-02-04] MEDS: ARIPiprazole 15 MG TAB PO SCH (09:21)
--- NOTE | 2017-02-04 09:49 | HHI.PYPN ---
Subjective Remarks Patient was seen and case discussed with nursing. She appears more drawn compared to 2 weeks ago. She says that delusion is back she is rotting from the inside and she is perseverant on it throughout the day. Denies auditory visual hallucinations. Denies suicidal ideation intent or plan. Tolerating her medications well. Behaving well on the unit Objective Alert: Yes [place]: Person, Place Mood: Oppositional Affect: Blunted Memory Intact: Comment (Fair) Hallucinations: Other (No AVH) Delusions: Yes Delusion Type: Paranoid (ongoing, unchanged) Suicidal: Ideation (No SI) Homicidal: Ideation (No HI) Insight/Judgment Poor Vitals/IOs Vital Signs Date Time Temp Pulse Resp B/P Pulse Ox O2 Delivery O2 Flow Rate FiO2 02/04/17 05:49 98.5 87 16 101/60 96 Manual Cuff/Auscultation Intake and Output 02/03/17 02/03/17 02/03/17 07:59 15:59 23:59 Intake Total 0 ml 720 ml 360 ml Balance 0 ml 720 ml 360 ml Assessment & Plan Problem List: (1) Schizoaffective disorder ICD Code: F25.9 Assessment & Plan Continue current treatment plan Justification for Cont. Inpt. Patient will decompensate in a less restrictive setting Request HC Surrog/Guard Advoc?: Yes Problem Qualifiers (1) Schizoaffective disorder: Qualified Code: F25.8 - Other schizoaffective disorders Christian Sood DO Feb 04, 2017 09:48
[2017-02-04] MEDS: MIRTAZAPINE ODT 15 MG TAB PO SCH (21:13)
[2017-02-05 06:00] VITALS: BP 106/60; PULSE 81; RESP 16; TEMP 98.5; O2SAT 98
[2017-02-05] MEDS: BETAMETHASONE/CLOTRIMAZOLE CREAM 15 GM TOPICAL SCH ×2 (09:00→21:00)
[2017-02-05] MEDS: ARIPiprazole 15 MG TAB PO SCH (09:28)
[2017-02-05] MEDS: ESCITALOPRAM OXALATE 10 MG TAB PO SCH (09:28)
--- NOTE | 2017-02-05 13:40 | HHI.PYPN ---
Subjective Remarks Patient was seen and case discussed with nursing. She took a shower today. She remains seclusive flat and apathetic. She was offered books or magazines which she refused. Continues to be fixed on a delusion that she is brought in from the inside. No other psychotic symptoms elicited Objective Alert: Yes [place]: Person, Place Mood: Calm Affect: Flat Memory Intact: Comment (Fair) Hallucinations: Other (No AVH) Delusions: Yes Delusion Type: Paranoid (ongoing, unchanged) Suicidal: Ideation (No SI) Homicidal: Ideation (No HI) Insight/Judgment Poor Vitals/IOs Vital Signs Date Time Temp Pulse Resp B/P Pulse Ox O2 Delivery O2 Flow Rate FiO2 02/05/17 06:00 98.5 81 16 106/60 98 Intake and Output 02/04/17 02/04/17 02/04/17 07:59 15:59 23:59 Intake Total 240 ml 170 ml Balance 240 ml 170 ml Assessment & Plan Problem List: (1) Schizoaffective disorder ICD Code: F25.9 Assessment & Plan Continue current treatment plan Justification for Cont. Inpt. Patient will decompensate in a less restrictive setting Request HC Surrog/Guard Advoc?: Yes Problem Qualifiers (1) Schizoaffective disorder: Qualified Code: F25.8 - Other schizoaffective disorders Christian Sood DO Feb 05, 2017 13:40
[2017-02-05] MEDS: MIRTAZAPINE ODT 15 MG TAB PO SCH (21:06)
[2017-02-06 05:21] VITALS: BP 101/59; PULSE 88; RESP 18; TEMP 98.6; O2SAT 97
[2017-02-06] MEDS: ARIPiprazole 15 MG TAB PO SCH (08:50)
[2017-02-06] MEDS: ESCITALOPRAM OXALATE 10 MG TAB PO SCH (08:50)
[2017-02-06] MEDS: BETAMETHASONE/CLOTRIMAZOLE CREAM 15 GM TOPICAL SCH ×2 (09:00→20:27)
[2017-02-06] MEDS: LACTIC ACID (AMMONIUM LACTATE) 12% LOTION 225 GM BTL TOPICAL PRN ×2 (09:00→11:46)
--- NOTE | 2017-02-06 11:27 | HHI.PYPN ---
Subjective Remarks Patient seen and examined with nurse. Chart reviewed. Case discussed with nursing staff. On my exam, patient sullen and oppositional. Insists that rotting has "gotten worse since you've been making me walk." Insight into mental illness is nil. No side effects from medications. No physical complaints. Review of Systems ROS Limitations: Psychotic, Poor Historian Except as stated in HPI: all other systems reviewed are Neg Objective Alert: Yes [place]: Person, Place Mood: Other (dysphoric) Affect: Restricted Memory Intact: Comment (Fair) Hallucinations: Other (none) Delusions: Yes Delusion Type: Paranoid (of rotting, unchanged) Suicidal: Ideation (No SI) Homicidal: Ideation (No HI) Insight/Judgment Poor Remarks Thought process linear within delusional system. No motor abnormality noted. Labs Labs reviewed. Vitals/IOs Vital Signs Date Time Temp Pulse Resp B/P Pulse Ox O2 Delivery O2 Flow Rate FiO2 02/06/17 05:21 98.6 88 18 101/59 97 Intake and Output 02/05/17 02/05/17 02/06/17 08:00 16:00 00:00 Intake Total 3050 ml Balance 3050 ml Assessment & Plan Problem List: (1) Schizoaffective disorder ICD Code: F25.9 Assessment & Plan Titrate Lexapro to target dysphoria. Continue other psychotropics as ordered. Continue other care as ordered. Justification for Cont. Inpt. Medication changes. Impairment in reality construction. High risk for decompensation in a less restrictive environment. Discharge Planning [facility] referral Request HC Surrog/Guard Advoc?: Yes Problem Qualifiers (1) Schizoaffective disorder: Qualified Code: F25.8 - Other schizoaffective disorders Geovanny Ruiz MD Feb 06, 2017 11:27
[2017-02-06] MEDS: MIRTAZAPINE ODT 15 MG TAB PO SCH (20:27)
[2017-02-07] MEDS: BETAMETHASONE/CLOTRIMAZOLE CREAM 15 GM TOPICAL SCH ×2 (09:00→20:41)
[2017-02-07] MEDS: ARIPiprazole 15 MG TAB PO SCH (09:08)
[2017-02-07] MEDS: ESCITALOPRAM OXALATE 20 MG TAB PO SCH (09:08)
--- NOTE | 2017-02-07 12:47 | HHI.PYPN ---
Subjective Remarks Patient seen and examined with counselor. Chart reviewed. Case discussed in treatment team. On my exam, patient unchanged. Says she has been rotting for 8 -9 years. Nurse examined patient's stomach, where patient says rotting is worst , and there is no sign of any lesion. Patient dismisses this out of hand when I point it out to her. Says she feels like her muscles are wasting away, and I discuss that this is in fact the case by her choice to remain in bed, but this too falls of deaf ears. No side effects from medications. No new physical complaints. Review of Systems ROS Limitations: Psychotic, Poor Historian Except as stated in HPI: all other systems reviewed are Neg Objective Alert: Yes [place]: Person, Place Mood: Other (remains dysphoric) Affect: Restricted Memory Intact: Comment (Fair) Hallucinations: Other (no AVH) Delusions: Yes Delusion Type: Paranoid (as before) Suicidal: Ideation (No SI) Homicidal: Ideation (No HI) Insight/Judgment Poor Remarks No motor abnormalities. Labs Labs reviewed. Vitals/IOs Vital Signs Date Time Temp Pulse Resp B/P Pulse Ox O2 Delivery O2 Flow Rate FiO2 02/06/17 05:21 98.6 88 18 101/59 97 Intake and Output 02/06/17 02/06/17 02/07/17 08:00 16:00 00:00 Intake Total 1560 ml Balance 1560 ml Assessment & Plan Problem List: (1) Schizoaffective disorder ICD Code: F25.9 Assessment & Plan Significant behavioral component overlying persistent delusion of rotting. Continue current psychotropics as ordered. Encouraged mobilization. Continue other medications and care as ordered. Justification for Cont. Inpt. Impairment and self-care. Risk for decompensation. Discharge Planning [facility] referral Request HC Surrog/Guard Advoc?: Yes Problem Qualifiers (1) Schizoaffective disorder: Qualified Code: F25.8 - Other schizoaffective disorders Geovanny Ruiz MD Feb 07, 2017 12:47
[2017-02-07 18:01] VITALS: BP 112/60; PULSE 86; RESP 17; O2SAT 98
[2017-02-07] MEDS: MIRTAZAPINE ODT 15 MG TAB PO SCH (20:40)
[2017-02-08] MEDS: BETAMETHASONE/CLOTRIMAZOLE CREAM 15 GM TOPICAL SCH ×2 (09:00→21:00)
[2017-02-08] MEDS: ESCITALOPRAM OXALATE 20 MG TAB PO SCH (09:38)
[2017-02-08] MEDS: ARIPiprazole 15 MG TAB PO SCH (09:38)
--- NOTE | 2017-02-08 13:02 | HHI.PYPN ---
Subjective Remarks Patient seen and examined with counselor nurse. Chart reviewed. Case discussed with nursing staff reports patient is coming out of her room somewhat more. For me, patient remains somewhat oppositional. Delusions about rotting persist. Affect remains dysphoric No side effects from medications. No new physical complaints. We discussed discharge plan, patient, counselor and myself. Review of Systems ROS Limitations: Psychotic, Poor Historian Except as stated in HPI: all other systems reviewed are Neg Objective Alert: Yes [place]: Person, Place Mood: Oppositional Affect: Restricted (somewhat dysphoric) Memory Intact: Comment (Fair) Hallucinations: Other (no hallucinations) Delusions: Yes Delusion Type: Paranoid (ongoing) Suicidal: Ideation (No SI) Homicidal: Ideation (No HI) Insight/Judgment Poor Remarks No motoric abnormalities Labs Labs reviewed Vitals/IOs Vital Signs Date Time Temp Pulse Resp B/P Pulse Ox O2 Delivery O2 Flow Rate FiO2 02/07/17 18:01 86 17 112/60 98 02/06/17 05:21 98.6 Intake and Output 02/07/17 02/07/17 02/08/17 08:00 16:00 00:00 Intake Total 600 ml 720 ml Balance 600 ml 720 ml Assessment & Plan Problem List: (1) Schizoaffective disorder ICD Code: F25.9 Assessment & Plan Continue current psychotropics as ordered. Continue to monitor on inpatient unit. Continue other medications and care as ordered. Justification for Cont. Inpt. Impairment in reality testing. Impairment in self-care. High risk for decompensation in less restrictive setting. [facility] Request HC Surrog/Guard Advoc?: Yes Problem Qualifiers (1) Schizoaffective disorder: Qualified Code: F25.8 - Other schizoaffective disorders Geovanny Ruiz MD Feb 08, 2017 13:02
[2017-02-08 18:00] VITALS: BP 115/55; PULSE 87; RESP 18; TEMP 98.5; O2SAT 99
[2017-02-08] MEDS: MIRTAZAPINE ODT 15 MG TAB PO SCH (21:43)
[2017-02-09 05:59] VITALS: BP 116/63; PULSE 91; RESP 17; TEMP 98.4
[2017-02-09] MEDS: BETAMETHASONE/CLOTRIMAZOLE CREAM 15 GM TOPICAL SCH ×2 (09:00→20:54)
[2017-02-09] MEDS: ARIPiprazole 15 MG TAB PO SCH (09:35)
[2017-02-09] MEDS: ESCITALOPRAM OXALATE 20 MG TAB PO SCH (09:36)
--- NOTE | 2017-02-09 13:11 | HHI.PYPN ---
Subjective Remarks Patient seen and examined. Chart reviewed. Case discussed with nursing staff and behavioral health technicians, who report that the patient is somewhat more interactive and participating a little bit more in self-care. She is less resistant for example, when staff endeavor to get her to shower. On my exam, patient remains dysphoric. Says that she feels "the same." Delusions persist. No side effects from medications. No new physical complaints. Review of Systems ROS Limitations: Psychotic, Poor Historian Except as stated in HPI: all other systems reviewed are Neg Objective Alert: Yes [place]: Person, Place Mood: Oppositional, Other (dysphoric) Affect: Restricted Memory Intact: Comment (Fair) Hallucinations: Other (none) Delusions: Yes Delusion Type: Paranoid (of rotting) Suicidal: Ideation (no suicidal ideation) Homicidal: Ideation (no homicidal ideation) Insight/Judgment Poor Remarks No motoric abnormalities Labs Labs reviewed Vitals/IOs Vital Signs Date Time Temp Pulse Resp B/P Pulse Ox O2 Delivery O2 Flow Rate FiO2 02/09/17 05:59 98.4 91 17 116/63 02/08/17 18:00 99 Intake and Output 02/08/17 02/08/17 02/09/17 08:00 16:00 00:00 Intake Total 890 ml Balance 890 ml Assessment & Plan Problem List: (1) Schizoaffective disorder ICD Code: F25.9 Assessment & Plan Continue current psychotropics as ordered. Continue other medications and care as ordered. Justification for Cont. Inpt. Impairment in reality construction. High risk for decompensation in less restrictive environment. Discharge Planning Pending psychiatric stabilization. [facility] referral. Request HC Surrog/Guard Advoc?: Yes Problem Qualifiers (1) Schizoaffective disorder: Qualified Code: F25.8 - Other schizoaffective disorders Geovanny Ruiz MD Feb 09, 2017 13:11
[2017-02-09 17:48] VITALS: BP 115/74; PULSE 86; RESP 16; TEMP 98.2; O2SAT 94
[2017-02-09] MEDS: MIRTAZAPINE ODT 15 MG TAB PO SCH (20:54)
[2017-02-10] MEDS: ESCITALOPRAM OXALATE 20 MG TAB PO SCH (08:42)
[2017-02-10] MEDS: ARIPiprazole 15 MG TAB PO SCH (08:42)
[2017-02-10] MEDS: BETAMETHASONE/CLOTRIMAZOLE CREAM 15 GM TOPICAL SCH ×2 (09:00→21:00)
--- NOTE | 2017-02-10 11:31 | HHI.PYPN ---
Subjective Remarks Patient seen and examined. Chart reviewed. Case discussed with nursing staff who reports patient remains quite seclusive to room generally but did come out for breakfast. On my examination today, the patient complains about coming out for breakfast because she continues to believe that ambulating worsens the rotting process. She is somewhat anhedonic and withdrawn. No SI or HI voiced. No side effects from medications. No new physical symptoms. Review of Systems ROS Limitations: Psychotic, Poor Historian Except as stated in HPI: all other systems reviewed are Neg Objective Alert: Yes [place]: Person, Place Mood: Depressed, Oppositional Affect: Restricted Memory Intact: Comment (remains fair) Hallucinations: Other (no hallucinations) Delusions: Yes Delusion Type: Paranoid (of rotting, ongoing) Suicidal: Ideation (no SI) Homicidal: Ideation (no HI) Insight/Judgment Poor Remarks No motor abnormalities Labs Labs reviewed. Vitals/IOs Vital Signs Date Time Temp Pulse Resp B/P Pulse Ox O2 Delivery O2 Flow Rate FiO2 02/09/17 17:48 98.2 86 16 115/74 94 Intake and Output 02/09/17 02/09/17 02/09/17 07:59 15:59 23:59 Intake Total 480 ml 530 ml Balance 480 ml 530 ml Assessment & Plan Problem List: (1) Schizoaffective disorder ICD Code: F25.9 Assessment & Plan Continue current psychiatric medications as ordered. To consider adjusting patient's antidepressant regimen, possibly replacing the Remeron with a different augmenting agent. Continue other medications and care as ordered. Justification for Cont. Inpt. Impairment in reality construction. High risk for decompensation in a less restrictive environment. Discharge Planning Pending psychiatric stabilization. [facility] referral. Counselor informs me that the patient is #13 on the [facility] wait list Request HC Surrog/Guard Advoc?: Yes Problem Qualifiers (1) Schizoaffective disorder: Qualified Code: F25.8 - Other schizoaffective disorders Geovanny Ruiz MD Feb 10, 2017 11:31
[2017-02-10 16:16] VITALS: BP 104/58; PULSE 77; RESP 18; TEMP 99.6; O2SAT 98
[2017-02-10] MEDS: MIRTAZAPINE ODT 15 MG TAB PO SCH (21:36)
[2017-02-11 06:06] VITALS: BP 116/63; PULSE 79; RESP 18; TEMP 98; O2SAT 96
[2017-02-11] MEDS: ARIPiprazole 15 MG TAB PO SCH (09:00)
[2017-02-11] MEDS: BETAMETHASONE/CLOTRIMAZOLE CREAM 15 GM TOPICAL SCH ×2 (09:00→21:00)
[2017-02-11] MEDS: ESCITALOPRAM OXALATE 20 MG TAB PO SCH (09:42)
--- NOTE | 2017-02-11 13:05 | HHI.PYPN ---
Subjective Remarks Patient was seen and case discussed with nursing. Patient appears apathetic and flat. Per nursing, per tensile tester, patient heard voices which she denies today. Continues to feel that she is rotting from the inside. She is showering. Remains seclusive to room. Mood is "good." Objective Alert: Yes [place]: Person, Place Mood: Depressed, Oppositional Affect: Flat Memory Intact: Comment (remains fair) Hallucinations: Other (no hallucinations) Delusions: Yes Delusion Type: Paranoid (of rotting, ongoing) Suicidal: Ideation (no SI) Homicidal: Ideation (no HI) Insight/Judgment Poor Vitals/IOs Vital Signs Date Time Temp Pulse Resp B/P Pulse Ox O2 Delivery O2 Flow Rate FiO2 02/11/17 06:06 98.0 79 18 116/63 96 Intake and Output 02/10/17 02/10/17 02/10/17 07:59 15:59 23:59 Intake Total 480 ml 1200 ml Balance 480 ml 1200 ml Assessment & Plan Problem List: (1) Schizoaffective disorder ICD Code: F25.9 Assessment & Plan Continue current treatment plan Justification for Cont. Inpt. Patient will decompensate in a less restrictive setting Request HC Surrog/Guard Advoc?: Yes Problem Qualifiers (1) Schizoaffective disorder: Qualified Code: F25.8 - Other schizoaffective disorders Christian Sood DO Feb 11, 2017 13:05
[2017-02-11] MEDS: MIRTAZAPINE ODT 15 MG TAB PO SCH (20:35)
[2017-02-12 06:00] VITALS: BP 103/63; PULSE 70; RESP 18; TEMP 97.8; O2SAT 98
[2017-02-12] MEDS: ARIPiprazole 15 MG TAB PO SCH (09:00)
[2017-02-12] MEDS: BETAMETHASONE/CLOTRIMAZOLE CREAM 15 GM TOPICAL SCH ×2 (09:00→20:40)
[2017-02-12] MEDS: ESCITALOPRAM OXALATE 20 MG TAB PO SCH (09:06)
--- NOTE | 2017-02-12 11:43 | HHI.PYPN ---
Subjective Remarks Patient was seen and case discussed with nursing. Patient is pleasant and cooperative with exam. Remains seclusive to room. Mood is flat. Patient is thinking about her next that and what will happen to her. Continues to feel that she is rotting from the inside. Compliant with medications Objective Alert: Yes [place]: Person, Place Mood: Depressed Affect: Flat Memory Intact: Comment (remains fair) Hallucinations: Other (no hallucinations) Delusions: Yes Delusion Type: Paranoid (of rotting, ongoing) Suicidal: Ideation (no SI) Homicidal: Ideation (no HI) Insight/Judgment Poor Vitals/IOs Vital Signs Date Time Temp Pulse Resp B/P Pulse Ox O2 Delivery O2 Flow Rate FiO2 02/12/17 06:00 97.8 70 18 103/63 98 Intake and Output 02/11/17 02/11/17 02/12/17 08:00 16:00 00:00 Intake Total 240 ml 480 ml 480 ml Balance 240 ml 480 ml 480 ml Assessment & Plan Problem List: (1) Schizoaffective disorder ICD Code: F25.9 Assessment & Plan Continue current treatment plan Justification for Cont. Inpt. Patient would decompensate in a less restrictive setting Request HC Surrog/Guard Advoc?: Yes Problem Qualifiers (1) Schizoaffective disorder: Qualified Code: F25.8 - Other schizoaffective disorders Christian Sood DO Feb 12, 2017 11:43
[2017-02-12 20:40] VITALS: BP 112/58; PULSE 61; RESP 17; TEMP 98.1; O2SAT 99
[2017-02-12] MEDS: MIRTAZAPINE ODT 15 MG TAB PO SCH (20:40)
[2017-02-13 06:24] VITALS: BP 99/58; PULSE 72; RESP 15; TEMP 98.9; O2SAT 99
[2017-02-13] MEDS: BETAMETHASONE/CLOTRIMAZOLE CREAM 15 GM TOPICAL SCH ×2 (07:27→21:00)
[2017-02-13] MEDS: ESCITALOPRAM OXALATE 20 MG TAB PO SCH (08:07)
[2017-02-13] MEDS: ARIPiprazole 15 MG TAB PO SCH (08:07)
--- NOTE | 2017-02-13 14:36 | HHI.PYPN ---
Subjective Remarks Patient seen and examined with counselor and nurse. Chart reviewed. Case discussed with nursing staff. On my exam, patient seems a little brighter with respect to her affect. It is a little drizzly today, and she tells me that she enjoys rainy days. She does not spontaneously verbalize any delusions, nor is she as distressed by ambulating to meals. No side effects from medications. No physical complaints. Review of Systems ROS Limitations: Poor Historian Except as stated in HPI: all other systems reviewed are Neg Objective Alert: Yes [place]: Person, Place Mood: Calm Affect: Blunted (more reactive today) Memory Intact: Comment (remains fair) Hallucinations: Other (no hallucinations) Delusions: Yes Delusion Type: Paranoid Suicidal: Ideation (no SI) Homicidal: Ideation (no HI) Insight/Judgment Poor Remarks No motoric abnormalities appreciated Labs Labs reviewed Vitals/IOs Vital Signs Date Time Temp Pulse Resp B/P Pulse Ox O2 Delivery O2 Flow Rate FiO2 02/13/17 06:24 98.9 72 15 99/58 99 Intake and Output 02/12/17 02/12/17 02/13/17 08:00 16:00 00:00 Intake Total 0 ml 630 ml Balance 0 ml 630 ml Assessment & Plan Problem List: (1) Schizoaffective disorder ICD Code: F25.9 Assessment & Plan Continue current psychiatric medications as ordered. Continue to monitor on the inpatient unit. Continue other medications and care as ordered. Justification for Cont. Inpt. High risk for decompensation in less restrictive environment. Discharge Planning Pending stabilization. [facility] referral. Request HC Surrog/Guard Advoc?: Yes Problem Qualifiers (1) Schizoaffective disorder: Qualified Code: F25.8 - Other schizoaffective disorders Geovanny Ruiz MD Feb 13, 2017 14:35
[2017-02-13 18:00] VITALS: BP 96/55; PULSE 91; RESP 17; TEMP 99; O2SAT 96
[2017-02-13] MEDS: MIRTAZAPINE ODT 15 MG TAB PO SCH (22:32)
[2017-02-14 06:00] VITALS: BP 111/58; PULSE 72; RESP 17; TEMP 98.2; O2SAT 99
[2017-02-14] MEDS: BETAMETHASONE/CLOTRIMAZOLE CREAM 15 GM TOPICAL SCH ×2 (09:00→20:34)
[2017-02-14] MEDS: ESCITALOPRAM OXALATE 20 MG TAB PO SCH (09:34)
[2017-02-14] MEDS: ARIPiprazole 15 MG TAB PO SCH (09:34)
--- NOTE | 2017-02-14 14:28 | HHI.PYPN ---
Subjective Remarks Patient seen and examined with counselor and his nurse. Chart reviewed. Case discussed in treatment team. Nurse relates the concern that the patient may be somewhat depressed, spending a lot of time in bed. On my examination today, the patient denies low mood but denies anhedonia, says that she is spending a lot of time in bed because it is overly tiring to sit in a chair. She relates this to her delusion that she is rotting. Remains somewhat oppositional. No SI or HI. Denies side effects from medications. Review of Systems ROS Limitations: Psychotic, Poor Historian Except as stated in HPI: all other systems reviewed are Neg Objective Alert: Yes [place]: Person, Place Mood: Calm Affect: Blunted Memory Intact: Comment (remains fair) Hallucinations: Other (none) Delusions: Yes Delusion Type: Paranoid Suicidal: Ideation (no SI) Homicidal: Ideation (no HI) Insight/Judgment Poor Remarks No motor abnormalities appreciated Labs Labs reviewed. Vitals/IOs Vital Signs Date Time Temp Pulse Resp B/P Pulse Ox O2 Delivery O2 Flow Rate FiO2 02/14/17 06:00 98.2 72 17 111/58 99 Intake and Output 02/13/17 02/13/17 02/13/17 07:59 15:59 23:59 Intake Total 240 ml 0 ml 480 ml Balance 240 ml 0 ml 480 ml Assessment & Plan Problem List: (1) Schizoaffective disorder ICD Code: F25.9 Assessment & Plan Continue current psychiatric medications. Nurse and I have encouraged mobilization to minimize deconditioning, which may be to blame for patient's somatic complaints. Continue other medications and care as ordered. Justification for Cont. Inpt. Impairment in reality construction. High risk for decompensation and less restrictive environment. Discharge Planning [facility] psychiatric hospital referral Request HC Surrog/Guard Advoc?: Yes Problem Qualifiers (1) Schizoaffective disorder: Qualified Code: F25.8 - Other schizoaffective disorders Geovanny Ruiz MD Feb 14, 2017 14:28
--- NOTE | 2017-02-14 15:35 | PD.TTN ---
Present for Treatment Team Treatment Team Staff: Provider (Dr. Ruiz), Nurse (Dennise), Psych Therapist (MAT Enriquez), Occupational Therapist (Valentino) Patient Problems 1. Discharge planning 2. Medication compliance 3. Knowledge deficit 4. Lack of coping skills Progress Toward Goals Provider Input: Dr. Ruiz requested an update regarding patient's status, progress, medication compliance, and plan for discharge. Patient responded that she has no complaints regarding her treatment or medications. Patient denied being depressed. She continues to endorse her feelng that she is rotting from the inside. Patient reported she has difficulty sitting up for too long. Dr. Ruiz encouraged the patient to try to reman out of bed more. Nurse Input: Dennise reported the patient is compliant with medications and continues to self-isolate in her room except for meals. Dennise suggested to the patient that she set a goal of thirty minutes sitting up in the day room after breakfast and dinner and patient reported she will try. Psych Therapist Input: Counselor reported this patient has no change in her mental status and is number 13 on the [facility] wait list. Occupational Therapist Input: Sam reported the patient is not participating in groups. Documentation Scribe: MAT Enriquez Date Resolved: Feb 14, 2017 Mariella Barrera Feb 14, 2017 15:35
[2017-02-14 15:50] VITALS: BP 98/57; PULSE 72; RESP 18; TEMP 98.6; O2SAT 97
[2017-02-14] MEDS: MIRTAZAPINE ODT 15 MG TAB PO SCH (20:31)
[2017-02-15] MEDS: ARIPiprazole 15 MG TAB PO SCH (08:48)
[2017-02-15] MEDS: ESCITALOPRAM OXALATE 20 MG TAB PO SCH (08:48)
[2017-02-15] MEDS: BETAMETHASONE/CLOTRIMAZOLE CREAM 15 GM TOPICAL SCH ×2 (08:49→21:00)
--- NOTE | 2017-02-15 11:33 | HHI.PYPN ---
Subjective Remarks Patient seen and examined with counselor and nurse. Chart reviewed. Case discussed with nursing staff. On my examination today, patient remains delusional, believes that she is rotting. She believes that she is covered by something like a spider web. She believes that her bones are dissolving as a consequence of the rotting, and she has mentioned this before. We discuss that bone loss is a possibility, but this would likely be due to her self-imposed immobility. She remains oppositional. No side effects from meds. No new physical complaints. Review of Systems ROS Limitations: Psychotic, Poor Historian Except as stated in HPI: all other systems reviewed are Neg Objective Alert: Yes [place]: Person, Place Mood: Oppositional Affect: Blunted Memory Intact: Comment (fair) Hallucinations: Visual (spider web) Delusions: Yes Delusion Type: Paranoid Suicidal: Ideation (no SI) Homicidal: Ideation (no HI) Insight/Judgment poor Remarks No motor abnormalities. TP linear within delusional theme. Labs Labs reviewed. Vitals/IOs Vital Signs Date Time Temp Pulse Resp B/P Pulse Ox O2 Delivery O2 Flow Rate FiO2 02/14/17 15:50 98.6 72 18 98/57 97 Intake and Output 02/14/17 02/14/17 02/14/17 07:59 15:59 23:59 Intake Total 1440 ml Balance 1440 ml Assessment & Plan Problem List: (1) Schizoaffective disorder ICD Code: F25.9 Assessment & Plan Titrate Abilify to 20mg/day to target psychosis. Continue other medications as ordered. We continue to encourage mobilization. Continue other medications and care as ordered. Justification for Cont. Inpt. Medication change. Impairment in reality construction. High risk for decompensation and less restrictive environment. Discharge Planning [facility] psychiatric hospital referral. Request HC Surrog/Guard Advoc?: Yes Problem Qualifiers (1) Schizoaffective disorder: Qualified Code: F25.8 - Other schizoaffective disorders Geovanny Ruiz MD Feb 15, 2017 11:33
[2017-02-15 18:00] VITALS: BP 119/55; PULSE 94; RESP 17; TEMP 99.1; O2SAT 99
[2017-02-15] MEDS: MIRTAZAPINE ODT 15 MG TAB PO SCH (20:15)
[2017-02-16 05:31] VITALS: BP 99/57; PULSE 75; RESP 16; TEMP 98.9; O2SAT 97
[2017-02-16] MEDS: BETAMETHASONE/CLOTRIMAZOLE CREAM 15 GM TOPICAL SCH (09:00)
[2017-02-16] MEDS: ARIPiprazole 10 MG TAB PO SCH (10:09)
[2017-02-16] MEDS: ESCITALOPRAM OXALATE 20 MG TAB PO SCH (10:09)
--- NOTE | 2017-02-16 13:01 | HHI.PYPN ---
Subjective Remarks Patient seen and examined. Chart reviewed. Case discussed with nurse. On my examination today, the patient says that she feels "bad. This crap wrapped around me" is especially troubling today. She is referring to the spider-web like substance that she believes envelops her. She says that is is difficult to walk because this perceived substance gets caught up in her walker. She has been coming out for meals. Seems a little more listless today, and she is agreeable to updated labs being obtained. Denies side effects from medications. No specific or new physical complaints. Review of Systems ROS Limitations: Psychotic, Poor Historian Except as stated in HPI: all other systems reviewed are Neg Objective Alert: Yes [place]: Person, Place Mood: Calm Affect: Flat Memory Intact: Comment (fair) Hallucinations: Visual (substance enveloping her) Delusions: Yes Delusion Type: Paranoid Suicidal: Ideation (no SI) Homicidal: Ideation (no HI) Insight/Judgment Poor Remarks No motor abnormalities. In no obvious physical distress. Labs Labs reviewed. Vitals/IOs Vital Signs Date Time Temp Pulse Resp B/P Pulse Ox O2 Delivery O2 Flow Rate FiO2 02/16/17 05:31 98.9 75 16 99/57 97 Intake and Output 02/15/17 02/15/17 02/15/17 07:59 15:59 23:59 Intake Total 240 ml 0 ml 720 ml Balance 240 ml 0 ml 720 ml Assessment & Plan Problem List: (1) Schizoaffective disorder ICD Code: F25.9 Assessment & Plan Patient is usually fairly torpid but seems a little more so today; check CBC, CMP, CK, UA. Continue psychotropics as ordered. Continue to monitor on inpatient unit. Continue other meds and care as ordered. Justification for Cont. Inpt. Impairment in reality construction. High risk for decompensation in less restrictive environment. [facility] Request HC Surrog/Guard Advoc?: Yes Problem Qualifiers (1) Schizoaffective disorder: Qualified Code: F25.8 - Other schizoaffective disorders Geovanny Ruiz MD Feb 16, 2017 13:01
[2017-02-16 14:20] LABS: AUTOMATED NEUTROPHIL # 3.3 TH/MM3 (1.8-7.7); BASOPHIL % 0.6 % (0.0-2.0); EOSINOPHIL # 0.2 TH/MM3 (0-0.4); EOSINOPHIL % 4.6 % (0.0-4.0); HEMATOCRIT 38.8 % (35.0-46.0); HEMO FLAGS DIFF FINAL; LYMPH % 20.5 % (9.0-44.0); MEAN CELL VOLUME 85.7 FL (80.0-100.0); MEAN CORPUSCULAR HEMOGLOBIN 28.5 PG (27.0-34.0); MEAN CORPUSCULAR HGB CONC 33.3 % (32.0-36.0); MONO % 9.7 % (0.0-8.0); NEUT % 64.6 % (16.0-70.0); PLATELET COUNT 174 TH/MM3 (150-450); RED BLOOD COUNT 4.52 MIL/MM3 (4.00-5.30); RED CELL DISTRIBUTION WIDTH 14.3 % (11.6-17.2); WHITE BLOOD COUNT 5.1 TH/MM3 (4.0-11.0)
[2017-02-16 14:41] LABS: ALT (GPT) 19 U/L (10-53); ANION GAP 5 MEQ/L (5-15); AST (GOT) 9 U/L (15-37); BICARBONATE 27.7 MEQ/L (21.0-32.0); BLOOD UREA NITROGEN 16 MG/DL (7-18); CHLORIDE 106 MEQ/L (98-107); GLOMERULAR FILTRATION RATE 81 ML/MIN (>89); POTASSIUM 4.1 MEQ/L (3.5-5.1); SODIUM (NA) 139 MEQ/L (136-145)
[2017-02-16 14:44] LABS: ALKALINE PHOSPHATASE 102 U/L (45-117); TOTAL BILIRUBIN ADULT 0.4 MG/DL (0.2-1.0)
[2017-02-16 15:20] LABS: CREATINE KINASE 60 U/L (26-192)
[2017-02-16 17:54] VITALS: BP 98/57; PULSE 72; RESP 18; TEMP 98.6; O2SAT 97
[2017-02-17] MEDS: BETAMETHASONE/CLOTRIMAZOLE CREAM 15 GM TOPICAL SCH ×3 (00:14→21:21)
[2017-02-17] MEDS: MIRTAZAPINE ODT 15 MG TAB PO SCH ×2 (00:14→21:21)
[2017-02-17 01:29] LABS: BACTERIA, URINE FEW /hpf; BLOOD, URINE NEG (NEG); GLUCOSE,URINE NEG (NEG); KETONE, URINE NEG (NEG); NITRITE,URINE NEG (NEG); PH, URINE 6.5 (5.0-8.5); SQUAMOUS EPITHELIAL CELL URINE <1 /hpf (0-5); URINE COLOR YELLOW (YELLW/STRAW)
[2017-02-17 01:30] LABS: COMMENT (UR) CULT NOT INDICATED; CULTURE IF INDICATED CULT NOT INDICATED
[2017-02-17] MEDS: ESCITALOPRAM OXALATE 20 MG TAB PO SCH (09:48)
[2017-02-17] MEDS: ARIPiprazole 10 MG TAB PO SCH (09:48)
--- NOTE | 2017-02-17 11:49 | HHI.PYPN ---
Subjective Remarks Patient seen and examined with nurse. Chart reviewed. Case discussed with nursing staff. Patient refusing to ambulate to the day area for meals on account of her ongoing delusions. She says that the spider web substance that she believes that she is coated with gets caught up in her walker. She now says that the spider webs substance may be composed of computers. There may also be a component of oppositionality here however, as she is trying to get her wheelchair back. Last charted meal was yesterday at lunchtime. Denies side effects from medications. No physical complaints. Review of Systems ROS Limitations: Psychotic, Poor Historian Except as stated in HPI: all other systems reviewed are Neg Objective Alert: Yes [place]: Person, Place Mood: Other (dysphoric) Affect: Restricted Memory Intact: Comment (remains fair) Hallucinations: Other (as above) Delusions: Yes Delusion Type: Paranoid Suicidal: Ideation (no SI) Homicidal: Ideation (no HI) Insight/Judgment Poor Remarks No motor abnormalities Labs Test 02/16/17 02/17/17 14:03 00:20 White Blood Count 5.1 TH/MM3 Red Blood Count 4.52 MIL/MM3 Hemoglobin 12.9 GM/DL Hematocrit 38.8 % Mean Corpuscular Volume 85.7 FL Mean Corpuscular Hemoglobin 28.5 PG Mean Corpuscular Hemoglobin 33.3 % Concent Red Cell Distribution Width 14.3 % Platelet Count 174 TH/MM3 Mean Platelet Volume 8.2 FL Neutrophils (%) (Auto) 64.6 % Lymphocytes (%) (Auto) 20.5 % Monocytes (%) (Auto) 9.7 % Eosinophils (%) (Auto) 4.6 % Basophils (%) (Auto) 0.6 % Neutrophils # (Auto) 3.3 TH/MM3 Lymphocytes # (Auto) 1.0 TH/MM3 Monocytes # (Auto) 0.5 TH/MM3 Eosinophils # (Auto) 0.2 TH/MM3 Basophils # (Auto) 0.0 TH/MM3 CBC Comment DIFF FINAL Differential Comment Sodium Level 139 MEQ/L Potassium Level 4.1 MEQ/L Chloride Level 106 MEQ/L Carbon Dioxide Level 27.7 MEQ/L Anion Gap 5 MEQ/L Blood Urea Nitrogen 16 MG/DL Creatinine 0.86 MG/DL Estimat Glomerular Filtration 81 ML/MIN Rate Random Glucose 81 MG/DL Calcium Level 8.8 MG/DL Total Bilirubin 0.4 MG/DL Aspartate Amino Transf 9 U/L (AST/SGOT) Alanine Aminotransferase 19 U/L (ALT/SGPT) Alkaline Phosphatase 102 U/L Total Creatine Kinase 60 U/L Total Protein 6.9 GM/DL Albumin 3.3 GM/DL Urine Color YELLOW Urine Turbidity CLEAR Urine pH 6.5 Urine Specific [place] 1.013 Urine Protein NEG mg/dL Urine Glucose (UA) NEG mg/dL Urine Ketones NEG mg/dL Urine Occult Blood NEG Urine Nitrite NEG Urine Bilirubin NEG Urine Urobilinogen LESS THAN 2.0 MG/DL Urine Leukocyte Esterase NEG Urine RBC LESS THAN 1 /hpf Urine WBC 1 /hpf Urine Squamous Epithelial <1 /hpf Cells Urine Bacteria FEW /hpf Microscopic Urinalysis Comment CULT NOT INDICATED labs reviewed. Labs reviewed. Besides modest improvement in GFR, no clinically significant changes in laboratories. Vitals/IOs Vital Signs Date Time Temp Pulse Resp B/P Pulse Ox O2 Delivery O2 Flow Rate FiO2 02/16/17 17:54 98.6 72 18 98/57 97 Intake and Output 02/16/17 02/16/17 02/16/17 07:59 15:59 23:59 Intake Total 240 ml 240 ml 240 ml Balance 240 ml 240 ml 240 ml Assessment & Plan Problem List: (1) Schizoaffective disorder ICD Code: F25.9 Assessment & Plan Titrate Abilify to 25 mg daily to target psychosis. Continue other psychotropics as ordered. Consult the dietitian because of patient's poor oral intake. I have instructed the nursing staff to provide the patient with fluid and liquid supplements at the bedside. Continue to monitor on the inpatient unit. Continue other medications and care as ordered. Justification for Cont. Inpt. Impairment in reality construction. Impairment in self-care. High risk for decompensation and less restrictive environment. Discharge Planning [facility] psychiatric [facility] referral. Request HC Surrog/Guard Advoc?: Yes Problem Qualifiers (1) Schizoaffective disorder: Qualified Code: F25.8 - Other schizoaffective disorders Geovanny Ruiz MD Feb 17, 2017 11:49
[2017-02-17 17:30] VITALS: BP 109/64; PULSE 93; RESP 20; TEMP 97.5; O2SAT 98
[2017-02-18 07:02] VITALS: BP 98/57; PULSE 84; RESP 16; TEMP 98.9; O2SAT 96
[2017-02-18] MEDS: ARIPiprazole 10 MG TAB PO SCH (09:12)
[2017-02-18] MEDS: ESCITALOPRAM OXALATE 20 MG TAB PO SCH (09:13)
[2017-02-18] MEDS: LACTIC ACID (AMMONIUM LACTATE) 12% LOTION 225 GM BTL TOPICAL PRN (09:14)
[2017-02-18] MEDS: BETAMETHASONE/CLOTRIMAZOLE CREAM 15 GM TOPICAL SCH ×2 (09:14→21:00)
--- NOTE | 2017-02-18 15:13 | HHI.PYPN ---
Subjective Remarks Pt seen and discussed with staff. Pt has been isolative to room. Hygiene is poor. Delusions continue to cause her to isolate. No SI/HI. Cooperative with medications. Objective Alert: Yes [place]: Person, Place Mood: Other (dysphoric) Affect: Restricted Memory Intact: Comment (remains fair) Hallucinations: Other (as above) Delusions: Yes Delusion Type: Paranoid Suicidal: Ideation (no SI) Homicidal: Ideation (no HI) Insight/Judgment poor Vitals/IOs Vital Signs Date Time Temp Pulse Resp B/P Pulse Ox O2 Delivery O2 Flow Rate FiO2 02/18/17 07:02 98.9 84 16 98/57 96 Intake and Output 02/17/17 02/17/17 02/18/17 08:00 16:00 00:00 Intake Total 0 ml 0 ml 1320 ml Balance 0 ml 0 ml 1320 ml Assessment & Plan Problem List: (1) Schizoaffective disorder ICD Code: F25.9 Assessment & Plan Continue current tx plan. Estimated LOS: days Justification for Cont. Inpt. impairments in self care and reality testing Request HC Surrog/Guard Advoc?: Yes Problem Qualifiers (1) Schizoaffective disorder: Qualified Code: F25.8 - Other schizoaffective disorders Julisa Ramos MD Feb 18, 2017 15:13
[2017-02-18 18:00] VITALS: BP 93/57; PULSE 85; RESP 16; TEMP 99.2; O2SAT 96
[2017-02-18] MEDS: MIRTAZAPINE ODT 15 MG TAB PO SCH (21:13)
[2017-02-19] MEDS: ESCITALOPRAM OXALATE 20 MG TAB PO SCH (08:29)
[2017-02-19] MEDS: ARIPiprazole 10 MG TAB PO SCH (08:34)
[2017-02-19] MEDS: BETAMETHASONE/CLOTRIMAZOLE CREAM 15 GM TOPICAL SCH ×2 (08:34→08:35)
--- NOTE | 2017-02-19 16:44 | HHI.PYPN ---
Subjective Remarks Pt seen and discussed with staff. She believes she has spiderweb material wrapped around her. "I"m falling apart.' She is only coming out for meals and hygiene has declined. No SI/HI Objective Alert: Yes [place]: Person, Place Mood: Other (dysphoric) Affect: Restricted Memory Intact: Comment (remains fair) Hallucinations: Other (as above) Delusions: Yes Delusion Type: Paranoid, Other (somatic delusions) Suicidal: Ideation (no SI) Homicidal: Ideation (no HI) Insight/Judgment poor Vitals/IOs Vital Signs Date Time Temp Pulse Resp B/P Pulse Ox O2 Delivery O2 Flow Rate FiO2 02/18/17 18:00 99.2 85 16 93/57 96 Intake and Output 02/18/17 02/18/17 02/19/17 08:00 16:00 00:00 Intake Total 1800 ml Balance 1800 ml Assessment & Plan Problem List: (1) Schizoaffective disorder ICD Code: F25.9 Assessment & Plan Continue current tx plan. Estimated LOS: days Justification for Cont. Inpt. impairments in self care due to impairments in reality testing Request HC Surrog/Guard Advoc?: Yes Problem Qualifiers (1) Schizoaffective disorder: Qualified Code: F25.8 - Other schizoaffective disorders Julisa Ramos MD Feb 19, 2017 16:44
[2017-02-19 18:40] VITALS: BP 96/53; PULSE 76; RESP 17; TEMP 98.4; O2SAT 98
[2017-02-19] MEDS: MIRTAZAPINE ODT 15 MG TAB PO SCH (21:00)
[2017-02-20 07:11] VITALS: BP 103/65; PULSE 76; RESP 17; TEMP 98.5; O2SAT 98
[2017-02-20] MEDS: ESCITALOPRAM OXALATE 20 MG TAB PO SCH (08:57)
[2017-02-20] MEDS: ARIPiprazole 10 MG TAB PO SCH (08:57)
[2017-02-20] MEDS: BETAMETHASONE/CLOTRIMAZOLE CREAM 15 GM TOPICAL SCH ×2 (08:58→20:59)
--- NOTE | 2017-02-20 12:41 | HHI.PYPN ---
Subjective Remarks Patient seen and examined with nurse. Chart reviewed. Case discussed with nursing staff. Patient remains perseverative about being covered in a spiderweb -like substance and refused breakfast this morning. On my examination today, the patient is dysphoric and oppositional. She says that she is not coming out for meals because she wants her wheelchair back and says that she feels like ambulating for meals hastens the rotting process. Denies side effects from medications. No new physical complaints. Review of Systems ROS Limitations: Psychotic, Poor Historian Except as stated in HPI: all other systems reviewed are Neg Objective Alert: Yes [place]: Person, Place Mood: Oppositional Affect: Restricted (dysphoric) Memory Intact: Comment (remains fair) Hallucinations: Tactile (spiderweb-like substance enveloping her) Delusions: Yes Delusion Type: Paranoid Suicidal: Ideation (no suicidal ideation) Homicidal: Ideation (no homicidal ideation) Insight/Judgment Poor Remarks No motor abnormalities noted. Grooming and hygiene poor. Labs Labs reviewed. Vitals/IOs Vital Signs Date Time Temp Pulse Resp B/P Pulse Ox O2 Delivery O2 Flow Rate FiO2 02/20/17 07:11 98.5 76 17 103/65 98 Intake and Output 02/19/17 02/19/17 02/19/17 07:59 15:59 23:59 Intake Total 1440 ml Balance 1440 ml Assessment & Plan Problem List: (1) Schizoaffective disorder ICD Code: F25.9 Assessment & Plan Reviewing my previous notes, I see that the patient was more functional on a lower dose of antipsychotic. Before embarking on a new antipsychotic trial, I will first therefore try to taper the dose of Abilify back to 10 mg daily. Continue to monitor on the inpatient unit. Dietitian recommendations appreciated. I encouraged ambulation and PO. Continue other medications and care as ordered. Justification for Cont. Inpt. Impairment in reality construction. Impairment in self-care. High risk for decompensation in a less restrictive environment. Discharge Planning [facility] psychiatric [facility] referral. Request HC Surrog/Guard Advoc?: Yes Problem Qualifiers (1) Schizoaffective disorder: Qualified Code: F25.8 - Other schizoaffective disorders Geovanny Ruiz MD Feb 20, 2017 12:40
[2017-02-20 18:34] VITALS: BP 102/56; PULSE 87; RESP 17; TEMP 97.2; O2SAT 97
[2017-02-20] MEDS: MIRTAZAPINE ODT 15 MG TAB PO SCH (20:58)
[2017-02-21 05:40] VITALS: BP 96/57; PULSE 78; RESP 16; TEMP 98; O2SAT 99
[2017-02-21] MEDS: BETAMETHASONE/CLOTRIMAZOLE CREAM 15 GM TOPICAL SCH ×2 (09:00→20:45)
[2017-02-21] MEDS: ESCITALOPRAM OXALATE 20 MG TAB PO SCH (09:50)
[2017-02-21] MEDS: ARIPiprazole 10 MG TAB PO SCH (09:50)
--- NOTE | 2017-02-21 11:21 | HHI.PYPN ---
Subjective Remarks Patient seen and examined with counselor and nurse. Chart reviewed. Case discussed in treatment team. Case discussed with nursing staff who reports that the patient continues to refuse to ambulate out of her room to calm down to the day area for meals. I do note that the patient ate somewhat dinner last night. On my examination today, patient remains quite oppositional, insisting to have use of a wheelchair. Remains delusional as before. No side effects from meds. No physical complaints. Review of Systems ROS Limitations: Psychotic, Poor Historian Except as stated in HPI: all other systems reviewed are Neg Objective Alert: Yes [place]: Person, Place Mood: Oppositional Affect: Restricted (remains restricted) Memory Intact: Comment (remains fair) Hallucinations: Other (Continues to believe she is covered by spider-web substance) Delusions: Yes Delusion Type: Paranoid Suicidal: Ideation (No SI) Homicidal: Ideation (No HI) Insight/Judgment Poor Remarks No motor abnormalities noted. Labs Labs reviewed. Vitals/IOs Vital Signs Date Time Temp Pulse Resp B/P Pulse Ox O2 Delivery O2 Flow Rate FiO2 02/21/17 05:40 98.0 78 16 96/57 99 Intake and Output 02/20/17 02/20/17 02/20/17 07:59 15:59 23:59 Intake Total 0 ml 120 ml Balance 0 ml 120 ml Assessment & Plan Problem List: (1) Schizoaffective disorder ICD Code: F25.9 Assessment & Plan Continue current psychotropics as ordered. I have encouraged the patient to ambulate and to take meals regularly. Continue other medications and care as ordered. Justification for Cont. Inpt. Impairment in reality construction. Impairment in self-care. High risk for decompensation in less restrictive environment. Discharge Planning Pending psychiatric stabilization. [facility] referral. Counselor informs me that [facility] agency might be able to provide alternative placement, but placement seems unlikely if patient is refusing to ambulate and take regular meals. Request HC Surrog/Guard Advoc?: Yes Problem Qualifiers (1) Schizoaffective disorder: Qualified Code: F25.8 - Other schizoaffective disorders Geovanny Ruiz MD Feb 21, 2017 11:21
--- NOTE | 2017-02-21 16:48 | PD.TTN ---
Present for Treatment Team Treatment Team Staff: Provider (Dr. Ruiz), Nurse (Reina), Psych Therapist (MAT Enriquez), Occupational Therapist (Sam Rosales) Patient Problems 1. Discharge planning 2. Medication compliance 3. Knowledge deficit 4. Lack of coping skills Progress Toward Goals Provider Input: Dr. Ruiz encouraged patient to get up out of her bed for meals and educated her regarding the dangers of muscle atrophy. Nurse Input: Reina reported the patient is compliant with medications, and has only eaten one of her three meals offered yesterday. Psych Therapist Input: Counselor reported the patient's mental status remains unchanged and patient remains unmotivated. Occupational Therapist Input: Sam reported the patient refuses groups. Documentation Scribe: MAT Enriquez Date Resolved: Feb 21, 2017 Mariella Barrera Feb 21, 2017 16:48
[2017-02-21] MEDS: MIRTAZAPINE ODT 15 MG TAB PO SCH (20:45)
[2017-02-22 05:08] VITALS: BP 112/58; PULSE 80; RESP 19; TEMP 98.2; O2SAT 96
[2017-02-22] MEDS: BETAMETHASONE/CLOTRIMAZOLE CREAM 15 GM TOPICAL SCH ×2 (09:00→21:00)
[2017-02-22] MEDS: ESCITALOPRAM OXALATE 20 MG TAB PO SCH (09:25)
[2017-02-22] MEDS: ARIPiprazole 10 MG TAB PO SCH (09:25)
--- NOTE | 2017-02-22 13:07 | HHI.PYPN ---
Subjective Remarks Patient seen and examined. Chart reviewed. Case discussed with nursing staff. On my examination today, patient remains oppositional and delusional. Continues to believe that she is incapable of walking because this will exacerbate her perceived rotting. She would like to take meals otherwise. Denies side effects from medications. No new physical complaints. Review of Systems ROS Limitations: Psychotic, Poor Historian Except as stated in HPI: all other systems reviewed are Neg Objective Alert: Yes [place]: Person, Place Mood: Oppositional Affect: Restricted Memory Intact: Comment (fair) Hallucinations: Other (No AVH reported today) Delusions: Yes Delusion Type: Paranoid Suicidal: Ideation (No SI) Homicidal: Ideation (No HI) Insight/Judgment Poor Remarks No motor abnormalities noted. Labs Labs reviewed. No new labs. Vitals/IOs Vital Signs Date Time Temp Pulse Resp B/P Pulse Ox O2 Delivery O2 Flow Rate FiO2 02/22/17 05:08 98.2 80 19 112/58 96 Intake and Output 02/21/17 02/21/17 02/21/17 07:59 15:59 23:59 Intake Total 0 ml 940 ml Balance 0 ml 940 ml Assessment & Plan Problem List: (1) Schizoaffective disorder ICD Code: F25.9 Assessment & Plan I suspect patient's refusal to come out for meals has root in delusions on the one hand and oppositionality/desire to have wheelchair on the other. Patient says she wants to eat. I have placed an order to have the patient brought out of her room by staff for meals to try to improve PO intake, but if she wishes to return to her room thereafter, she is to do so under her own power. Continue psychotropics as ordered. Continue other medications and care as ordered. Justification for Cont. Inpt. Impairment in reality construction. Impairment in self-care. High risk for decompensation in less restrictive environment. [facility] Request HC Surrog/Guard Advoc?: Yes Problem Qualifiers (1) Schizoaffective disorder: Qualified Code: F25.8 - Other schizoaffective disorders Geovanny Ruiz MD Feb 22, 2017 13:07
[2017-02-22 18:00] VITALS: BP 108/57; PULSE 85; RESP 18; TEMP 98.1; O2SAT 96
[2017-02-22] MEDS: MIRTAZAPINE ODT 15 MG TAB PO SCH (21:20)
[2017-02-23] MEDS: BETAMETHASONE/CLOTRIMAZOLE CREAM 15 GM TOPICAL SCH ×2 (09:00→21:00)
[2017-02-23] MEDS: ESCITALOPRAM OXALATE 20 MG TAB PO SCH (09:55)
[2017-02-23] MEDS: ARIPiprazole 10 MG TAB PO SCH (09:55)
--- NOTE | 2017-02-23 12:37 | HHI.PYPN ---
Subjective Remarks Patient seen and case discussed with nursing staff. Chart reviewed. For me today, patient remains oppositional. Denies calling sister as documented in counselor's notes. Remains delusional as before. I discuss plan with patient to have her brought out for meals and return to room under own power; she agrees to give this a try. Also discussed plan with RN. No side effects from medications. No physical complaints. Review of Systems ROS Limitations: Psychotic, Poor Historian Except as stated in HPI: all other systems reviewed are Neg Objective Alert: Yes [place]: Person, Place Mood: Oppositional Affect: Blunted Memory Intact: Comment (fair) Hallucinations: Other (None) Delusions: Yes Delusion Type: Paranoid Suicidal: Ideation (No SI) Homicidal: Ideation (No HI) Insight/Judgment Poor Remarks No motoric abnormalities. TP linear within delusional system. Labs Labs reviewed. Vitals/IOs Vital Signs Date Time Temp Pulse Resp B/P Pulse Ox O2 Delivery O2 Flow Rate FiO2 02/22/17 18:00 98.1 85 18 108/57 96 Intake and Output 02/22/17 02/22/17 02/23/17 08:00 16:00 00:00 Intake Total 0 ml 960 ml Balance 0 ml 960 ml Assessment & Plan Problem List: (1) Schizoaffective disorder ICD Code: F25.9 Assessment & Plan Continue current psychotropics as ordered. Appreciate ongoing sandwich artist input. Continue other medications and care as ordered. Justification for Cont. Inpt. High risk for decompensation and less restrictive environment. Impairment in reality construction. Discharge Planning [facility] referral Request HC Surrog/Guard Advoc?: Yes Problem Qualifiers (1) Schizoaffective disorder: Qualified Code: F25.8 - Other schizoaffective disorders Geovanny Ruiz MD Feb 23, 2017 12:37
[2017-02-23 17:36] VITALS: BP 117/63; PULSE 77; RESP 18; TEMP 98.6; O2SAT 98
[2017-02-23] MEDS: MIRTAZAPINE ODT 15 MG TAB PO SCH (21:02)
[2017-02-24 06:00] VITALS: BP 98/64; PULSE 75; RESP 18; TEMP 97.5; O2SAT 99
[2017-02-24] MEDS: BETAMETHASONE/CLOTRIMAZOLE CREAM 15 GM TOPICAL SCH ×2 (09:00→21:00)
[2017-02-24] MEDS: ARIPiprazole 10 MG TAB PO SCH (09:48)
[2017-02-24] MEDS: ESCITALOPRAM OXALATE 20 MG TAB PO SCH (09:48)
--- NOTE | 2017-02-24 12:19 | HHI.PYPN ---
Subjective Remarks Patient seen and examined with counselor and a nurse. Chart reviewed. Patient ate 75% of dinner last night, refused breakfast this morning. I find the patient in the day area eating her lunch. As ordered, staff have brought the patient out for lunch, but now she is insisting that she be returned to her room by staff. I remind her of our protocol (out of room with staff assist, back to room under own power). She is quite oppositional and says that she will simply refuse meals in that case. Remains delusional. Denies side effects from medications. No physical complaints. Review of Systems ROS Limitations: Psychotic, Poor Historian Except as stated in HPI: all other systems reviewed are Neg Objective Alert: Yes [place]: Person, Place Mood: Oppositional Affect: Restricted Memory Intact: Comment (fair) Hallucinations: Other (No AVH) Delusions: Yes Delusion Type: Paranoid (believes that she is rotting and covered with spider- web substance) Suicidal: Ideation (No SI) Homicidal: Ideation (No HI) Insight/Judgment Poor Remarks No motor abnormalities noted. Labs Labs reviewed. Vitals/IOs Vital Signs Date Time Temp Pulse Resp B/P Pulse Ox O2 Delivery O2 Flow Rate FiO2 02/24/17 06:00 97.5 75 18 98/64 99 Intake and Output 02/23/17 02/23/17 02/23/17 07:59 15:59 23:59 Intake Total 0 ml 720 ml Balance 0 ml 720 ml Assessment & Plan Problem List: (1) Schizoaffective disorder ICD Code: F25.9 Assessment & Plan Continue current psychotropics as ordered. Continue protocol of bringing the patient out for meals and having her return to her room under her own power. I believe this represents a reasonable compromise, but I suspect the patient's oppositionality will limit its implementation. Continue other medications and care as ordered. Justification for Cont. Inpt. Impairment in reality construction. Impairment in self-care. High risk for decompensation in less restrictive environment. Discharge Planning [facility] psychiatric hospital referral. Request HC Surrog/Guard Advoc?: Yes Problem Qualifiers (1) Schizoaffective disorder: Qualified Code: F25.8 - Other schizoaffective disorders Geovanny Ruiz MD Feb 24, 2017 12:19
[2017-02-24 17:27] VITALS: BP 96/53; PULSE 73; RESP 18; TEMP 97.6; O2SAT 99
[2017-02-24] MEDS: MIRTAZAPINE ODT 15 MG TAB PO SCH (21:42)
[2017-02-25 06:24] VITALS: BP 100/55; PULSE 75; RESP 18; TEMP 97.6; O2SAT 98
[2017-02-25] MEDS: BETAMETHASONE/CLOTRIMAZOLE CREAM 15 GM TOPICAL SCH ×2 (09:00→20:14)
[2017-02-25] MEDS: ARIPiprazole 10 MG TAB PO SCH (10:11)
[2017-02-25] MEDS: ESCITALOPRAM OXALATE 20 MG TAB PO SCH (10:11)
--- NOTE | 2017-02-25 13:21 | HHI.PYPN ---
Subjective Remarks Patient was seen and case discussed with nursing. Patient is very seclusive to bed. Psychomotor retardation, flat affect. Is coming out for meals. Patient is concerned is that she is "tired of this place." She denies suicidal ideation intent or plan. Continues to think that she is running from insight Objective Alert: Yes [place]: Person, Place Mood: Oppositional Affect: Restricted Memory Intact: Comment (fair) Hallucinations: Other (No AVH) Delusions: Yes Delusion Type: Paranoid (believes that she is rotting and covered with spider- web substance) Suicidal: Ideation (No SI) Homicidal: Ideation (No HI) Insight/Judgment Poor Vitals/IOs Vital Signs Date Time Temp Pulse Resp B/P Pulse Ox O2 Delivery O2 Flow Rate FiO2 02/25/17 06:24 97.6 75 18 100/55 98 Intake and Output 02/24/17 02/24/17 02/25/17 08:00 16:00 00:00 Intake Total 1200 ml Balance 1200 ml Assessment & Plan Problem List: (1) Schizoaffective disorder ICD Code: F25.9 Assessment & Plan Continue current treatment plan Justification for Cont. Inpt. Patient will decompensate in a less restrictive setting Request HC Surrog/Guard Advoc?: Yes Problem Qualifiers (1) Schizoaffective disorder: Qualified Code: F25.8 - Other schizoaffective disorders Christian Sood DO Feb 25, 2017 13:21
[2017-02-25 20:00] VITALS: BP 98/56; PULSE 90; RESP 18; TEMP 98.6; O2SAT 99
[2017-02-25] MEDS: MIRTAZAPINE ODT 15 MG TAB PO SCH (20:14)
[2017-02-26 05:59] VITALS: BP 102/63; PULSE 72; RESP 20; TEMP 97.7; O2SAT 96
[2017-02-26] MEDS: BETAMETHASONE/CLOTRIMAZOLE CREAM 15 GM TOPICAL SCH ×2 (09:00→21:00)
[2017-02-26] MEDS: ESCITALOPRAM OXALATE 20 MG TAB PO SCH (09:33)
[2017-02-26] MEDS: ARIPiprazole 10 MG TAB PO SCH (09:33)
--- NOTE | 2017-02-26 11:33 | HHI.PYPN ---
Subjective Remarks Patient was seen and case discussed with nursing. Patient remains seclusive to room and is hesitant to walk. Per techs, she eats mostly in bed. She is agreeable to go outside today and we will see if it happens. When she lays there she thinks about what it would be like to be a bird anf fly around. Continues to think she is rotting from inside Objective Alert: Yes [place]: Person, Place Mood: Oppositional Affect: Restricted Memory Intact: Comment (fair) Hallucinations: Other (No AVH) Delusions: Yes Delusion Type: Paranoid (believes that she is rotting and covered with spider- web substance) Suicidal: Ideation (No SI) Homicidal: Ideation (No HI) Insight/Judgment Poor Vitals/IOs Vital Signs Date Time Temp Pulse Resp B/P Pulse Ox O2 Delivery O2 Flow Rate FiO2 02/26/17 05:59 97.7 72 20 102/63 96 Intake and Output 02/25/17 02/25/17 02/26/17 08:00 16:00 00:00 Intake Total 0 ml 480 ml 1920 ml Balance 0 ml 480 ml 1920 ml Assessment & Plan Problem List: (1) Schizoaffective disorder ICD Code: F25.9 Assessment & Plan Continue current treatment plan Justification for Cont. Inpt. Patient will decompensate in a less restrictive setting Request HC Surrog/Guard Advoc?: Yes Problem Qualifiers (1) Schizoaffective disorder: Qualified Code: F25.8 - Other schizoaffective disorders Christian Sood DO Feb 26, 2017 11:33
[2017-02-26 18:06] VITALS: BP 103/57; PULSE 95; TEMP 98.2; O2SAT 99
[2017-02-26] MEDS: MIRTAZAPINE ODT 15 MG TAB PO SCH (21:05)
[2017-02-27 05:28] VITALS: BP 110/64; PULSE 78; RESP 17; TEMP 98.5; O2SAT 99
[2017-02-27] MEDS: ESCITALOPRAM OXALATE 20 MG TAB PO SCH (08:58)
[2017-02-27] MEDS: ARIPiprazole 10 MG TAB PO SCH (08:58)
[2017-02-27] MEDS: BETAMETHASONE/CLOTRIMAZOLE CREAM 15 GM TOPICAL SCH ×2 (08:58→21:00)
--- NOTE | 2017-02-27 12:32 | HHI.PYPN ---
Subjective Remarks Patient seen and examined with nurse. Chart reviewed. Patient accepted to meals yesterday and took breakfast this morning. Case discussed with nursing staff. On my examination today, patient remains delusional as before. Continues to insist that rotting impairs ability to walk, although she is able to ambulate. Possibility of [facility] placement as arranged by counselor discussed with patient; she is ambivalent but says that she has nowhere else to go and does not want to go to the [facility]. Denies side effects from medications. No physical complaints. Review of Systems ROS Limitations: Psychotic, Poor Historian Except as stated in HPI: all other systems reviewed are Neg Objective Alert: Yes [place]: Person, Place Mood: Oppositional (remains somewhat oppositional) Affect: Blunted Memory Intact: Comment (fair) Hallucinations: Other (No AVH) Delusions: Yes Delusion Type: Paranoid (rotting) Suicidal: Ideation (No SI) Homicidal: Ideation (No HI) Insight/Judgment Poor Remarks No motor abnormalities noted Labs Labs reviewed Vitals/IOs Vital Signs Date Time Temp Pulse Resp B/P Pulse Ox O2 Delivery O2 Flow Rate FiO2 02/27/17 05:28 98.5 78 17 110/64 99 Intake and Output 02/26/17 02/26/17 02/27/17 08:00 16:00 00:00 Intake Total 480 ml 1200 ml Balance 480 ml 1200 ml Assessment & Plan Problem List: (1) Schizoaffective disorder ICD Code: F25.9 Assessment & Plan Continue current psychiatric medications as ordered. To consider trial of another antipsychotic, although trials so far has been of limited benefit. Continue other medications and care as ordered. Justification for Cont. Inpt. High risk for decompensation in less restrictive environment. Discharge Planning Placement versus State Request HC Surrog/Guard Advoc?: Yes Problem Qualifiers (1) Schizoaffective disorder: Qualified Code: F25.8 - Other schizoaffective disorders Geovanny Ruiz MD Feb 27, 2017 12:32
[2017-02-27 18:21] VITALS: BP 98/44; PULSE 80; RESP 16; TEMP 98.1; O2SAT 100
[2017-02-27] MEDS: MIRTAZAPINE ODT 15 MG TAB PO SCH (21:46)
[2017-02-28 05:20] VITALS: BP 104/57; PULSE 75; RESP 18; TEMP 98.9; O2SAT 100
[2017-02-28] MEDS: BETAMETHASONE/CLOTRIMAZOLE CREAM 15 GM TOPICAL SCH ×2 (08:58→21:00)
[2017-02-28] MEDS: ARIPiprazole 10 MG TAB PO SCH (08:58)
[2017-02-28] MEDS: ESCITALOPRAM OXALATE 20 MG TAB PO SCH (08:58)
--- NOTE | 2017-02-28 11:28 | HHI.PYPN ---
Subjective Remarks Patient seen and examined with counselor. Chart reviewed. Case discussed in treatment team. On my examination today, patient remains delusional, continues to believe she is rotting. "It's the truth!" Refused breakfast this morning but has come out for lunch. No SI/HI. No side effects from medications. No new physical complaints. Review of Systems ROS Limitations: Psychotic, Poor Historian Except as stated in HPI: all other systems reviewed are Neg Objective Alert: Yes [place]: Person, Place Mood: Calm, Oppositional Affect: Restricted Memory Intact: Comment (fair) Hallucinations: Other (no hallucinations) Delusions: Yes Delusion Type: Paranoid (ongoing) Suicidal: Ideation (No SI) Homicidal: Ideation (No HI) Insight/Judgment Poor Remarks No motoric abnormalities appreciated. Grooming and hygiene poor. Labs Labs reviewed. Vitals/IOs Vital Signs Date Time Temp Pulse Resp B/P Pulse Ox O2 Delivery O2 Flow Rate FiO2 02/28/17 05:20 98.9 75 18 104/57 100 Intake and Output 02/27/17 02/27/17 02/27/17 07:59 15:59 23:59 Intake Total 1080 ml 2880 ml Balance 1080 ml 2880 ml Assessment & Plan Problem List: (1) Schizoaffective disorder ICD Code: F25.9 Assessment & Plan Ongoing psychotic symptoms. So far we have tried Prolixin, Risperdal, Latuda, Abilify, Geodon, and clozapine without making any real progress with respect to patient's delusions. These delusions are a self-fulfilling prophecy in a way, because her immobility as a consequence of them will lead to deconditioning and , in a manner of speaking, rotting away. I think it makes sense at this point to try another typical. Replace Abilify with loxapine 5mg BID with plans to titrate to effect. Continue to monitor on the inpatient unit. Continue other medications and care as ordered. Justification for Cont. Inpt. Medication changes and process. Impairment in reality construction. Impairment in self-care. High risk for decompensation in less restrictive environment. Discharge Planning Counselor informs me that the patient has been approved for Medicaid [facility], which will allow for greater placement options, currently looking at [place] as a possibility. Request HC Surrog/Guard Advoc?: Yes Problem Qualifiers (1) Schizoaffective disorder: Qualified Code: F25.8 - Other schizoaffective disorders Geovanny Ruiz MD Feb 28, 2017 11:28
--- NOTE | 2017-02-28 11:30 | PD.TTN ---
Present for Treatment Team Treatment Team Staff: Provider (Dr Ruiz ), Nurse (Thu ), Psych Therapist (Dolores ) Patient Problems 1. Discharge planning 2. Medication compliance 3. Knowledge deficit 4. Lack of coping skills Progress Toward Goals Provider Input: wants encouragement for pt to come out more wheeled out for meals had two meals yesterday Nurse Input: no problems over night ate some Psych Therapist Input: is aware working on placement got update that [facility] medicaid was done will get back with [facility] and get proof of income to them Dolores Iglesias LCSW Feb 28, 2017 11:30
[2017-02-28] MEDS: MIRTAZAPINE ODT 15 MG TAB PO SCH (21:07)
[2017-02-28] MEDS: LOXAPINE 5 MG CAP PO SCH (21:07)
[2017-03-01 05:11] VITALS: BP 97/58; PULSE 66; RESP 14; TEMP 98; O2SAT 95
[2017-03-01] MEDS: BETAMETHASONE/CLOTRIMAZOLE CREAM 15 GM TOPICAL SCH ×2 (08:52→20:45)
[2017-03-01] MEDS: LOXAPINE 5 MG CAP PO SCH ×2 (08:52→08:57)
[2017-03-01] MEDS: ESCITALOPRAM OXALATE 20 MG TAB PO SCH (08:52)
--- NOTE | 2017-03-01 10:24 | HHI.PYPN ---
Subjective Remarks Patient seen and examined. Chart reviewed. Case discussed with nursing staff. Patient 800% of lunch and dinner yesterday and 800% of breakfast this morning. On my examination today, the patient presents as oppositional. She says that she refused the loxapine this morning because she felt like the dose she took last night "made things worse" with respect to her delusions of rotting. I have encouraged her to give this medication more of a try as she otherwise tolerated it well. No SI or HI. Says that she will refuse to go out for further meals if staff will not wheel her back to the room afterward. I have reinforced the protocol: wheel out for meals, back under own power. No side effects from medications. No physical complaints. Review of Systems ROS Limitations: Psychotic, Poor Historian Except as stated in HPI: all other systems reviewed are Neg Objective Alert: Yes [place]: Person, Place Mood: Calm, Oppositional Affect: Restricted Memory Intact: Comment (fair) Hallucinations: Other (No AVH) Delusions: Yes Delusion Type: Paranoid Suicidal: Ideation (No SI) Homicidal: Ideation (No HI) Insight/Judgment Poor Remarks No abnormal motor movements noted. Labs Labs reviewed. Vitals/IOs Vital Signs Date Time Temp Pulse Resp B/P Pulse Ox O2 Delivery O2 Flow Rate FiO2 03/01/17 05:11 98.0 66 14 97/58 95 Intake and Output 02/28/17 02/28/17 03/01/17 08:00 16:00 00:00 Intake Total 60 ml 960 ml Balance 60 ml 960 ml Assessment & Plan Problem List: (1) Schizoaffective disorder ICD Code: F25.9 Assessment & Plan Continue to offer loxapine 5 mg daily. Continue other psychotropics as ordered. Continue other medications and care as ordered. Justification for Cont. Inpt. Impairment in reality construction. High risk for decompensation and less restrictive environment. [facility]charge Planning [facility] Request HC Surrog/Guard Advoc?: Yes Problem Qualifiers (1) Schizoaffective disorder: Qualified Code: F25.8 - Other schizoaffective disorders Geovanny Ruiz MD Mar 01, 2017 10:24
[2017-03-01] MEDS: MIRTAZAPINE ODT 15 MG TAB PO SCH (20:52)
[2017-03-01 21:53] VITALS: BP_SYST 106; PULSE 80; RESP 16; TEMP 97.6; O2SAT 99
[2017-03-02 05:57] VITALS: BP 105/60; PULSE 79; RESP 17; TEMP 98.8; O2SAT 99
[2017-03-02] MEDS: LOXAPINE 5 MG CAP PO SCH (09:00)
[2017-03-02] MEDS: BETAMETHASONE/CLOTRIMAZOLE CREAM 15 GM TOPICAL SCH ×2 (09:00→21:18)
[2017-03-02] MEDS: ESCITALOPRAM OXALATE 20 MG TAB PO SCH (09:41)
--- NOTE | 2017-03-02 12:25 | HHI.PYPN ---
Subjective Remarks Patient seen and examined with nurse. Chart reviewed. Case discussed with nursing staff. Per nursing staff, patient more psychotic than usual today. She has been refusing the loxapine. I find the patient in the day area eating her lunch. She is somewhat dysphoric. She continues to describe her rotting delusion and insists that her skin, particularly the skin on her hands, has rotten away. She says that she doesn't want to take the loxapine. No SI or HI. No side effects from medications. Review of Systems ROS Limitations: Psychotic Except as stated in HPI: all other systems reviewed are Neg Objective Alert: Yes [place]: Person, Place Mood: Oppositional, Other (dysphoric) Affect: Restricted Memory Intact: Comment (fair) Hallucinations: Other (No AVH) Delusions: Yes Delusion Type: Paranoid (ongoing) Suicidal: Ideation (No SI) Homicidal: Ideation (No HI) Insight/Judgment Poor Remarks No motoric abnormalities noted. Thought process perseverative on delusional material. Grooming and hygiene poor. Labs Labs reviewed. Vitals/IOs Vital Signs Date Time Temp Pulse Resp B/P Pulse Ox O2 Delivery O2 Flow Rate FiO2 03/02/17 05:57 98.8 79 17 105/60 99 Intake and Output 03/01/17 03/01/17 03/02/17 08:00 16:00 00:00 Intake Total 480 ml 480 ml Balance 480 ml 480 ml Assessment & Plan Problem List: (1) Schizoaffective disorder ICD Code: F25.9 Assessment & Plan Discontinue loxapine. Initiate Zyprexa Zydis 5 mg at bedtime with IM backup. Continue other psychotropics as ordered. Continue other medications and care as ordered. Justification for Cont. Inpt. Medication change. Impairment in self-care. Impairment in reality construction. Risk for decompensation in less restrictive environment. [facility]charge Planning [facility] Request HC Surrog/Guard Advoc?: Yes Problem Qualifiers (1) Schizoaffective disorder: Qualified Code: F25.8 - Other schizoaffective disorders Geovanny Ruiz MD Mar 02, 2017 12:25
[2017-03-02] MEDS ORDERED: OLANZapine IM 10 MG VIAL IM PRN (12:45)
[2017-03-02 19:28] VITALS: BP 102/55; PULSE 74; RESP 18; TEMP 98.6; O2SAT 98
[2017-03-02] MEDS: MIRTAZAPINE ODT 15 MG TAB PO SCH (21:18)
[2017-03-02] MEDS: OLANZapine ODT 5 MG TAB PO SCH (21:32)
[2017-03-03 06:06] VITALS: BP 95/57; PULSE 72; RESP 15; TEMP 98.3; O2SAT 97
[2017-03-03] MEDS: ESCITALOPRAM OXALATE 20 MG TAB PO SCH (09:00)
[2017-03-03] MEDS: BETAMETHASONE/CLOTRIMAZOLE CREAM 15 GM TOPICAL SCH ×2 (09:00→21:00)
--- NOTE | 2017-03-03 10:36 | HHI.PYPN ---
Subjective Remarks Patient seen and examined. Chart reviewed. Case discussed with nursing staff. On my examination, patient remains somewhat oppositional. Delusions of rotting persist. "I feel the same and a pill ain't gonna change that." Nurse tells me patient refused breakfast, and patient tells me that the day area is "too crowded" but says "I might try to go out for lunch." No side effects from medications. No physical complaints. Review of Systems ROS Limitations: Psychotic, Poor Historian Except as stated in HPI: all other systems reviewed are Neg Objective Alert: Yes [place]: Person, Place Mood: Oppositional Affect: Blunted Memory Intact: Comment (fair) Hallucinations: Other (No hallucinations) Delusions: Yes Delusion Type: Paranoid (rotting) Suicidal: Ideation (No SI) Homicidal: Ideation (No HI) Insight/Judgment Poor Remarks No motor abnormalities noted. TP linear within delusional system. Labs Labs reviewed. Vitals/IOs Vital Signs Date Time Temp Pulse Resp B/P Pulse Ox O2 Delivery O2 Flow Rate FiO2 03/03/17 06:06 98.3 72 15 95/57 97 Intake and Output 03/02/17 03/02/17 03/03/17 08:00 16:00 00:00 Intake Total 0 ml 240 ml 480 ml Balance 0 ml 240 ml 480 ml Assessment & Plan Problem List: (1) Schizoaffective disorder ICD Code: F25.9 Assessment & Plan Continue Zyprexa 5 mg PO/IM qHS as ordered. Continue Lexapro and Remeron. Continue to monitor on the inpatient unit. Continue other medications and care as ordered. Justification for Cont. Inpt. Impairment in reality construction. Impairment in self-care. High risk for decompensation in less restrictive environment. Discharge Planning [facility] referral. Request HC Surrog/Guard Advoc?: Yes Problem Qualifiers (1) Schizoaffective disorder: Qualified Code: F25.8 - Other schizoaffective disorders Geovanny Ruiz MD Mar 03, 2017 10:36
[2017-03-03 16:26] VITALS: BP 92/50; PULSE 74; RESP 16; TEMP 97.1; O2SAT 96
[2017-03-03] MEDS: OLANZapine ODT 5 MG TAB PO SCH (21:10)
[2017-03-03] MEDS: MIRTAZAPINE ODT 15 MG TAB PO SCH (21:10)
[2017-03-04 06:00] VITALS: BP 97/56; PULSE 66; RESP 16; TEMP 97.8; O2SAT 100
[2017-03-04] MEDS: BETAMETHASONE/CLOTRIMAZOLE CREAM 15 GM TOPICAL SCH ×2 (09:00→21:00)
[2017-03-04] MEDS: ESCITALOPRAM OXALATE 20 MG TAB PO SCH (09:38)
--- NOTE | 2017-03-04 21:02 | HHI.PYPN ---
Subjective Remarks Pt seen and discussed with staff. Pt has been refusing meals today due to belief that meals are poisoned and will destroy her skin.She has been isolating to her room stating that it is "too much" to go into the milieu. No SI/HI. Objective Alert: Yes [place]: Person, Place Mood: Calm Affect: Flat Memory Intact: Comment (fair) Hallucinations: Other (No hallucinations) Delusions: Yes Delusion Type: Paranoid (rotting) Suicidal: Ideation (No SI) Homicidal: Ideation (No HI) Insight/Judgment poor Vitals/IOs Vital Signs Date Time Temp Pulse Resp B/P Pulse Ox O2 Delivery O2 Flow Rate FiO2 03/04/17 06:00 97.8 66 16 97/56 100 Intake and Output 03/03/17 03/03/17 03/04/17 08:00 16:00 00:00 Intake Total 240 ml 960 ml 720 ml Balance 240 ml 960 ml 720 ml Assessment & Plan Problem List: (1) Schizoaffective disorder ICD Code: F25.9 Assessment & Plan Continue current tx plan. Estimated LOS: days Justification for Cont. Inpt. impairments in reality testing and self care Request HC Surrog/Guard Advoc?: Yes Problem Qualifiers (1) Schizoaffective disorder: Qualified Code: F25.8 - Other schizoaffective disorders Julisa Ramos MD Mar 04, 2017 21:02
[2017-03-04] MEDS: MIRTAZAPINE ODT 15 MG TAB PO SCH (21:43)
[2017-03-04] MEDS: OLANZapine ODT 5 MG TAB PO SCH (21:43)
[2017-03-05 06:00] VITALS: BP 95/56; PULSE 78; RESP 17; TEMP 98.2; O2SAT 97
[2017-03-05] MEDS: BETAMETHASONE/CLOTRIMAZOLE CREAM 15 GM TOPICAL SCH ×2 (09:00→21:00)
[2017-03-05] MEDS: ESCITALOPRAM OXALATE 20 MG TAB PO SCH (09:01)
--- NOTE | 2017-03-05 16:19 | HHI.PYPN ---
Subjective Remarks Pt seen and discussed with staff. Delusions that food is being poisoned persist , but she did eat breakfast today. She is compliant with medications. She has been isolative to room and states that her bones and muscles have broken down. Objective Alert: Yes [place]: Person, Place Mood: Calm Affect: Flat Memory Intact: Comment (fair) Hallucinations: Other (No hallucinations) Delusions: Yes Delusion Type: Paranoid (rotting) Suicidal: Ideation (No SI) Homicidal: Ideation (No HI) Insight/Judgment poor Vitals/IOs Vital Signs Date Time Temp Pulse Resp B/P Pulse Ox O2 Delivery O2 Flow Rate FiO2 03/05/17 06:00 98.2 78 17 95/56 97 Intake and Output 03/04/17 03/04/17 03/05/17 08:00 16:00 00:00 Intake Total 600 ml Balance 600 ml Assessment & Plan Problem List: (1) Schizoaffective disorder ICD Code: F25.9 Assessment & Plan Continue current tx plan. Estimated LOS: days Justification for Cont. Inpt. impairments in reality construction Request HC Surrog/Guard Advoc?: Yes Problem Qualifiers (1) Schizoaffective disorder: Qualified Code: F25.8 - Other schizoaffective disorders Julisa Ramos MD Mar 05, 2017 16:19
[2017-03-05 18:00] VITALS: BP 96/51; PULSE 84; RESP 17; TEMP 98.7; O2SAT 97
[2017-03-05 18:55] VITALS: BP 96/51; PULSE 84; RESP 17; TEMP 98.7
[2017-03-05] MEDS: MIRTAZAPINE ODT 15 MG TAB PO SCH (21:20)
[2017-03-05] MEDS: OLANZapine ODT 5 MG TAB PO SCH (21:20)
[2017-03-06 05:46] VITALS: BP 97/58; PULSE 74; RESP 18; TEMP 98.3
[2017-03-06] MEDS: BETAMETHASONE/CLOTRIMAZOLE CREAM 15 GM TOPICAL SCH ×2 (09:00→20:57)
[2017-03-06] MEDS: ESCITALOPRAM OXALATE 20 MG TAB PO SCH (09:31)
--- NOTE | 2017-03-06 12:40 | HHI.PYPN ---
Subjective Remarks Patient discussed with treatment team, patient seen on unit in her room, chart review, patient compliant medications. Patient continues to isolate still has some delusional ideation about her food being poisoned but overall his cooperative in no behavioral issues. Review of Systems Except as stated in HPI: all other systems reviewed are Neg Objective Alert: Yes [place]: Person, Place Mood: Calm Affect: Flat Memory Intact: Comment (fair) Hallucinations: Other (No hallucinations) Delusions: Yes Delusion Type: Paranoid (rotting) Suicidal: Ideation (No SI) Homicidal: Ideation (No HI) Insight/Judgment Very poor Vitals/IOs Vital Signs Date Time Temp Pulse Resp B/P Pulse Ox O2 Delivery O2 Flow Rate FiO2 03/06/17 05:46 98.3 74 18 97/58 03/05/17 18:00 97 Intake and Output 03/05/17 03/05/17 03/05/17 07:59 15:59 23:59 Intake Total 1680 ml Balance 1680 ml Assessment & Plan Problem List: (1) Schizoaffective disorder ICD Code: F25.9 Assessment & Plan Estimated LOS: days patient remained psychotic delusional isolating, thesignificant behavioral problems Justification for Cont. Inpt. At this time patient may decompensate if place to the lower level of care Discharge Planning To be determined Request HC Surrog/Guard Advoc?: Yes Problem Qualifiers (1) Schizoaffective disorder: Qualified Code: F25.8 - Other schizoaffective disorders Chris Riggs MD Mar 06, 2017 12:40
[2017-03-06 18:13] VITALS: BP 88/59; PULSE 89; RESP 17; TEMP 98.6; O2SAT 97
[2017-03-06] MEDS: MIRTAZAPINE ODT 15 MG TAB PO SCH (20:56)
[2017-03-06] MEDS: OLANZapine ODT 5 MG TAB PO SCH (20:56)
[2017-03-07 05:38] VITALS: BP 103/60; PULSE 75; RESP 14; TEMP 98.7; O2SAT 98
[2017-03-07] MEDS: BETAMETHASONE/CLOTRIMAZOLE CREAM 15 GM TOPICAL SCH ×2 (09:00→21:00)
[2017-03-07] MEDS: ESCITALOPRAM OXALATE 20 MG TAB PO SCH (09:18)
--- NOTE | 2017-03-07 10:10 | HHI.PYPN ---
Subjective Remarks Patient seen in her room with nurse Margie, counselor Mary, and medical student Rose. Patient continues to isolate with marked blunted affect though denying suicidality homicidality or voices. It appears that has been a state date May for this patient for 03/10. Review of Systems Except as stated in HPI: all other systems reviewed are Neg Objective Alert: Yes [place]: Person, Place Mood: Calm Affect: Flat Memory Intact: Comment (fair) Hallucinations: Other (No hallucinations) Delusions: Yes Delusion Type: Paranoid (rotting) Suicidal: Ideation (No SI) Homicidal: Ideation (No HI) Insight/Judgment Very poor Vitals/IOs Vital Signs Date Time Temp Pulse Resp B/P Pulse Ox O2 Delivery O2 Flow Rate FiO2 03/07/17 05:38 98.7 75 14 103/60 98 Intake and Output 03/06/17 03/06/17 03/06/17 07:59 15:59 23:59 Intake Total 140 ml 2160 ml Output Total 1 ml Balance -1 ml 140 ml 2160 ml Assessment & Plan Problem List: (1) Schizoaffective disorder ICD Code: F25.9 Assessment & Plan Estimated LOS: days patient continues somewhat psychotic though calmer compliant medication Justification for Cont. Inpt. At this time patient will decompensate if placed in the lower level of care Discharge Planning To be determined Request HC Surrog/Guard Advoc?: Yes Problem Qualifiers (1) Schizoaffective disorder: Qualified Code: F25.8 - Other schizoaffective disorders Chris Riggs MD Mar 07, 2017 10:10
[2017-03-07 18:40] VITALS: BP 100/56; PULSE 76; RESP 18; TEMP 98.4; O2SAT 96
[2017-03-07] MEDS: MIRTAZAPINE ODT 15 MG TAB PO SCH (21:29)
[2017-03-07] MEDS: OLANZapine ODT 5 MG TAB PO SCH (21:29)
[2017-03-08 05:45] VITALS: BP 99/56; PULSE 73; RESP 16; TEMP 98.5
[2017-03-08 06:34] VITALS: BP 99/56; PULSE 73; RESP 16; TEMP 98.5; O2SAT 98
[2017-03-08] MEDS: ESCITALOPRAM OXALATE 20 MG TAB PO SCH (09:30)
[2017-03-08] MEDS: BETAMETHASONE/CLOTRIMAZOLE CREAM 15 GM TOPICAL SCH ×2 (09:31→21:00)
--- NOTE | 2017-03-08 13:59 | HHI.PYPN ---
Subjective Remarks Patient seen in room with floor staff. Chart reviewed. Patient continues to isolate though no behavior problems, compliant medications it. State placement date now is 03/10 Review of Systems Except as stated in HPI: all other systems reviewed are Neg Objective Alert: Yes [place]: Person, Place Mood: Calm Affect: Flat Memory Intact: Comment (fair) Hallucinations: Other (No hallucinations) Delusions: Yes Delusion Type: Paranoid (rotting) Suicidal: Ideation (No SI) Homicidal: Ideation (No HI) Insight/Judgment Poor Vitals/IOs Vital Signs Date Time Temp Pulse Resp B/P Pulse Ox O2 Delivery O2 Flow Rate FiO2 03/08/17 06:34 98.5 73 16 99/56 98 Intake and Output 03/07/17 03/07/17 03/08/17 08:00 16:00 00:00 Intake Total 720 ml 730 ml 1930 ml Balance 720 ml 730 ml 1930 ml Assessment & Plan Problem List: (1) Schizoaffective disorder ICD Code: F25.9 Assessment & Plan Estimated LOS: days patient continue psychotic isolating. State placement date now 03/10 Justification for Cont. Inpt. At this time patient will decompensate if placed in the lower level of care Discharge Planning To be determined state placement date appears to be 03/10 Request HC Surrog/Guard Advoc?: Yes Problem Qualifiers (1) Schizoaffective disorder: Qualified Code: F25.8 - Other schizoaffective disorders Chris Riggs MD Mar 08, 2017 13:59
[2017-03-08] MEDS: MIRTAZAPINE ODT 15 MG TAB PO SCH (21:14)
[2017-03-08] MEDS: OLANZapine ODT 5 MG TAB PO SCH (21:14)
[2017-03-09 06:00] VITALS: BP 87/55; PULSE 73; RESP 16; TEMP 98.1
[2017-03-09] MEDS ORDERED: LOTR15T TOPICAL (08:44)
[2017-03-09] MEDS ORDERED: LISI-519 PO (08:44)
[2017-03-09] MEDS ORDERED: PROP20TA3 PO (08:44)
[2017-03-09] MEDS ORDERED: ESCI20TA PO (08:44)
[2017-03-09] MEDS ORDERED: REME45TA PO (08:44)
[2017-03-09] MEDS ORDERED: OLANZ5 PO (08:44)
--- NOTE | 2017-03-09 08:56 | HHI.DS ---
Psychiatry Discharge Summary Inpatient Psychiatric care?: Yes Advance Directive: No Reason Not Provided: [facility] AdvanceDirective: [place] and Number: [facility] Health Care Proxy: No Admission Admission Date Nov 12, 2016 at 01:16 Admission Diagnosis: (1) Schizoaffective disorder ICD Code: F25.9 Brief History This is a 61-year-old female with a multiyear history of either schizoaffective active disorder or schizophrenia. She has been living at a adult living facility and recently decompensating over the last several weeks. Over the last several weeks, staff reports she has been noncompliant with her medicines, refusing food, refusing supportive care, refusing to follow any directions, and making statements that she wants to . Patient continues to tell this physician of her suicidal ideation. However she also has paranoid delusions that others are poisoning her food. She does admit to not taking her antipsychotic medicine but does not have an adequate reason for this. She is a poor historian and does not want to give a full history to this physician. However, her paranoia is felt to adversely influence her judgment and insight and be the likely cause of her noncompliance with staff, food and medication. Patient seen for psychiatric second opinion. She is found sleeping in her bed, but easily arousable. Patient is just superficially cooperative, mostly guarded and paranoid. She is very malodorous and disheveled. Patient says that she has been feeling depressed, without reasons to live. She says that she wants to "because my life's been going downhill". Patient will not elaborate about her feelings and emotions. 12/03/16 Above note dictated by Dr. ruiz noted and agreed with, patient medically to Dr. Ruiz service under the Zhu act. Patient seen by me on unit with floor staff, patient continues paranoid delusional thinking vague suicidal statements, also has been noncompliant with treatment of medication after about living facility. Dr. lacey has signed first opinion petition supporting Zhu act. I agree. Patient meets criteria for involuntary psychiatric hospitalization under the Zhu act thus I'll cosign second opinion petition supporting Zhu act Tobacco Use In Past 30 Days: No Tobacco Past 30 Days Alcohol Use: Never Hospital Course Patient's hospital course was noticeable for her psychosis visual complaints medication irritability and poor response to medication. She has show poor compliance with her Clozaril to the point where it was discontinued and Zyprexa treatment was initiated. She has been compliant with this medication, but fairly poor response. She continues to isolate is vigilant and suspicious. There is a bed available today at [facility]. Patient be transferred there today by [facility] for further care and long-term treatment. Rx 1 month. To be sent with her Results Blood Pressure 87 / 55 Vital Signs Date Time Temp Pulse Resp B/P Pulse Ox O2 Delivery O2 Flow Rate FiO2 03/09/17 06:00 98.1 73 16 87/55 03/08/17 06:34 98 Urine toxicology negative Summary of Procedures None done Pending results at discharge: No Medications # of Antipsychotic meds at D/C: 1 Approp Antipsych med options 1 - Minimum of three failed multiple trials of monotherapy. 2 - Documented plan to taper to monotherapy due to previous use of multiple meds OR cross-taper in progress at D/C. 3 - Documentation of augmentation of Clozapine. 4 - Justification other than those listed in allowable values 1-3, document here : Discharge Discharge Date: Mar 10, 2017 Discharge Diagnosis: (1) Schizoaffective disorder Diagnosis: Principal ICD Code: F25.9 Mental Status Exam at Disch Alert somewhat suspicious and vigilant [place]ro-[place] female, she is normal active. Her mood is somewhat restricted to irritable with decreased range intensity of her affect. Speech is slow somewhat hesitant and tangential, little auditory or visual hallucinations noted. There is mild paranoia noted. Insight and judgment is very poor. Cognition grossly intact Pt Condition on Discharge: Stable Discharge Disposition: Disch to Another Hospital Discharge Instructions Diet Instructions: As Tolerated, No Restrictions Activities you can perform: Regular-No Restrictions Scheduled Appointment: [facility] Discharge Time > 30 minutes Discharge/Advance Care Plan Health Problems: (1) Schizoaffective disorder Goals to promote your health * To prevent worsening of your condition and complications * To maintain your health at the optimal level Directions to meet your goals Take your medications as prescribed Follow your dietary instruction Follow activity as directed Keep your appointments as scheduled Take your immunizations and boosters as scheduled If your symptoms worsen call your PCP, if no PCP go to Urgent Care Center or Emergency Room For 13/02 questions related to your inpatient stay or results of tests pending at discharge, please contact Dr. Chris Rigsg at Smoking is Dangerous to Your Health. Avoid second hand smoking Problem Qualifiers (1) Schizoaffective disorder: Qualified Code: F25.8 - Other schizoaffective disorders Chris Riggs MD Mar 09, 2017 08:56
[2017-03-09] MEDS: ESCITALOPRAM OXALATE 20 MG TAB PO SCH (08:59)
[2017-03-09] MEDS: BETAMETHASONE/CLOTRIMAZOLE CREAM 15 GM TOPICAL SCH ×2 (09:00→20:48)
[2017-03-09 17:07] VITALS: BP 119/65; PULSE 76; RESP 18; TEMP 99.1; O2SAT 96
[2017-03-09] MEDS: OLANZapine ODT 5 MG TAB PO SCH (20:47)
[2017-03-09] MEDS: MIRTAZAPINE ODT 15 MG TAB PO SCH (20:48)
[2017-03-10 06:08] VITALS: BP 92/57; PULSE 71; RESP 16; TEMP 97.9; O2SAT 98
== END 2017-03-10 07:50 | DRG 885 ==
LOC: NEPC 13:49 → NEDA 11-12 01:16 → H250 11-12 02:45
PROVIDERS: ADMIT Psychiatry & Neurology Psychiatry; ATTEND Psychiatry & Neurology Psychiatry
DX: F25.9 Schizoaffective disorder, unspecified (principal); R45.851 Suicidal ideations; Z91.14 Patient's other noncompliance with medication regimen; Z72.0 Tobacco use; F32.9 Major depressive disorder, single episode, unspecified; B35.3 Tinea pedis; K11.7 Disturbances of salivary secretion; K59.00 Constipation, unspecified; R32 Unspecified urinary incontinence; R00.0 Tachycardia, unspecified
CPT/HCPCS: 80048; 80053; 80061; 80159; 80307; 81001; 82024; 82533; 82550; 83002; 83003; 83036; 83735; 84146; 84305; 84439; 84443; 85025; 93005; 99284; G0480